=== PATIENT | male | born 1955 | race Caucasian/White ===

== ENCOUNTER → 2017-10-20 10:30 | Outpatient (CLI) | payer BC, SELFPAY ==
[2017-10-20 16:21] LABS: Absolute Lymphocyte Count 1.79 X10^3/ul (0.83-4.51); Absolute Neutrophil Count 2.9 X10^3/uL (2.0-7.7); Basophil# 0.02 X10^3/uL; Basophil% 0.4 % (0-1); Eosinophil# 0.11 X10^3/uL; Eosinophils% 2.1 % (0-5); Hematocrit 46.8 % (40-54); Hemoglobin 14.8 g/dl (13.0-16.5); Lymphocyte # 1.79 X10^3/ul (4.0); Lymphocyte % 33.9 % (19-41); Mean Corp Hgb Conc 31.6 g/gl (32-36); Mean Corpuscular Volume 98.1 fL (80-94); Mean Platelet Vol. 9.9 fl (6.2-12.0); Monocyte# 0.46 X10^3/uL; Monocyte% 8.7 % (0-10); Neutrophil % 54.9 % (47-70); Platelet Count 238 K/mm3 (150-450); RBC Distribution Width CV 12.6 % (11.6-14.6); RBC Distribution Width SD 45.1 fl (35.1-43.9); Red Blood Count 4.77 M/mm3 (4.6-6.2); White Blood Count 5.3 K/mm3 (4.4-11.0)
[2017-10-20 16:31] LABS: ALB/GLOB Ratio 0.9 RATIO (0.9-2.4); AST(SGOT) 19 U/L (15-37); Alanine Aminotransfer ALT/SGPT 35 U/L (16-61); Albumin, Serum 3.7 g/dL (3.2-5.0); Alkaline Phosphatase 74 U/L (45-117); Anion Gap 7 (5-15); BUN 16 mg/dL (7-18); BUN/Creat Ratio 20.2 RATIO (10-20); Calcium,Total 8.7 mg/dL (8.5-10.1); Chloride 105 mmol/L (98-107); Creatinine, Serum 0.79 mg/dL (0.70-1.30); EST Glomerular Filtration Rate 106 mL/min (>60); Est Glom Filt Rate - Afr Amer 128 mL/min (>60); Globulin 3.9 g/dL (2.2-4.2); Glucose 86 mg/dL (74-106); POSITIVE COUNT NO; POSITIVE DIFFERENTIAL NO; POSITIVE MORPHOLOGY NO; Potassium 4.2 mmol/L (3.5-5.1); Protein, Total 7.6 g/dL (6.4-8.2); Sodium Level 142 mmol/L (136-145); Thyroid Stim Hormone (TSH) 0.79 uIU/mL (0.358-3.74)
== END ==
PROVIDERS: Family Provider Family Medicine Geriatric Medicine; PCP Family Medicine Geriatric Medicine; Visit Provider Family Medicine Geriatric Medicine
DX: R53.83 Other fatigue (principal)
CPT/HCPCS: 36415; 80053; 84443; 85025

== ENCOUNTER → 2018-04-07 11:11 | Outpatient (CLI) | payer BC, SELFPAY ==
[2018-04-07 12:37] LABS: Absolute Lymphocyte Count 1.61 X10^3/ul (0.83-4.51); Absolute Neutrophil Count 2.9 X10^3/uL (2.0-7.7); Basophil# 0.02 X10^3/uL; Basophil% 0.4 % (0-1); Eosinophil# 0.19 X10^3/uL; Eosinophils% 3.6 % (0-5); Hematocrit 46.3 % (40-54); Hemoglobin 14.6 g/dl (13.0-16.5); Lymphocyte # 1.61 X10^3/ul (4.0); Lymphocyte % 30.4 % (19-41); Mean Corp Hgb Conc 31.5 g/gl (32-36); Mean Corpuscular Hgb 30.9 pg (27.0-32.0); Mean Corpuscular Volume 97.9 fL (80-94); Mean Platelet Vol. 9.7 fl (6.2-12.0); Monocyte# 0.58 X10^3/uL; Neutrophil # 2.89 X10^3/uL (2.7-7.7); Neutrophil % 54.6 % (47-70); POSITIVE COUNT NO; POSITIVE DIFFERENTIAL NO; POSITIVE MORPHOLOGY NO; Platelet Count 207 K/mm3 (150-450); RBC Distribution Width SD 46.6 fl (35.1-43.9); Red Blood Count 4.73 M/mm3 (4.6-6.2); White Blood Count 5.3 K/mm3 (4.4-11.0)
[2018-04-07 13:02] LABS: ALB/GLOB Ratio 0.9 RATIO (0.9-2.4); AST(SGOT) 17 U/L (15-37); Alanine Aminotransfer ALT/SGPT 32 U/L (16-61); Albumin, Serum 3.6 g/dL (3.2-5.0); Alkaline Phosphatase 70 U/L (45-117); Anion Gap 8 (5-15); BUN 14 mg/dL (7-18); BUN/Creat Ratio 14.5 RATIO (10-20); Calcium,Total 8.7 mg/dL (8.5-10.1); Chloride 105 mmol/L (98-107); Creatinine, Serum 0.96 mg/dL (0.70-1.30); EST Glomerular Filtration Rate 84 mL/min (>60); Est Glom Filt Rate - Afr Amer 102 mL/min (>60); Globulin 3.8 g/dL (2.2-4.2); Glucose 101 mg/dL (74-106); PSA,Total - Annual Screen 1.65 ng/mL (0.00-4.00); Potassium 4.2 mmol/L (3.5-5.1); Protein, Total 7.4 g/dL (6.4-8.2); Sodium Level 140 mmol/L (136-145); Thyroid Stim Hormone (TSH) 3.64 uIU/mL (0.358-3.74)
[2018-04-08 08:33] LABS: Hep C Antibodies 0.1 s/co ratio (0.0-0.9)
== END ==
PROVIDERS: Family Provider Family Medicine Geriatric Medicine; PCP Family Medicine Geriatric Medicine; Visit Provider Family Medicine Geriatric Medicine
DX: I10 Essential (primary) hypertension (principal); Z13.89 Encounter for screening for other disorder; Z12.5 Encounter for screening for malignant neoplasm of prostate
CPT/HCPCS: 36415; 80053; 84153; 84443; 85025; 86803; G0103

== ENCOUNTER → 2018-10-06 10:04 | Outpatient (CLI) | payer BC, SELFPAY ==
[2018-10-06 12:43] LABS: Absolute Lymphocyte Count 1.51 X10^3/ul (0.83-4.51); Basophil# 0.02 X10^3/uL; Basophil% 0.5 % (0-1); Eosinophil# 0.25 X10^3/uL; Eosinophils% 5.8 % (0-5); Hematocrit 44.5 % (40-54); Hemoglobin 14.1 g/dl (13.0-16.5); Lymphocyte # 1.51 X10^3/ul (4.0); Lymphocyte % 35.1 % (19-41); Mean Corp Hgb Conc 31.7 g/gl (32-36); Mean Corpuscular Volume 97.8 fL (80-94); Mean Platelet Vol. 9.9 fl (6.2-12.0); Monocyte# 0.48 X10^3/uL; Monocyte% 11.2 % (0-10); Neutrophil # 2.03 X10^3/uL (2.7-7.7); Neutrophil % 47.2 % (47-70); Platelet Count 205 K/mm3 (150-450); RBC Distribution Width CV 12.8 % (11.6-14.6); RBC Distribution Width SD 45.8 fl (35.1-43.9); Red Blood Count 4.55 M/mm3 (4.6-6.2); White Blood Count 4.3 K/mm3 (4.4-11.0)
[2018-10-06 12:46] LABS: POSITIVE COUNT NO; POSITIVE DIFFERENTIAL NO; POSITIVE MORPHOLOGY NO
[2018-10-06 13:13] LABS: ALB/GLOB Ratio 1.1 RATIO (0.9-2.4); AST(SGOT) 22 U/L (15-37); Alanine Aminotransfer ALT/SGPT 33 U/L (16-61); Albumin, Serum 3.8 g/dL (3.2-5.0); Alkaline Phosphatase 56 U/L (45-117); Anion Gap 7 (5-15); BUN 17 mg/dL (7-18); BUN/Creat Ratio 21.6 RATIO (10-20); Calcium,Total 8.5 mg/dL (8.5-10.1); Chloride 106 mmol/L (98-107); Creatinine, Serum 0.79 mg/dL (0.70-1.30); EST Glomerular Filtration Rate 106 mL/min (>60); Est Glom Filt Rate - Afr Amer 128 mL/min (>60); Globulin 3.4 g/dL (2.2-4.2); Glucose 106 mg/dL (74-106); Potassium 3.9 mmol/L (3.5-5.1); Protein, Total 7.2 g/dL (6.4-8.2); Sodium Level 141 mmol/L (136-145); Thyroid Stim Hormone (TSH) 4.33 uIU/mL (0.358-3.74)
== END ==
PROVIDERS: Family Provider Family Medicine Geriatric Medicine; PCP Family Medicine Geriatric Medicine; Visit Provider Family Medicine Geriatric Medicine
DX: I10 Essential (primary) hypertension (principal)
CPT/HCPCS: 36415; 80053; 84443; 85025

== ENCOUNTER → 2018-10-15 12:59 | Outpatient (CLI) | payer BC, SELFPAY ==
[2018-10-15 13:30] LABS: Absolute Lymphocyte Count 1.28 X10^3/ul (0.83-4.51); Absolute Neutrophil Count 2.7 X10^3/uL (2.0-7.7); Basophil# 0.03 X10^3/uL; Basophil% 0.6 % (0-1); Eosinophils% 2.2 % (0-5); Hematocrit 43.6 % (40-54); Hemoglobin 14.2 g/dl (13.0-16.5); Lymphocyte # 1.28 X10^3/ul (4.0); Lymphocyte % 27.7 % (19-41); Mean Corp Hgb Conc 32.6 g/gl (32-36); Mean Corpuscular Hgb 31.8 pg (27.0-32.0); Mean Corpuscular Volume 97.8 fL (80-94); Mean Platelet Vol. 9.3 fl (6.2-12.0); Monocyte# 0.51 X10^3/uL; Neutrophil # 2.69 X10^3/uL (2.7-7.7); Neutrophil % 58.3 % (47-70); Platelet Count 213 K/mm3 (150-450); RBC Distribution Width CV 12.6 % (11.6-14.6); RBC Distribution Width SD 44.1 fl (35.1-43.9); Red Blood Count 4.46 M/mm3 (4.6-6.2); White Blood Count 4.6 K/mm3 (4.4-11.0)
[2018-10-15 13:31] LABS: POSITIVE COUNT NO; POSITIVE DIFFERENTIAL NO; POSITIVE MORPHOLOGY NO
--- NOTE | 2018-10-15 13:36 | CT_ITS ---
STUDY: CT ABDOMEN AND PELVIS WITH CONTRAST REASON FOR EXAM: Male, 63 years old. Right lower quadrant pain RADIATION DOSAGE (If Supplied By Facility): CTDIvol = ( 15.84 ) mGy, DLP = ( 1149.33 ) mGycm TECHNIQUE: Transaxial images were obtained from the dome of the diaphragm to the symphysis pubis without oral contrast. Isovue 300 100 IV/Oral was administered. Sagittal and coronal images were reconstructed. Individualized dose optimization techniques were used for this CT. COMPARISON: None. FINDINGS: The visualized lung bases are unremarkable. The visualized portions of the heart are within normal limits. Normal liver. Normal gallbladder and extrahepatic biliary system. Normal spleen. Normal pancreas. Normal bilateral adrenal glands. Normal right kidney. Normal left kidney. Normal visualized stomach. Normal small intestine. Normal colon. The appendix is visualized and appears normal. Normal abdominal aorta. Normal inferior vena cava. Normal retroperitoneum. Normal urinary bladder. Normal abdominal wall. There are diffuse degenerative changes of the visualized lumbar spine. CT/Abdomen/Pelvis WITH Contrast IMPRESSION: Normal enhanced CT of the abdomen and pelvis. Electronically Signed: Julio Anderson, at 15:58 EDT Tel , Service support ,
[2018-10-15 13:44] LABS: ALB/GLOB Ratio 1.3 RATIO (0.9-2.4); AST(SGOT) 19 U/L (15-37); Alanine Aminotransfer ALT/SGPT 25 U/L (16-61); Albumin, Serum 3.8 g/dL (3.2-5.0); Alkaline Phosphatase 57 U/L (45-117); Anion Gap 3 (5-15); BUN 13 mg/dL (7-18); BUN/Creat Ratio 16.1 RATIO (10-20); Calcium,Total 8.5 mg/dL (8.5-10.1); Chloride 108 mmol/L (98-107); EST Glomerular Filtration Rate 103 mL/min (>60); Est Glom Filt Rate - Afr Amer 125 mL/min (>60); Glucose 98 mg/dL (74-106); Potassium 3.7 mmol/L (3.5-5.1); Protein, Total 6.8 g/dL (6.4-8.2); Sodium Level 140 mmol/L (136-145)
== END ==
LOC: POLAB3 13:33 → CT 13:34
PROVIDERS: Family Provider Family Medicine Geriatric Medicine; PCP Family Medicine Geriatric Medicine; Referring Provider Family Medicine Geriatric Medicine; Visit Provider Family Medicine Geriatric Medicine
DX: R10.9 Unspecified abdominal pain (principal); K40.90 Unilateral inguinal hernia, without obstruction or gangrene, not specified as recurrent
CPT/HCPCS: 36415; 74177; 80053; 85025; Q9967

== ENCOUNTER 2018-10-26 06:56 | Day surgery (SDC) | payer BC, SELFPAY ==
[2018-10-21 08:03] VITALS: BMI 24.4
--- NOTE | 2018-10-21 09:14 | HP_ITS ---
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 Is patient in pain?: No Allergies Penicillins Allergy (Mild, Verified 10/21/18 08:04) Unknown Medications aspirin 81 mg tablet,delayed release 81 mg PO QDAY 08/11/17 [History Confirmed 10/21/18] atorvastatin 40 mg tablet 40 mg PO QDAY 08/11/17 [History Confirmed 10/21/18] levothyroxine 125 mcg tablet 125 mcg PO QDAY tab 08/11/17 [History Confirmed 10/21/18] lisinopril 10 mg tablet 10 mg PO DAILY 10/21/18 [History Confirmed 10/21/18] ranitidine 150 mg capsule 150 mg PO DAILY 10/21/18 [History Confirmed 10/21/18] [facility] Medical History Acid reflux (Acute) High cholesterol (Acute) Hypothyroid (Acute) HTN (hypertension) (Chronic) Surgical History S/P nasal polypectomy (Acute) Family History Mother Colon cancer Hypertension Social History Smoking Status: Never smoker alcohol intake: never ROS General General: No weight change, appetite, fatigue, colon cancer, breast cancer or weakness HEENT HEENT: No difficulty swallowing, eye injury, eye surgery, swollen glands or hoarseness Endo Endocrine: No thyroid disease, diabetes mellitus, thyroid cancer, Hair loss, heat intolerance or cold intolerance Skin Skin: No rash or changing moles Breast Breast: No left breast lump, right breast lump, nipple discharge, breast pain, abnormal mammogram, abnormal US or breast enlargement Musc Musculoskeletal: No back problems, arthritis, rheumatoid arthritis, gout or joint pain Cardio Cardiovascular: No murmur, pacemaker, heart disease, atrial fibrillation, high blood pressure, heart attack, heart stent, palpitations, shortness of breat with exertion or chest pain Psych Psychiatric: No depression, anxiety or hearing voices Resp Respiratory: No shortness of breath, No sleep apnea, No cough, No COPD, No asthma, No emphysema, No wheezing Gastro Gastrointestinal: No abdominal pain, No nausea or vomiting, No diarrhea, No constipation, No blood in stool, No acid reflux, No hemorrhoids, No ulcers, No gallbladder problem, No black,tarry stools Mukesh Hematologic: No blood thinners, No blood disorders, No bleeding, No anemia, No blood clots Neuro Neurologic: No system reviewed and no additional complaints, except as docu, No as per HPI, No abnormal walking, No abnormal hearing, No abnormal movements, No abnormal speech, No behavioral changes, No burning sensations, No confusion, No seizure-like activity, No unsteadiness, No dizziness, No localized weakness, No frequent falls, No headache(s), No lack of coordination, No loss of vision, No memory loss, No numbness, No other visual disturbances, No radiating pain, No restless legs, No sensory deficit, No fainting, No tingling, No tremor(s), No weakness, No other Exam Const General: cooperative, healthy appearing, comfortable, no acute distress Nutritional Appearance: average body habitus Orientation: alert, awake, oriented x3 HENMT Head: normal to inspection Eyes General: appearance normal, both eyes and all related structures Chest Breast Palpation: No nipple discharge Resp Effort & Inspection: normal respiratory effort Auscultation: clear to auscultation bilaterally Cardio Rate: regular rate Rhythm: regular rhythm Heart Sounds: no murmurs GI Palpation: soft, no hepatosplenomegaly Auscultation: normal bowel sounds Other: Bilateral testicles are descended. Some slight fibrofatty fullness left groin but I cannot detect a distinct hernia Obvious indirect right inguinal hernia noted currently reducible Skin General: no rashes or lesions noted Neuro Cranial Nerves: CN's II-XI intact bilaterally Extrem General: no calf tenderness bilaterally Psych Affect: normal affect Assessment & Plan Problems 1. Family history of colon cancer in mother Z80.0 2. Inguinal hernia of right side without obstruction or gangrene K40.90 Plan 63-year-old gentleman who is 10 years from his previous colonoscopy and he has a family history of colon cancer in his mother. I propose for him a colonoscopy with possible biopsy or polypectomy is indicated. He is aware of the technique, benefit, risks and alternatives. I anticipate monitored anesthesia care. We will proceed as noted. Patient clinically has an obvious right inguinal hernia. There was some fibrofatty fullness of the left groin but I could not determine a distinct hernia. The patient does a significant amount of lifting and straining. I propose for him a laparoscopic right inguinal hernia repair with mesh. He is aware of the technique, benefit, risks and alternatives. He states that his brother had a bilateral hernia repair performed in a similar technique. We will very carefully inspect the left groin for signs of early herniation. The patient and I have agreed to pursue a laparoscopic left inguinal herniorrhaphy at the same setting if a hernia is detected. His clinical exam on the left was not completely normal. The patient has had an opportunity to ask and have questions answered. Very comfortable with our current plan of approach. I very much appreciate the kind opportunity of assisting with his surgical care. CC: Dr. Bernardino Diaz M.D., F.A.C.S. Coding Level of Care Code Off vis,new,level 4 Diagnoses Family history of colon cancer in mother Z80.0 Inguinal hernia of right side without obstruction or gangrene K40.90
[2018-10-26] VITALS (7 sets, daily range): BP systolic 109–135; BP diastolic 64–83; PULSE 69–72; RESP 16; TEMP 36.4–37.1; O2SAT 99–100; BMI 23.7
--- NOTE | 2018-10-26 07:14 | EKG12_ITS ---
Test Reason : PRE OP Blood Pressure : / mmHG Vent. Rate : 072 BPM Atrial Rate : 072 BPM P-R Int : 164 ms QRS Dur : 094 ms QT Int : 382 ms P-R-T Axes : 051 037 059 degrees QTc Int : 418 ms Normal sinus rhythm Normal ECG No previous ECGs available Confirmed by BENNIE DAMON, EDMUNDO ([id number]), photograph editor MARILY BAH ([id number]) on 11/01/2018 1:35:13 PM Referred By: Abhinav Lebron Confirmed By:EDMUNDO AVERY MD
[2018-10-26 07:54] LABS: Thyroid Stim Hormone (TSH) 3.18 uIU/mL (0.358-3.74)
--- NOTE | 2018-10-26 08:24 | OP.ENDO_ITS ---
10/26/2018 Abhinav Lebron MD [address] [place] [address] Re : Colonoscopy procedure for Franco Francis Dear Dr. Lebron This procedure was performed on Friday, October 26, 2018. My impressions and recommendations are as follows: Impressions : - Non-thrombosed internal hemorrhoids and internal hemorrhoids that prolapse with straining, but spontaneously regress to the resting position (Grade II) found on digital rectal exam. - The entire examined colon is normal. - No specimens collected. Recommendations : - Discharge patient to home. - Resume previous diet. - Continue present medications. - Repeat colonoscopy in 5 years for surveillance. My findings are described in the full procedure note, which is enclosed. If I can be of further assistance, please feel free to contact me at Doctor phone number(s): Work: . Sincerely, Leif Diaz MD 10/26/2018 8:23:57 AM This report has been signed electronically.
== END 2018-10-26 09:10 | disposition home or self-care (01) ==
LOC: EN 06:57 → AC 06:57
PROVIDERS: Family Provider Family Medicine Geriatric Medicine; PCP Family Medicine Geriatric Medicine; Referring Provider Family Medicine Geriatric Medicine; Visit Provider Surgery
PROC: 0DJD8ZZ Inspection of Lower Intestinal Tract, Via Natural or Artificial Opening Endoscopic (ICD-10-PCS; CPT 45378; principal; 2018-10-26 07:55)
DX: K64.1 Second degree hemorrhoids (principal); Z80.0 Family history of malignant neoplasm of digestive organs; K40.90 Unilateral inguinal hernia, without obstruction or gangrene, not specified as recurrent; Z79.82 Long term (current) use of aspirin; E78.00 Pure hypercholesterolemia, unspecified; E03.9 Hypothyroidism, unspecified; I10 Essential (primary) hypertension; K21.9 Gastro-esophageal reflux disease without esophagitis
CPT/HCPCS: 45378; 36415; 84443; 93005; J7120

== ENCOUNTER 2018-11-10 08:58 | Day surgery (SDC) | payer BC, SELFPAY ==
[2018-10-21 08:03] VITALS: BMI 24.4
--- NOTE | 2018-10-21 09:14 | HP_ITS ---
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 Is patient in pain?: No Allergies Penicillins Allergy (Mild, Verified 10/21/18 08:04) Unknown Medications aspirin 81 mg tablet,delayed release 81 mg PO QDAY 08/11/17 [History Confirmed 10/21/18] atorvastatin 40 mg tablet 40 mg PO QDAY 08/11/17 [History Confirmed 10/21/18] levothyroxine 125 mcg tablet 125 mcg PO QDAY tab 08/11/17 [History Confirmed 10/21/18] lisinopril 10 mg tablet 10 mg PO DAILY 10/21/18 [History Confirmed 10/21/18] ranitidine 150 mg capsule 150 mg PO DAILY 10/21/18 [History Confirmed 10/21/18] [facility] Medical History Acid reflux (Acute) High cholesterol (Acute) Hypothyroid (Acute) HTN (hypertension) (Chronic) Surgical History S/P nasal polypectomy (Acute) Family History Mother Colon cancer Hypertension Social History Smoking Status: Never smoker alcohol intake: never ROS General General: No weight change, appetite, fatigue, colon cancer, breast cancer or weakness HEENT HEENT: No difficulty swallowing, eye injury, eye surgery, swollen glands or hoarseness Endo Endocrine: No thyroid disease, diabetes mellitus, thyroid cancer, Hair loss, heat intolerance or cold intolerance Skin Skin: No rash or changing moles Breast Breast: No left breast lump, right breast lump, nipple discharge, breast pain, abnormal mammogram, abnormal US or breast enlargement Musc Musculoskeletal: No back problems, arthritis, rheumatoid arthritis, gout or joint pain Cardio Cardiovascular: No murmur, pacemaker, heart disease, atrial fibrillation, high blood pressure, heart attack, heart stent, palpitations, shortness of breat with exertion or chest pain Psych Psychiatric: No depression, anxiety or hearing voices Resp Respiratory: No shortness of breath, No sleep apnea, No cough, No COPD, No asthma, No emphysema, No wheezing Gastro Gastrointestinal: No abdominal pain, No nausea or vomiting, No diarrhea, No constipation, No blood in stool, No acid reflux, No hemorrhoids, No ulcers, No gallbladder problem, No black,tarry stools Mukesh Hematologic: No blood thinners, No blood disorders, No bleeding, No anemia, No blood clots Neuro Neurologic: No system reviewed and no additional complaints, except as docu, No as per HPI, No abnormal walking, No abnormal hearing, No abnormal movements, No abnormal speech, No behavioral changes, No burning sensations, No confusion, No seizure-like activity, No unsteadiness, No dizziness, No localized weakness, No frequent falls, No headache(s), No lack of coordination, No loss of vision, No memory loss, No numbness, No other visual disturbances, No radiating pain, No restless legs, No sensory deficit, No fainting, No tingling, No tremor(s), No weakness, No other Exam Const General: cooperative, healthy appearing, comfortable, no acute distress Nutritional Appearance: average body habitus Orientation: alert, awake, oriented x3 HENMT Head: normal to inspection Eyes General: appearance normal, both eyes and all related structures Chest Breast Palpation: No nipple discharge Resp Effort & Inspection: normal respiratory effort Auscultation: clear to auscultation bilaterally Cardio Rate: regular rate Rhythm: regular rhythm Heart Sounds: no murmurs GI Palpation: soft, no hepatosplenomegaly Auscultation: normal bowel sounds Other: Bilateral testicles are descended. Some slight fibrofatty fullness left groin but I cannot detect a distinct hernia Obvious indirect right inguinal hernia noted currently reducible Skin General: no rashes or lesions noted Neuro Cranial Nerves: CN's II-XI intact bilaterally Extrem General: no calf tenderness bilaterally Psych Affect: normal affect Assessment & Plan Problems 1. Family history of colon cancer in mother Z80.0 2. Inguinal hernia of right side without obstruction or gangrene K40.90 Plan 63-year-old gentleman who is 10 years from his previous colonoscopy and he has a family history of colon cancer in his mother. I propose for him a colonoscopy with possible biopsy or polypectomy is indicated. He is aware of the technique, benefit, risks and alternatives. I anticipate monitored anesthesia care. We will proceed as noted. Patient clinically has an obvious right inguinal hernia. There was some fibrofatty fullness of the left groin but I could not determine a distinct hernia. The patient does a significant amount of lifting and straining. I propose for him a laparoscopic right inguinal hernia repair with mesh. He is aware of the technique, benefit, risks and alternatives. He states that his brother had a bilateral hernia repair performed in a similar technique. We will very carefully inspect the left groin for signs of early herniation. The patient and I have agreed to pursue a laparoscopic left inguinal herniorrhaphy at the same setting if a hernia is detected. His clinical exam on the left was not completely normal. The patient has had an opportunity to ask and have questions answered. Very comfortable with our current plan of approach. I very much appreciate the kind opportunity of assisting with his surgical care. CC: Dr. Bernardino Diaz M.D., F.A.C.S. Coding Level of Care Code Off vis,new,level 4 Diagnoses Family history of colon cancer in mother Z80.0 Inguinal hernia of right side without obstruction or gangrene K40.90
[2018-10-26 07:22] VITALS: BMI 23.7
[2018-11-10 09:00] VITALS: BP 136/86; PULSE 78; RESP 16; TEMP 37.1; O2SAT 100; BMI 23.7
--- NOTE | 2018-11-10 12:54 | PCM.DC.GS ---
Discharge Diet: Light diet - advance as tolerated - if you have questions about your diet instructions, please talk to you doctor. Discharge Activity: May Not Drive - for 3-5 days or while taking narcotic pain medicine. May shower in (days): 1 Lifting Restrictions: 10 pounds Call your doctor if your incision/area has: Continuous Slow Oozing, Sudden Increased Bleeding, Increased Pain/ Swelling, Increased Redness, Foul Smelling Discharge Call your doctor if you observe: Fever of 101 or Higher Suture Line Care: Avoid Pulling/Pushing, Avoid Pinching/Bending Additional Dressing/Incision Instructions:: Change or remove dressing in 4 days. Leave steri-strips in place for 1 week. Allergies/Adverse Reactions: Allergies Penicillins Allergy (Mild, Verified 10/25/18 15:23) Unknown Medications to take at Discharge aspirin 81 mg tablet,delayed release 81 mg PO QDAY 08/11/17 atorvastatin 40 mg tablet 40 mg PO QDAY 08/11/17 levothyroxine 125 mcg tablet 125 mcg PO QDAY tab 08/11/17 lisinopril 10 mg tablet 5 mg PO DAILY 10/21/18 ranitidine 150 mg capsule 150 mg PO DAILY 10/21/18 Cholecalciferol (VIT D3) [Vitamin D3] 1,000 unit PO DAILY 10/25/18 Multivit-Min/FA/Lycopen/Lutein [Centrum Silver Men Tablet] 1 each PO DAILY 10/25/18 Hydrocodone Bitart/Apap 5-325 [Collbran 5MG-325MG] 1 tablet PO Q4H PRN PRN 3 Days #10 tablet 11/10/18 The following prescriptions were given: Hydrocodone Bitart/Apap 5-325 [Collbran 5MG-325MG] 1 tablet PO Q4H PRN PRN 3 Days #10 tablet PRN Reason: Pain Orders to be completed after discharge: Thyroid Stim Hormone (TSH) Time Frame: 10/25/18, Location: Laboratory Primary Care Physician: Abhinav Lebron Chi, MD [Primary Care Provider] - Test Results: Test results from this visit will be discussed in further detail at your follow-up appointment, if applicable. Please Follow Up With: Leif Diaz MD - [phone] When: Call to make an appointment to be seen in about 10 days.
[2018-11-10] MEDS: Bupivacaine Mpf 0.5% 30 ML VIAL (14:29)
--- NOTE | 2018-11-10 14:31 | PCM.OPRPT ---
Problem List (1) Inguinal hernia of right side without obstruction or gangrene Status: Acute Report of Operation Date of Procedure: 11/10/18 Pre-Operative Diagnosis: Indirect right inguinal hernia Post-Operative Diagnosis: Indirect bilateral inguinal hernias Surgery/Procedure Performed:: Laparoscopic bilateral inguinal herniorrhaphy Description of Surgical Findings:: Timeout and informed consent was obtained. 63-year-old gent was taken the operative placement table underwent general endotracheal intubation anesthesia. Clindamycin 900 mg were given intravenously preoperatively. The abdomen was sterilely prepped draped. 0.5% Marcaine was used as a local anesthetic. Throughout the procedure total 30 cc was used. Skin sites were pre-anesthetized. A vertical infraumbilical incision was created holding sutures of 0 Vicryl placed previously was inserted saline drop test performed the abdomen was insufflated with CO2 to a pressure of 10 mmHg pressure. To me trocar inserted. Similar scope inserted. Under direct position 5-minute ports were placed in the right and left lower quadrant. Ileal inguinal nerve blocks performed under laparoscopic visualization. Bilateral indirect inguinal hernias were identified. The right groin was addressed first. The peritoneum superior and lateral to the internal ring was incised carried medially the peritoneum was then completely dissected free. This was rather tedious as the peritoneum was quite adherent. Blunt dissection hemo-lock clips and sharp dissection were required to completely free the peritoneum from its adherence to the cord structures. The hernia was completely reduced. The direct and indirect and femoral areas completely dissected free. A Bard 3 DMax lightweight mesh lot number [id number] with a expiry date of 05/23/2023 was selected for the right side. He was placed in position and then secured laterally superiorly and medially with secure strap. Lot number [id number] with an expiry date of 06/15/2020. Then I address the left groin in a similar fashion incising the peritoneum dissecting free reducing the indirect hernia identifying the direct indirect and femoral areas. I selected a 3D max left light weight mesh lot number [id number]. That also was nicely placed into position. It just met the mesh from the right side. It was secured laterally superiorly medially with secure strap. Excellent coverage of both defect areas was achieved. The peritoneum was approximated to itself bilaterally with secure strap and additionally on the left with a hemo-lock clip. Complete obliteration of the mesh was achieved. Trochars were removed under visualization. The abdomen was allowed to deflate of the CO2. The fascia at the umbilicus approximated interrupted 0 Vicryl [id number] suture. Skin edges approximated interrupted 4 Monocryl subdermal stitches. Steri-Strips Telfa and OpSite dressings applied. Sponge and instrument and needle counts were reported the surgeon be correct. Blood loss was minimal. Patient tolerated procedure well was taken to the recovery area in satisfactory condition without apparent complication. Specimens none. Drains none. Blood loss minimal. Leif Diaz M.D., F.A.C.S. Type of Anesthesia:: General Anesthesiologist: Jhonny Quezada
--- NOTE | 2018-11-10 14:35 | OP.PCM_ITS ---
Problem List (1) Inguinal hernia of right side without obstruction or gangrene Status: Acute Report of Operation Date of Procedure: 11/10/18 Pre-Operative Diagnosis: Indirect right inguinal hernia Post-Operative Diagnosis: Indirect bilateral inguinal hernias Surgery/Procedure Performed:: Laparoscopic bilateral inguinal herniorrhaphy Description of Surgical Findings:: Timeout and informed consent was obtained. 63-year-old gent was taken the operative placement table underwent general endotracheal intubation anesthesia. Clindamycin 900 mg were given intravenously preoperatively. The abdomen was sterilely prepped draped. 0.5% Marcaine was used as a local anesthetic. Throughout the procedure total 30 cc was used. Skin sites were pre- anesthetized. A vertical infraumbilical incision was created holding sutures of 0 Vicryl placed previously was inserted saline drop test performed the abdomen was insufflated with CO2 to a pressure of 10 mmHg pressure. To me trocar inserted. Similar scope inserted. Under direct position 5-minute ports were placed in the right and left lower quadrant. Ileal inguinal nerve blocks performed under laparoscopic visualization. Bilateral indirect inguinal hernias were identified. The right groin was addressed first. The peritoneum superior and lateral to the internal ring was incised carried medially the peritoneum was then completely dissected free. This was rather tedious as the peritoneum was quite adherent. Blunt dissection hemo-lock clips and sharp dissection were required to completely free the peritoneum from its adherence to the cord structures. The hernia was completely reduced. The direct and indirect and femoral areas completely dissected free. A Bard 3 DMax lightweight mesh lot number [id number] with a expiry date of 05/23/2023 was selected for the right side. He was placed in position and then secured laterally superiorly and medially with secure strap. Lot number [id number] with an expiry date of 06/15/2020. Then I address the left groin in a similar fashion incising the peritoneum dissecting free reducing the indirect hernia identifying the direct indirect and femoral areas. I selected a 3D max left light weight mesh lot number [id number]. That also was nicely placed into position. It just met the mesh from the right side. It was secured laterally superiorly medially with secure strap. Excellent coverage of both defect areas was achieved. The peritoneum was approximated to itself bilaterally with secure strap and additionally on the left with a hemo-lock clip. Complete obliteration of the me sh was achieved. Trochars were removed under visualization. The abdomen was allowed to deflate of the CO2. The fascia at the umbilicus approximated interrupted 0 Vicryl [id number] suture. Skin edges approximated interrupted 4 Monocryl subdermal stitches. Steri-Strips Telfa and OpSite dressings applied. Sponge and instrument and needle counts were reported the surgeon be correct. Blood loss was minimal. Patient tolerated procedure well was taken to the recovery area in satisfactory condition without apparent complication. Specimens none. Drains none. Blood loss minimal. Leif Diaz M.D., F.A.C.S. Type of Anesthesia:: General Anesthesiologist: Jhonny Quezada
[2018-11-10 14:55] VITALS: BP 123/79; BP 136/86; PULSE 61; RESP 14; TEMP 37.1; O2SAT 97
[2018-11-10 15:00] VITALS: BP 118/77; BP 136/86; PULSE 63; RESP 14; O2SAT 96
[2018-11-10 15:15] VITALS: BP 107/72; BP 136/86; PULSE 64; RESP 16; O2SAT 98
[2018-11-10 15:31] VITALS: BP 112/70; BP 136/86; PULSE 72; RESP 16; TEMP 36.9; O2SAT 98
[2018-11-10 16:22] VITALS: BP 132/69; BP 136/86; PULSE 79; RESP 18; TEMP 37; O2SAT 99
== END 2018-11-10 16:47 | disposition home or self-care (01) ==
LOC: SDC 08:59 → AC 09:01
PROVIDERS: Family Provider Family Medicine Geriatric Medicine; PCP Family Medicine Geriatric Medicine; Referring Provider Surgery; Visit Provider Surgery
PROC: (CPT 49650; principal; 2018-11-10 10:40)
DX: K40.20 Bilateral inguinal hernia, without obstruction or gangrene, not specified as recurrent (principal); I10 Essential (primary) hypertension; E03.9 Hypothyroidism, unspecified; E78.00 Pure hypercholesterolemia, unspecified; Z79.82 Long term (current) use of aspirin; Z80.0 Family history of malignant neoplasm of digestive organs
CPT/HCPCS: 00840; 49650; J7120; J2405

== ENCOUNTER → 2018-11-26 10:18 | Outpatient (CLI) | payer BC, SELFPAY ==
[2018-10-26 07:22] VITALS: BMI 23.7
[2018-11-10 09:00] VITALS: BMI 23.7
== END ==
PROVIDERS: Family Provider Family Medicine Geriatric Medicine; PCP Family Medicine Geriatric Medicine; Visit Provider Family Medicine Geriatric Medicine
DX: E03.9 Hypothyroidism, unspecified (principal)
CPT/HCPCS: 36415; 84443

== ENCOUNTER → 2019-04-11 09:03 | Outpatient (CLI) | payer BC, SELFPAY ==
[2019-04-11 12:30] LABS: Absolute Neutrophil Count 2.5 X10^3/uL (2.0-7.7); Basophil# 0.02 X10^3/uL; Basophil% 0.4 % (0-1); Eosinophil# 0.15 X10^3/uL; Eosinophils% 3.3 % (0-5); Hematocrit 44.6 % (40-54); Hemoglobin 14.5 g/dL (13.0-16.5); Lymphocyte % 32.7 % (19-41); Mean Corp Hgb Conc 32.5 g/dL (32-36); Mean Corpuscular Hgb 31.6 pg (27.0-32.0); Mean Corpuscular Volume 97.2 fL (80-94); Mean Platelet Vol. 9.6 fl (6.2-12.0); Monocyte# 0.45 X10^3/uL; Monocyte% 9.8 % (0-10); NRBC Flagged by Analyzer 0 % (0-5); Neutrophil # 2.46 X10^3/uL (2.7-7.7); Neutrophil % 53.6 % (47-70); Platelet Count 213 K/mm3 (150-450); RBC Distribution Width CV 12.2 % (11.6-14.6); RBC Distribution Width SD 43.8 fl (35.1-43.9); Red Blood Count 4.59 M/mm3 (4.6-6.2); White Blood Count 4.6 K/mm3 (4.4-11.0)
[2019-04-11 12:48] LABS: Vitamin D,25 Hydroxy 58.2 ng/mL (29.95-100.01)
[2019-04-11 13:05] LABS: AST(SGOT) 17 U/L (15-37); Alanine Aminotransfer ALT/SGPT 28 U/L (16-61); Albumin, Serum 3.5 g/dL (3.2-5.0); Alkaline Phosphatase 75 U/L (45-117); Anion Gap 8 (5-15); BUN 14 mg/dL (7-18); BUN/Creat Ratio 17.3 RATIO (10-20); Calcium,Total 8.7 mg/dL (8.5-10.1); Chloride 107 mmol/L (98-107); Creatinine, Serum 0.81 mg/dL (0.70-1.30); EST Glomerular Filtration Rate 102 mL/min (>60); Est Glom Filt Rate - Afr Amer 124 mL/min (>60); Globulin 3.4 g/dL (2.2-4.2); Glucose 99 mg/dL (74-106); PSA,Total - Annual Screen 1.61 ng/mL (0.00-4.00); Potassium 4.5 mmol/L (3.5-5.1); Protein, Total 6.9 g/dL (6.4-8.2); Sodium Level 142 mmol/L (136-145)
== END ==
PROVIDERS: Family Provider Family Medicine Geriatric Medicine; PCP Family Medicine Geriatric Medicine; Visit Provider Family Medicine Geriatric Medicine
DX: E55.9 Vitamin D deficiency, unspecified (principal); I10 Essential (primary) hypertension; Z12.5 Encounter for screening for malignant neoplasm of prostate
CPT/HCPCS: 36415; 80053; 82306; 84153; 84443; 85025; G0103

== ENCOUNTER → 2019-10-12 09:41 | Outpatient (CLI) | payer BC, SELFPAY ==
[2019-10-12 12:15] LABS: Absolute Lymphocyte Count 1.47 X10^3/uL (0.83-4.51); Absolute Neutrophil Count 2.5 X10^3/uL (2.0-7.7); Basophil# 0.03 X10^3/uL; Basophil% 0.6 % (0-1); Eosinophil# 0.19 X10^3/uL; Eosinophils% 4.1 % (0-5); Hematocrit 46.8 % (40-54); Hemoglobin 15.2 g/dL (13.0-16.5); Lymphocyte # 1.47 X10^3/ul (4.0); Lymphocyte % 31.3 % (19-41); Mean Corp Hgb Conc 32.5 g/dL (32-36); Mean Corpuscular Hgb 31.7 pg (27.0-32.0); Mean Corpuscular Volume 97.7 fL (80-94); Mean Platelet Vol. 9.7 fl (6.2-12.0); Monocyte# 0.45 X10^3/uL; Monocyte% 9.6 % (0-10); NRBC Flagged by Analyzer 0 % (0-5); Neutrophil # 2.53 X10^3/uL (2.7-7.7); Platelet Count 221 K/mm3 (150-450); RBC Distribution Width CV 12.6 % (11.6-14.6); RBC Distribution Width SD 45.3 fl (35.1-43.9); Red Blood Count 4.79 M/mm3 (4.6-6.2); White Blood Count 4.7 K/mm3 (4.4-11.0)
[2019-10-12 12:41] LABS: Albumin, Serum 3.7 g/dL (3.2-5.0); BUN 12 mg/dL (7-18); BUN/Creat Ratio 15.2 RATIO (10-20); Creatinine, Serum 0.79 mg/dL (0.70-1.30); EST Glomerular Filtration Rate 106 mL/min (>60); Est Glom Filt Rate - Afr Amer 128 mL/min (>60); Globulin 3.6 g/dL (2.2-4.2); Glucose 105 mg/dL (74-106); Protein, Total 7.3 g/dL (6.4-8.2)
[2019-10-12 12:42] LABS: AST(SGOT) 18 U/L (15-37); Alanine Aminotransfer ALT/SGPT 38 U/L (16-61); Alkaline Phosphatase 66 U/L (45-117); Anion Gap 4 (5-15); Calcium,Total 8.6 mg/dL (8.5-10.1); Chloride 106 mmol/L (98-107); Potassium 4.4 mmol/L (3.5-5.1); Sodium Level 140 mmol/L (136-145); Thyroid Stim Hormone (TSH) 2.18 uIU/mL (0.358-3.74)
== END ==
PROVIDERS: PCP Family Medicine Geriatric Medicine; Visit Provider Family Medicine Geriatric Medicine
DX: I10 Essential (primary) hypertension (principal)
CPT/HCPCS: 36415; 80053; 84443; 85025

== ENCOUNTER → 2020-04-18 12:08 | Outpatient (CLI) | payer BC, SELFPAY ==
[2020-04-18 12:45] LABS: Absolute Lymphocyte Count 1.73 X10^3/uL (0.83-4.51); Absolute Neutrophil Count 2.2 X10^3/uL (2.0-7.7); Basophil# 0.04 X10^3/uL; Basophil% 0.8 % (0-1); Eosinophil# 0.21 X10^3/uL; Eosinophils% 4.4 % (0-5); Hematocrit 47.1 % (40-54); Hemoglobin 15.1 g/dL (13.0-16.5); Lymphocyte # 1.73 X10^3/ul (4.0); Lymphocyte % 36.6 % (19-41); Mean Corp Hgb Conc 32.1 g/dL (32-36); Mean Corpuscular Hgb 31.5 pg (27.0-32.0); Mean Corpuscular Volume 98.1 fL (80-94); Mean Platelet Vol. 9.7 fl (6.2-12.0); Monocyte# 0.53 X10^3/uL; Monocyte% 11.2 % (0-10); NRBC Flagged by Analyzer 0 % (0-5); Neutrophil # 2.22 X10^3/uL (2.7-7.7); Platelet Count 257 K/mm3 (150-450); RBC Distribution Width CV 12.9 % (11.6-14.6); RBC Distribution Width SD 46.4 fl (35.1-43.9); White Blood Count 4.7 K/mm3 (4.4-11.0)
[2020-04-18 13:18] LABS: ALB/GLOB Ratio 1.1 RATIO (0.9-2.4); AST(SGOT) 22 U/L (15-37); Alanine Aminotransfer ALT/SGPT 33 U/L (16-61); Albumin, Serum 3.7 g/dL (3.2-5.0); Alkaline Phosphatase 70 U/L (45-117); Anion Gap 3 (5-15); BUN 13 mg/dL (7-18); BUN/Creat Ratio 16.4 RATIO (10-20); Calcium,Total 8.9 mg/dL (8.5-10.1); Chloride 108 mmol/L (98-107); EST Glomerular Filtration Rate 104 mL/min (>60); Est Glom Filt Rate - Afr Amer 126 mL/min (>60); Globulin 3.5 g/dL (2.2-4.2); Glucose 102 mg/dL (74-106); PSA,Total - Annual Screen 2.01 ng/mL (0.00-4.00); Potassium 4.3 mmol/L (3.5-5.1); Protein, Total 7.2 g/dL (6.4-8.2); Sodium Level 140 mmol/L (136-145)
== END ==
PROVIDERS: PCP Family Medicine Geriatric Medicine; Visit Provider Family Medicine Geriatric Medicine
DX: I10 Essential (primary) hypertension (principal); Z12.5 Encounter for screening for malignant neoplasm of prostate
CPT/HCPCS: 36415; 80053; 84153; 84443; 85025; G0103

== ENCOUNTER → 2020-05-16 15:49 | Outpatient (CLI) | payer BC, SELFPAY ==
--- NOTE | 2020-05-16 14:40 | LES_PTH ---
PATIENT: RAMA HOLLIDAY LOC: [facility] U#:[id number] AGE/SX: 69/M ROOM: RE05/16/[address]: Dr. Leif Diaz MD : [id number] BED: DIS: SPEC #: [id number] RECD: 05/16/20 15:41 STATUS: OLIVIA REАлександр #: [id number] RANDY: 05/16/20 14:[address]: Leif Diaz DEPT: SURGICAL PATHOLOGY RECD BY: Ursula Adame ENTERED: 05/17/20 07:16 SP TYPE: Lesion OTHR DR: Dr. Abhinav Lebron MD Tissues: Skin of face, NOS Procedures: Surgery Specimen Level IV HEADER OPERATION: Excision right cheek lesion PRE-OP DIAGNOSIS: Right cheek lesion TISSUE SUBMITTED: Right cheek lesion MICROSCOPIC DIAGNOSIS Right cheek lesion, excision: Epidermal inclusion cyst. EDWIN:bruno 05/18/20 MICROSCOPIC DESCRIPTION Slides are reviewed. GROSS DESCRIPTION Received in fixative is one container labeled with the patient's name and designated right cheek. The specimen consists of a piece of soft tissue with a piece of skin at one edge. The soft tissue measures 1.7 x 1 x 0.3 cm. The piece of skin measures 1 x 0.2 cm. A portion of ruptured cyst is noted measuring 1.5 cm in greatest dimension. The entire specimen is submitted in one cassette. / SJ:bruno 05/17/20 TC:5 [facility]: [id number]
== END ==
PROVIDERS: PCP Family Medicine Geriatric Medicine; Referring Provider Surgery; Visit Provider Surgery
DX: L72.0 Epidermal cyst (principal)
CPT/HCPCS: 88305

== ENCOUNTER → 2020-07-30 11:18 | Outpatient (CLI) | payer BC, SELFPAY ==
--- NOTE | 2020-07-30 11:21 | RAD_ITS ---
STUDY: X-RAY - PELVIS REASON FOR EXAM: Male, 64 years old. LBP radiates into left leg x1 month s/p a and quot;stumble and quot; TECHNIQUE: One view of the pelvis was obtained. COMPARISON: None. FINDINGS: There is a non-specific bowel gas pattern. Normal visualized soft tissue structures. Normal bilateral iliac wings, sacroiliac joints and visualized sacrum. Normal visualized bilateral superior and inferior pubic rami. Normal pubic symphysis. Normal ischial tuberosities. Normal visualized right femoral head. Normal right acetabulum. Normal right hip joint. Normal visualized left femoral head. Normal left acetabulum. Normal left hip joint. RAD/Pelvis 1 or 2 Views IMPRESSION: Normal x-ray examination of the pelvis. Electronically Signed: Ruben Moreno MD at 8:15 EST Tel , Service support ,
--- NOTE | 2020-07-30 11:30 | RAD_ITS ---
STUDY: X-RAY - LUMBAR SPINE REASON FOR EXAM: Male, 64 years old. LBP radiates into left leg x1 month s/p a and quot;stumble and quot; TECHNIQUE: 3 view(s) of the lumbar spine were obtained. COMPARISON: 05/11/2017 FINDINGS: Normal lumbar lordosis. Mild dextroscoliosis. There is a normal alignment of the vertebrae. There is multilevel endplate spondylosis of the lumbar vertebrae. There is multi-level degenerative disc disease with multi-level disc space narrowing. Sacralization of the L5 vertebra. The soft tissue structures are unremarkable. RAD/Lumbar Spine 2 or 3 Views IMPRESSION: Mild dextroscoliosis with mild degenerative disc disease. Electronically Signed: Ruben Moreno MD at 8:14 EST Tel , Service support ,
== END ==
PROVIDERS: PCP Family Medicine Geriatric Medicine; Referring Provider Anesthesiology Pain Medicine; Visit Provider Anesthesiology Pain Medicine
DX: M54.9 Dorsalgia, unspecified (principal); Z91.81 History of falling
CPT/HCPCS: 72100; 72170

== ENCOUNTER → 2020-10-18 11:44 | Outpatient (CLI) | payer BC, SELFPAY ==
[2020-10-18 12:20] LABS: Absolute Lymphocyte Count 1.38 X10^3/uL (0.83-4.51); Absolute Neutrophil Count 3.2 X10^3/uL (2.0-7.7); Basophil# 0.03 X10^3/uL; Basophil% 0.6 % (0-1); Eosinophil# 0.18 X10^3/uL; Eosinophils% 3.3 % (0-5); Hematocrit 44.3 % (40-54); Lymphocyte # 1.38 X10^3/ul (4.0); Lymphocyte % 25.4 % (19-41); Mean Corp Hgb Conc 31.6 g/dL (32-36); Mean Corpuscular Hgb 31.3 pg (27.0-32.0); Mean Corpuscular Volume 99.1 fL (80-94); Mean Platelet Vol. 9.5 fl (6.2-12.0); Monocyte# 0.62 X10^3/uL; Monocyte% 11.4 % (0-10); NRBC Flagged by Analyzer 0 % (0-5); Neutrophil # 3.21 X10^3/uL (2.7-7.7); Neutrophil % 58.9 % (47-70); Platelet Count 245 K/mm3 (150-450); RBC Distribution Width CV 12.7 % (11.6-14.6); RBC Distribution Width SD 46.7 fl (35.1-43.9); Red Blood Count 4.47 M/mm3 (4.6-6.2); White Blood Count 5.4 K/mm3 (4.4-11.0)
[2020-10-18 12:46] LABS: ALB/GLOB Ratio 0.9 RATIO (0.9-2.4); AST(SGOT) 16 U/L (15-37); Alanine Aminotransfer ALT/SGPT 31 U/L (16-61); Albumin, Serum 3.4 g/dL (3.2-5.0); Alkaline Phosphatase 74 U/L (45-117); Anion Gap 4 (5-15); BUN 16 mg/dL (7-18); BUN/Creat Ratio 21.2 RATIO (10-20); Calcium,Total 8.6 mg/dL (8.5-10.1); Chloride 107 mmol/L (98-107); Creatinine, Serum 0.76 mg/dL (0.70-1.30); EST Glomerular Filtration Rate 111 mL/min (>60); Est Glom Filt Rate - Afr Amer 134 mL/min (>60); Globulin 3.6 g/dL (2.2-4.2); Glucose 95 mg/dL (74-106); Potassium 4.1 mmol/L (3.5-5.1); Sodium Level 139 mmol/L (136-145); Thyroid Stim Hormone (TSH) 0.72 uIU/mL (0.358-3.74)
== END ==
PROVIDERS: PCP Family Medicine Geriatric Medicine; Visit Provider Family Medicine Geriatric Medicine
DX: I10 Essential (primary) hypertension (principal)
CPT/HCPCS: 36415; 80053; 84443; 85025

== ENCOUNTER 2021-01-30 16:45 | Emergency (ER) | payer BC, SELFPAY ==
[2021-01-30 16:45] VITALS: BP 144/76; PULSE 62; RESP 17; TEMP 36.8; O2SAT 96; BMI 23.2
--- NOTE | 2021-01-30 17:28 | CT_ITS ---
EXAMINATION : Head CT w/out contrast HISTORY : vertigo COMPARISON : None. TECHNIQUE : Multiple contiguous axial images were obtained from the skull base to the vertex without intravenous contrast. A radiation dose optimization technique was used for this scan. FINDINGS : The ventricles and sulci are normal in size. There is no evidence for acute intracranial hemorrhage, mass effect, or midline shift. There is no extra-axial fluid collection. There is normal mayers-white differentiation, without CT evidence of acute ischemia or infarct. The skull base and calvarium are unremarkable. The orbits are unremarkable. Severe mucosal thickening of the ethmoid air cells, maxillary sinuses and sphenoid sinuses. The mastoid air cells are well-aerated. The soft tissues are unremarkable. CT/Brain/Head without Contrast IMPRESSION: No acute intracranial abnormality. Severe ethmoid, maxillary and sphenoid sinusitis. Electronically Signed: Tutu Lovelace MD at 18:13 EDT Tel , Service support ,
[2021-01-30] MEDS: Meclizine HCl 25 MG Tablet PO (17:49)
[2021-01-30] MEDS: Metoclopramide 10 MG Tablet PO (18:04)
--- NOTE | 2021-01-30 18:57 | EDS_ITS ---
HPI History of Present Illness Chief Complaint: Dizziness Informant: patient Onset/Context/Timing Onset: Today Context: - (upon getting out of bed this AM) Timing: Intermittent Quality: dysequilibrium and sensation of movement Current Severity: Mild Maximum Severity: Severe Worsened by: turning head/changing positions Relieved by: lying still and remaining still w/r/t head Associated Symptoms Associated Symptoms: nausea/couple dry heaves Narrative Narrative: Patient states he woke up to go to the bathroom several times overnight, he felt a little vertiginous each time, but more so when he woke up at his normal hour this morning to get up. Upon doing so he had significant disequilibrium. Whenever he would sit/lie down and rest he would feel better, then triggered his symptoms again when he would get up and move his head around. When asked if he has headache, he states not really, but he indicates occasionally has a little discomfort in his mid lower forehead, and he states he has had some allergy symptoms lately with some congestion and a little bit of runny nose but does not feel like he had a cold. No history of Covid. Denies any ear symptoms as far as pain, tinnitus, decreased hearing. He was at urgent care prior to coming here, they dug some wax out of his right ear they cause a little discomfort that he did not have before that. Then they sent him here. Patient takes baby aspirin no anticoagulants, no history of stroke. Denies any vision symptoms or diplopia. No other peripheral neurologic symptoms. [facility] Medical History (Updated 01/30/21 @ 19:[address] Alton Brown MD) Acid reflux Family history of colon cancer in mother High cholesterol HTN (hypertension) Hypothyroid Inguinal hernia of right side without obstruction or gangrene Sebaceous cyst Home Medications aspirin 81 mg tablet,delayed release 81 mg PO QDAY 08/11/17 [History Last Taken 11/10/18 0745] atorvastatin 40 mg tablet 40 mg PO QDAY 08/11/17 [History Last Taken Unknown] flycuimv-pmt-OP-lycopen-lutein 1 ea PO DAILY 10/25/18 [History Last Taken Unk nown] amlodipine 5 mg tablet 5 mg PO DAILY 05/03/20 [History Last Taken Unknown] famotidine 40 mg tablet 40 mg PO DAILY 05/03/20 [History Last Taken Unknown] azithromycin 250 mg PO DAILY #6 tablet 01/30/21 [Rx Last Taken Unknown] levothyroxine 137 mcg PO DAILY 01/30/21 [History Last Taken Unknown] meclizine 25 mg PO Q8H PRN PRN #20 tab 01/30/21 [Rx Last Taken Unknown] Allergy/AdvReac Type Severity Reaction Status Date / Time Penicillins Allergy Mild Unknown Verified 01/30/21 16:47 Family History (Updated 05/03/20 @ 08:35 by Holley Gaona) Mother Colon cancer Hypertension Father Cancer Prostate/bone cancer Surgical History Hx of bilateral inguinal hernia repair S/P nasal polypectomy Social History Smoking Status: Never smoker alcohol intake: never ROS ROS ED Constitutional Constitutional ED: Denies chills or fever(s) Eyes Eyes: Denies change in vision or diplopia ENT ENT ED: Reports as per HPI, nasal congestion and rhinorrhea; Denies sore throat Cardiovascular Cardiovascular: Denies chest pain or palpitations Respiratory/Chest Respiratory/Chest: Denies cough or dyspnea Gastrointestinal Gastrointestinal: Reports nausea and vomiting; Denies abdominal pain or diarrhea Genitourinary Genitourinary ED: Denies dysuria or hematuria Musculoskeletal Musculoskeletal: Denies back pain or neck pain Integumentary Denies abscess or rash Neurologic Neurologic: Reports as per HPI and vertigo; Denies headache(s), paresthesias or weakness Psychiatric Psychiatric: Denies anxiety or suicidal thoughts EXAM Physical Exam Const Vital Signs: 01/30/21 16:45 01/30/21 17:04 Temperature 98.3 F Temperature Source Temporal Pulse Rate 62 Respiratory Rate 17 Respiratory Effort Normal Respiratory Pattern Normal Blood Pressure 144/76 H Blood Pressure Mean 98 Pulse Ox 96 Oxygen Delivery Method Room Air Positive well nourished and well developed General Appearance ED: well developed and NAD HEENT Reports TM's clear and moist mucous membranes HEENT Narrative: No sinus tenderness. No nasal purulent discharge or edema. normocephalic and atraumatic Tympanic Membrane ED: Yes TM's clear right (Mild blood from irritation of EAC, TM intact and unremarkable.) Eyes PERRL and EOMs intact bilaterally Neck full ROM and supple Resp normal respiratory effort and clear to auscultation bilaterally Cardio regular rate, regular rhythm and no murmurs GI non-tender and non-distended Auscultation: normoactive bowel sounds Palpation: soft Back/Spine no CVA tenderness General Back: other FROM Extremity normal to inspection General Extremety ED: Negative for edema, pulses abnormal or tenderness General Extremity: Negative for edema or pulses abnormal Neuro oriented x3, CN's II-XII intact bilaterally and no sensory deficits noted Neuro Narrative: Normal idediw-tz-vxly and pwvf-ef-vhsz bilaterally. Normal Romberg. No horizontal, vertical, or rotatory nystagmus. Negative Sabina-Hallpike bilaterally, going to the left causes mild symptoms but no significant n ystagmus. Sensorium / Orientation: awake and alert Motor Exam: strength 5/5 throughout Psych mental status grossly normal Skin no rashes or lesions noted and no wounds MDM MDM MDM Narrative Medical decision making narrative: I did perform a CT, incidentally it shows the findings below including severe sinusitis of the sphenoid sinus. I do not think this patient is having a stroke. His blood pressure is 140/76, his symptoms are intermittent and triggered by head movements. This is all consistent with peripheral vertigo, and I do not think he needs to be admitted for stroke work- up, I discussed all this with him and his . Furthermore, with the sphenoid sinusitis that is significant on CT, I think that it is certainly possible that all of this could be related and treating this may help his symptoms resolved. We discussed reasons to return and follow-up as well, prescribed a azithromycin since he has a rash to amoxicillin. Radiography Diagnostic Testing: Radiology Impression Brain CT 01/30/21 17:28 IMPRESSION: No acute intracranial abnormality. Severe ethmoid, maxillary and sphenoid sinusitis. Electronically Signed: Tutu Lovelace MD at 18:13 EDT Tel , Service support , Discharge Plan Triage Chief Complaint: Dizziness ED Provider: Alton Brown Dx/Rx/DC Orders Clinical Impression: Peripheral vertigo, unspecified, Acute sphenoidal sinusitis Instructions: ED Sinusitis (Antibiotic Treatment), ED Vertigo, Unspecified Prescriptions: New azithromycin [azithromycin] 250 MG tablet 250 mg PO DAILY Qty: 6 RF: 0 meclizine [meclizine] 25 MG tablet 25 mg PO Q8H PRN PRN (Reason: Dizziness) Qty: 20 RF: 0 No Action aspirin 81 mg tablet,delayed release (DR/EC) 81 mg PO QDAY RF: 0 atorvastatin 40 mg tablet 40 mg PO QDAY RF: 0 amlodipine 5 mg tablet 5 mg PO DAILY RF: 0 famotidine 40 mg tablet 40 mg PO DAILY RF: 0 yahnrcns-mdb-NZ-lycopen-lutein 1 EACH tablet 1 ea PO DAILY RF: 0 levothyroxine 137 mcg Tablet 137 mcg PO DAILY RF: 0 Primary Care Provider: Abhinav Lebron Chi Referrals: Abhinav Lebron Chi, MD [Primary Care Provider] - 3-5 Days if not improving Disposition Disposition: Home, Self Care
[2021-01-30 19:08] VITALS: BP 146/93; PULSE 73; RESP 16; O2SAT 100
== END 2021-01-30 19:14 | disposition home or self-care (01) ==
PROVIDERS: Emergency Provider Emergency Medicine; PCP Family Medicine Geriatric Medicine
DX: H81.399 Other peripheral vertigo, unspecified ear (principal); J01.30 Acute sphenoidal sinusitis, unspecified; E03.9 Hypothyroidism, unspecified; E78.00 Pure hypercholesterolemia, unspecified; I10 Essential (primary) hypertension; Z79.82 Long term (current) use of aspirin; Z79.899 Other long term (current) drug therapy
CPT/HCPCS: 70450; 99283

== ENCOUNTER → 2021-04-22 09:48 | Outpatient (CLI) | payer BC, SELFPAY ==
[2021-04-22 11:45] LABS: Absolute Lymphocyte Count 1.66 X10^3/uL (0.83-4.51); Basophil# 0.03 X10^3/uL; Basophil% 0.7 % (0-1); Eosinophil# 0.24 X10^3/uL; Eosinophils% 5.3 % (0-5); Hemoglobin 14.2 g/dL (13.0-16.5); Lymphocyte # 1.66 X10^3/ul (0.83-4.51); Lymphocyte % 36.7 % (19-41); Mean Corpuscular Hgb 32.3 pg (27.0-32.0); Mean Corpuscular Volume 97.9 fL (80-94); Mean Platelet Vol. 9.5 fl (6.2-12.0); Monocyte# 0.55 X10^3/uL; Monocyte% 12.2 % (0-10); NRBC Flagged by Analyzer 0 % (0-5); Neutrophil # 2.03 X10^3/uL (2.7-7.7); Neutrophil % 44.9 % (47-70); Platelet Count 231 K/mm3 (150-450); RBC Distribution Width CV 12.9 % (11.6-14.6); RBC Distribution Width SD 46.1 fl (35.1-43.9); Red Blood Count 4.39 M/mm3 (4.6-6.2); White Blood Count 4.5 K/mm3 (4.4-11.0)
[2021-04-22 12:27] LABS: ALB/GLOB Ratio 0.8 RATIO (0.9-2.4); AST(SGOT) 16 U/L (15-37); Alanine Aminotransfer ALT/SGPT 26 U/L (16-61); Albumin, Serum 3.2 g/dL (3.2-5.0); Alkaline Phosphatase 76 U/L (45-117); Anion Gap 7 (5-15); BUN 15 mg/dL (7-18); Calcium,Total 8.5 mg/dL (8.5-10.1); Chloride 105 mmol/L (98-107); Creatinine, Serum 0.75 mg/dL (0.70-1.30); EST Glomerular Filtration Rate 111 mL/min (>60); Est Glom Filt Rate - Afr Amer 135 mL/min (>60); Globulin 3.9 g/dL (2.2-4.2); Glucose 110 mg/dL (74-106); PSA,Total - Annual Screen 2.29 ng/mL (0.00-4.00); Potassium 4.2 mmol/L (3.5-5.1); Protein, Total 7.1 g/dL (6.4-8.2); Sodium Level 140 mmol/L (136-145); Thyroid Stim Hormone (TSH) 0.73 uIU/mL (0.358-3.74)
== END ==
PROVIDERS: PCP Family Medicine Geriatric Medicine; Visit Provider Family Medicine Geriatric Medicine
DX: I10 Essential (primary) hypertension (principal); Z12.5 Encounter for screening for malignant neoplasm of prostate
CPT/HCPCS: 36415; 80053; 84153; 84443; 85025; G0103

== ENCOUNTER 2021-10-14 10:11 | Outpatient (CLI) | payer MEDICARE, BC, SELFPAY ==
[2021-10-14 11:38] LABS: Absolute Lymphocyte Count 1.06 X10^3/uL (0.83-4.51); Absolute Neutrophil Count 2.3 X10^3/uL (2.0-7.7); Basophil# 0.03 X10^3/uL; Basophil% 0.7 % (0-1); Eosinophil# 0.17 X10^3/uL; Hematocrit 43.9 % (40-54); Hemoglobin 14.4 g/dL (13.0-16.5); Lymphocyte # 1.06 X10^3/ul (0.83-4.51); Lymphocyte % 25.2 % (19-41); Mean Corp Hgb Conc 32.8 g/dL (32-36); Mean Corpuscular Hgb 31.5 pg (27.0-32.0); Mean Corpuscular Volume 96.1 fL (80-94); Mean Platelet Vol. 9.4 fl (6.2-12.0); Monocyte# 0.66 X10^3/uL; Monocyte% 15.7 % (0-10); NRBC Flagged by Analyzer 0 % (0-5); Neutrophil # 2.28 X10^3/uL (2.7-7.7); Neutrophil % 54.4 % (47-70); Platelet Count 198 K/mm3 (150-450); RBC Distribution Width CV 12.9 % (11.6-14.6); RBC Distribution Width SD 45.8 fl (35.1-43.9); Red Blood Count 4.57 M/mm3 (4.6-6.2); White Blood Count 4.2 K/mm3 (4.4-11.0)
[2021-10-14 11:57] LABS: Vitamin D,25 Hydroxy 37.9 ng/mL
[2021-10-14 12:06] LABS: AST(SGOT) 19 U/L (15-37); Alanine Aminotransfer ALT/SGPT 33 U/L (16-61); Albumin, Serum 3.6 g/dL (3.2-5.0); Alkaline Phosphatase 69 U/L (45-117); Anion Gap 1 (5-15); BUN 12 mg/dL (7-18); BUN/Creat Ratio 14.8 RATIO (10-20); Calcium,Total 8.7 mg/dL (8.5-10.1); Chloride 107 mmol/L (98-107); Creatinine, Serum 0.81 mg/dL (0.70-1.30); EST Glomerular Filtration Rate 102 mL/min (>60); Est Glom Filt Rate - Afr Amer 123 mL/min (>60); Globulin 3.6 g/dL (2.2-4.2); Glucose 104 mg/dL (74-106); Potassium 4.5 mmol/L (3.5-5.1); Protein, Total 7.2 g/dL (6.4-8.2); Sodium Level 138 mmol/L (136-145); Thyroid Stim Hormone (TSH) 0.36 uIU/mL (0.358-3.74)
== END 2021-10-14 23:59 | disposition home or self-care (01) ==
LOC: POLAB3 10:13
PROVIDERS: PCP Family Medicine Geriatric Medicine; Visit Provider Family Medicine Geriatric Medicine
DX: E55.9 Vitamin D deficiency, unspecified (principal); I10 Essential (primary) hypertension
CPT/HCPCS: 36415; 80053; 82306; 84443; 85025

== ENCOUNTER → 2022-01-15 | Outpatient (CLI) | payer MEDICARE, SELFPAY ==
[2022-01-15 13:05] LABS: AST(SGOT) 12 U/L (15-37); Alanine Aminotransfer ALT/SGPT 24 U/L (16-61); Albumin, Serum 3.6 g/dL (3.2-5.0); Alkaline Phosphatase 68 U/L (45-117); Anion Gap 4 (5-15); BUN 15 mg/dL (7-18); Calcium,Total 8.9 mg/dL (8.5-10.1); Chloride 111 mmol/L (98-107); Creatinine, Serum 0.88 mg/dL (0.70-1.30); EST Glomerular Filtration Rate 92 mL/min (>60); Est Glom Filt Rate - Afr Amer 111 mL/min (>60); Globulin 3.5 g/dL (2.2-4.2); Glucose 106 mg/dL (74-106); Potassium 4.2 mmol/L (3.5-5.1); Protein, Total 7.1 g/dL (6.4-8.2); Sodium Level 142 mmol/L (136-145)
== END | disposition home or self-care (01) ==
LOC: POLAB3 12:15
PROVIDERS: PCP Family Medicine Geriatric Medicine; Visit Provider Family Medicine Geriatric Medicine
DX: B35.1 Tinea unguium (principal)
CPT/HCPCS: 36415; 80053

== ENCOUNTER → 2022-04-22 | Outpatient (CLI) | payer MEDICARE, BC, SELFPAY ==
--- NOTE | 2022-04-22 16:31 | RAD_ITS ---
STUDY: X-RAY - LUMBAR SPINE REASON FOR EXAM: Male, 66 years old. Back pain. TECHNIQUE: 3 view(s) of the lumbar spine were obtained. COMPARISON: 07/30/2020. FINDINGS: Osteopenia. Normal lumbar lordosis. There is no substantial scoliosis. There is a normal alignment of the vertebrae. Diffuse facet sclerosis. Bilateral partial sacralization of the transverse processes of L5, unchanged. Anteverted disc space narrowing diffusely, most marked at L3-4, L4-5 and to a lesser degree L5-S1. The soft tissue structures are unremarkable. RAD/Lumbar Spine 2 or 3 Views IMPRESSION: Stable osteopenia with diffuse moderate lumbosacral spondylosis most marked at L3-4 to L5-S1. No acute abnormality, evidence of erosive changes or fusion. Electronically Signed: Hal Levi, at 10:11 EDT ,
--- NOTE | 2022-04-22 16:50 | RAD_ITS ---
STUDY: X-RAY - CERVICAL SPINE REASON FOR EXAM: Male, 66 years old. Neck pain. TECHNIQUE: 3 view(s) of the cervical spine were obtained. COMPARISON: None FINDINGS: Osteopenia. Normal anterior atlantoaxial articulation. Normal odontoid process. Diffuse uncovertebral and facet sclerosis. Diffuse mild intervertebral disc space narrowing most marked at C5-6 and C6-7.. Vascular calcification. RAD/Cerv Spine 2 or 3 Views IMPRESSION: Osteopenia with diffuse moderate cervical spondylosis. No acute abnormality, evidence of erosive changes or fusion. Electronically Signed: Hal Levi, at 10:10 EDT ,
== END | disposition home or self-care (01) ==
PROVIDERS: PCP Family Medicine Geriatric Medicine; Referring Provider Anesthesiology Pain Medicine; Visit Provider Anesthesiology Pain Medicine
DX: M50.21 Other cervical disc displacement, high cervical region (principal); M51.25 Other intervertebral disc displacement, thoracolumbar region
CPT/HCPCS: 72040; 72100

== ENCOUNTER → 2022-04-23 | Outpatient (CLI) | payer MEDICARE, BC, SELFPAY ==
[2022-04-23 12:21] LABS: Absolute Lymphocyte Count 1.74 X10^3/uL (0.83-4.51); Absolute Neutrophil Count 4.5 X10^3/uL (2.0-7.7); Basophil# 0.05 X10^3/uL; Basophil% 0.7 % (0-1); Eosinophil# 0.28 X10^3/uL; Eosinophils% 3.8 % (0-5); Hematocrit 43.6 % (40-54); Hemoglobin 13.9 g/dL (13.0-16.5); Lymphocyte # 1.74 X10^3/ul (0.83-4.51); Lymphocyte % 23.7 % (19-41); Mean Corp Hgb Conc 31.9 g/dL (32-36); Mean Corpuscular Hgb 31.1 pg (27.0-32.0); Mean Corpuscular Volume 97.5 fL (80-94); Mean Platelet Vol. 8.7 fl (6.2-12.0); Monocyte% 9.5 % (0-10); NRBC Flagged by Analyzer 0 % (0-5); Neutrophil # 4.53 X10^3/uL (2.7-7.7); Neutrophil % 61.9 % (47-70); Platelet Count 336 K/mm3 (150-450); RBC Distribution Width CV 12.3 % (11.6-14.6); RBC Distribution Width SD 44.1 fl (35.1-43.9); Red Blood Count 4.47 M/mm3 (4.6-6.2); White Blood Count 7.3 K/mm3 (4.4-11.0)
[2022-04-23 12:39] LABS: Vitamin D,25 Hydroxy 41.8 ng/mL
[2022-04-23 12:43] LABS: ALB/GLOB Ratio 0.6 RATIO (0.9-2.4); AST(SGOT) 13 U/L (15-37); Alanine Aminotransfer ALT/SGPT 29 U/L (16-61); Alkaline Phosphatase 135 U/L (45-117); Anion Gap 7 (5-15); BUN 13 mg/dL (7-18); Calcium,Total 8.9 mg/dL (8.5-10.1); Chloride 102 mmol/L (98-107); Creatinine, Serum 0.76 mg/dL (0.70-1.30); EST Glomerular Filtration Rate 108 mL/min (>60); Est Glom Filt Rate - Afr Amer 131 mL/min (>60); Globulin 4.7 g/dL (2.2-4.2); Glucose 106 mg/dL (74-106); PSA,Total - Annual Screen 3.35 ng/mL (0.00-4.00); Potassium 4.1 mmol/L (3.5-5.1); Protein, Total 7.7 g/dL (6.4-8.2); Sodium Level 139 mmol/L (136-145); Thyroid Stim Hormone (TSH) 7.72 uIU/mL (0.358-3.74)
== END | disposition home or self-care (01) ==
LOC: POLAB3 08:50
PROVIDERS: PCP Family Medicine Geriatric Medicine; Visit Provider Family Medicine Geriatric Medicine
DX: I10 Essential (primary) hypertension (principal); E55.9 Vitamin D deficiency, unspecified; Z12.5 Encounter for screening for malignant neoplasm of prostate
CPT/HCPCS: 36415; 80053; 82306; 84153; 84443; 85025; G0103

== ENCOUNTER 2022-05-19 09:00 | Outpatient (RCR) | payer MEDICARE, BC, SELFPAY ==
--- NOTE | 2022-04-29 10:52 | HP.PTEVAL_ITS ---
Patient's Visit Information RAMA HOLLIDAY is a 66 year old M referred to Physical Therapy by Dr. Maru Cooley MD with a diagnosis of CERVICAL DISC DIPLACEMENT. Date of Evaluation: 04/29/22 Physical Therapist: Kaylyn Gannon PT, Cert MDT - Visit Plan Frequency: 2-3x /Week Duration: 4-6 Weeks Plan: CERVICAL US X 6-8 VISITS, STM TO TIGHT CERVICAL MUSCULATURE X 6-8 VISITS. POSTURE CORRECTION/STRENGTHENING, INSTRUCTION IN APPROPRIATE BODY MECHANICS AND ACTIVITY MODIFICATIONS. COSMO UE ROM, STRETCHING AND STRENGTHENING. HEP INSTRUCTION. 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 FAIR AMT OF PHYSICAL WORK. Present symptoms: NECK PAIN AND STIFFNESS. ALSO PAIN AND STIFFNESS IN SHOULDERS. INTERMITTENT MILD/SLIGHT HEADACHES. DENIES COSMO UE NUMBNESS AND TINGLING. Present since: ABOUT 3 WKS AGO. Pain Scale: Worst - 7/10 Least - 1/10. Currently: 09/05. Commenced as a result of: LIFTING A LOT OF STONE. BENDING/KNEELING. CARRYING A LOT. Symptoms at onset: PAIN IN NECK WHEN MAKING HEAD MVMTS. Worse: WORK, DRIVING, MVMT IN GENERAL, LIFTING, OUTSIDE WORK ON LAND. Better: SITTING STILL, MALOXACAM - MAY BE HELPING A LITTLE BIT. SOMETIMES PUSHING DOWN ON HEAD HELPS NECK AND HEAD PAIN. Disturbed sleep: YES. Previous history/Previous treatment: HISOTRY OF SOME CHRONIC NECK PAIN JUST SELF TREATED IN THE PAST. NO CHIRO, SX OR INJECTIONS IN NECK. DID GET A MASSAGE ABOUT A WK AGO AND THAT SEEMED TO HELP SOME. MALOXICAM PRESCRIBED FOR NECK AND STARTED IT THURSDAY BUT NOT QUITE DAILY. Dizziness: NO. Tinnitis: NO. Nausea: NO. Shortness of Breath: NO. Difficulty Swollowing: NO. Gait: ALMOST NORMAL BUT BACK AND LEGS ARE STILL A LITTLE TIGHT. Accidents: NO. Unexplained weight loss: NO. Imaging: RECENT NECK X-RAY: Diffuse uncovertebral and facet sclerosis. Diffuse mild intervertebral. disc space narrowing most marked at C5-6 and C6- 7.. PMH/Recent major surgery: LOW BACK FLARED UP WITH PAIN DOWN LEG AT SAME TIME NECK FLARED UP. LAST THURSDAY GOT INJECITON IN LOWER LEFT BACK AND IT HELPED A BIT BUT DIDN'T RESOLVE THE PAIN. HISTORY OF LBP. HISTORY OF COSMO SHLD ARTHRITIS. NO SHLD SURGERIES. HIGH CHOLESTEROL. HTN. ACID REFULX. HYPOTHYROIDISM. - Objective Sitting Posture/Standing Posture: POOR. MAJOR FH. RS'S. VERY SLOUCHED. Active Correction of posture: NE. UNABLE TO FULLY CORRECT. Other Observations: INDEP GAIT AND TRANSFERS. Sensory deficit: COSMO UE LIGHT TOUCH SENSATION IS GROSSLY INTACT AND SYMMETRICAL. ROM deficit: COSMO UE'S WFL BUT AROM TESTING INCREASES COSMO SHLD PAIN. Motor deficit: COSMO UE'S GROSSLY 5/5 WITH MMT'ING. 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 PATIENT C/O INCREASED COSMO SHLD PAIN WITH FLEX AND ABD MMT'ING. NO INCREASED PAIN ONCE TESTING STOPPED. Dural Signs: NEGATIVE COSMO UE'S. Cervical Mvmt Loss: Flex: NIL. Pro: NIL - INCREASES NECK PAIN. Ext: LUIS. Ret: LUIS. RSB: LUIS - INCREASES NECK PAIN. LSB: LUIS - INCREASES NECK PAIN. R Rot: LUIS - INCREASES NECK PAIN. L Rot: LUIS - INCREASES NECK PAIN. Postural strength: FAIR. Palpation: NO ACUTE TENDERNESS WITH PALPATION OF CERVICAL AND COSMO SHLD REGIONS. INCREASED MUSCLE TONE IN UT'S AND POSTERIOR CERVICAL MUSCULATURE. TREATMENT: NEUROMUSCULAR REEDUCATION - RETRAINING OF MVMT AND POSTURE FOR SITTING, LYING AND STANDING ACTIVITIES. - Balance/Special Test Scores Oswestry Neck Score: 6 - Goals Goal 1:: DECREASE C/O NECK AND SHLD PAIN Goal Time Frame: 4-6 Weeks Goal 2:: IMPROVE SLEEP, WORK, DRIVING AND RECREATIONAL FUNCTION Goal Time Frame: 4-6 Weeks Goal 3:: INSTRUCT IN PROPHYLAXIS Goal Time Frame: 4-6 Weeks - Anticipated Interventions Patient/Client Instruction: Educate patient on: Condition, Plan of Care, Risk Factors For the Purpose of:: To improve self management Therapeutic Exercise to Include: Strength training, Body mechanics, Postural training, Flexibilty training, Neuromotor development, Scapular Strength/Stabilization For the Purpose of:: To decrease pain, To increase ROM, To improve muscle performance and motor function, To improve ability of physical actions for home/community/work/leisure Manual Therapy Techniques to Include: Soft tissue mobilization Comment: NECK MUSCULATURE For the Purpose of:: To increase ROM, To improve nutrient delivery to tissue Cryotherapy (ice pack, ice massage): Yes Thermo therapy (hot pack): Yes Ultrasound (thermal/non thermal): Yes For the Purpose of:: To decrease pain, To improve nutrient delivery to tissue Thank you for the opportunity to evaluate your patient. For Medicare and Medicare HMO plans, please review the plan of care and approve it. It will need to be FAXED BACK to us at [phone] for Medicare purposes. For Medicare only, by signing this I certify the plan of care. Please let me know if there are questions or concerns regarding this plan of care. Physician Signature: Date:
--- NOTE | 2022-05-19 09:37 | HP.PTDCSUM ---
It has been my pleasure to treat RAMA HOLLIDAY referred by Dr. Maru Linn MD, with the diagnosis of CERVICAL DISC DIPLACEMENT for a total of 10 visit(s). Discharge Date: 05/19/22 Please see the following information for a summary of their discharge status. Subjective: I HAVE DEFINATELY HAD IMPROVEMENT. PATIENT REPORTS THE EX'S ARE REALLY HELPING. HE STATES HE FEELS LIKE IT JUST NEEDS TIME AND EX TO KEEP GETTING BETTER. PATIENT REPORTS HIS COSMO SHLD/UPPER ARM PAIN IS GETTING BETTER TOO. I AM SLEEPING A LOT BETTER THAN I WAS INITIALLY. MY NECK IS WAY BETTER AND MY ARMS ARE QUITE A BIT BETTER BUT I STILL HAVE SOME STIFFNESS THERE. PATIENT REPORTS HIS LAST PT EX SESSION WENT WELL. MASSAGE HAS BEEN HELPING WELL. PATIENT REPORTS HE REALLY FEELS LIKE HE CAN GET BACK TO HIS BASELINE WITH A LITTLE BIT MORE TIME. neck Pain Intensity (Out of 10): 0 % Improvement: 80 Objective/Function: PATIENT WAS SEEN TODAY FOR RE-ASSESSMENT OF PROGRESS TOWARD THE SET PT GOALS AND THE NEED FOR FURTHER PHYSICAL THERAPY VS READINESS FOR DISCHARGE. PATIENT HAS MADE GREAT PROGRESS TOWARD ALL PT GOALS. HE IS INDEP WITH HOME EX'S AND APPROPRIATE FOR DISCHARGE. INSTRUCTED PATIENT TO FOLLOW UP WITH DR. LINN IF COSMO UE PAIN DOES NOT COMPLETELY RESOLVE BACK TO PRIOR LEVEL OF FUNCTION. UPON EXAM TODAY: Cervical Mvmt Loss: Flex: NIL. Pro: NIL. Ext: MOD. Ret: MOD TO LUIS. RSB: MOD. LSB: MOD. R Rot: MOD. L Rot: MOD. PATIENT C/O STIFFNESS WITH CERVICAL ROM TESTING ALL PLANES EXCEPT FLEX AND PROTRACTION WITH TESTING TODAY. PATIENT DENIES INCREASED PAIN WITH CERVICAL ROM TESTING ALL PLANES. COSMO UE STRENGTH IS GROSSLY 5/5 WITH MMT'ING WITH C/O MILD PAIN WITH COSMO SHLD FLEXION TESTING BUT NO PAIN OTHERWISE WITH UE MMT'ING. Goal 1:: DECREASE C/O NECK AND SHLD PAIN Goal Progress: Goal Met Goal 2:: IMPROVE SLEEP, WORK, DRIVING AND RECREATIONAL FUNCTION Goal Progress: Goal Met Goal 3:: INSTRUCT IN PROPHYLAXIS Goal Progress: Goal Met Plan: D/C TO INDEP HEP AND PHYSICIAN FOLLOW UP PENDING WITH DR. LINN TOMORROW. PATIENT AGREEABLE. If there are questions or concerns regarding this patient's physical therapy, please feel free to call me at [phone]. Thank you for the referral of this patient. Sincerely, Kaylyn Gannon, PT, Cert MDT Balance/Gait/Functional tests - Balance/Special Test Scores Oswestry Neck Score: 3
== END 2022-05-19 10:09 | disposition home or self-care (01) ==
LOC: PT 09:00
PROVIDERS: PCP Family Medicine Geriatric Medicine; Referring Provider Anesthesiology Pain Medicine; Visit Provider Anesthesiology Pain Medicine
DX: M50.21 Other cervical disc displacement, high cervical region (principal); M51.26 Other intervertebral disc displacement, lumbar region
CPT/HCPCS: 97035; 97110; 97112; 97140; 97162; 97164

== ENCOUNTER → 2022-06-24 | Outpatient (CLI) | payer MEDICARE, BC, SELFPAY ==
[2022-06-24 13:19] LABS: Erythrocyte Sedimentation Rate 58 mm/hr (0-20)
[2022-06-24 13:21] LABS: Absolute Lymphocyte Count 1.68 X10^3/uL (0.83-4.51); Absolute Neutrophil Count 5.8 X10^3/uL (2.0-7.7); Basophil# 0.05 X10^3/uL; Basophil% 0.6 % (0-1); Eosinophil# 0.21 X10^3/uL; Eosinophils% 2.4 % (0-5); Hematocrit 39.1 % (40-54); Hemoglobin 12.1 g/dL (13.0-16.5); Lymphocyte # 1.68 X10^3/ul (0.83-4.51); Lymphocyte % 19.5 % (19-41); Mean Corp Hgb Conc 30.9 g/dL (32-36); Mean Corpuscular Hgb 29.8 pg (27.0-32.0); Mean Corpuscular Volume 96.3 fL (80-94); Mean Platelet Vol. 8.8 fl (6.2-12.0); Monocyte# 0.79 X10^3/uL; Monocyte% 9.2 % (0-10); NRBC Flagged by Analyzer 0 % (0-5); Neutrophil # 5.83 X10^3/uL (2.7-7.7); Neutrophil % 67.8 % (47-70); Platelet Count 355 K/mm3 (150-450); RBC Distribution Width CV 12.9 % (11.6-14.6); RBC Distribution Width SD 45.5 fl (35.1-43.9); Red Blood Count 4.06 M/mm3 (4.6-6.2); White Blood Count 8.6 K/mm3 (4.4-11.0)
[2022-06-24 13:50] LABS: Anion Gap 3 (5-15); BUN 11 mg/dL (7-18); BUN/Creat Ratio 18.9 RATIO (10-20); Calcium,Total 9.2 mg/dL (8.5-10.1); Chloride 104 mmol/L (98-107); Creatinine, Serum 0.58 mg/dL (0.70-1.30); EST Glomerular Filtration Rate 149 mL/min (>60); Est Glom Filt Rate - Afr Amer 180 mL/min (>60); Glucose 100 mg/dL (74-106); Potassium 4.4 mmol/L (3.5-5.1); Sodium Level 138 mmol/L (136-145)
== END | disposition home or self-care (01) ==
LOC: POLAB3 12:05
PROVIDERS: PCP Family Medicine Geriatric Medicine; Visit Provider Family Medicine Geriatric Medicine
DX: M35.3 Polymyalgia rheumatica (principal)
CPT/HCPCS: 36415; 80048; 85025; 85652; 86140

== ENCOUNTER → 2022-07-30 | Outpatient (CLI) | payer MEDICARE, BC, SELFPAY ==
--- NOTE | 2022-07-30 10:01 | RAD_ITS ---
STUDY: X-RAY - PELVIS REASON FOR EXAM: Male, 66 years old. Hip pain. TECHNIQUE: One view of the pelvis was obtained. COMPARISON: July 30, 2020 FINDINGS: There is a non-specific bowel gas pattern. Normal soft tissues. Osteopenia. Stable arthrosis of the sacroiliac joints. Mild arthrosis at the symphysis pubis unchanged. Mild arthrosis of both hips unchanged. RAD/Pelvis 1 or 2 Views IMPRESSION: Osteopenia with mild arthrosis of the sacroiliac joints, symphysis pubis and both hips. No acute abnormality, evidence of erosive changes or fusion. Electronically Signed: Hal Levi, at 10:27 EST ,
[2022-07-30 12:56] LABS: Erythrocyte Sedimentation Rate 37 mm/hr (0-20)
[2022-07-30 12:59] LABS: Absolute Lymphocyte Count 1.43 X10^3/uL (0.83-4.51); Absolute Neutrophil Count 5.7 X10^3/uL (2.0-7.7); Basophil# 0.03 X10^3/uL; Basophil% 0.4 % (0-1); Eosinophil# 0.12 X10^3/uL; Eosinophils% 1.5 % (0-5); Hematocrit 45.4 % (40-54); Hemoglobin 13.9 g/dL (13.0-16.5); Lymphocyte # 1.43 X10^3/ul (0.83-4.51); Lymphocyte % 17.3 % (19-41); Mean Corp Hgb Conc 30.6 g/dL (32-36); Mean Corpuscular Hgb 30.4 pg (27.0-32.0); Mean Corpuscular Volume 99.3 fL (80-94); Monocyte# 0.96 X10^3/uL; Monocyte% 11.6 % (0-10); NRBC Flagged by Analyzer 0 % (0-5); Neutrophil # 5.67 X10^3/uL (2.7-7.7); Neutrophil % 68.7 % (47-70); Platelet Count 344 K/mm3 (150-450); RBC Distribution Width CV 14.7 % (11.6-14.6); RBC Distribution Width SD 54.2 fl (35.1-43.9); Red Blood Count 4.57 M/mm3 (4.6-6.2); White Blood Count 8.3 K/mm3 (4.4-11.0)
[2022-07-30 13:33] LABS: AST(SGOT) 9 U/L (15-37); Alanine Aminotransfer ALT/SGPT 27 U/L (16-61); Albumin, Serum 3.3 g/dL (3.2-5.0); Alkaline Phosphatase 88 U/L (45-117); Anion Gap 8 (5-15); BUN 13 mg/dL (7-18); BUN/Creat Ratio 16.6 RATIO (10-20); Calcium,Total 9.1 mg/dL (8.5-10.1); Chloride 105 mmol/L (98-107); Creatinine, Serum 0.78 mg/dL (0.70-1.30); EST Glomerular Filtration Rate 106 mL/min (>60); Est Glom Filt Rate - Afr Amer 128 mL/min (>60); Globulin 3.4 g/dL (2.2-4.2); Glucose 103 mg/dL (74-106); Potassium 4.4 mmol/L (3.5-5.1); Protein, Total 6.7 g/dL (6.4-8.2); Rheumatoid Factor < 10.0 IU/mL (<15); Sodium Level 140 mmol/L (136-145)
[2022-07-30 13:43] LABS: Hepatitis B Surface Antibody Non-Reactive; Hepatitis B Surface Antigen Non-Reactive (Nonreactive); Hepatitis C Antibody Non-Reactive (Nonreactive)
[2022-08-01 19:30] LABS: ANTINUCLEAR ANTIBODIES DIRECT Negative (Negative)
[2022-08-01 19:31] LABS: CCP IgG Antibodies 24 units (0-19)
== END | disposition home or self-care (01) ==
LOC: MTLAB 09:59
PROVIDERS: PCP Family Medicine Geriatric Medicine; Referring Provider Internal Medicine Rheumatology; Visit Provider Internal Medicine Rheumatology
DX: M25.50 Pain in unspecified joint (principal); M47.892 Other spondylosis, cervical region; M47.897 Other spondylosis, lumbosacral region; I10 Essential (primary) hypertension; E78.5 Hyperlipidemia, unspecified; E03.9 Hypothyroidism, unspecified; N40.0 Benign prostatic hyperplasia without lower urinary tract symptoms
CPT/HCPCS: 36415; 72170; 80053; 85025; 85652; 86038; 86140; 86200; 86431; 86706; 86803; 87340

== ENCOUNTER → 2022-09-24 | Outpatient (CLI) | payer MEDICARE, BC, SELFPAY ==
[2022-09-24 12:31] LABS: Absolute Lymphocyte Count 1.84 X10^3/uL (0.83-4.51); Absolute Neutrophil Count 4.7 X10^3/uL (2.0-7.7); Basophil# 0.02 X10^3/uL; Basophil% 0.3 % (0-1); Eosinophils% 1.4 % (0-5); Hematocrit 42.5 % (40-54); Hemoglobin 13.1 g/dL (13.0-16.5); Lymphocyte # 1.84 X10^3/ul (0.83-4.51); Lymphocyte % 25.3 % (19-41); Mean Corp Hgb Conc 30.8 g/dL (32-36); Mean Corpuscular Hgb 30.7 pg (27.0-32.0); Mean Corpuscular Volume 99.5 fL (80-94); Mean Platelet Vol. 9.2 fl (6.2-12.0); Monocyte# 0.64 X10^3/uL; Monocyte% 8.8 % (0-10); NRBC Flagged by Analyzer 0 % (0-5); Neutrophil # 4.65 X10^3/uL (2.7-7.7); Neutrophil % 63.8 % (47-70); Platelet Count 284 K/mm3 (150-450); RBC Distribution Width CV 14.3 % (11.6-14.6); Red Blood Count 4.27 M/mm3 (4.6-6.2); White Blood Count 7.3 K/mm3 (4.4-11.0)
[2022-09-24 13:07] LABS: ALB/GLOB Ratio 0.9 RATIO (0.9-2.4); AST(SGOT) 13 U/L (15-37); Alanine Aminotransfer ALT/SGPT 24 U/L (16-61); Albumin, Serum 3.4 g/dL (3.2-5.0); Alkaline Phosphatase 70 U/L (45-117); Anion Gap 6 (5-15); BUN 15 mg/dL (7-18); BUN/Creat Ratio 24.2 RATIO (10-20); Calcium,Total 9.2 mg/dL (8.5-10.1); Chloride 107 mmol/L (98-107); Creatinine, Serum 0.62 mg/dL (0.70-1.30); EST Glomerular Filtration Rate 138 mL/min (>60); Est Glom Filt Rate - Afr Amer 167 mL/min (>60); Globulin 3.7 g/dL (2.2-4.2); Glucose 97 mg/dL (74-106); Potassium 3.8 mmol/L (3.5-5.1); Protein, Total 7.1 g/dL (6.4-8.2); Sodium Level 142 mmol/L (136-145)
== END | disposition home or self-care (01) ==
LOC: MTLAB 10:06
PROVIDERS: PCP Family Medicine Geriatric Medicine; Visit Provider Internal Medicine Rheumatology
DX: M06.4 Inflammatory polyarthropathy (principal); Z79.899 Other long term (current) drug therapy
CPT/HCPCS: 36415; 80053; 85025

== ENCOUNTER → 2022-10-22 | Outpatient (CLI) | payer MEDICARE, BC, SELFPAY ==
[2022-10-22 13:04] LABS: Absolute Lymphocyte Count 1.42 X10^3/uL (0.83-4.51); Absolute Neutrophil Count 2.9 X10^3/uL (2.0-7.7); Basophil# 0.03 X10^3/uL; Basophil% 0.6 % (0-1); Eosinophil# 0.07 X10^3/uL; Eosinophils% 1.4 % (0-5); Hematocrit 43.7 % (40-54); Hemoglobin 13.8 g/dL (13.0-16.5); Lymphocyte # 1.42 X10^3/ul (0.83-4.51); Lymphocyte % 28.9 % (19-41); Mean Corp Hgb Conc 31.6 g/dL (32-36); Mean Corpuscular Hgb 31.1 pg (27.0-32.0); Mean Corpuscular Volume 98.4 fL (80-94); Mean Platelet Vol. 9.5 fl (6.2-12.0); Monocyte# 0.52 X10^3/uL; Monocyte% 10.6 % (0-10); NRBC Flagged by Analyzer 0 % (0-5); Neutrophil # 2.87 X10^3/uL (2.7-7.7); Neutrophil % 58.3 % (47-70); Platelet Count 257 K/mm3 (150-450); RBC Distribution Width CV 13.8 % (11.6-14.6); RBC Distribution Width SD 49.6 fl (35.1-43.9); Red Blood Count 4.44 M/mm3 (4.6-6.2); White Blood Count 4.9 K/mm3 (4.4-11.0)
[2022-10-22 13:14] LABS: Vitamin D,25 Hydroxy 45.2 ng/mL
[2022-10-22 13:25] LABS: ALB/GLOB Ratio 0.9 RATIO (0.9-2.4); AST(SGOT) 11 U/L (15-37); Alanine Aminotransfer ALT/SGPT 27 U/L (16-61); Albumin, Serum 3.3 g/dL (3.2-5.0); Alkaline Phosphatase 68 U/L (45-117); Anion Gap 4 (5-15); BUN 15 mg/dL (7-18); BUN/Creat Ratio 23.1 RATIO (10-20); Calcium,Total 8.7 mg/dL (8.5-10.1); Chloride 109 mmol/L (98-107); Creatinine, Serum 0.65 mg/dL (0.70-1.30); EST Glomerular Filtration Rate 131 mL/min (>60); Est Glom Filt Rate - Afr Amer 158 mL/min (>60); Globulin 3.5 g/dL (2.2-4.2); Glucose 92 mg/dL (74-106); Potassium 4.3 mmol/L (3.5-5.1); Protein, Total 6.8 g/dL (6.4-8.2); Sodium Level 140 mmol/L (136-145); Thyroid Stim Hormone (TSH) 0.38 uIU/mL (0.358-3.74)
== END | disposition home or self-care (01) ==
LOC: POLAB3 09:21
PROVIDERS: PCP Family Medicine Geriatric Medicine; Visit Provider Family Medicine Geriatric Medicine
DX: E55.9 Vitamin D deficiency, unspecified (principal); I10 Essential (primary) hypertension
CPT/HCPCS: 36415; 80053; 82306; 84443; 85025

== ENCOUNTER → 2022-11-21 | Outpatient (CLI) | payer MEDICARE, BC, SELFPAY ==
[2022-11-21 15:35] LABS: Absolute Lymphocyte Count 1.17 X10^3/uL (0.83-4.51); Absolute Neutrophil Count 3.8 X10^3/uL (2.0-7.7); Basophil# 0.03 X10^3/uL; Basophil% 0.5 % (0-1); Eosinophil# 0.09 X10^3/uL; Eosinophils% 1.5 % (0-5); Hematocrit 42.2 % (40-54); Lymphocyte # 1.17 X10^3/ul (0.83-4.51); Lymphocyte % 20.1 % (19-41); Mean Corp Hgb Conc 30.8 g/dL (32-36); Mean Corpuscular Hgb 31.2 pg (27.0-32.0); Mean Corpuscular Volume 101.2 fL (80-94); Mean Platelet Vol. 9.6 fl (6.2-12.0); NRBC Flagged by Analyzer 0 % (0-5); Neutrophil # 3.82 X10^3/uL (2.7-7.7); Neutrophil % 65.6 % (47-70); Platelet Count 264 K/mm3 (150-450); RBC Distribution Width CV 13.9 % (11.6-14.6); RBC Distribution Width SD 51.8 fl (35.1-43.9); Red Blood Count 4.17 M/mm3 (4.6-6.2); White Blood Count 5.8 K/mm3 (4.4-11.0)
[2022-11-21 16:01] LABS: ALB/GLOB Ratio 0.9 RATIO (0.9-2.4); AST(SGOT) 14 U/L (15-37); Alanine Aminotransfer ALT/SGPT 23 U/L (16-61); Albumin, Serum 3.3 g/dL (3.2-5.0); Alkaline Phosphatase 75 U/L (45-117); Anion Gap 2 (5-15); BUN 15 mg/dL (7-18); BUN/Creat Ratio 20.9 RATIO (10-20); Chloride 108 mmol/L (98-107); Creatinine, Serum 0.72 mg/dL (0.70-1.30); EST Glomerular Filtration Rate 116 mL/min (>60); Est Glom Filt Rate - Afr Amer 141 mL/min (>60); Globulin 3.5 g/dL (2.2-4.2); Glucose 114 mg/dL (74-106); Protein, Total 6.8 g/dL (6.4-8.2); Sodium Level 139 mmol/L (136-145)
== END | disposition home or self-care (01) ==
LOC: MTLAB 11:51
PROVIDERS: PCP Family Medicine Geriatric Medicine; Referring Provider Internal Medicine Rheumatology; Visit Provider Internal Medicine Rheumatology
DX: M06.4 Inflammatory polyarthropathy (principal); Z79.899 Other long term (current) drug therapy
CPT/HCPCS: 36415; 80053; 85025

== ENCOUNTER → 2023-01-21 | Outpatient (CLI) | payer MEDICARE, BC, SELFPAY ==
[2023-01-21 15:40] LABS: Absolute Lymphocyte Count 1.64 X10^3/uL (0.83-4.51); Absolute Neutrophil Count 4.2 X10^3/uL (2.0-7.7); Basophil# 0.04 X10^3/uL; Basophil% 0.6 % (0-1); Eosinophil# 0.12 X10^3/uL; Eosinophils% 1.8 % (0-5); Hemoglobin 13.5 g/dL (13.0-16.5); Lymphocyte # 1.64 X10^3/ul (0.83-4.51); Lymphocyte % 24.7 % (19-41); Mean Corp Hgb Conc 31.4 g/dL (32-36); Mean Corpuscular Hgb 31.2 pg (27.0-32.0); Mean Corpuscular Volume 99.3 fL (80-94); Mean Platelet Vol. 9.4 fl (6.2-12.0); Monocyte# 0.68 X10^3/uL; Monocyte% 10.2 % (0-10); NRBC Flagged by Analyzer 0 % (0-5); Neutrophil # 4.16 X10^3/uL (2.7-7.7); Neutrophil % 62.5 % (47-70); Platelet Count 244 K/mm3 (150-450); RBC Distribution Width CV 13.2 % (11.6-14.6); RBC Distribution Width SD 48.2 fl (35.1-43.9); Red Blood Count 4.33 M/mm3 (4.6-6.2); White Blood Count 6.7 K/mm3 (4.4-11.0)
[2023-01-21 16:34] LABS: ALB/GLOB Ratio 0.9 RATIO (0.9-2.4); AST(SGOT) 10 U/L (15-37); Alanine Aminotransfer ALT/SGPT 18 U/L (16-61); Albumin, Serum 3.2 g/dL (3.2-5.0); Alkaline Phosphatase 75 U/L (45-117); Anion Gap 3 (5-15); BUN 12 mg/dL (7-18); BUN/Creat Ratio 19.2 RATIO (10-20); Calcium,Total 8.7 mg/dL (8.5-10.1); Chloride 110 mmol/L (98-107); Creatinine, Serum 0.63 mg/dL (0.70-1.30); EST Glomerular Filtration Rate 136 mL/min (>60); Est Glom Filt Rate - Afr Amer 165 mL/min (>60); Globulin 3.5 g/dL (2.2-4.2); Glucose 87 mg/dL (74-106); Potassium 4.2 mmol/L (3.5-5.1); Protein, Total 6.7 g/dL (6.4-8.2); Sodium Level 141 mmol/L (136-145)
== END | disposition home or self-care (01) ==
LOC: MTLAB 12:50
PROVIDERS: PCP Family Medicine Geriatric Medicine; Referring Provider Internal Medicine Rheumatology; Visit Provider Internal Medicine Rheumatology
DX: M06.4 Inflammatory polyarthropathy (principal); Z79.899 Other long term (current) drug therapy
CPT/HCPCS: 36415; 80053; 85025

== ENCOUNTER → 2023-03-31 | Outpatient (CLI) | payer MEDICARE, BC, SELFPAY ==
[2023-03-31 12:26] LABS: Absolute Lymphocyte Count 1.55 X10^3/uL (0.83-4.51); Basophil# 0.04 X10^3/uL; Basophil% 0.8 % (0-1); Eosinophil# 0.14 X10^3/uL; Eosinophils% 2.6 % (0-5); Hematocrit 42.2 % (40-54); Hemoglobin 13.4 g/dL (13.0-16.5); Lymphocyte # 1.55 X10^3/ul (0.83-4.51); Lymphocyte % 29.1 % (19-41); Mean Corp Hgb Conc 31.8 g/dL (32-36); Mean Corpuscular Hgb 31.3 pg (27.0-32.0); Mean Corpuscular Volume 98.6 fL (80-94); Mean Platelet Vol. 9.1 fl (6.2-12.0); Monocyte# 0.57 X10^3/uL; Monocyte% 10.7 % (0-10); NRBC Flagged by Analyzer 0 % (0-5); Neutrophil # 3.01 X10^3/uL (2.7-7.7); Neutrophil % 56.4 % (47-70); Platelet Count 232 K/mm3 (150-450); RBC Distribution Width CV 13.6 % (11.6-14.6); RBC Distribution Width SD 49.4 fl (35.1-43.9); Red Blood Count 4.28 M/mm3 (4.6-6.2); White Blood Count 5.3 K/mm3 (4.4-11.0)
[2023-03-31 13:08] LABS: ALB/GLOB Ratio 0.9 RATIO (0.9-2.4); AST(SGOT) 12 U/L (15-37); Alanine Aminotransfer ALT/SGPT 20 U/L (16-61); Albumin, Serum 3.2 g/dL (3.2-5.0); Alkaline Phosphatase 76 U/L (45-117); Anion Gap 6 (5-15); BUN 13 mg/dL (7-18); BUN/Creat Ratio 19.9 RATIO (10-20); Calcium,Total 8.7 mg/dL (8.5-10.1); Chloride 106 mmol/L (98-107); Creatinine, Serum 0.65 mg/dL (0.70-1.30); EST Glomerular Filtration Rate 130 mL/min (>60); Est Glom Filt Rate - Afr Amer 157 mL/min (>60); Globulin 3.5 g/dL (2.2-4.2); Glucose 89 mg/dL (74-106); Protein, Total 6.7 g/dL (6.4-8.2); Sodium Level 139 mmol/L (136-145)
[2023-04-01 08:11] LABS: Lyme Scn Total Ab w/Rflx Negative (Negative)
== END | disposition home or self-care (01) ==
LOC: MTLAB 11:15
PROVIDERS: PCP Family Medicine Geriatric Medicine; Referring Provider Internal Medicine Rheumatology; Visit Provider Internal Medicine Rheumatology
DX: M06.4 Inflammatory polyarthropathy (principal); Z79.899 Other long term (current) drug therapy
CPT/HCPCS: 36415; 80053; 85025; 86618

== ENCOUNTER → 2023-04-29 | Outpatient (CLI) | payer MEDICARE, BC, SELFPAY ==
[2023-04-29 09:33] LABS: Basophil# 0.03 X10^3/uL; Basophil% 0.6 % (0-1); Eosinophil# 0.13 X10^3/uL; Eosinophils% 2.5 % (0-5); Hematocrit 43.1 % (40-54); Hemoglobin 13.5 g/dL (13.0-16.5); Lymphocyte % 28.5 % (19-41); Mean Corp Hgb Conc 31.3 g/dL (32-36); Mean Corpuscular Hgb 31.3 pg (27.0-32.0); Mean Platelet Vol. 8.8 fl (6.2-12.0); Monocyte# 0.64 X10^3/uL; Monocyte% 12.1 % (0-10); NRBC Flagged by Analyzer 0 % (0-5); Neutrophil # 2.96 X10^3/uL (2.7-7.7); Neutrophil % 56.1 % (47-70); Platelet Count 247 K/mm3 (150-450); RBC Distribution Width CV 13.3 % (11.6-14.6); RBC Distribution Width SD 48.8 fl (35.1-43.9); Red Blood Count 4.31 M/mm3 (4.6-6.2); White Blood Count 5.3 K/mm3 (4.4-11.0)
[2023-04-29 09:55] LABS: Vitamin D,25 Hydroxy 43.9 ng/mL
[2023-04-29 10:02] LABS: AST(SGOT) 12 U/L (15-37); Alanine Aminotransfer ALT/SGPT 22 U/L (16-61); Albumin, Serum 3.6 g/dL (3.2-5.0); Alkaline Phosphatase 77 U/L (45-117); Anion Gap 3 (5-15); BUN 13 mg/dL (7-18); BUN/Creat Ratio 18.4 RATIO (10-20); Calcium,Total 8.9 mg/dL (8.5-10.1); Chloride 110 mmol/L (98-107); Creatinine, Serum 0.71 mg/dL (0.70-1.30); EST Glomerular Filtration Rate 118 mL/min (>60); Est Glom Filt Rate - Afr Amer 143 mL/min (>60); Globulin 3.6 g/dL (2.2-4.2); Glucose 108 mg/dL (74-106); PSA,Total - Annual Screen 3.69 ng/mL (0.00-4.00); Potassium 4.2 mmol/L (3.5-5.1); Protein, Total 7.2 g/dL (6.4-8.2); Sodium Level 141 mmol/L (136-145); Thyroid Stim Hormone (TSH) 0.76 uIU/mL (0.358-3.74)
== END | disposition home or self-care (01) ==
LOC: POLAB3 09:09
PROVIDERS: PCP Family Medicine Geriatric Medicine; Visit Provider Family Medicine Geriatric Medicine
DX: I10 Essential (primary) hypertension (principal); E55.9 Vitamin D deficiency, unspecified; Z12.5 Encounter for screening for malignant neoplasm of prostate
CPT/HCPCS: 36415; 80053; 82306; 84153; 84443; 85025; G0103

== ENCOUNTER → 2023-06-17 | Outpatient (CLI) | payer MEDICARE, BC, SELFPAY ==
[2023-06-17 12:51] LABS: Absolute Lymphocyte Count 1.37 X10^3/uL (0.83-4.51); Absolute Neutrophil Count 1.3 X10^3/uL (2.0-7.7); Basophil# 0.03 X10^3/uL; Basophil% 0.8 % (0-1); Eosinophil# 0.09 X10^3/uL; Eosinophils% 2.5 % (0-5); Hematocrit 43.9 % (40-54); Hemoglobin 13.5 g/dL (13.0-16.5); Lymphocyte # 1.37 X10^3/ul (0.83-4.51); Mean Corp Hgb Conc 30.8 g/dL (32-36); Mean Corpuscular Hgb 31.2 pg (27.0-32.0); Mean Corpuscular Volume 101.4 fL (80-94); Mean Platelet Vol. 9.1 fl (6.2-12.0); Monocyte# 0.81 X10^3/uL; Monocyte% 22.4 % (0-10); NRBC Flagged by Analyzer 0 % (0-5); Platelet Count 193 K/mm3 (150-450); RBC Distribution Width CV 13.4 % (11.6-14.6); RBC Distribution Width SD 50.4 fl (35.1-43.9); Red Blood Count 4.33 M/mm3 (4.6-6.2); White Blood Count 3.6 K/mm3 (4.4-11.0)
[2023-06-17 13:12] LABS: ALB/GLOB Ratio 0.9 RATIO (0.9-2.4); AST(SGOT) 15 U/L (15-37); Alanine Aminotransfer ALT/SGPT 21 U/L (16-61); Albumin, Serum 3.3 g/dL (3.2-5.0); Alkaline Phosphatase 81 U/L (45-117); Anion Gap 5 (5-15); BUN 13 mg/dL (7-18); BUN/Creat Ratio 16.2 RATIO (10-20); Calcium,Total 8.4 mg/dL (8.5-10.1); Chloride 107 mmol/L (98-107); EST Glomerular Filtration Rate 102 mL/min (>60); Est Glom Filt Rate - Afr Amer 124 mL/min (>60); Globulin 3.6 g/dL (2.2-4.2); Glucose 95 mg/dL (74-106); Protein, Total 6.9 g/dL (6.4-8.2); Sodium Level 141 mmol/L (136-145)
== END | disposition home or self-care (01) ==
PROVIDERS: PCP Family Medicine Geriatric Medicine; Referring Provider Internal Medicine Rheumatology; Visit Provider Internal Medicine Rheumatology
DX: M06.4 Inflammatory polyarthropathy (principal); Z79.899 Other long term (current) drug therapy
CPT/HCPCS: 36415; 80053; 85025

== ENCOUNTER → 2023-07-10 | Outpatient (CLI) | payer MEDICARE, BC, SELFPAY ==
--- NOTE | 2023-07-09 16:30 | LES_PTH ---
PATIENT: RAMA HOLLIDAY LOC: [facility] U#:[id number] AGE/SX: 67/M ROOM: RE07/10/[address]: Dr. Angel Manuel MD : [id number] BED: DIS: 07/10/2023 SPEC #: [id number] RECD: 07/10/23 11:48 STATUS: OLIVIA REАлександр #: [id number] RANDY: 07/09/23 16:[address]: Angel Manuel DEPT: SURGICAL PATHOLOGY RECD BY: Ursula Adame ENTERED: 07/10/23 11:48 SP TYPE: Lesion OTHR DR: Dr. Abhinav Lebron MD Tissues: Skin of eyelid, NOS Procedures: Surgery Specimen Level IV HEADER OPERATION: Right lower eyelid lesion removal PRE-OP DIAGNOSIS: Nevus vs papilloma TISSUE SUBMITTED: Right lower eyelid lesion MICROSCOPIC DIAGNOSIS Right lower lid lesion, biopsy: Polypoid seborrheic keratosis, mildly inflamed. AM:bruno 07/14/2023 MICROSCOPIC DESCRIPTION Slides are reviewed. GROSS DESCRIPTION Received in fixative is one container labeled with the patient's name and designated right lower lid lesion. The specimen consists of a single irregular fragment of hannah tissue measuring 0.3 x 0.3 x 0.1 cm. The specimen is totally submitted in one cassette. / AM:bruno 07/10/2023 TC:5 CPT: 82968
== END | disposition home or self-care (01) ==
LOC: LABSPEC 10:14
PROVIDERS: PCP Family Medicine Geriatric Medicine; Referring Provider Ophthalmology; Visit Provider Ophthalmology
DX: H02.9 Unspecified disorder of eyelid (principal)
CPT/HCPCS: 88305

== ENCOUNTER → 2023-07-28 | Outpatient (CLI) | payer MEDICARE, BC, SELFPAY ==
[2023-07-28 15:17] LABS: Absolute Lymphocyte Count 1.68 X10^3/uL (0.83-4.51); Absolute Neutrophil Count 2.6 X10^3/uL (2.0-7.7); Basophil# 0.03 X10^3/uL; Basophil% 0.6 % (0-1); Eosinophil# 0.17 X10^3/uL; Eosinophils% 3.3 % (0-5); Hematocrit 45.5 % (40-54); Hemoglobin 14.2 g/dL (13.0-16.5); Lymphocyte # 1.68 X10^3/ul (0.83-4.51); Mean Corp Hgb Conc 31.2 g/dL (32-36); Mean Corpuscular Hgb 31.1 pg (27.0-32.0); Mean Corpuscular Volume 99.8 fL (80-94); Mean Platelet Vol. 9.2 fl (6.2-12.0); Monocyte# 0.57 X10^3/uL; Monocyte% 11.2 % (0-10); NRBC Flagged by Analyzer 0 % (0-5); Neutrophil # 2.63 X10^3/uL (2.7-7.7); Neutrophil % 51.7 % (47-70); Platelet Count 233 K/mm3 (150-450); RBC Distribution Width CV 12.8 % (11.6-14.6); RBC Distribution Width SD 47.1 fl (35.1-43.9); Red Blood Count 4.56 M/mm3 (4.6-6.2); White Blood Count 5.1 K/mm3 (4.4-11.0)
== END | disposition home or self-care (01) ==
LOC: MTLAB 13:16
PROVIDERS: PCP Family Medicine Geriatric Medicine; Referring Provider Internal Medicine Rheumatology; Visit Provider Internal Medicine Rheumatology
DX: M06.4 Inflammatory polyarthropathy (principal); Z79.899 Other long term (current) drug therapy
CPT/HCPCS: 36415; 85025

== ENCOUNTER → 2023-09-22 | Outpatient (CLI) | payer MEDICARE, BC, SELFPAY ==
[2023-09-22 12:14] LABS: Absolute Lymphocyte Count 1.37 X10^3/uL (0.83-4.51); Absolute Neutrophil Count 2.4 X10^3/uL (2.0-7.7); Basophil# 0.02 X10^3/uL; Basophil% 0.5 % (0-1); Eosinophil# 0.17 X10^3/uL; Eosinophils% 3.9 % (0-5); Hemoglobin 13.4 g/dL (13.0-16.5); Lymphocyte # 1.37 X10^3/ul (0.83-4.51); Lymphocyte % 31.3 % (19-41); Mean Corp Hgb Conc 31.9 g/dL (32-36); Mean Corpuscular Hgb 30.8 pg (27.0-32.0); Mean Corpuscular Volume 96.6 fL (80-94); Mean Platelet Vol. 9.1 fl (6.2-12.0); Monocyte# 0.39 X10^3/uL; Monocyte% 8.9 % (0-10); NRBC Flagged by Analyzer 0 % (0-5); Neutrophil # 2.42 X10^3/uL (2.7-7.7); Neutrophil % 55.2 % (47-70); Platelet Count 217 K/mm3 (150-450); RBC Distribution Width CV 13.2 % (11.6-14.6); RBC Distribution Width SD 46.8 fl (35.1-43.9); Red Blood Count 4.35 M/mm3 (4.6-6.2); White Blood Count 4.4 K/mm3 (4.4-11.0)
[2023-09-22 12:58] LABS: ALB/GLOB Ratio 1.1 RATIO (0.9-2.4); AST(SGOT) 16 U/L (15-37); Alanine Aminotransfer ALT/SGPT 26 U/L (16-61); Albumin, Serum 3.5 g/dL (3.2-5.0); Alkaline Phosphatase 62 U/L (45-117); Anion Gap 3 (5-15); BUN 12 mg/dL (7-18); BUN/Creat Ratio 16.6 RATIO (10-20); Calcium,Total 8.9 mg/dL (8.5-10.1); Chloride 110 mmol/L (98-107); Creatinine, Serum 0.72 mg/dL (0.70-1.30); EST Glomerular Filtration Rate 115 mL/min (>60); Est Glom Filt Rate - Afr Amer 139 mL/min (>60); Globulin 3.3 g/dL (2.2-4.2); Glucose 102 mg/dL (74-106); Potassium 4.5 mmol/L (3.5-5.1); Protein, Total 6.8 g/dL (6.4-8.2); Sodium Level 141 mmol/L (136-145)
--- OUTSIDE RECORDS SUMMARY | 2023-09-22 20:08 | XMS RPT_ITS | CCD ---
Author Name Unknown Address [address] [place] [address] Organization [facility] Care Team Providers Care Theater Manager Name Role Phone Jesusita Muir Unavailable Sherry SCHUMACHER, Cynthia Daniels Unavailable Unavailable Jesusita Muir Unavailable Cynthia Powell RN Unavailable Unavailable Abhinav Lebron Chi Primary Care Provider None, No PCP Unavailable Unavailable Self, Referral Referring Unavailable Chandu Mitchell Attending Unavailable Chandu Mitchell Attending Unavailable Allergies Allergy Classification Reported Allergen(s) Allergy Type Date of Onset Reaction(s) Facility (6 sources) penicillin drug allergy 7 Rash, unknown [facility] Work Phone: (1 source) Penicillins Propensity to adverse reactions 7 Rash [facility] Work Phone: (1 source) Pravastatin Drug Allergy 2 Other: See Comments [facility] Medications Current Medications Medication Drug Class(es) Dates Sig (Normalized) Sig (Original) doxycycline monohydrate 100 mg oral tablet (1 source) Tetracycline-clas s Drug Start: 12-02-2021 End: 12-07-2021 take 1 tablet by mouth twice daily doxycycline monohydrate 100 mg tablet Take 1 tablet by mouth twice daily for 5 days. 10 tablet 0 12/02/2021 12/07/2021 Active Completed/Discontinued Medications Medication Drug Class(es) Dates Sig (Normalized) Sig (Original) amLODIPine 5 mg oral tablet (2 sources) Dihydropyridine Calcium Channel Jean-Pierre Start: 06-10-2022 amLODIPine Besylate 5 MG Oral Tablet Quantity: 0 Refills: 0 Ordered: 10-Jun-2022 DO Start : 15-Nov-2022 Active Problems Active Problems Problem Classification Problem Date Documented Date Episodic/Chronic Cardiac dysrhythmias (4 sources) Ventricular premature beats; Translations: [Ventricular premature depolarization] Onset: 04-14-2017 04-14-2017 Chronic Disorders of lipid metabolism (5 sources) Hyperlipidemia; Translations: [Mixed hyperlipidemia] Onset: 07-02-2007 04-14-2017 Chronic Essential hypertension (2 sources) Hypertensive disorder; Translations: [Essential (primary) hypertension] 04-14-2017 Chronic Osteoarthritis (2 sources) Osteoarthritis; Translations: [Unspecified osteoarthritis, unspecified site] Onset: 10-27-2013 10-27-2013 Chronic Other circulatory disease (1 source) H/O: hypertension; Translations: [Personal history of other diseases of circulatory system] Episodic Other connective tissue disease (1 source) Unspecified rotator cuff tear or rupture of right shoulder, not specified as traumatic; Translations: [Right rotator cuff tear] Episodic Other connective tissue disease (1 source) History of clinical finding in subject; Translations: [Personal history of other musculoskeletal disorders] Episodic Other ear and sense organ disorders (1 source) Impacted cerumen in right ear; Translations: [Impacted cerumen, right ear] Episodic Other injuries and conditions due to external causes (1 source) Injury of left hand; Translations: [Unspecified injury of left wrist, hand and finger(s), initial encounter] Episodic Other non-traumatic joint disorders (1 source) Shoulder pain; Translations: [Pain in joint, shoulder region] Episodic Thyroid disorders (3 sources) Hypothyroidism; Translations: [Hypothyroidism, unspecified] Onset: 04-25-2009 04-15-2017 Chronic Past or Other Problems Problem Classification Problem Date Documented Da te Episodic/Chronic Allergic reactions (1 source) Contact dermatitis; Translations: [Unspecified contact dermatitis, unspecified cause] Onset: 07-02-2007 01-23-2010 Episodic Blindness and vision defects (1 source) Myopia; Translations: [Myopia, unspecified eye] Onset: 07-02-2007 01-23-2010 Episodic Cardiac dysrhythmias (4 sources) Palpitations; Translations: [Palpitations] Onset: 04-14-2017 04-14-2017 Episodic Other non-traumatic joint disorders (2 sources) Pain in right hip; Translations: [Pain in right hip] Onset: 06-10-2022 Episodic Other non-traumatic joint disorders (1 source) Pain in right shoulder; Translations: [Pain in right shoulder] Onset: 06-10-2022 Episodic Residual codes; unclassified (1 source) Family history of prostate cancer; Translations: [Family history of malignant neoplasm of prostate] Onset: 04-23-2010 04-23-2010 Episodic Varicose veins of lower extremity (2 sources) Venous varices; Translations: [Asymptomatic varicose veins of unspecified lower extremity] Onset: 07-02-2007 01-23-2010 Episodic Results Test Name Value Interpretation Reference Range Facil ity Vital Signs Date Time Vital Sign Value Performing Clinician Sue harman 12-02-2021 10:24-0400 Body temperature 96.8 [degF] Milagros Darby APRN.UTILITY FORESTER Work Phone: [facility] 12-02-2021 10:24-0400 Body weight 89.63 kg Milagros Darby APRN.UTILITY FORESTER Work Phone: [facility] 12-02-2021 10:24-0400 Diastolic blood pressure 80 mm[Hg] Milagros Darby APRN.UTILITY FORESTER Work Phone: [facility] 12-02-2021 10:24-0400 Heart rate 65 /min Milagros Darby APRN.UTILITY FORESTER Work Phone: [facility] 12-02-2021 10:24-0400 Respiratory rate 21 /min Milagros Darby APRN.UTILITY FORESTER Work Phone: [facility] 12-02-2021 10:24-0400 SaO2% (BldA) [Mass fraction] 100 % Milagros Darby APRN.UTILITY FORESTER Work Phone: [facility] 12-02-2021 10:24-0400 Systolic blood pressure 152 mm[Hg] Milagros Darby APRN.UTILITY FORESTER Work Phone: [facility] 04-15-2017 13:44-0400 BMI (Body Mass Index) 25.43 kg/m2 [facility] Work Phone: 04-15-2017 13:44-0400 BP Diastolic 70 mm[Hg] [facility] Work Phone: 04-15-2017 13:44-0400 BP Systolic 120 mm[Hg] [facility] Work Phone: 04-15-2017 13:44-0400 Height 195.58 cm [facility] Work Phone: 04-15-2017 13:44-0400 Pulse (Heart Rate) 84 /min [facility] Work Phone: 04-15-2017 13:44-0400 Respiratory Rate 20 /min [facility] Work Phone: 04-15-2017 13:44-0400 Weight 97.3 kg [facility] Work Phone: Encounters Encounter Date Encounter Type Care Provider Facility Start: 06-10-2022 Office outpatient ne w 45 minutes No PCP None [facility]Tfmxvgfluay[facility] Work Phone: Start: 06-10-2022 ambulatory Referral Self Facility: [id number] Start: 12-02-2021 End: 12-02-2021 Patient encounter procedure Milagros Darby APRN.CNP Work Phone: [facility] Procedures Date Procedure Procedure Detail Performing Clinician Start: 10-26-2018 Colonoscopy Milagros Darby APRN.CNP Work Phone: Start: 02-22-2016 Adult depression scr eening assessment Milagros Darby APRN.CNP Work Phone: Plan of Treatment Date Care Activity Detail Author Start: 10-26-2028 Colonoscopy COLONOSCOPY [facility] Start: 10-26-2028 COLORECTAL CANCER SCREENING COLORECTAL CANCER SCREENING [facility] Start: 04-28-2023 Urine microalbumin profile DTAP,TDAP,TD (3 - Td or Tdap) [facility] Start: 10-05-2021 COVID-19 VACCINE (4 - Booster for Moderna series) COVID-19 VACCINE (4 - Booster for Moderna series) [facility] Start: 2021 ADVANCE DIRECTIVE DISCUSSION ADVANCE DIRECTIVE DISCUSSION [facility] Start: 2021 PNEUMOVAX AGE 65 AND OVER WITH 5YR LOOKBACK (#1) PNEUMOVAX AGE 65 AND OVER WITH 5YR LOOKBACK (#1) [facility] Start: 02-10-2021 LIPID SCREEN LIPID SCREEN [facility] Start: 10-20-2019 PROSTATE CANCER SCREENING DISCUSSION PROSTATE CANCER SCREENING DISCUSSION [facility] Start: 02-10-2019 DIABETES SCREEN DIABETES SCREEN [facility] Start: 08-13-2017 End: 08-13-2017 Appointment Appointment [employer] Work Phone: Start: 04-15-2017 End: 04-15-2017 24 hour holter monitor 24 hour holter monitor [employer] Work Phone: Start: 04-15-2017 End: 04-15-2017 [employer] Work Phone: Start: 04-15-2017 End: 04-15-2017 Echocardiography Echocardiogram (complete) [employer] Work Phone: Start: 04-15-2017 End: 04-15-2017 Follow Up Appt 4 months Follow Up Appt 4 months [employer] Work Phone: Start: 04-15-2017 End: 04-15-2017 Appointment Appointment [employer] Work Phone: Start: 04-15-2017 End: 04-15-2017 24 hour holter monitor 24 hour holter monitor [employer] Work Phone: Start: 04-15-2017 End: 04-15-2017 [employer] Work Phone: Start: 04-15-2017 End: 04-15-2017 Echocardiography Echocardiogram (complete) [employer] Work Phone: Start: 04-15-2017 End: 04-15-2017 Follow Up Appt 4 months Follow Up Appt 4 months [employer] Work Phone: Start: 02-21-2017 Adult depression screening assessment DEPRESSION SCREENING [facility] Start: 2006 SHINGRIX VACCINE (1 of 2) SHINGRIX VACCINE (1 of 2) [facility] Start: 2001 COLOGUARD (FIT-DNA) COLOGUARD (FIT-DNA) [facility] Start: [address] COLONOGRAPHY [facility] Start: 2001 FECAL OCCULT BLOOD FECAL OCCULT BLOOD [facility] Start: 2001 SIGMOIDOSCOPY SIGMOIDOSCOPY [facility] Start: 1974 ANNUAL PCP TEAM CHRONIC DISEASE VISIT ANNUAL PCP TEAM CHRONIC DISEASE VISIT [facility] Start: 1974 HEPATITIS C SCREENING HEPATITIS C SCREENING [facility] Start: 1974 HIV SCREENING HIV SCREENING [facility] Immunizations Immunization Date Immunization Notes Care Provider Aditya frederick 06-07-2022 Prevnar 20 0.5 ML Intramuscular Suspension Prefilled Syringe No PCP None LC-Rnfewpbjaxno-Da [facility] Work Phone: 12-31-2021 Comirnaty 30 MCG/0.3 ML Intramuscular Suspension No PCP None [facility] Work Phone: 10-14-2021 pneumococcal polysaccharide vaccine, 23 valent No PCP None NL-Zyafwuruewjt-Ai [facility] Work Phone: 06-07-2021 Pfizer-[employer] COVI D-19 Vacc 30 MCG/0.3ML Intramuscular Suspension No PCP None [facility] Work Phone: 04-22-2021 influenza, injectabl e, quadrivalent, contains preservative No PCP None HE-Kbxqxwntegkp-Vz [facility] Work Phone: 11-01-2020 Moderna COVID-19 Vac cine 100 MCG/0.5ML Intramuscular Suspension No PCP None [facility] Work Phone: 10-04-2020 Moderna COVID-19 Vac cine 100 MCG/0.5ML Intramuscular Suspension No PCP None [facility] Work Phone: 08-17-2020 zoster vaccine recombinant No PCP None IK-Oztmjbsfqick-Vt [facility] Work Phone: 05-03-2020 zoster vaccine recombinant No PCP None XI-Tfqbidbnrusb-Hz [facility] Work Phone: 04-18-2020 influenza, injectabl e, quadrivalent, contains preservative No PCP None IO-Izbsgnjujlnh-Wl [facility] Work Phone: 04-11-2019 influenza, injectabl e, quadrivalent, contains preservative No PCP None CS-Slzjxqjcdqdd-Pi [facility]chell Work Phone: 04-06-2017 influenza, injectabl e, quadrivalent, contains preservative No PCP None ZC-Uubwigpkhshl-Jh [facility] Work Phone: 04-30-2015 influenza, injectabl e, quadrivalent, contains preservative Milagros Wilner LEAN CONSULTANT.UTILITY FORESTER Work Phone: [facility] 04-28-2014 influenza, seasonal, injectable Milagros Wilner LEAN CONSULTANT.[employer]ILITY FORESTER Work Phone: [facility] 04-28-2013 influenza virus vacc ine, unspecified formulation Milagros Wilner LEAN CONSULTANT.UTILITY FORESTER Work Phone: [facility] 04-28-2013 tetanus toxoid, redu amy diphtheria toxoid, and acellular pertussis vaccine, adsorbed Milagros Wilner LEAN CONSULTANT.UTILITY FORESTER Work Phone: [facility] 04-27-2012 influenza virus vacc ine, unspecified formulation Milagros Wilner LEAN CONSULTANT.UTILITY FORESTER Work Phone: [facility] 04-23-2011 influenza virus vacc ine, unspecified formulation Milagros Wilner LEAN CONSULTANT.UTILITY FORESTER Work Phone: [facility] 04-23-2010 influenza virus vacc ine, unspecified formulation Milagros Wilner LEAN CONSULTANT.UTILITY FORESTER Work Phone: [facility] 04-25-2009 influenza virus vacc ine, unspecified formulation Milagros Wilner LEAN CONSULTANT.UTILITY FORESTER Work Phone: [facility] Work Phone: 07-02-2007 influenza virus vacc ine, unspecified formulation Milagros Wilner LEAN CONSULTANT.UTILITY FORESTER Work Phone: [facility] Work Phone: 07-02-2007 tetanus toxoid, redu amy diphtheria toxoid, and acellular pertussis vaccine, adsorbed Milagros Wilner LEAN CONSULTANT.UTILITY FORESTER Work Phone: [facility] Payers Date Payer Category Payer Medicare MEDICARE MEDICAR E A AND B [id number] 2021-Present [phone] [place] [address] Medicare [id number] 2021 Medicare [id number] 2021 Unknown VENITA NATHAN ME DICARE SUPPLEMENT [id number] 2021-Present [phone] [address] [place] [address] Indemnity [id number] 1955 Unknown [id number] 1955 Unknown [id number] Unknown ANTHMAINOR Unknown [id number] Social History Date Type Detail Facility Tobacco smoking stat [facility] Never smoked tobacco [facility] Start: 12-02-2021 Alcohol intake Current drinke r of alcohol (finding) [facility] Start: 12-28-2007 History SDOH Alcohol Comment beer on weekends [facility] Start: 1955 Sex Assigned At Not on file [facility] Start: 11-22-2021 End: 12-02-2021 Exposure to SARS-CoV-2 (event) Not sure [facility] Work Phone: Non-smoker Non-smoker [facility] Work Phone: Progress note 12-12-2021 Note Date & Type Note Facility 12-12-2021 Note HNO ID: [id number] Author: Tania Renee PA-C Service: ? Author Type: Physician Hospice Case Manager Type: Progress Notes Filed: 12/12/2021 11:32 AM Note Text: This note was created using NoteWriter. Subjective Rama Francis is a 66 year old male. HPI Patient presents with needing sutures removed. On December 02 he had 3 sutures placed after a chainsaw accident. The sutures appear to have popped through on a couple spots. He has been using the hand, states may be more than he should have been. He denies any weakness or numbness. No drainage out of the wound or sign of infection. Review of Systems Skin: Left hand laceration All other systems reviewed and are negative. PAST MEDICAL HISTORY Diagnosis Date - Essential hypertension - Hyperlipidemia - Hypothyroid Current Outpatient Medications Medication Sig Dispense Refill - terbinafine HCl (LAMISIL) 250 mg tablet TAKE 1 TABLET ORALLY ONCE PER DAY FOR 90 DAYS - amLODIPine (NORVASC) 5 mg tablet - famotidine (PEPCID) 40 mg tablet - atorvastatin (LIPITOR) 40 mg tablet Take 1 tablet by mouth once daily. 30 tablet 1 - levothyroxine (SYNTHROID) 125 mcg tablet Take 1 tablet by mouth once daily. Take on empty stomach. For Thyroid 90 tablet 3 - Umjktbftjeylz-Pstobihl-Cakjrj (CENTRUM SILVER) tab Take 1 tablet by mouth once daily. 0 - Aspirin 81 mg tab Take 1 tablet by mouth once daily. Take with food. 30 tablet 11 No current facility-administered medications for this visit. PAST SURGICAL HISTORY Procedure Laterality Date - EXCISION NOSE POLYP(S),SIMPLE Nasal polypectomy - PAST SURGICAL HISTORY OF benign lump removal x2 - vein stripping 06/2009 LLE FAMILY HISTORY Problem Relation Age of Onset - Cancer Father prostate - Heart Maternal Grandfather cancer of colon - Cancer Paternal Grandmother stomach - other (diverticulitis [Other]) Mother Social History Tobacco Use - Smoking status: Never Smoker - Smokeless tobacco: Never Used Substance Use Topics - Alcohol use: Yes Comment: beer on weekends - Drug use: No Objective BP 140/76 Pulse 79 Temp 36.2 ?C (97.2 ?F) Resp 21 Wt 89.4 kg (197 lb 3.2 oz) SpO2 99% BMI 24.00 kg/m? Physical Exam Vitals reviewed. Constitutional: Appearance: Normal appearance. HENT: Head: Normocephalic and atraumatic. Musculoskeletal: Hands: Comments: Patient has a 2 and half centimeter subacute laceration with 3 simple interrupted sutures. They appear to have popped through the wound edges and the wound has dehisced about 75% of the wound edge. No signs of infection. Normal range of motion of the MCP. Skin: General: Skin is warm. Neurological: Mental Status: He is alert. Assessment and Plan ASSESSMENT/PLAN: 1. Visit for suture removal - ICD9: V58.32, ICD10: Z48.02 (primary diagnosis) Sutures were removed here. I did place Steri-Strips and place him in a finger splint. Discussed that this may take a few more weeks to heal as it has dehisced. Discussed wound care. Patient and agreeable with plan. 2. Wound dehiscence - ICD9: 998.30, ICD10: T81.30XA Tania Renee PA-C [facility] Progress note 12-02-2021 Note Date & Type Note Facility 12-02-2021 Note HNO ID: [id number] Author: RT James(R) Service: Nuclear Medicine Author Type: Technologist Type: Progress Notes Filed: 12/02/2021 11:25 AM Note Text: Radiology Service Progress Note PATIENT NAME: Rama Francis DATE OF SERVICE: December 02, 2021 TIME: 11:17 AM PATIENT IDENTITY VERIFICATION COMPLETED USING TWO (2) IDENTIFIERS: Name and Date of confirmed by patient verbally. FALL SCREENING: Has the patient had 2 falls in the last year or 1 fall with injury or currently using an Ambulatory Assistive Device (Walker, Cane, Wheelchair, Crutches, etc.)? No PATIENT GENDER DATA: Male PATIENT RELEVANT IMPLANT DATA REVIEWED: Not Applicable RADIOLOGY DEPARTMENT: General X-ray: Exam(s) Completed: Upper Extremity X-Ray(s): Hand, left PERIPHERAL IV DATA: Not applicable SIGNED BY: RT James(R) December 02, 2021 11:17 AM [facility] Progress note 12-02-2021 Note Date & Type Note Facility 12-02-2021 Note HNO ID: [id number] Author: Milagros Darby APRN.UTILITY FORESTER Service: ? Author Type: Nurse Practitioner Type: Progress Notes Filed: 12/02/2021 12:00 PM Note Text: Subjective Patient came in with complaints of laceration on left index knuckle from a chain saw blade. The blade was almost at a complete stop. Denies any pain numbness or tingling in the area. denies any weakness. Just wants it checked. patint also wants ears checked for cerumen impaction. Said he has a significant history of it. Denies any hearing changes. The history is provided by the patient. No medical language specialist was used. Review of Systems Constitutional: Negative. Skin: Negative. Objective Physical Exam Constitutional: Appearance: Normal appearance. HENT: Right Ear: Tympanic membrane, ear canal and external ear normal. There is impacted cerumen. Left Ear: Tympanic membrane, ear canal and external ear normal. There is no impacted cerumen. Pulmonary: Effort: Pulmonary effort is normal. Musculoskeletal: Hands: Comments: Laceration about 2 cm in depth. strength and flexation are within normal limits. No foreign bodies noted. Neurological: Mental Status: He is alert. PAST MEDICAL HISTORY Diagnosis Date - Essential hypertension - Hyperlipidemia - Hypothyroid PAST SURGICAL HISTORY Procedure Laterality Date - EXCISION NOSE POLYP(S),SIMPLE Nasal polypectomy - PAST SURGICAL HISTORY OF benign lump removal x2 - vein stripping 06/2009 LLE ALLERGIES Penicillins and Pravastatin MEDICATIONS terbinafine HCl (LAMISIL) 250 mg tablet TAKE 1 TABLET ORALLY ONCE PER DAY FOR 90 DAYS amLODIPine (NORVASC) 5 mg tablet famotidine (PEPCID) 40 mg tablet atorvastatin (LIPITOR) 40 mg tablet Take 1 tablet by mouth once daily. levothyroxine (SYNTHROID) 125 mcg tablet Take 1 tablet by mouth once daily. Take on empty stomach. For Thyroid Enpholuifwewg-Fpqvcyrm-Veesrt (CENTRUM SILVER) tab Take 1 tablet by mouth once daily. Aspirin 81 mg tab Take 1 tablet by mouth once daily. Take with food. FAMILY HISTORY Problem Relation Age of Onset - Cancer Father prostate - Heart Maternal Grandfather cancer of colon - Cancer Paternal Grandmother stomach - other (diverticulitis [Other]) Mother Social History Tobacco Use - Smoking status: Never Smoker - Smokeless tobacco: Never Used Substance Use Topics - Alcohol use: Yes Comment: beer on weekends - Drug use: No ASSESSMENT/PLAN: 1. Injury of left hand, initial encounter - ICD9: 959.4, ICD10: S69.92XA (primary diagnosis) - XR HAND GENERAL 3V PA/LAT/OBL LEFT Comparison: None ? 3 views of the left hand are obtained. There is normal architecture and mineralization of the bones. There is no acute fracture or dislocation. Mild degenerative disease of the interphalangeal joints of the left fifth digit. No radiodense foreign body is visualized. ? Impression: 1. No acute fracture or dislocation. ? Director Of Estate: AMY Transcribe Date/Time: Dec 02 2021 11:33A ? Dictated by : ROBERT JEFFERSON MD 2. Impacted cerumen of right ear - ICD9: 380.4, ICD10: H61.21 cerumen impaction as flushed successfully. Patient verbalized consent for sutures. Patient was placed on antibiotic due to chainsaw being dirty at time of wound. Patient was numbed successfully with 3 cc of 2% lidocaine. Patient was sewed with 3 sutures 5.0. instructed to monitor for infection and have sutures out in 7-10 days. Keep clean and dry. Patient is okay with this care plan. Milagros Darby APRN.ELVIA [facility] History of Present illness Narrative 12-02-2021 Milagros Darby APRN.ELVIA - 12/02/2021 10:52 AM EDT Note Date & Type Note Facility 12-02-2021 History of Presen t illness Narrative Images from the original note were not included. Subjective Patient came in with complaints of laceration on left index knuckle from a chain saw blade. The blade was almost at a complete stop. Denies any pain numbness or tingling in the area. denies any weakness. Just wants it checked. patint also wants ears checked for cerumen impaction. Said he has a significant history of it. Denies any hearing changes. The history is provided by the patient. No medical language specialist was used. Review of Systems Constitutional: Negative. Skin: Negative. Objective Physical Exam Constitutional: Appearance: Normal appearance. HENT: Right Ear: Tympanic membrane, ear canal and external ear normal. There is impacted cerumen. Left Ear: Tympanic membrane, ear canal and external ear normal. There is no impacted cerumen. Pulmonary: Effort: Pulmonary effort is normal. Musculoskeletal: Hands: Comments: Laceration about 2 cm in depth. strength and flexation are within normal limits. No foreign bodies noted. Neurological: Mental Status: He is alert. PAST MEDICAL HISTORY Diagnosis Date Essential hypertension Hyperlipidemia Hypothyroid PAST SURGICAL HISTORY Procedure Laterality Date EXCISION NOSE POLYP(S),SIMPLE Nasal polypectomy PAST SURGICAL HISTORY OF benign lump removal x2 vein stripping 06/2009 LLE ALLERGIES Penicillins and Pravastatin MEDICATIONS terbinafine HCl (LAMISIL) 250 mg tablet TAKE 1 TABLET ORALLY ONCE PER DAY FOR 90 DAYS amLODIPine (NORVASC) 5 mg tablet famotidine (PEPCID) 40 mg tablet atorvastatin (LIPITOR) 40 mg tablet Take 1 tablet by mouth once daily. levothyroxine (SYNTHROID) 125 mcg tablet Take 1 tablet by mouth once daily. Take on empty stomach. For Thyroid Rqygcablxiwlg-Bwiahncl-Sjfsnp (CENTRUM SILVER) tab Take 1 tablet by mouth once daily. Aspirin 81 mg tab Take 1 tablet by mouth once daily. Take with food. FAMILY HISTORY Problem Relation Age of Onset Cancer Father prostate Heart Maternal Grandfather cancer of colon Cancer Paternal Grandmother stomach other (diverticulitis [Other]) Mother Social History Tobacco Use Smoking status: Never Smoker Smokeless tobacco: Never Used Substance Use Topics Alcohol use: Yes Comment: beer on weekends Drug use: No ASSESSMENT/PLAN: 1. Injury of left hand, initial encounter - ICD9: 959.4, ICD10: S69.92XA (primary diagnosis) - XR HAND GENERAL 3V PA/LAT/OBL LEFT Comparison: None 3 views of the left hand are obtained. There is normal architecture and mineralization of the bones. There is no acute fracture or dislocation. Mild degenerative disease of the interphalangeal joints of the left fifth digit. No radiodense foreign body is visualized. Impression: 1. No acute fracture or dislocation. Director Of Estate: AMY Transcribe Date/Time: Dec 02 2021 11:33A Dictated by : ROBERT JEFFERSON MD 2. Impacted cerumen of right ear - ICD9: 380.4, ICD10: H61.21 cerumen impaction as flushed successfully. Patient verbalized consent for sutures. Patient was placed on antibiotic due to chainsaw being dirty at time of wound. Patient was numbed successfully with 3 cc of 2% lidocaine. Patient was sewed with 3 sutures 5.0. instructed to monitor for infection and have sutures out in 7-10 days. Keep clean and dry. Patient is okay with this care plan. Milagros Darby APRN.ELVIA documented in this encounter [facility] Progress note 01-30-2021 Note Date & Type Note Facility 01-30-2021 Note HNO ID: [id number] Author: Kael Pride MD Service: ? Author Type: Physician Type: Progress Notes Filed: 01/30/2021 4:52 PM Note Text: Patient presents with: Nausea AND Vomiting: nausea, vomiting and some dizziness-symptoms started this am HPI: Feeling dizzy since this morning. Positive symptoms: Nausea and vomiting in association with dizzy spells, headache (mild frontal), trouble walking, Negative symptoms: Shortness of breath, Chest pain, Fever, Diarrhea, vision change, palpitations, numbness, weakness, hematemesis, melena, hematochezia, tinnitus, hearing loss, otorrhea OTC: Hx of vertigo 2015 associated with otitis media. MEDICATIONS: Current Outpatient Medications Medication Sig - amLODIPine (NORVASC) 5 mg tablet - famotidine (PEPCID) 40 mg tablet - atorvastatin (LIPITOR) 40 mg tablet Take 1 tablet by mouth once daily. - levothyroxine (SYNTHROID) 125 mcg tablet Take 1 tablet by mouth once daily. Take on empty stomach. For Thyroid - Uxogfytewasqn-Uuyenuaf-Gepnww (CENTRUM SILVER) tab Take 1 tablet by mouth once daily. - Aspirin 81 mg tab Take 1 tablet by mouth once daily. Take with food. No current facility-administered medications for this visit. ALLERGIES: ALLERGIES Allergen Reactions - Penicillins Rash - Pravastatin Other: See Comments arthralgia VITALS: BP 152/86 Pulse 61 Temp 36.2 ?C (97.2 ?F) (Tympanic) Resp 16 Wt 88.6 kg (195 lb 6.4 oz) SpO2 99% BMI 23.78 kg/m? PHYSICAL EXAM: GEN: pleasant, alert, sitting still, Accompanied by his who assists with his ambulation and hold emesis bag HEENT: PERRL, EOMI, conjunctiva clear Ears: left canal with mild distal cerumen. Cerumen removed from the right canal with plastic cerumen hook. TMs without erythema, bulge, or effusion Sinuses: non-tender frontal sinus, non-tender maxillary sinuses Throat: moist mucous membranes, no erythema, no exudate Neck: supple, no thyromegaly, no lymphadenopathy HEART: regular rate and rhythm, no murmurs LUNGS: clear to auscultation, no wheezes or crackles, no increased WOB ABD: Soft, non-distended, non-tender, no masses NEURO: Alert and oriented to person, place, and time. CN II-XII intact. DTR 1+/4 in upper and lower extremities. Normal strength. Cautious and somewhat unstable gait-coasts and holds arm. No tremor. Head impulse test is negative. Sitting up from supine induces dizziness without nystagmus. ASSESSMENT/PLAN: 1. Vertigo - ICD9: 780.4, ICD10: R42 (primary diagnosis) 2. Non-intractable vomiting with nausea, unspecified vomiting type - ICD9: 787.01, ICD10: R11.2 Unable to reassuringly diagnose benign vs serious underlying cause of vertigo. He has multiple risk factors for stroke. ER evaluation recommended. His will take him to [place] [facility]. Report sent by ER passport. Kael Pride MD [facility] History of Past illness Narrative 04-24-2011 Note Date & Type Note Facility documented as of this encounter (statuses as of 12/02/2021) [facility] Evaluation note Note Date & Type Note Facility documented in this encounter [facility] History of Present illness Narrative Note Date & Type Note Facility History of Present illness Narrative House.This is a 66-year-old male that comes to see me today for chief complaint of right shoulder pain this been ongoing for couple of months as he began making a stone patio on the back of his he had increasing right shoulder pain though he has had some pain in the shoulder for years and both shoulders. Comes to see me today for further evaluation has been using some anti-inflammatories and therapeutic exercises for hisContinues to have discomfort pain is mostly anterior and lateral. [id number] Work Phone: Reason for referral (narrative) Diagnostic Procedure Only (Urgent) - Closed Note Date & Type Note Facility Referral ID Status Reason Start Date Expiration Date V isits Requested Visits Authorized [id number] Closed Auto-Generate d Referral 12/02/2021 01/01/2023 1 1 [facility] Summary Purpose Family History No Family History Records FoundUnknown Family Member Name Dates Details No pertinent family history: Other(V49.89, Z78.9) Status:Active Advance Directives No Advanced Directives Records FoundNo Advanced Directives Records FoundNo Advanced Directives Records Found Chief Complaint NPV bilateral shoulder Additional Source Comments Source Comments (unrecognize d section and content) In the event this informatio n is protected by the Federal Confidentiality of Alcohol and Drug Abuse Patient Records regulations: The Federal rules restrict any use of the information to criminally investigate or prosecute any alcohol or drug abuse patient.[facility] Reason for Visit (unrecogniz ed section and content) Care Teams (unrecognized sec tion and content) (unrecognized sect ion and content) No Status Records FoundNo Status Records FoundNo Status Records Found INFORMATION SOURCE (unrecogn ized section and content) DATE CREATED AUTHOR AUTHOR'S ORGANIZ ATION 06/11/2022 Mila DATE CREATED AUTHOR AUTHOR'S ORGANIZ ATION 11/07/2022 [facility] FOR RECORDS PERTAINING TO PATIENTS WHO ARE OR HAVE BEEN ENROLLED IN A CHEMICAL DEPENDENCY/SUBSTANCEABUSE PROGRAM, SOME INFORMATION MAY BE OMITTED. This clinical summary was aggregated from multiple sources. Caution should be exercised in using it in the provision of clinical care. This summary normalizes information from multiple sources, and as a consequence, information in this document may materially change the coding, format and clinical context of patient data. In addition, data may be omitted in some cases. CLINICAL DECISIONS SHOULD BE BASED ON THE PRIMARY CLINICAL RECORDS. [facility] [employer] provides no warranty or guarantee of the accuracy or completeness of information in this document.
== END | disposition home or self-care (01) ==
LOC: MTLAB 10:59
PROVIDERS: PCP Family Medicine Geriatric Medicine; Referring Provider Internal Medicine Rheumatology; Visit Provider Internal Medicine Rheumatology
DX: M06.4 Inflammatory polyarthropathy (principal); Z79.899 Other long term (current) drug therapy; M47.892 Other spondylosis, cervical region; M47.897 Other spondylosis, lumbosacral region; I10 Essential (primary) hypertension; E78.5 Hyperlipidemia, unspecified; E03.9 Hypothyroidism, unspecified; N40.0 Benign prostatic hyperplasia without lower urinary tract symptoms; G25.0 Essential tremor
CPT/HCPCS: 36415; 80053; 85025

== ENCOUNTER → 2023-09-29 | Outpatient (CLI) | payer MEDICARE, BC, SELFPAY ==
[2023-09-29 16:14] LABS: Bacteria 0 SEEN /hpf (None Seen); Mucous, Urine 0 SEEN /hpf (<or=2+); Red Blood Cells-Urine 0 SEEN /hpf (0-5); Squamous Epithelial Cells - UA 0 SEEN /hpf (0-5); White Blood Cells 0 SEEN /hpf (0-5)
[2023-09-29 16:23] LABS: Color, Urine Yellow (Yellow); Glucose, Dipstick Normal (Normal); Ketone-Dipstick Negative (Negative); Leukocyte Esterase-Dipstick Negative /ul (Negative); Nitrite-Dipstick Negative (Negative); Occult Blood-Urine 25 /ul (Negative); Protein-Dipstick Negative (Negative); Specific Gravity, Urine 1.015 (1.002-1.030); Urine Bilirubin Dipstick Negative (Negative); Urine Clarity Clear (Clear); Urine Urobilinogen Normal (Normal)
== END | disposition home or self-care (01) ==
LOC: LABSPEC 15:55
PROVIDERS: PCP Family Medicine Geriatric Medicine; Referring Provider Urology; Visit Provider Urology
DX: R31.21 Asymptomatic microscopic hematuria (principal)
CPT/HCPCS: 81001

== ENCOUNTER → 2023-10-29 | Outpatient (CLI) | payer MEDICARE, BC, SELFPAY ==
[2023-10-29 11:13] LABS: Absolute Lymphocyte Count 1.18 X10^3/uL (0.83-4.51); Absolute Neutrophil Count 2.9 X10^3/uL (2.0-7.7); Basophil# 0.03 X10^3/uL; Basophil% 0.6 % (0-1); Eosinophil# 0.14 X10^3/uL; Eosinophils% 2.9 % (0-5); Hematocrit 41.8 % (40-54); Hemoglobin 13.1 g/dL (13.0-16.5); Lymphocyte # 1.18 X10^3/ul (0.83-4.51); Lymphocyte % 24.2 % (19-41); Mean Corp Hgb Conc 31.3 g/dL (32-36); Mean Corpuscular Hgb 30.7 pg (27.0-32.0); Mean Corpuscular Volume 97.9 fL (80-94); Mean Platelet Vol. 9.1 fl (6.2-12.0); Monocyte# 0.59 X10^3/uL; Monocyte% 12.1 % (0-10); NRBC Flagged by Analyzer 0 % (0-5); Neutrophil # 2.92 X10^3/uL (2.7-7.7); Neutrophil % 59.8 % (47-70); Platelet Count 238 K/mm3 (150-450); RBC Distribution Width CV 13.1 % (11.6-14.6); RBC Distribution Width SD 46.4 fl (35.1-43.9); Red Blood Count 4.27 M/mm3 (4.6-6.2); White Blood Count 4.9 K/mm3 (4.4-11.0)
[2023-10-29 11:27] LABS: Vitamin D,25 Hydroxy 38.3 ng/mL
[2023-10-29 11:38] LABS: AST(SGOT) 15 U/L (15-37); Alanine Aminotransfer ALT/SGPT 20 U/L (16-61); Albumin, Serum 3.5 g/dL (3.2-5.0); Alkaline Phosphatase 78 U/L (45-117); Anion Gap 5 (5-15); BUN 14 mg/dL (7-18); Calcium,Total 8.8 mg/dL (8.5-10.1); Chloride 110 mmol/L (98-107); Creatinine, Serum 0.67 mg/dL (0.70-1.30); EST Glomerular Filtration Rate 127 mL/min (>60); Est Glom Filt Rate - Afr Amer 153 mL/min (>60); Globulin 3.6 g/dL (2.2-4.2); Glucose 98 mg/dL (74-106); Protein, Total 7.1 g/dL (6.4-8.2); Sodium Level 141 mmol/L (136-145); Thyroid Stim Hormone (TSH) 0.12 uIU/mL (0.358-3.74)
== END | disposition home or self-care (01) ==
LOC: POLAB3 09:36
PROVIDERS: PCP Family Medicine Geriatric Medicine; Visit Provider Family Medicine Geriatric Medicine
DX: I10 Essential (primary) hypertension (principal); E55.9 Vitamin D deficiency, unspecified
CPT/HCPCS: 36415; 80053; 82306; 84443; 85025

== ENCOUNTER → 2023-12-23 | Outpatient (CLI) | payer MEDICARE, BC, SELFPAY ==
[2023-12-23 15:38] LABS: Absolute Lymphocyte Count 1.08 X10^3/uL (0.83-4.51); Absolute Neutrophil Count 2.9 X10^3/uL (2.0-7.7); Basophil# 0.03 X10^3/uL; Basophil% 0.6 % (0-1); Eosinophil# 0.07 X10^3/uL; Eosinophils% 1.5 % (0-5); Hemoglobin 13.9 g/dL (13.0-16.5); Lymphocyte # 1.08 X10^3/ul (0.83-4.51); Lymphocyte % 22.8 % (19-41); Mean Corp Hgb Conc 31.6 g/dL (32-36); Mean Corpuscular Hgb 31.2 pg (27.0-32.0); Mean Corpuscular Volume 98.7 fL (80-94); Mean Platelet Vol. 9.7 fl (6.2-12.0); Monocyte# 0.65 X10^3/uL; Monocyte% 13.7 % (0-10); NRBC Flagged by Analyzer 0 % (0-5); Neutrophil % 61.2 % (47-70); Platelet Count 198 K/mm3 (150-450); RBC Distribution Width CV 13.1 % (11.6-14.6); RBC Distribution Width SD 47.1 fl (35.1-43.9); Red Blood Count 4.46 M/mm3 (4.6-6.2); White Blood Count 4.7 K/mm3 (4.4-11.0)
[2023-12-23 16:10] LABS: AST(SGOT) 18 U/L (15-37); Alanine Aminotransfer ALT/SGPT 21 U/L (16-61); Albumin, Serum 3.5 g/dL (3.2-5.0); Alkaline Phosphatase 75 U/L (45-117); Anion Gap 5 (5-15); BUN 10 mg/dL (7-18); BUN/Creat Ratio 12.8 RATIO (10-20); Calcium,Total 8.8 mg/dL (8.5-10.1); Chloride 107 mmol/L (98-107); Creatinine, Serum 0.78 mg/dL (0.70-1.30); EST Glomerular Filtration Rate 106 mL/min (>60); Est Glom Filt Rate - Afr Amer 128 mL/min (>60); Globulin 3.6 g/dL (2.2-4.2); Glucose 95 mg/dL (74-106); Potassium 4.2 mmol/L (3.5-5.1); Protein, Total 7.1 g/dL (6.4-8.2); Sodium Level 139 mmol/L (136-145); Thyroid Stim Hormone (TSH) 0.18 uIU/mL (0.358-3.74)
== END | disposition home or self-care (01) ==
LOC: LAB 13:20
PROVIDERS: PCP Family Medicine Geriatric Medicine; Referring Provider Internal Medicine Rheumatology; Visit Provider Internal Medicine Rheumatology
DX: E03.9 Hypothyroidism, unspecified (principal); M06.4 Inflammatory polyarthropathy; Z79.899 Other long term (current) drug therapy
CPT/HCPCS: 36415; 80053; 84443; 85025

== ENCOUNTER 2024-02-10 13:05 | Day surgery (SDC) | payer MEDICARE, BC, SELFPAY ==
[2024-02-10] VITALS (7 sets, daily range): BP systolic 110–120; BP diastolic 77–98; PULSE 85–105; RESP 16–18; TEMP 36.6–36.8; O2SAT 99–100; BMI 23.2
--- NOTE | 2024-02-10 13:08 | PCM.HP.STD ---
[facility] - General General Date of Service: 02/10/24 Chief Complaint: Screening for intestinal cancer [facility] Narrative RAMA HOLLIDAY, is a 68 M who presents for colonoscopy today. Previous one was 5 years ago. He has a family history of a mother who had colon cancer. He presents via open access today. He is asymptomatic. He does suffer from rheumatoid arthritis. He is on Plaquenil and methotrexate. This tends to fatigue him to slow him down. He has not had any bright red blood per rectum or melena. [facility] Medical History (Updated 02/02/24 @ 14:38 by Mary Jo Gallardo) Wears contact lenses History of steroid therapy Thyroid disease Prostate disease History of edema Rheumatoid arthritis Sebaceous cyst Inguinal hernia of right side without obstruction or gangrene Family history of colon cancer in mother High cholesterol Acid reflux Hypothyroid HTN (hypertension) Home Medications ?Medication ?Instructions ?Recorded ?Last Taken ?Type famotidine 40 mg tablet 40 mg PO DAILY 05/03/20 Unknown History levothyroxine 137 mcg tablet 137 mcg PO DAILY 01/30/21 Unknown History folic acid 1 mg tablet 1 mg PO DAILY 09/01/22 Unknown History methotrexate sodium 2.5 mg tablet 2.5 mg PO SA 09/01/22 Unknown History rosuvastatin 40 mg tablet 40 mg PO DAILY 09/01/22 Unknown History tamsulosin 0.4 mg capsule 0.4 mg PO DAILY 09/01/22 Unknown History hydroxychloroquine 200 mg tablet 300 mg PO DAILY 01/19/24 Unknown History (Plaquenil) losartan 50 mg tablet 50 mg PO DAILY 01/19/24 Unknown History Allergy/AdvReac Type Severity Reaction Status Date / Time Penicillins Allergy Mild Rash Verified 02/02/24 14:28 Family History Mother Colon cancer Hypertension Father Cancer Prostate/bone cancer Surgical History Hx of colonoscopy Hx of bilateral inguinal hernia repair S/P nasal polypectomy Social History (Updated 01/19/24 @ 16:25 by Ondina Malik) household members: spouse current occupational status: retired Smoking Status: Never smoker alcohol intake: never substance use type: does not use ROS Constitutional Constitutional: Reports systems reviewed and no addt'l complaints, except as documented Cardiovascular Cardiovascular: Denies chest pain Respiratory/Chest Respiratory/Chest: Denies shortness of breath at rest Gastrointestinal Gastrointestinal: Denies abdominal pain, change in bowel habits, hematochezia or melena Physical Exam Const alert, oriented x3 and no apparent distress General Appearance: cooperative and comfortable Eyes General Eye: normal appearance of both eyes Neck General: normal visual inspection Chest inspection of chest normal Resp Effort and Inspection: able to speak in complete sentences and symmetric chest movement Auscultation: clear to auscultation bilaterally Cardio regular rate and regular rhythm GI soft to palpation, non-tender and non-distended Extremity no calf tenderness Neuro oriented x3 Psych thought process normal Assessment & Plan Assessment/Plan (1) Encounter for screening for malignant neoplasm of colon: PLAN: Patient with a direct family member's mother who had colon cancer. Previous colonoscopy 5 years ago. He presents via open access today. Plan to proceed with a colonoscopy with possible biopsy or polypectomy as indicated. He is aware of the technique, benefit, risk, alternatives. He is had an opportunity to ask and have questions answered. We will proceed as noted. Leif Diaz M.D., F.A.C.S.
--- NOTE | 2024-02-10 13:58 | PCM.PRE.AN2 ---
ASA Classification* ASA Classification ASA Classification: 2 Assessment & Plan Anesthesia* Anesthesia Assessment Anesthesia Assessment: Discussed sedation and/or anesthesia options, risks, benefits, and alternatives with patient/parents/legal guardian/POA. Questions invited. The patient/parents/legal guardian/POA seems to understand and agrees to proceed with anesthesia plan. Reviewed the physical assessment, medical history, allergy history and patient home medications list prior to surgery/procedure/anesthetic and documented any changes. Performed airway and anesthesia risk assessments. Anesthesia Type Anesthesia Type: MAC History Source History Obtained from:: Patient and Chart Anesthesia Focused Assessment* Temperature: 98.2 F Pulse Rate: 105 Blood Pressure: 120/84 Respiratory Rate: 16 Pulse Ox: 100 Oxygen Delivery Method: Room Air Airway Assessment Mouth opens: >3 cm Mallampati Score: III Teeth Condition: Intact Neck Range of motion (ROM): Limited ROM (Slight decreasein extension) Pertinent Findings EKG Pertinent Findings:: October 26, 2018. Normal sinus rhythm. Focused Labs Anesthesia Preop lab: CBC WBC 4.7 K/mm3 (4.4-11.0) 12/23/23 13:23 RBC 4.46 M/mm3 (4.6-6.2) L 12/23/23 13:23 Hgb 13.9 g/dL (13.0-16.5) 12/23/23 13:23 Hct 44.0 % (40-54) 12/23/23 13:23 Plt Count 198 K/mm3 (150-450) 12/23/23 13:23 CHEMISTRY Potassium 4.2 mmol/L (3.5-5.1) 12/23/23 13:23 Sodium 139 mmol/L (136-145) 12/23/23 13:23 BUN 10 mg/dL (7-18) 12/23/23 13:23 Creatinine 0.78 mg/dL (0.70-1.30) 12/23/23 13:23 Glucose 95 mg/dL (74-106) 12/23/23 13:23 TSH 0.18 uIU/mL (0.358-3.74) L 12/23/23 13:23 COAG Pre-Assessment Diagnosis/Proposed Procedure Planned Operative Procedure(s): cscope Anesthesia History 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 When Was Last Pacemaker Check QUESTION #4 FULL TEXT: You/Your Family Experience fever (hyperthermia) with Anesthesia Last Oral Intake Last Oral intake: Last Oral Intake NPO since 10:00 02/10/24 13:27 Meds taken in AM with sips of No 02/10/24 13:27 water? Meds patient instructed to take am of surgery PONV PONV - commercial loan administrator: PONV - commercial loan administrator Female No 02/02/24 14:31 HX of Motion Sickness No 02/02/24 14:31 HX of N/V After Surgery No 02/02/24 14:31 Non-Smoker Yes 02/02/24 14:31 Duration of Surgery greater No 02/02/24 14:31 than 60 minutes Number of Risk Factors 1 02/02/24 14:31 PONV Score Low Risk 02/02/24 14:31 Height & Weight Height & Weight: Anesthesia: Height & Weight Height 6 ft 5 in 02/10/24 13:27 Weight: 89 kg 02/10/24 13:27 Body Mass Index (BMI) 23.2 02/10/24 13:27 Respiratory Assessment Respiratory Assessment - commercial loan administrator: Respiratory Tract Infection Hx - commercial loan administrator Hx Respiratory Tract Infection No 02/02/24 14:31 STOP Sleep Apnea STOP Sleep Apnea - commercial loan administrator: STOP Sleep Apnea - commercial loan administrator Hx Hypertension Yes: CONTROLLED WITH MED 02/02/24 14:31 Hx Sleep Apnea No 02/02/24 14:31 CPAP BIPAP Do you snore loudly (louder No 02/02/24 14:31 than talking or can be heard Do you often feel tired/ No 02/02/24 14:31 fatigued/ sleepy during daytime? Has anyone observed you stop No 02/02/24 14:31 breathing during sleep? STOP Results Negative 02/02/24 14:31 QUESTION #5 FULL TEXT : Do you snore loudly (louder than talking or can be heard through closed doors)? 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 Specify any problems Hx of Preganancy in last 3 N/A 02/02/24 14:31 Months Nurse Filling Out Transfusion NBUCHER 02/02/24 14:31 & Questions: Date: 02/02/24 02/02/24 14:31 Time: 14:33 02/02/24 14:31 Patient unable to answer at this time (ie. confused, unrespo /Reproduction History /Reproductive History - commercial loan administrator: /Reproductive Hx- commercial loan administrator Hx Now No 02/02/24 14:31 Gestational Age (in weeks): EDC: Hx Hx Para Hx Section SAB No 02/02/24 14:31 Active Medications Active Medications: Current Medications Generic Name Dose Route Start Last Admin Trade Name Freq PRN Reason Stop Dose Admin Lactated Ringer's 1,000 mls @ 15 mls/hr 02/10/24 13:45 IV .Q48H JERRY PFSH Medical History Wears contact lenses History of steroid therapy Thyroid disease Prostate disease History of edema Rheumatoid arthritis Sebaceous cyst Inguinal hernia of right side without obstruction or gangrene Family history of colon cancer in mother High cholesterol Acid reflux Hypothyroid HTN (hypertension) Home Medications ?Medication ?Instructions ?Recorded ?Last Taken ?Type famotidine 40 mg tablet 40 mg PO DAILY 05/03/20 02/09/24 History levothyroxine 137 mcg tablet 137 mcg PO DAILY 01/30/21 02/09/24 History folic acid 1 mg tablet 1 mg PO DAILY 09/01/22 02/09/24 History methotrexate sodium 2.5 mg tablet 2.5 mg PO SA 09/01/22 02/06/24 History rosuvastatin 40 mg tablet 40 mg PO DAILY 09/01/22 02/09/24 History tamsulosin 0.4 mg capsule 0.4 mg PO DAILY 09/01/22 02/09/24 History hydroxychloroquine 200 mg tablet 300 mg PO DAILY 01/19/24 02/09/24 History (Plaquenil) losartan 50 mg tablet 50 mg PO DAILY 01/19/24 02/09/24 History Allergy/AdvReac Type Severity Reaction Status Date / Time Penicillins Allergy Mild Rash Verified 02/10/24 13:20 Family History Mother Colon cancer Hypertension Father Cancer Prostate/bone cancer Surgical History Hx of colonoscopy Hx of bilateral inguinal hernia repair S/P nasal polypectomy Social History household members: spouse current occupational status: retired Smoking Status: Never smoker alcohol intake: never substance use type: does not use Review of Systems (Anesthesia) ROS Narrative System reviewed and no additional complaints, except as documented.
--- NOTE | 2024-02-10 14:34 | OP.CCLET_ITS ---
02/10/2024 Abhinav Lebron MD [address] [place] [address] Re : Colonoscopy procedure for Franco Francis Dear Dr. Lebron This procedure was performed on Saturday, February 10, 2024. My impressions and recommendations are as follows: Impressions : - Non-thrombosed external hemorrhoids, non-thrombosed internal hemorrhoids and internal hemorrhoids (Grade I) found on digital rectal exam. - The entire examined colon is normal. - No specimens collected. Recommendations : - Discharge patient to home. - Resume previous diet. - Continue present medications. - Repeat colonoscopy in 5 years for surveillance. My findings are described in the full procedure note, which is enclosed. If I can be of further assistance, please feel free to contact me at Doctor phone number(s): Work: . Sincerely, Leif Diaz MD 02/10/2024 2:34:19 PM This report has been signed electronically.
--- NOTE | 2024-02-10 14:34 | OP.COLON_ITS ---
Patient Name: Franco Francis Procedure Date: 02/10/2024 1:54 PM Date of : 1955 Age: 68 Procedure: Colonoscopy Indications: Family history of colon cancer in a first-degree relative before age 60 years Providers: Lefi Diaz MD Referring MD: Abhinav Lebron MD Medicines: See the Anesthesia note for documentation of the administered medications Patient Profile: Last Colonoscopy: 5 years ago. Complications: No immediate complications. Procedure: Pre-Anesthesia Assessment: - Prior to the procedure, a History and Physical was performed, and patient medications and allergies were reviewed. The patient's tolerance of previous anesthesia was also reviewed. The risks and benefits of the procedure and the sedation options and risks were discussed with the patient. All questions were answered, and informed consent was obtained. Prior Anticoagulants: The patient has taken no anticoagulant or antiplatelet agents. ASA Grade Assessment: II - A patient with mild systemic disease. After reviewing the risks and benefits, the patient was deemed in satisfactory condition to undergo the procedure. After I obtained informed consent, the scope was passed under direct vision. Throughout the procedure, the patient's blood pressure, pulse, and oxygen saturations were monitored continuously. The colonoscope was introduced through the anus and advanced to the cecum, identified by appendiceal orifice and ileocecal valve. The colonoscopy was performed without difficulty. The patient tolerated the procedure well. The quality of the bowel preparation was good. The ileocecal valve and the appendiceal orifice were photographed. Scope In: 2:16:28 PM Scope Withdrawal Time 0 hours 10 minutes 15 seconds Scope Out: 2:30:11 PM Total Procedure Duration Time 0 hours 13 minutes 43 seconds Findings: The digital rectal exam findings include non-thrombosed external hemorrhoids, non-thrombosed internal hemorrhoids and internal hemorrhoids (Grade I). Pertinent negatives include normal prostate (size, shape, and consistency). The colon (entire examined portion) appeared normal. Impression: - Non-thrombosed external hemorrhoids, non-thrombosed internal hemorrhoids and internal hemorrhoids (Grade I) found on digital rectal exam. - The entire examined colon is normal. - No specimens collected. Recommendation: - Discharge patient to home. - Resume previous diet. - Continue present medications. - Repeat colonoscopy in 5 years for surveillance. Procedure Code(s): --- Professional --- 23520, Colonoscopy, flexible; diagnostic, including collection of specimen(s) by brushing or washing, when performed (separate procedure) Diagnosis Code(s): --- Professional --- K64.0, First degree hemorrhoids K64.4, Residual hemorrhoidal skin tags Z80.0, Family history of malignant neoplasm of digestive organs CPT copyright 2021 [employer]. All rights reserved. The codes documented in this report are preliminary and upon director of video analytics review may be revised to meet current compliance requirements. Leif Diaz MD 02/10/2024 2:34:19 PM This report has been signed electronically. Number of Addenda: 0 Note Initiated On: 02/10/2024 1:54 PM
--- NOTE | 2024-02-10 14:37 | PCM.POST.ANE ---
Anesthesia: Postop Eval I Current Vital Signs Temperature: 98 F Pulse Rate: 89 Blood Pressure: 119/98 Respiratory Rate: 18 Pulse Ox: 100 Assessment Airway patent: Yes Spontaneous unlabored respirations: Yes nausea: No Vomiting: No Anesthesia Complication: No Fluid Hydration Crystalloid volume administer (ml): 300 Total IV fluid infused: 300 Progress Note Anesthesia document: Postop Eval 1 completed: Yes
--- NOTE | 2024-02-10 17:55 | POSTOPAN2_ITS ---
Anesthesia Postop Eval I Sum Postop Eval Completion status Anesthesia document: Postop Eval 1 completed: Yes Anesthesia Postop Eval I Summary Anesthesia Postop Eval I Summary: Anesthesia Postop Eval I: Assessment Summary Airway patent Yes 02/10/24 14:37 VENEER SHEET REPAIRER.[email or web address] Spontaneous unlabored Yes 02/10/24 14:37 VENEER SHEET REPAIRER.CSIR respirations Mental status nausea No 02/10/24 14:37 VENEER SHEET REPAIRER.CSIR Vomiting No 02/10/24 14:37 VENEER SHEET REPAIRER.CSIR Anesthesia Postop Eval I: Fluid Summary Crystalloid volume administer 300 02/10/24 14:37 VENEER SHEET REPAIRER.CSIR (ml) Colloids volume administered ( ml) Blood Product volume administered (ml) Total IV fluid infused 300 02/10/24 14:37 VENEER SHEET REPAIRER.CSIR Anesthesia Postop Eval I: Summary Notes Anesthesia Complication No 02/10/24 14:37 VENEER SHEET REPAIRER.CSIR Anesthesia Complication Comment: Post-operative progress note Anesthesia: Postop Eval II Evaluation Mental status: Awake and Calm Pain Level: 0 nausea: No Vomiting: No Complications Anesthesia Complication: No
--- NOTE | 2024-02-10 17:55 | PCM.POSTANE2 ---
Anesthesia Postop Eval I Sum Postop Eval Completion status Anesthesia document: Postop Eval 1 completed: Yes Anesthesia Postop Eval I Summary Anesthesia Postop Eval I Summary: Anesthesia Postop Eval I: Assessment Summary Airway patent Yes 02/10/24 14:37 MACHINE MOLDER.CSIR Spontaneous unlabored Yes 02/10/24 14:37 MACHINE MOLDER.CSIR respirations Mental status nausea No 02/10/24 14:37 MACHINE MOLDER.CSIR Vomiting No 02/10/24 14:37 MACHINE MOLDER.CSIR Anesthesia Postop Eval I: Fluid Summary Crystalloid volume administer 300 02/10/24 14:37 MACHINE MOLDER.CSIR (ml) Colloids volume administered ( ml) Blood Product volume administered (ml) Total IV fluid infused 300 02/10/24 14:37 MACHINE MOLDER.CSIR Anesthesia Postop Eval I: Summary Notes Anesthesia Complication No 02/10/24 14:37 MACHINE MOLDER.CSIR Anesthesia Complication Comment: Post-operative progress note Anesthesia: Postop Eval II Evaluation Mental status: Awake and Calm Pain Level: 0 nausea: No Vomiting: No Complications Anesthesia Complication: No
== END 2024-02-10 15:07 | disposition home or self-care (01) ==
LOC: EN 13:05 → AC 13:06
PROVIDERS: PCP Family Medicine Geriatric Medicine; Referring Provider Family Medicine Geriatric Medicine; Visit Provider Surgery
PROC: 0DJD8ZZ Inspection of Lower Intestinal Tract, Via Natural or Artificial Opening Endoscopic (ICD-10-PCS; CPT 45378; principal; 2024-02-10 13:55)
DX: Z12.11 Encounter for screening for malignant neoplasm of colon (principal); M06.9 Rheumatoid arthritis, unspecified; K64.4 Residual hemorrhoidal skin tags; E03.9 Hypothyroidism, unspecified; Z80.0 Family history of malignant neoplasm of digestive organs; I10 Essential (primary) hypertension; E78.00 Pure hypercholesterolemia, unspecified; K64.0 First degree hemorrhoids; Z79.899 Other long term (current) drug therapy; K21.9 Gastro-esophageal reflux disease without esophagitis; Z79.890 Hormone replacement therapy
CPT/HCPCS: G0121; J7120

== ENCOUNTER → 2024-03-01 | Outpatient (CLI) | payer MEDICARE, BC, SELFPAY ==
[2024-03-01 10:37] LABS: Absolute Neutrophil Count 2.4 X10^3/uL (2.0-7.7); Basophil# 0.03 X10^3/uL; Basophil% 0.7 % (0-1); Eosinophil# 0.14 X10^3/uL; Eosinophils% 3.3 % (0-5); Hemoglobin 13.1 g/dL (13.0-16.5); Lymphocyte % 30.6 % (19-41); Mean Corpuscular Hgb 31.1 pg (27.0-32.0); Mean Corpuscular Volume 97.4 fL (80-94); Mean Platelet Vol. 9.8 fl (6.2-12.0); Monocyte# 0.38 X10^3/uL; Monocyte% 8.9 % (0-10); NRBC Flagged by Analyzer 0 % (0-5); Neutrophil # 2.39 X10^3/uL (2.7-7.7); Neutrophil % 56.3 % (47-70); Platelet Count 202 K/mm3 (150-450); RBC Distribution Width CV 13.3 % (11.6-14.6); RBC Distribution Width SD 47.2 fl (35.1-43.9); Red Blood Count 4.21 M/mm3 (4.6-6.2); White Blood Count 4.3 K/mm3 (4.4-11.0)
[2024-03-01 10:52] LABS: AST(SGOT) 20 U/L (15-37); Alanine Aminotransfer ALT/SGPT 27 U/L (16-61); Albumin, Serum 3.2 g/dL (3.2-5.0); Alkaline Phosphatase 63 U/L (45-117); Anion Gap 4 (5-15); BUN 14 mg/dL (7-18); BUN/Creat Ratio 17.7 RATIO (10-20); Calcium,Total 8.6 mg/dL (8.5-10.1); Chloride 111 mmol/L (98-107); Creatinine, Serum 0.79 mg/dL (0.70-1.30); EST Glomerular Filtration Rate 104 mL/min (>60); Est Glom Filt Rate - Afr Amer 126 mL/min (>60); Globulin 3.3 g/dL (2.2-4.2); Glucose 102 mg/dL (74-106); Potassium 4.5 mmol/L (3.5-5.1); Protein, Total 6.5 g/dL (6.4-8.2); Sodium Level 142 mmol/L (136-145)
== END | disposition home or self-care (01) ==
LOC: MTLAB 09:06
PROVIDERS: PCP Family Medicine Geriatric Medicine; Referring Provider Internal Medicine Rheumatology; Visit Provider Internal Medicine Rheumatology
DX: M06.4 Inflammatory polyarthropathy (principal); Z79.899 Other long term (current) drug therapy
CPT/HCPCS: 36415; 80053; 85025

== ENCOUNTER → 2024-05-04 | Outpatient (CLI) | payer MEDICARE, BC, SELFPAY ==
[2024-05-08 13:06] LABS: Alternaria alternata <0.10 kU/L (Class 0); Aspergillus fumigatus <0.10 kU/L (Class 0); Bahia Grass <0.10 kU/L (Class 0); Beef <0.10 kU/L (Class 0); Bermuda Grass <0.10 kU/L (Class 0); Bluegrass, Kentucky <0.10 kU/L (Class 0); Cat Hair/Dander, Standard <0.10 kU/L (Class 0); Cedar, Mountain <0.10 kU/L (Class 0); Chocolate <0.10 kU/L (Class 0); Cladosporium herbarum <0.10 kU/L (Class 0); Cockroach, American <0.10 kU/L (Class 0); Codfish <0.10 kU/L (Class 0); Corn <0.10 kU/L (Class 0); D farinae Mite <0.10 kU/L (Class 0); D pteronyssinus <0.10 kU/L (Class 0); Dog Epithelia <0.10 kU/L (Class 0); Egg, Whole <0.10 kU/L (Class 0); Elm, American White <0.10 kU/L (Class 0); Hazelnut Tree <0.10 kU/L (Class 0); Hickory, White <0.10 kU/L (Class 0); Johnson Grass <0.10 kU/L (Class 0); Maple/Box Elder <0.10 kU/L (Class 0); Milk (Cow) <0.10 kU/L (Class 0); Mucor racemosus <0.10 kU/L (Class 0); Mugwort <0.10 kU/L (Class 0); Mulberry, White <0.10 kU/L (Class 0); Mussels <0.10 kU/L (Class 0); Nettle <0.10 kU/L (Class 0); Oak, White <0.10 kU/L (Class 0); Peanut <0.10 kU/L (Class 0); Penicillium chrysogen <0.10 kU/L (Class 0); Pigweed, Rough <0.10 kU/L (Class 0); Plantain, English <0.10 kU/L (Class 0); Pork <0.10 kU/L (Class 0); Ragweed, Short/Common <0.10 kU/L (Class 0); Salmon <0.10 kU/L (Class 0); Sheep Sorrel(Dock) <0.10 kU/L (Class 0); Shrimp <0.10 kU/L (Class 0); Soybean <0.10 kU/L (Class 0); Stemphylium herbarum <0.10 kU/L (Class 0); Sweet Gum <0.10 kU/L (Class 0); Sycamore, American <0.10 kU/L (Class 0); Tuna <0.10 kU/L (Class 0); Wheat <0.10 kU/L (Class 0)
== END | disposition home or self-care (01) ==
LOC: POLAB3 10:08
PROVIDERS: PCP Family Medicine Geriatric Medicine; Visit Provider Family Medicine Geriatric Medicine
DX: J30.9 Allergic rhinitis, unspecified (principal)
CPT/HCPCS: 36415; 86003; 86005

== ENCOUNTER → 2024-05-05 | Outpatient (CLI) | payer MEDICARE, BC, SELFPAY ==
[2024-05-05 11:06] LABS: Absolute Lymphocyte Count 1.07 X10^3/uL (0.83-4.51); Absolute Neutrophil Count 2.3 X10^3/uL (2.0-7.7); Basophil# 0.02 X10^3/uL; Basophil% 0.5 % (0-1); Eosinophil# 0.11 X10^3/uL; Eosinophils% 2.8 % (0-5); Hematocrit 43.4 % (40-54); Hemoglobin 13.6 g/dL (13.0-16.5); Lymphocyte # 1.07 X10^3/ul (0.83-4.51); Lymphocyte % 27.3 % (19-41); Mean Corp Hgb Conc 31.3 g/dL (32-36); Mean Corpuscular Hgb 31.9 pg (27.0-32.0); Mean Corpuscular Volume 101.6 fL (80-94); Mean Platelet Vol. 9.3 fl (6.2-12.0); Monocyte# 0.44 X10^3/uL; Monocyte% 11.2 % (0-10); NRBC Flagged by Analyzer 0 % (0-5); Neutrophil # 2.27 X10^3/uL (2.7-7.7); Neutrophil % 57.9 % (47-70); Platelet Count 223 K/mm3 (150-450); RBC Distribution Width CV 13.5 % (11.6-14.6); RBC Distribution Width SD 50.3 fl (35.1-43.9); Red Blood Count 4.27 M/mm3 (4.6-6.2); White Blood Count 3.9 K/mm3 (4.4-11.0)
[2024-05-05 11:30] LABS: Vitamin D,25 Hydroxy 44.7 ng/mL
[2024-05-05 11:37] LABS: ALB/GLOB Ratio 1.2 RATIO (0.9-2.4); AST(SGOT) 16 U/L (15-37); Alanine Aminotransfer ALT/SGPT 26 U/L (16-61); Albumin, Serum 3.7 g/dL (3.2-5.0); Alkaline Phosphatase 68 U/L (45-117); Anion Gap 3 (5-15); BUN 14 mg/dL (7-18); BUN/Creat Ratio 17.5 RATIO (10-20); Calcium,Total 8.9 mg/dL (8.5-10.1); Chloride 110 mmol/L (98-107); EST Glomerular Filtration Rate 103 mL/min (>60); Est Glom Filt Rate - Afr Amer 124 mL/min (>60); Globulin 3.2 g/dL (2.2-4.2); Glucose 101 mg/dL (74-106); PSA,Total - Annual Screen 2.55 ng/mL (0.00-4.00); Potassium 4.6 mmol/L (3.5-5.1); Protein, Total 6.9 g/dL (6.4-8.2); Sodium Level 142 mmol/L (136-145)
== END | disposition home or self-care (01) ==
LOC: POLAB3 10:42
PROVIDERS: PCP Family Medicine Geriatric Medicine; Visit Provider Family Medicine Geriatric Medicine
DX: I10 Essential (primary) hypertension (principal); E55.9 Vitamin D deficiency, unspecified; Z12.5 Encounter for screening for malignant neoplasm of prostate
CPT/HCPCS: 36415; 80053; 82306; 84153; 84443; 85025; G0103

== ENCOUNTER → 2024-05-20 | Outpatient (CLI) | payer MEDICARE, BC, SELFPAY ==
--- OUTSIDE RECORDS SUMMARY | 2024-05-20 10:37 | XMS RPT_ITS | CCD ---
Author Organization [facility] Care Team Providers Care Lumber Sales Supervisor Name Role Phone Jesusita Muir Unavailable Sherry SCHUMACHER, Cynthia Daniels Unavailable Unavailable Jesusita Muir Unavailable Cynthia Powell RN Unavailable Unavailable Abhinav Lebron Chi Primary Care Provider None, No PCP Unavailable Unavailable Self, Referral Referring Unavailable Pablo Mitchell Attending Unavailable Pablo Mitchell Attending Unavailable Abhinav Lebron Chi Primary Care Provider Allergies Allergy Classification Reported Allergen(s) Allergy Type Date of Onset Reaction(s) Facility (6 sources) penicillin drug allergy 7 Rash, unknown [facility] Work Phone: (1 source) Penicillins Propensity to adverse reactions 7 Rash [facility] Work Phone: (2 sources) Pravastatin Drug Allergy 2 Other: See Comments [facility] (1 source) Penicillins Propensity to adverse reactions 7 Rash [facility] Work Phone: Medications Current Medications Medication Drug Class(es) Dates Sig (Normalized) Sig (Original) doxycycline monohydrate 100 mg oral tablet (1 source) Tetracycline-clas s Drug Start: 12-02-2021 End: 12-07-2021 take 1 tablet by mouth twice daily doxycycline monohydrate 100 mg tablet Take 1 tablet by mouth twice daily for 5 days. 10 tablet 0 12/02/2021 12/07/2021 Active Comment on above: Take 1 tablet by vandana twice daily for 5 days. Multivitamins-Perkins als-Lutein (CENTRUM SILVER) tab (2 sources) Start: 10-27-2013 take 1 tablet by mouth once daily Multivitamins-Mine rals-Lutein (CENTRUM SILVER) tab Take 1 tablet by mouth once daily. 0 10/27/2013 Active Comment on above: Take 1 tablet by vandana th once daily. terbinafine 250 mg oral tablet (2 sources) Allylamine Antifungal Start: 10-14-2021 take 1 tablet by mouth once daily terbinafine HCl (LAMISIL) 250 mg tablet TAKE 1 TABLET ORALLY ONCE PER DAY FOR 90 DAYS 10/14/2021 Active Comment on above: TAKE 1 TABLET ORALLY ONCE PER DAY FOR 90 DAYS Completed/Discontinued Medications Medication Drug Class(es) Dates Sig (Normalized) Sig (Original) amLODIPine 5 mg oral tablet (3 sources) Dihydropyridine Calcium Channel Jean-Pierre Start: 06-10-2022 amLODIPine Besylate 5 MG Oral Tablet Quantity: 0 Refills: 0 Ordered: 10-Jun-2022 DO Start : 10-Jun-2022 Active Start: 01-25-2021 amLODIPine (NO RVASC) 5 mg tablet 01/25/2021 Active aspirin 81 mg delayed release oral tablet (4 sources) Nonsteroidal Anti-inflammatory Drug Start: 04-15-2017 take 1 tablet by mouth once daily ASPIRIN EC 81 MG TBEC One tablet by mouth daily ASPIRIN [id number] Jaxson Murguia MD Start: 10-27-2013 take 1 tablet by vandana th once daily at mealtime Aspirin 81 mg tab Take 1 tablet by mouth once daily. Take with food. 30 tablet 11 10/27/2013 Active Comment on above: Take 1 tablet by vandana th once daily. Take with food. atorvastatin 40 mg oral tablet (7 sources) HMG-CoA Reductase Inhibitor Start: 06-10-2022 Atorvastatin Calcium 40 MG Oral Tablet Quantity: 0 Refills: 0 Ordered: 10-Jun-2022 DO Start : 10-Jun-2022 Active Start: 11-21-2016 take 1 tablet by vandana th once daily atorvastatin (LIPITOR) 40 mg tablet Take 1 tablet by mouth once daily. 30 tablet 1 11/21/2016 Active Comment on above: Take 1 tablet by vandana th once daily. cholecalciferol 2000 unt oral tablet (2 sources) Vitamin D Start: 04-15-2017 VITAMIN D 2000 UNIT TABS 5000 IU once a day CHOLECALCIFEROL [id number] Jaxson Murguia MD famotidine 40 mg oral tablet (3 sources) Histamine-2 Receptor Antagonist Start: 06-10-2022 Famotidine 40 MG Oral Tablet Quantity: 0 Refills: 0 Ordered: 10-Jun-2022 DO Start : 10-Jun-2022 Active Start: 01-25-2021 famotidine (PE PCID) 40 mg tablet 01/25/2021 Active meloxicam 7.5 mg oral tablet (1 source) Nonsteroidal Anti-inflammatory Drug Start: 06-10-2022 Meloxicam 7.5 MG Oral Tablet Quantity: 0 Refills: 0 Ordered: 10-Jun-2022 DO Start : 10-Jun-2022 Active MULTIPLE VITAMINS-MINERALS (1 source) Start: 04-15-2017 take 1 tablet by mouth once daily CENTRUM SILVER TABS One tablet by mouth daily MULTIPLE VITAMINS-MINERALS [id number] Jaxson Murguia MD MULTIPLE VITAMINS-MINERALS (1 source) Start: 04-15-2017 take 1 tablet by mouth once daily CENTRUM SILVER TABS One tablet by mouth daily MULTIPLE VITAMINS-MINERALS [id number] Jaxson Murguia MD levothyroxine sodium 0.137 mg oral capsule (7 sources) l-Thyroxine Start: 06-10-2022 Levothyroxine Sodium 137 MCG Oral Capsule Quantity: 0 Refills: 0 Ordered: 10-Jun-2022 DO Start : 10-Jun-2022 Active Start: 04-14-2017 take 1 tablet by vandana th once daily SYNTHROID 125 MCG TABS One tablet by mouth daily LEVOTHYROXINE SODIUM [id number] Cynthia Powell RN Start: 02-22-2016 take 1 tablet by vandana th once daily for thyroid dysfunction levothyroxine (SYNTHROID) 125 mcg tablet Indications: Acquired hypothyroidism Take 1 tablet by mouth once daily. Take on empty stomach. For Thyroid 90 tablet 3 02/22/2016 Active Comment on above: Take 1 tablet by vandana th once daily. Take on empty stomach. For Thyroid Problems Active Problems Problem Classification Problem Date Documented Date Episodic/Chronic Cardiac dysrhythmias (4 sources) Ventricular premature beats; Translations: [Ventricular premature depolarization] Onset: 04-14-2017 04-14-2017 Chronic Disorders of lipid metabolism (6 sources) Hyperlipidemia; Translations: [Mixed hyperlipidemia] Onset: 07-02-2007 04-14-2017 Chronic Essential hypertension (2 sources) Hypertensive disorder; Translations: [Essential (primary) hypertension] 04-14-2017 Chronic Osteoarthritis (3 sources) Osteoarthritis; Translations: [Unspecified osteoarthritis, unspecified site] [...] injuries and conditions due to external causes (2 sources) Injury of left hand; Translations: [Unspecified injury of left wrist, hand and finger(s), initial encounter] Episodic Other non-traumatic joint disorders (1 source) Shoulder pain; Translations: [Pain in joint, shoulder region] Episodic Thyroid disorders (4 sources) Hypothyroidism; Translations: [Hypothyroidism, unspecified] Onset: 04-25-2009 04-15-2017 Chronic Past or Other Problems Problem Classification Problem Date Documented Da te Episodic/Chronic Allergic reactions (2 sources) Contact dermatitis; Translations: [Unspecified contact dermatitis, unspecified cause] Onset: 07-02-2007 01-23-2010 Episodic Blindness and vision defects (2 sources) Myopia; Translations: [Myopia, unspecified eye] Onset: 07-02-2007 01-23-2010 Episodic Cardiac dysrhythmias (4 sources) Palpitations; Translations: [Palpitations] Onset: 04-14-2017 04-14-2017 Episodic Other hereditary and degenerative nervous system conditions (1 source) Tremor; Translations: [Essential tremor] Onset: 07-02-2007 Resolved: 02-22-2016 02-22-2016 Chronic Other non-traumatic joint disorders (2 sources) Pain in right hip; Translations: [Pain in right hip] Onset: 06-10-2022 Episodic Other non-traumatic joint disorders (1 source) Pain in right shoulder; Translations: [Pain in right shoulder] Onset: 06-10-2022 Episodic Other skin disorders (1 source) Sebaceous cyst of skin; Translations: [Sebaceous cyst] Onset: 04-24-2011 Resolved: 02-22-2016 02-22-2016 Episodic Other upper respiratory disease (1 source) Allergic rhinitis; Translations: [Allergic rhinitis, unspecified] Onset: 07-02-2007 Resolved: 02-22-2016 02-22-2016 Chronic Residual codes; unclassified (2 sources) Family history of prostate cancer; Translations: [Family history of malignant neoplasm of prostate] Onset: 04-23-2010 04-23-2010 Episodic Varicose veins of lower extremity (4 sources) Venous varices; Translations: [Asymptomatic varicose veins of unspecified lower extremity] Onset: 07-02-2007 01-23-2010 Episodic Results Test Name Value Interpretation Reference Range Facility Initial Visit (Orthopaedic [facility])on 06-10-2022 Initial Visit (Orthopaedic Surgery) Diagnoses/Problems Assessed Right rotator cuff tear (840.4) (M75.101) Patient Discussion/Summary 66-year-old male with likely chronic rotator cuff tearing that he aggravated with his increased activities. We recommended a corticosteroid injection and physical therapy focused on the shoulder. We will plan to see him back on an as-needed basis if he continues to have pain recur consider an MRI Chief Complaint NPV bilateral shoulder History of Present Illness House.This is a 66-year-old male that comes [...] using some anti-inflammatories and therapeutic exercises for his Continues to have discomfort pain is mostly anterior and lateral. Active Problems Problems Shoulder pain, right (719.41) (M25.511) Physical Exam Pleasant patient in no acute distress, alert and oriented x3, of normal mood and affect they have no cervical or axillary lymphadenopathy. they are breathing without any evidence of accessory musculature. Their pupils are equal and reactive to light Their neck is supple, nontender They have intact sensation to light touch in all upper extremity dermatomes. Their skin is intact They have forward elevation of the shoulder 180, internal rotation of 90, external rotation of 90 They Have 4 out of 5 Rotator cuff strength testing with resisted supraspinatus testing and infraspinatus testing They have a normal belly press and lift off They have mild tenderness to palpation over the long head of the biceps in the groove They have a negative speed's test They have an equivocal Yergason's test They have s a positive Neer test, positive Rehman test No a.c. joint tenderness. Negative cross body They have a negative O'Briens Results/Data X-rays show some early osteoarthritic change of the glenohumeral joint Procedure Under sterile conditions the shoulder was injected with 10 cc of lidocaine 1 cc of Depo-Medrol. The patient tolerated the procedure well. There were no apparent complications. Sterile bandage was applied Signatures Electronically signed by : Pablo Mitchell MD; Jun 10 2022 10:31AM EST (Author) [facility] 06-10-2022 XR Shoulder 2 Views Please click on the link to view the study images [facility] Work Phone: SHOULDER, CMPLT MIN 2 VIEWSo 06-10-2022 SHOULDER, CMPLT MIN 2 VIEWS Patient Name: RAMA FRANCIS STUDY: SHOULDER, CMPLT, MIN 2 VIEWS; 06/10/2022 9:36 am INDICATION: pain M25.511: Shoulder pain, right. COMPARISON: None. ACCESSION NUMBER(S): [id number] ORDERING CLINICIAN: PABLO MITCHELL TECHNIQUE: 3 views of the right shoulder including AP , axillary and scapular Y-views were obtained. FINDINGS: There is no radiographic evidence of acute fracture or dislocation identified. Mild hypertrophic degenerative changes are seen throughout the right shoulder. IMPRESSION: 1. No evidence of acute fracture or dislocation. 2. Degenerative changes, as described above. Electronically signed by: ASHVIN SOOD MD Normal [facility] CNOVon 12-12-2021 CNOV Office Visit (UCWSTR) RAMA FRANCIS ([id number]) 1955 M Date Time Provider Department 12/12/21 11:15 AM TRINI BRADLEYWSTR During your visit today, we recorded the following information about you: Temperature Pulse Respiration Blood pressure 97.2 degrees 79/minute 21/minute 140/76 Weight 89.4 kg Trini Bradley PA-C 12/12/2021 11:32 AM Signed This note was created using InstaGISriter. Subjective Rama Francis is a 66 year [...] stomach. For Thyroid 90 tablet 3 - Multivitamins-Minera ls-Lutein (CENTRUM SILVER) tab Take 1 tablet by mouth once daily. 0 - Aspirin 81 mg tab Take 1 tablet by mouth once daily. Take with food. 30 tablet 11 No current facility-administere d medications for this visit. PAST SURGICAL HISTORY [...] Wound dehiscence - ICD9: 998.30, ICD10: T81.30XA Trini Bradley PA-C Referring Provider: SELF [200] Allergies As of Date: 12/12/2021 Noted Allergy Reaction PENICILLINS 07/02/2007 2 - Rash PRAVASTATIN 10/22/2011 14 - Other: See Comments Comments: arthralgia Date Reviewed: 12/12/2021 Reviewed by: Brinda Ding MA - Fully Assessed Reason for Visit: Recheck [92] Cmt: suture removal Primary Visit Diagnosis:Visit for suture removal [Z48.02] Other Visit Diagnosis:Wound dehiscence [T81.30XA] Prescriptions as of 12/12/2021 - terbinafine HCl (LAMISIL) 250 mg tablet TAKE 1 TABLET ORALLY ONCE PER DAY FOR 90 DAYS - amLODIPine (NORVASC) 5 mg tablet - famotidine (PEPCID) 40 mg tablet - atorvastatin (LIPITOR) 40 mg tablet Take 1 tablet by mouth once daily. - levothyroxine (SYNTHROID) 125 mcg tablet Take 1 tablet by mouth once daily. Take on empty stomach. For Thyroid - Multivitamins-Minera ls-Lutein (CENTRUM SILVER) tab Take 1 tablet by mouth once daily. - Aspirin 81 mg tab Take 1 tablet by mouth once daily. Take with food. Problem List As Of Date 12/12/2021 Noted Resolved Essential and other specified forms of tremor [*07/02/2007 02/22/2016 Mixed hyperlipidemia [E78.2] 07/02/2007 Uncomplicated Varicose Veins [I83.90] 07/02/2007 Myopia [H52.10] 07/02/2007 Allergic rhinitis, cause unspecified [J30.9] 07/02/2007 02/22/2016 Contact Dermatitis and Other Eczema, due to Uns*07/02/2007 LEG VARICOSITY W INFLAM [I83.10] 08/22/2008 Hypothyroid [E03.9] 04/25/2009 Family History of Prostate Cancer [Z80.42] 04/23/2010 Sebaceous cyst [L72.3] 04/24/201101/25 (more content not included)... [facility] CNOVon 12-02-2021 CNOV Office Visit (UCWSTR) RAMA FRANCIS ([id number]) 1955 M Date Time Provider Department 12/02/21 10:30 AM MILAGROS FRANKLIN [facility] During your visit today, we recorded the following information about you: Temperature Pulse Respiration Blood pressure 96.8 degrees 65/minute 21/minute 152/80 Weight 89.6 kg Milagros Franklin APRN.MANAGER CATH LAB 12/02/2021 12:00 PM Signed Subjective Patient came in with complaints of [...] history is provided by the patient. No specialized language instructor was used. Review of Systems Constitutional: Negative. [...] daily. Take on empty stomach. For Thyroid Multivitamins-Minera ls-Lutein (CENTRUM SILVER) tab Take 1 tablet by [...] 1. No acute fracture or dislocation. ? Academic Director: AMY Transcribe Date/Time: Dec 02 2021 11:33A [...] is okay with this care plan. Milagros Franklin APRN.MANAGER CATH LAB Referring Provider: SELF [200] Allergies As of Date: 12/02/2021 Noted Allergy Reaction PENICILLINS 07/02/2007 2 - Rash PRAVASTATIN 10/22/2011 14 - Other: See Comments Comments: arthralgia Date Reviewed: 12/02/2021 Reviewed by: Brinda Ding MA - Fully Assessed Reason for Visit: Trauma [112] Cmt: left hand laceration Primary Visit Diagnosis:Injury of left hand, initial encounter [S69.92XA] Other Visit Diagnosis:Impacted cerumen of right ear [H61.21] Order(s):XR HAND GENERAL 3V PA/LAT/OBL LEFT [[id number]] Order #: [id number] FUTURE doxycycline monohydrate 100 mg tabletTake 1 tablet by mouth twice daily for 5 days.Disp: 10 tabletRfl: 0 Prescriptions as of 12/02/2021 - terbinafine HCl (LAMISIL) 250 mg tablet TAKE 1 TABLET ORALLY ONCE PER DAY FOR 90 DAYS - doxycycline monohydrate 100 mg tablet Take 1 tablet by mouth twice daily for 5 days. - amLODIPine (NORVASC) 5 mg tablet - famotidine (PEPCID) 40 mg tablet - atorvastatin (LIPITOR) 40 mg tablet Take 1 tablet by mouth once daily. - levothyroxine (SYNTHROID) 125 mcg tablet Take 1 tablet by mouth once nash (more content not included)... [facility] XR HAND 3V PA/LAT/OBL LTon 0 12-02-2021 XR HAND 3V PA/LAT/OBL LT * * *Final Report* * * DATE OF EXAM: Dec 02 2021 11:24AM WOX [id number] - XR HAND 3V PA/LAT/OBL LT / PROCEDURE REASON: Injury of left hand, initial encounter * * * * Physician Interpretation * * * * Indication: Left hand pain after injury Comparison: None 3 views of the left hand are obtained. There is normal architecture and mineralization of the bones. There is no acute fracture or dislocation. Mild degenerative disease of the interphalangeal joints of the left fifth digit. No radiodense foreign body is visualized. Impression: 1. No acute fracture or dislocation. Academic Director: [employer] Transcribe Date/Time: Dec 02 2021 11:33A Dictated by : ROBERT JEFFERSON MD This examination was interpreted and the report reviewed and electronically signed by: ROBERT JEFFERSON MD on Dec 02 2021 11:35AM EST [id number] [facility] XR HAND GENERAL 3V PA/LAT/OB L LEFTon 12-02-2021 [facility] XR Hand - left PA and Latera l and Obliqueon 12-02-2021 * * *Final Report* * * DATE OF EXAM: Dec 02 2021 11:24AM WOX 5345 - XR HAND 3V PA/LAT/OBL LT / PROCEDURE REASON: Injury of left hand, initial encounter * * * * Physician Interpretation * * * * Indication: Left hand pain after injury Comparison: None 3 views of the left hand are obtained. There is normal architecture and mineralization of the bones. There is no acute fracture or dislocation. Mild degenerative disease of the interphalangeal joints of the left fifth digit. No radiodense foreign body is visualized. Impression: 1. No acute fracture or dislocation. Academic Director: [employer] Transcribe Date/Time: Dec 02 2021 11:33A Dictated by : ROBERT JEFFERSON MD This examination was interpreted and the report reviewed and electronically signed by: ROBERT JEFFERSON MD on Dec 02 2021 11:35AM EST [email or web address] _DIVISION OF RADIOLOGY Provider, [facility] [place] - 12/02/2021 * * *Final Report* * * DATE OF EXAM: Dec 02 2021 11:24AM WOX 5345 - XR HAND 3V PA/LAT/OBL LT / PROCEDURE REASON: Injury of left hand, initial encounter * * * * Physician Interpretation * * * * Indication: Left hand pain after injury Comparison: None 3 views of the left hand are obtained. There is normal architecture and mineralization of the bones. There is no acute fracture or dislocation. Mild degenerative disease of the interphalangeal joints of the left fifth digit. No radiodense foreign body is visualized. Impression: 1. No acute fracture or dislocation. Academic Director: PSC[employer] Transcribe Date/Time: Dec 02 2021 11:33A Dictated by : ROBERT JEFFERSON MD This examination was interpreted and the report reviewed and electronically signed by: ROBERT JEFFERSON MD on Dec 02 2021 11:35AM EST [facility] Radiology Study observation (narrative) [facility] XR Hand - left PA and Latera l and ObliqueOrdered By: [facility]cf Provider on 12-02-2021 [facility] CNOVon 01-30-2021 CNOV Office Visit ([facility]WSTR) RAMA FRANCIS ([id number]) 1955 M Date Time Provider Department 01/30/21 4:15 PM KAEL PRIDE [facility] During your visit today, we recorded the following information about you: Temperature Pulse Respiration Blood pressure 97.2 degrees 61/minute 16/minute 152/86 Weight 88.6 kg Kael Pride MD 01/30/2021 4:52 PM Signed Patient presents with: Nausea AND Vomiting: nausea, [...] Take on empty stomach. For Thyroid - Multivitamins-Minera ls-Lutein (CENTRUM SILVER) tab Take 1 tablet by mouth once daily. - Aspirin 81 mg tab Take 1 tablet by mouth once daily. Take with food. No current facility-administere d medications for this visit. ALLERGIES: ALLERGIES Allergen [...] evaluation recommended. His will take him to [facility]. Report sent by ER passport. Kael Pride MD Referring Provider: SELF [200] Allergies As of Date: 01/30/2021 Noted Allergy Reaction PENICILLINS 07/02/2007 2 - Rash PRAVASTATIN 10/22/2011 14 - Other: See Comments Comments: arthralgia Date Reviewed: 01/30/2021 Reviewed by: Mora Soria LPN - Fully Assessed Reason for Visit: Nausea AND Vomiting [237] Cmt: nausea, vomiting and some dizziness-symptoms started this am Primary Visit Diagnosis:Vertigo [R42] Other Visit Diagnosis:Non-intrac table vomiting with nausea, unspecified vomiting type [R11.2] Prescriptions as of 01/30/2021 - amLODIPine (NORVASC) 5 mg tablet - famotidine (PEPCID) 40 mg tablet - atorvastatin (LIPITOR) 40 mg tablet Take 1 tablet by mouth once daily. - levothyroxine (SYNTHROID) 125 mcg tablet Take 1 tablet by mouth once daily. Take on empty stomach. For Thyroid - Multivitamins-Minera ls-Lutein (CENTRUM SILVER) tab Take 1 tablet by mouth once daily. - Aspirin 81 mg tab Take 1 tablet by mouth once daily. Take with food. Problem List As Of Date 01/30/2021 Noted Resolved Essential and other specified forms of tremor [*07/02/2007 02/22/2016 Mixed hyperlipidemia [E78.2] 07/02/2007 Uncomplicated Varicose Veins [I83.90] 07/02/2007 Myopia [H52.10] 07/02/2007 Allergic rhinitis, cause unspecified [J30.9] 07/02/2007 02/22/2016 Contact Dermatitis and Other Eczema, due to Uns*07/02/2007 LEG VARICOSITY W INFLAM [I83.10] 08/22/2008 Hypothyroid [E03.9] 04/25/2009 Family History of Prostate Cancer [Z80.42] 04/23/2010 Sebaceous cyst [L72.3] 04/24/2011 02/22/2016 OA (osteoarthritis) [M19.90] 10/27/2013 Medications Discontinued During This Encounter Prescriptions - LISINOPRIL ORAL (Discontinued) Reported on 01/30/2021 - Ranitidine HCl 150 mg capsule (Discontinued) Reported on 01/30/2021 - Cholecalciferol, Vitamin D3 (more content not included)... [facility] Office Visiton 04-15-2017 Documentation of current medications (procedure) Done Invalid Interpretation Code [facility] Work Phone: Fall risk assessment Fall risk assessment Invalid Interpretation Code [facility] Work Phone: Clinical Lists Update: Prelo child welfare worker 04-14-2017 Tobacco smoking status NHIS Never smoker [facility] Work Phone: Tobacco use HS Never smoker Invalid Interpretation Code [facility] Work Phone: Vital Signs Date Time Vital Sign Value Performing Clinician Sue harman 12-02-2021 10:24-0400 Body temperature 96.8 [degF] Milagros Franklin APRN.MANAGER CATH LAB Work Phone: [facility] 12-02-2021 10:24-0400 Body weight 89.63 kg Milagros Franklin APRN.MANAGER CATH LAB Work Phone: [facility] 12-02-2021 10:24-0400 Diastolic blood pressure 80 mm[Hg] Milagros Franklin APRN.MANAGER CATH LAB Work Phone: [facility] 12-02-2021 10:24-0400 Heart rate 65 /min Milagros Franklin APRN.MANAGER CATH LAB Work Phone: [facility] 12-02-2021 10:24-0400 Respiratory rate 21 /min Milagros Franklin APRN.MANAGER CATH LAB Work Phone: [facility] 12-02-2021 10:24-0400 SaO2% (BldA) [Mass fraction] 100 % Milagros Franklin APRN.MANAGER CATH LAB Work Phone: [facility] 12-02-2021 10:24-0400 Systolic blood pressure 152 mm[Hg] Milagros Franklin APRN.MANAGER CATH LAB Work Phone: [facility] 04-15-2017 13:44-0400 BMI (Body Mass Index) 25.43 kg/m2 Jesusita Muir [facility] Work Phone: 04-15-2017 13:44-0400 BP [...] 13:44-0400 Weight 97.3 kg Jesusita Jacobs [facility] Work Phone: Encounters Encounter Date Encounter Type Care Provider Facility Start: 06-10-2022 Office outpatient ne w 45 minutes No PCP None [id number] Work Phone: Start: 06-10-2022 ambulatory Referral Self Facility: [id number] Start: 12-02-2021 End: 12-02-2021 Subsequent hospital visit by physician Xr [facility] Work Phone: Radiology Comment on above: Injury of left hand, initial encounter [S69.92XA] Start: 12-02-2021 End: 12-02-2021 Patient encounter procedure Milagros Franklin APRN.MANAGER CATH LAB Work Phone: [facility] Comment on above: Injury of left hand, initial encounter (Primary Dx); Impacted cerumen of right ear Procedures Date Procedure Procedure Detail Performing Clinician Start: 12-02-2021 Radex hand minimum 3 views Milagros Franklin APRN.MANAGER CATH LAB Work Phone: Start: 10-26-2018 Colonoscopy Milagros Franklin APRN.MANAGER CATH LAB Work Phone: Start: 02-22-2016 Adult depression scr eening assessment Milagros Franklin APRN.MANAGER CATH LAB Work Phone: Start: 02-11-2016 Lipid 1996 panel - S maryanne or Plasma Xr [facility] Work Phone: Plan of Treatment Date Care Activity Detail Author Start: 2031 RSV Vaccine (1 - 1-dose 75+ series) RSV Vaccine (1 - 1-dose 75+ series) [facility] Start: 10-26-2028 Colonoscopy COLONOSCOPY [facility] Start: 10-26-2028 COLORECTAL CANCER SCREENING COLORECTAL CANCER SCREENING [facility] Start: 10-26-2028 Screening for malignant neoplasm of colon [facility] Start: 03-27-2024 Covid-19 Vaccine () Covid-19 Vaccine () [facility] Start: 03-27-2024 Influenza vaccination Influenza Vaccine (#1) [facility] Start: 07-27-2023 Advance Directive Discussion Advance Directive Discussion [facility] Start: 04-28-2023 Urine microalbumin profile [facility] Start: 10-14-2022 Pneumococcal Vaccine: 65+ (2 of 2 - PCV) Pneumococcal Vaccine: 65+ (2 of 2 - PCV) [facility] Start: 10-05-2021 COVID-19 VACCINE (4 - Booster for Moderna series) COVID-19 VACCINE (4 - Booster for Moderna series) [facility] Start: 2021 ADVANCE DIRECTIVE DISCUSSION ADVANCE DIRECTIVE DISCUSSION [facility] Start: 2021 PNEUMOVAX AGE 65 AND OVER WITH 5YR LOOKBACK (#1) PNEUMOVAX AGE 65 AND OVER WITH 5YR LOOKBACK (#1) [facility] Start: 02-10-2021 Lipid panel Lipid Screening [facility] Start: 02-10-2021 LIPID SCREEN LIPID SCREEN [facility] Start: 10-20-2019 PROSTATE CANCER SCREENING DISCUSSION PROSTATE CANCER SCREENING DISCUSSION [facility] Start: 10-20-2019 Prostate specific antigen measurement Prostate Cancer Screening Discussion [facility] Start: 02-10-2019 DIABETES SCREEN DIABETES SCREEN [facility] Start: 02-10-2019 Diabetes Screening Diabetes Screening [facility] Start: 08-13-2017 End: 08-13-2017 Appointment Appointment [facility] [employer] Work Phone: Start: 04-15-2017 End: 04-15-2017 24 hour holter monitor 24 hour holter monitor [facility] [employer] Work Phone: Start: 04-15-2017 End: 04-15-2017 QUILLER TENDER QUILLER TENDER [facility] Work Phone: Start: 04-15-2017 End: 04-15-2017 Echocardiography Echocardiogram (complete) [facility] Work Phone: Start: 04-15-2017 End: 04-15-2017 Follow Up Appt 4 months Follow Up Appt 4 months [facility] Work Phone: Start: 04-15-2017 End: 04-15-2017 Appointment Appointment [facility] Work Phone: Start: 04-15-2017 End: 04-15-2017 24 hour holter monitor 24 hour holter monitor [facility] Work Phone: Start: 04-15-2017 End: 04-15-2017 QUILLER TENDER QUILLER TENDER [facility] Work Phone: Start: 04-15-2017 End: 04-15-2017 Echocardiography Echocardiogram (complete) [facility] Work Phone: Start: 04-15-2017 End: 04-15-2017 Follow Up Appt 4 months Follow Up Appt 4 months [employer] Work Phone: Start: 02-21-2017 Adult depression screening assessment DEPRESSION SCREENING [facility] Start: 2006 SHINGRIX VACCINE (1 of 2) SHINGRIX VACCINE (1 of 2) [facility] Start: 2001 COLOGUARD (FIT-DNA) COLOGUARD (FIT-DNA) [facility] Start: [address] COLONOGRAPHY [facility] Start: 2001 FECAL OCCULT BLOOD FECAL OCCULT BLOOD [facility] Start: 2001 Screening for malignant neoplasm of colon [facility] Start: 2001 SIGMOIDOSCOPY SIGMOIDOSCOPY [facility] Start: 1974 ANNUAL PCP TEAM CHRONIC DISEASE VISIT ANNUAL PCP TEAM CHRONIC DISEASE VISIT [facility] Start: 1974 Anxiety Screening Anxiety Screening [facility] Start: 1974 Depression Screening Depression Screening [facility] Start: 1974 HEPATITIS C SCREENING HEPATITIS C SCREENING [facility] Start: 1974 Hepatitis C screening Hepatitis C Screening [facility] Start: 1974 HIV SCREENING HIV SCREENING [facility] Immunizations Immunization Date Immunization Notes Care Provider Aditya frederick 06-07-2022 Prevnar 20 0.5 ML Intramuscular Suspension Prefilled Syringe No PCP None [facility] Work Phone: 12-31-2021 Comirnaty 30 MCG/0.3 ML Intramuscular Suspension No PCP None [facility] Work Phone: 10-14-2021 pneumococcal polysaccharide vaccine, 23 valent No PCP None ZB-Ixqahmxdpfia-Vp [facility] Work Phone: 06-07-2021 Pfizer-BioNTech COVI D-19 Vacc 30 MCG/0.3ML Intramuscular Suspension No PCP None [facility] Work Phone: 04-22-2021 influenza, injectabl e, quadrivalent, contains preservative No PCP None QO-Lhfrsrmfozcd-Qp [facility] Work Phone: 04-22-2021 influenza virus vacc ine, unspecified formulation Xr [facility] Work Phone: [facility] 11-01-2020 Moderna COVID-19 Vac cine 100 MCG/0.5ML Intramuscular Suspension No PCP None [facility] Work Phone: 10-04-2020 Moderna COVID-19 Vac cine 100 MCG/0.5ML Intramuscular Suspension No PCP None [facility] Work Phone: 08-17-2020 zoster vaccine recombinant No PCP None AZ-Acdsdvfewbnc-Ys [facility] Work Phone: 05-03-2020 zoster vaccine recombinant No PCP None GL-Qrmedaqutdsd-Gk [facility] Work Phone: 04-18-2020 influenza, injectabl e, quadrivalent, contains preservative No PCP None CQ-Rxumojwqqnha-Xb [facility] Work Phone: 04-11-2019 influenza, injectabl e, quadrivalent, contains preservative No PCP None QI-Wrxkmxohzzjf-Ti [facility] Work Phone: 04-06-2017 influenza, injectabl e, quadrivalent, contains preservative No PCP None YW-Lavmtmmhpmcr-Vz [facility] Work Phone: 04-30-2015 influenza, injectabl e, quadrivalent, contains preservative Milagros Wilner DIRECTOR PUBLIC POLICY.MANAGER CATH LAB Work Phone: [facility] 04-28-2014 influenza, seasonal, injectable Milagros Wilner DIRECTOR PUBLIC POLICY.MANAGER CATH LAB Work Phone: [facility] 04-28-2013 influenza virus vacc ine, unspecified formulation Milagros Wilner DIRECTOR PUBLIC POLICY.MANAGER CATH LAB Work Phone: [facility] 04-28-2013 tetanus toxoid, redu amy diphtheria toxoid, and acellular pertussis vaccine, adsorbed Milagros Wilner DIRECTOR PUBLIC POLICY.MANAGER CATH LAB Work Phone: [facility] 04-27-2012 influenza virus vacc ine, unspecified formulation Milagros Wilner DIRECTOR PUBLIC POLICY.MANAGER CATH LAB Work Phone: [facility] 04-23-2011 influenza virus vacc ine, unspecified formulation Milagros Wilner DIRECTOR PUBLIC POLICY.MANAGER CATH LAB Work Phone: [facility] 04-23-2010 influenza virus vacc ine, unspecified formulation Milagros Wilner DIRECTOR PUBLIC POLICY.MANAGER CATH LAB Work Phone: [facility] 04-25-2009 influenza virus vacc ine, unspecified formulation Milagros Wilner DIRECTOR PUBLIC POLICY.MANAGER CATH LAB Work Phone: [facility] Work Phone: 07-02-2007 influenza virus vacc ine, unspecified formulation Milagros Wilner DIRECTOR PUBLIC POLICY.MANAGER CATH LAB Work Phone: [facility] Work Phone: 07-02-2007 tetanus toxoid, redu aym diphtheria toxoid, and acellular pertussis vaccine, adsorbed Milagros Wilner DIRECTOR PUBLIC POLICY.MANAGER CATH LAB Work Phone: [facility] Payers Date Payer Category Payer Medicare MEDICARE MEDICAR E A AND B [id number] 2021-[facility] [phone] [place] [address] Medicare [id number] 2021 Medicare [id number] 2021 Medicare MEDICARE MEDICAR E A AND B [id number] 2021-Present [phone] [place] [address] Medicare [id number] 2021 Unknown ANTHEM ANTHEM ME DICARE SUPPLEMENT [id number] 2021-Present [phone] [address] [place] [address] Indemnity [id number] 2021 Unknown 1955 Unknown [id number] 1955 Unknown [id number] Unknown [id number] Social History Date Type Detail Facility Tobacco smoking stat [facility] Never smoked tobacco [facility] Start: 12-02-2021 Alcohol intake Current drinke r of alcohol (finding) [facility] Start: 12-28-2007 History SDOH Alcohol Comment beer on weekends [facility] Start: 1955 Sex Assigned At Not on file [facility] Start: 11-22-2021 End: 12-02-2021 Exposure to SARS-CoV-2 (event) Not sure [facility] Work Phone: Start: 01-30-2021 End: 12-02-2021 Non-smoker Non-smoker [facility]Afcsaklvhfxt[facility] na Work Phone: Start: 01-30-2021 End: 12-02-2021 Tobacco use panel [facility] National Score (1-100), lower number is lower risk Not on file [facility] Clinical Notes 04-24-2011 to 12-12-2021 Nereida Diaz, RT(R) - 12/02/2021 11:20 AM BERNIETMilagros Franklin APRN.CNP - 12/02/2021 10:52 AM EDT Note Date & Type Note Facility 12-12-2021 Note HNO ID: [id number] Author: Trini Bradley PA-C Service: ? Author Type: Physician Corporate Ethics Officer Type: Progress Notes Filed: 12/12/2021 11:32 AM Note Text: This note was created using InstaGISriter. Subjective Rama Francis is a 66 year [...] stomach. For Thyroid 90 tablet 3 - Qphhwjupnrivk-Befoidqh-Owbbrd (CENTRUM SILVER) tab Take 1 tablet by [...] Wound dehiscence - ICD9: 998.30, ICD10: T81.30XA Trini Bradley PA-C [facility] 12-02-2021 Note HNO ID: [id number] Author: RT James(Rosalind) Service: Nuclear Medicine Author Type: Technologist Type: [...] IV DATA: Not applicable SIGNED BY: RT Jamse(R) December 02, 2021 11:17 AM [facility] 12-02-2021 Note HNO ID: [id number] Author: Milagros Franklin APRN.[facility] Service: ? Author Type: Nurse Practitioner Type: [...] history is provided by the patient. No specialized language instructor was used. Review of Systems Constitutional: Negative. [...] daily. Take on empty stomach. For Thyroid Dklttshekkyag-Mxfigxvq-Axesuc (CENTRUM SILVER) tab Take 1 tablet by [...] 1. No acute fracture or dislocation. ? Academic Director: AMY Transcribe Date/Time: Dec 02 2021 11:33A [...] is okay with this care plan. Milagros Franklin APRN.[facility] 12-02-2021 History of Present illness Narrative Radiology Service Progress Note PATIENT NAME: Rama [...] RT James(R) December 02, 2021 11:17 AM documented in this encounter [facility] 12-02-2021 History of Present illness Narrative Images from the original note [...] history is provided by the patient. No specialized language instructor was used. Review of Systems Constitutional: Negative. [...] daily. Take on empty stomach. For Thyroid Dbzucbykiryib-Dkkxvlfb-Srrgkg (CENTRUM SILVER) tab Take 1 tablet by [...] Impression: 1. No acute fracture or dislocation. Academic Director: AMY Transcribe Date/Time: Dec 02 2021 11:33A [...] is okay with this care plan. Milagros Franklin APRN.[facility] documented in this encounter [facility] 01-30-2021 Note HNO ID: [id number] Author: Kael Pride MD Service: ? Author [...] Take on empty stomach. For Thyroid - Clsxnbnticaif-Qzrhseju-Wrkxfk (CENTRUM SILVER) tab Take 1 tablet by [...] evaluation recommended. His will take him to [facility]. Report sent by ER passport. Kael Pride MD [facility] 04-24-2011 History of Past i llness Narrative Problem Noted Date Resolved Date Sebaceous cyst 04/24/2011 02/22/2016 Essential and other specified forms of tremor 02/22/2016 Overview: Issue since about age 31: bilateral hands (R > L)-did not involve the head or voice Allergic rhinitis, cause unspecified 07/02/2007 02/22/2016 Overview: Nasal polyp removed from the right side about age 31: symptoms improved Feels that spring and fall are the worst symptoms (has used Claritin and Flonase) Restarted prn Claritin in 07-02 documented as of this encounter (statuses as of 12/02/2021) [facility] Injury of left hand, initial encounter- Primary Impacted cerumen of right ear Impacted cerumen [facility] encounter [facility] Diagnosis Injury of left hand, initial encounter documented [facility] this encounter [facility]* House.This is a 66-year-old male that comes [...] using some anti-inflammatories and therapeutic exercises for his * Continues to have discomfort pain is mostly anterior and lateral. [facility] Work Phone: Reason for referral (narrative)* Diagnostic Procedure Only (Urgent) - Closed Specialty Diagnoses / Procedures Referred By Contac t Referred To Contact XR IMAGING Diagnoses Injury of left hand, initial encounter Procedures XR HAND GENERAL 3V PA/LAT/OBL LEFT RADEX HAND MINIMUM 3 VIEWS Milagros Franklin APRN.MANAGER CATH LAB [address] [place] [address] Xr Imaging Referral ID Status Reason Start Date Expiration Date V isits Requested Visits Authorized [id number] Closed Auto-Generate d Referral 12/02/2021 01/01/2023 1 1 [facility] for referral (narrative)* Diagnostic Procedure Only (Urgent) - Closed Specialty Diagnoses / Procedures Referred By Contac t Referred To Contact XR IMAGING Diagnoses Injury of left hand, initial encounter Procedures XR HAND GENERAL 3V PA/LAT/OBL LEFT RADEX HAND MINIMUM 3 VIEWS Milagros Franklin APRN.MANAGER CATH LAB [address] [place] [address] [place] [address] Referral ID Status Reason Start Date Expiration Date V isits Requested Visits Authorized [id number] Closed Auto-Generate d Referral 12/02/2021 01/01/2023 1 1 [facility] for visit Narrative* Diagnostic Procedure Only (Urgent) - Closed Specialty Diagnoses / Procedures Referred By Riddhi t Referred To Contact XR IMAGING Diagnoses Injury of left hand, initial encounter Procedures XR HAND GENERAL 3V PA/LAT/OBL LEFT RADEX HAND MINIMUM 3 VIEWS Milagros Franklin APRN.MANAGER CATH LAB [address] [place] [address] [place] [address] Referral ID Status Reason Start Date Expiration Date V isits Requested Visits Authorized [id number] Closed Auto-Generate d Referral 12/02/2021 01/01/2023 1 1 [facility] Summary Purpose Family History Unknown Family Member Name Dates Details No pertinent [...] or prosecute any alcohol or drug abuse patient.[facility] the event this information is protected by the Federal Confidentiality of Alcohol and Drug Abuse Patient Records regulations: The Federal rules restrict any use of the information to criminally investigate or prosecute any alcohol or drug abuse patient.[facility] Reason for Visit (unrecogniz ed section and content) Reason Comments Trauma left hand laceration Care Teams (unrecognized sec tion and content) 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 Sales Supervisor Relationship Specialty Start Date End Date Abhinav Lebron Chi [address] [facility] [address] [place] [address] PCP - General Gerontology 12/02/21 Lumber Sales Supervisor Relationship Specialty Start Date End Date Abhinav Lebron Chi [address] [facility] [address] [place], [place] [id number] PCP - General Gerontology 12/02/21 (unrecognized sect ion and content) No Status Records FoundNo Status Records FoundNo Status Records Found INFORMATION SOURCE (unrecogn ized section and content) DATE CREATED AUTHOR 12/14/2021 [facility] DATE CREATED AUTHOR AUTHOR'S ORGANIZ ATION 06/11/2022 [facility] DATE CREATED AUTHOR AUTHOR'S ORGANIZ ATION 11/07/2022 [facility] FOR RECORDS PERTAINING TO PATIENTS WHO ARE [...] BE BASED ON THE PRIMARY CLINICAL RECORDS. [facility] [employer] [facility]. provides no warranty or guarantee of the accuracy or completeness of information in this document.
[2024-05-20 12:34] LABS: Absolute Lymphocyte Count 1.23 X10^3/uL (0.83-4.51); Absolute Neutrophil Count 2.3 X10^3/uL (2.0-7.7); Basophil# 0.04 X10^3/uL; Eosinophil# 0.13 X10^3/uL; Eosinophils% 3.2 % (0-5); Hematocrit 43.9 % (40-54); Lymphocyte # 1.23 X10^3/ul (0.83-4.51); Lymphocyte % 29.9 % (19-41); Mean Corp Hgb Conc 31.9 g/dL (32-36); Mean Corpuscular Hgb 32.3 pg (27.0-32.0); Mean Corpuscular Volume 101.2 fL (80-94); Mean Platelet Vol. 9.7 fl (6.2-12.0); Monocyte# 0.46 X10^3/uL; Monocyte% 11.2 % (0-10); NRBC Flagged by Analyzer 0 % (0-5); Neutrophil # 2.25 X10^3/uL (2.7-7.7); Neutrophil % 54.5 % (47-70); Platelet Count 205 K/mm3 (150-450); RBC Distribution Width SD 48.1 fl (35.1-43.9); Red Blood Count 4.34 M/mm3 (4.6-6.2); White Blood Count 4.1 K/mm3 (4.4-11.0)
[2024-05-20 13:52] LABS: ALB/GLOB Ratio 1.1 RATIO (0.9-2.4); AST(SGOT) 25 U/L (15-37); Alanine Aminotransfer ALT/SGPT 38 U/L (16-61); Albumin, Serum 3.6 g/dL (3.2-5.0); Alkaline Phosphatase 66 U/L (45-117); Anion Gap 4 (5-15); BUN 13 mg/dL (7-18); BUN/Creat Ratio 15.9 RATIO (10-20); Calcium,Total 8.9 mg/dL (8.5-10.1); Chloride 110 mmol/L (98-107); Creatinine, Serum 0.82 mg/dL (0.70-1.30); EST Glomerular Filtration Rate 100 mL/min (>60); Est Glom Filt Rate - Afr Amer 121 mL/min (>60); Globulin 3.4 g/dL (2.2-4.2); Glucose 101 mg/dL (74-106); Potassium 4.4 mmol/L (3.5-5.1); Sodium Level 140 mmol/L (136-145)
== END | disposition home or self-care (01) ==
LOC: MTLAB 10:16
PROVIDERS: PCP Family Medicine Geriatric Medicine; Referring Provider Internal Medicine Rheumatology; Visit Provider Internal Medicine Rheumatology
DX: M06.4 Inflammatory polyarthropathy (principal); Z79.899 Other long term (current) drug therapy
CPT/HCPCS: 36415; 80053; 85025

== ENCOUNTER → 2024-08-09 | Outpatient (CLI) | payer MEDICARE, BC, SELFPAY ==
[2024-08-09 09:59] LABS: Absolute Lymphocyte Count 1.25 X10^3/uL (0.83-4.51); Absolute Neutrophil Count 2.2 X10^3/uL (2.0-7.7); Basophil# 0.04 X10^3/uL; Eosinophil# 0.15 X10^3/uL; Eosinophils% 3.6 % (0-5); Hematocrit 45.7 % (40-54); Hemoglobin 14.6 g/dL (13.0-16.5); Lymphocyte # 1.25 X10^3/ul (0.83-4.51); Lymphocyte % 29.9 % (19-41); Mean Corp Hgb Conc 31.9 g/dL (32-36); Mean Corpuscular Hgb 31.9 pg (27.0-32.0); Mean Platelet Vol. 9.1 fl (6.2-12.0); Monocyte# 0.49 X10^3/uL; Monocyte% 11.7 % (0-10); NRBC Flagged by Analyzer 0 % (0-5); Neutrophil # 2.23 X10^3/uL (2.7-7.7); Neutrophil % 53.3 % (47-70); Platelet Count 219 K/mm3 (150-450); RBC Distribution Width SD 47.5 fl (35.1-43.9); Red Blood Count 4.57 M/mm3 (4.6-6.2); White Blood Count 4.2 K/mm3 (4.4-11.0)
[2024-08-09 10:35] LABS: AST(SGOT) 22 U/L (15-37); Alanine Aminotransfer ALT/SGPT 25 U/L (16-61); Albumin, Serum 3.6 g/dL (3.2-5.0); Alkaline Phosphatase 74 U/L (45-117); Anion Gap 3 (5-15); BUN 14 mg/dL (7-18); BUN/Creat Ratio 18.2 RATIO (10-20); Chloride 108 mmol/L (98-107); Creatinine, Serum 0.77 mg/dL (0.70-1.30); EST Glomerular Filtration Rate 107 mL/min (>60); Est Glom Filt Rate - Afr Amer 129 mL/min (>60); Globulin 3.7 g/dL (2.2-4.2); Glucose 100 mg/dL (74-106); Potassium 4.2 mmol/L (3.5-5.1); Protein, Total 7.3 g/dL (6.4-8.2); Sodium Level 138 mmol/L (136-145)
== END | disposition home or self-care (01) ==
LOC: MTLAB 08:42
PROVIDERS: PCP Family Medicine Geriatric Medicine; Referring Provider Internal Medicine Rheumatology; Visit Provider Internal Medicine Rheumatology
DX: M06.4 Inflammatory polyarthropathy (principal); Z79.899 Other long term (current) drug therapy
CPT/HCPCS: 36415; 80053; 85025

== ENCOUNTER → 2024-10-15 | Outpatient (CLI) | payer MEDICARE, BC, SELFPAY ==
--- NOTE | 2024-10-15 07:59 | CT_ITS ---
PROCEDURE: SINUS/FACIAL BONE REASON FOR EXAM: CHRONIC SINUSITIS TECHNIQUE: CT of the paranasal sinuses without contrast. Coronal and Sagittal reconstruction series were provided. One or more dose reduction techniques were used (e.g., Automated exposure control, adjustment of the mA and/or kV according to patient size, use of iterative reconstruction technique). RADIATION DOSE SUMMARY: CTDlvol: 33.06 mGy DLP: 697.49 mGycm COMPARISON: None provided. FINDINGS: Complete and near-complete opacification of the bilateral ethmoid air cells is seen. Marked mucosal thickening is seen at bilateral sphenoid and maxillary sinuses. Mild mucosal thickening is seen of the left frontal sinus, with minimal similar changes in the right frontal sinus. No air-fluid level is clearly appreciated. No osseous destructive change is seen. The right ostium is occluded, in the left ostium appears patent. No orbital pathology is seen. CT/Sinus/Facial Bone IMPRESSION: Extensive pansinusitis, at least chronic, although cannot exclude superimposed acute component. Reading Location: [id number]
== END | disposition home or self-care (01) ==
LOC: CT 07:55
PROVIDERS: PCP Family Medicine Geriatric Medicine; Referring Provider Otolaryngology; Visit Provider Otolaryngology
DX: J32.8 Other chronic sinusitis (principal); J33.0 Polyp of nasal cavity
CPT/HCPCS: 70486

== ENCOUNTER → 2024-10-28 | Outpatient (CLI) | payer MEDICARE, BC, SELFPAY ==
[2024-10-28 12:20] LABS: Absolute Lymphocyte Count 1.35 X10^3/uL (0.83-4.51); Absolute Neutrophil Count 2.2 X10^3/uL (2.0-7.7); Basophil# 0.02 X10^3/uL; Basophil% 0.5 % (0-1); Eosinophil# 0.14 X10^3/uL; Eosinophils% 3.3 % (0-5); Hematocrit 41.6 % (40-54); Hemoglobin 13.8 g/dL (13.0-16.5); Lymphocyte # 1.35 X10^3/ul (0.83-4.51); Lymphocyte % 32.1 % (19-41); Mean Corp Hgb Conc 33.2 g/dL (32-36); Mean Corpuscular Hgb 32.4 pg (27.0-32.0); Mean Corpuscular Volume 97.7 fL (80-94); Mean Platelet Vol. 9.6 fl (6.2-12.0); Monocyte# 0.45 X10^3/uL; Monocyte% 10.7 % (0-10); NRBC Flagged by Analyzer 0 % (0-5); Neutrophil # 2.22 X10^3/uL (2.7-7.7); Neutrophil % 52.9 % (47-70); Platelet Count 198 K/mm3 (150-450); Red Blood Count 4.26 M/mm3 (4.6-6.2); White Blood Count 4.2 K/mm3 (4.4-11.0)
[2024-10-28 12:42] LABS: ALB/GLOB Ratio 1.5 RATIO (0.9-2.4); AST(SGOT) 20 U/L (<=37); Alanine Aminotransfer ALT/SGPT 22 U/L (<=46); Albumin, Serum 4.1 g/dL (3.4-4.8); Alkaline Phosphatase 66 U/L (40-129); Anion Gap 10 (5-15); BUN 11 mg/dL (4-19); BUN/Creat Ratio 15.3 RATIO (10-20); Calcium,Total 9.2 mg/dL (7.6-11.0); Carbon Dioxide 24.3 mmol/L (21.0-32.0); Chloride 107 mmol/L (98-108); Creatinine, Serum 0.74 mg/dL (0.70-1.20); EST Glomerular Filtration Rate 99 (>60); Globulin 2.7 g/dL (2.2-4.2); Glucose 102 mg/dL (70-99); Potassium 4.3 mmol/L (3.3-5.1); Protein, Total 6.7 g/dL (5.9-8.4); Sodium Level 141 mmol/L (133-145); Total Bilirubin 0.42 mg/dL (0.00-1.30)
== END | disposition home or self-care (01) ==
LOC: MTLAB 10:11
PROVIDERS: PCP Family Medicine Geriatric Medicine; Referring Provider Internal Medicine Rheumatology; Visit Provider Internal Medicine Rheumatology
DX: M06.4 Inflammatory polyarthropathy (principal); Z79.899 Other long term (current) drug therapy
CPT/HCPCS: 36415; 80053; 85025

== ENCOUNTER → 2024-11-03 | Outpatient (CLI) | payer MEDICARE, BC, SELFPAY ==
[2024-11-03 10:52] LABS: Absolute Lymphocyte Count 1.34 X10^3/uL (0.83-4.51); Absolute Neutrophil Count 2.3 X10^3/uL (2.0-7.7); Basophil# 0.03 X10^3/uL; Basophil% 0.7 % (0-1); Eosinophil# 0.13 X10^3/uL; Hematocrit 42.8 % (40-54); Hemoglobin 13.7 g/dL (13.0-16.5); Lymphocyte # 1.34 X10^3/ul (0.83-4.51); Lymphocyte % 30.9 % (19-41); Mean Corpuscular Hgb 31.2 pg (27.0-32.0); Mean Corpuscular Volume 97.5 fL (80-94); Mean Platelet Vol. 9.2 fl (6.2-12.0); Monocyte# 0.53 X10^3/uL; Monocyte% 12.2 % (0-10); NRBC Flagged by Analyzer 0 % (0-5); Neutrophil # 2.29 X10^3/uL (2.7-7.7); Platelet Count 224 K/mm3 (150-450); RBC Distribution Width CV 12.8 % (11.6-14.6); RBC Distribution Width SD 45.9 fl (35.1-43.9); Red Blood Count 4.39 M/mm3 (4.6-6.2); White Blood Count 4.3 K/mm3 (4.4-11.0)
[2024-11-03 11:29] LABS: ALB/GLOB Ratio 1.6 RATIO (0.9-2.4); AST(SGOT) 19 U/L (<=37); Alanine Aminotransfer ALT/SGPT 19 U/L (<=46); Alkaline Phosphatase 68 U/L (40-129); Anion Gap 9 (5-15); BUN 10 mg/dL (4-19); BUN/Creat Ratio 12.6 RATIO (10-20); Calcium,Total 9.1 mg/dL (7.6-11.0); Carbon Dioxide 25.6 mmol/L (21.0-32.0); Chloride 106 mmol/L (98-108); Creatinine, Serum 0.79 mg/dL (0.70-1.20); EST Glomerular Filtration Rate 97 (>60); Globulin 2.6 g/dL (2.2-4.2); Glucose 100 mg/dL (70-99); Potassium 4.4 mmol/L (3.3-5.1); Protein, Total 6.6 g/dL (5.9-8.4); Sodium Level 140 mmol/L (133-145); Thyroid Stim Hormone (TSH) 0.186 uIU/mL (0.300-4.200); Total Bilirubin 0.51 mg/dL (0.00-1.30); Vitamin D,25 Hydroxy 23.4 ng/mL (30-100)
== END | disposition home or self-care (01) ==
LOC: LAB 09:36
PROVIDERS: PCP Family Medicine Geriatric Medicine; Referring Provider Family Medicine Geriatric Medicine; Visit Provider Family Medicine Geriatric Medicine
DX: I10 Essential (primary) hypertension (principal); E55.9 Vitamin D deficiency, unspecified
CPT/HCPCS: 36415; 80053; 82306; 84443; 85025

== ENCOUNTER → 2024-12-27 | Outpatient (CLI) | payer MEDICARE, BC, SELFPAY ==
[2024-12-27 13:47] LABS: Thyroid Stim Hormone (TSH) 0.638 uIU/mL (0.300-4.200)
== END | disposition home or self-care (01) ==
LOC: LAB 11:44
PROVIDERS: PCP Family Medicine Geriatric Medicine; Referring Provider Family Medicine Geriatric Medicine; Visit Provider Family Medicine Geriatric Medicine
DX: E03.9 Hypothyroidism, unspecified (principal)
CPT/HCPCS: 36415; 84443

== ENCOUNTER → 2025-01-30 | Outpatient (CLI) | payer MEDICARE, BC, SELFPAY ==
[2025-01-30 12:22] LABS: Hematocrit 40.6 % (40-54); Hemoglobin 13.2 g/dL (13.0-16.5); Immature Granulocytes Count 0.020 X10^3/uL (0.0-0.0); Mean Corp Hgb Conc 32.5 g/dL (32-36); Mean Corpuscular Volume 99.0 fL (80-94); Mean Platelet Vol. 9.4 fl (6.2-12.0); NRBC Flagged by Analyzer 0 % (0-5); POSITIVE MORPHOLOGY YES; Platelet Count 171 K/mm3 (150-450); RBC Distribution Width CV 13.2 % (11.6-14.6); RBC Distribution Width SD 47.4 fl (35.1-43.9); Red Blood Count 4.10 M/mm3 (4.6-6.2); White Blood Count 8.0 K/mm3 (4.4-11.0)
[2025-01-30 12:28] LABS: Differential Indicated SCAN CRITERIA MET
[2025-01-30 13:07] LABS: AST(SGOT) 22 U/L (<=37); Alanine Aminotransfer ALT/SGPT 19 U/L (<=46); Albumin, Serum 3.9 g/dL (3.4-4.8); Alkaline Phosphatase 69 U/L (40-129); Anion Gap 9 (5-15); BUN 17 mg/dL (4-19); BUN/Creat Ratio 19.3 RATIO (10-20); Calcium,Total 8.5 mg/dL (7.6-11.0); Carbon Dioxide 24.8 mmol/L (21.0-32.0); Chloride 106 mmol/L (98-108); Globulin 2.5 g/dL (2.2-4.2); Glucose 101 mg/dL (70-99); Potassium 4.6 mmol/L (3.3-5.1)
[2025-01-30 13:44] LABS: Differential Comment SCANNED
== END | disposition home or self-care (01) ==
LOC: MTLAB 09:44
PROVIDERS: PCP Family Medicine Geriatric Medicine; Referring Provider Internal Medicine Rheumatology; Visit Provider Internal Medicine Rheumatology
DX: M06.4 Inflammatory polyarthropathy (principal); Z79.899 Other long term (current) drug therapy
CPT/HCPCS: 36415; 80053; 85025

== ENCOUNTER 2025-02-13 09:48 | Day surgery (SDC) | payer MEDICARE, BC, SELFPAY ==
--- NOTE | 2025-02-07 09:44 | EKG12_ITS ---
Test Reason : PRE OP Blood Pressure : */* mmHG Vent. Rate : 80 BPM Atrial Rate : 80 BPM P-R Int : 144 ms QRS Dur : 96 ms QT Int : 370 ms P-R-T Axes : 50 61 25 degrees QTcB Int : 426 ms Normal sinus rhythm Minimal voltage criteria for LVH, may be normal variant Borderline ECG Confirmed by Chandu Yancey ([id number]), copy editor TONIA RODRIGEZ ([id number]) on 02/08/2025 11:22:32 AM Referred By: Kael Martinez Confirmed By: Chandu Yancey
--- NOTE | 2025-02-07 18:31 | PAT.ANE_ITS ---
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 When Was Last Pacemaker Check QUESTION #4 FULL TEXT: You/Your Family Experience fever (hyperthermia) with Anesthesia Last Oral Intake Last Oral intake: Last Oral Intake NPO since Meds taken in AM with sips of water? Meds patient instructed to take am of surgery PONV PONV - small brake form operator: PONV - small brake form operator Female No 02/06/25 13:47 HX of Motion Sickness No 02/06/25 13:47 HX of N/V After Surgery No 02/06/25 13:47 Non-Smoker Yes 02/06/25 13:47 Duration of Surgery greater No 02/06/25 13:47 than 60 minutes Number of Risk Factors 1 02/06/25 13:47 PONV Score Low Risk 02/06/25 13:47 Height & Weight Height & Weight: Anesthesia: Height & Weight Height 6 ft 5 in 02/10/24 13:27 Respiratory Assessment Respiratory Assessment - small brake form operator: Respiratory Tract Infection Hx - small brake form operator Hx Respiratory Tract Infection No 02/06/25 13:47 STOP Sleep Apnea STOP Sleep Apnea - small brake form operator: STOP Sleep Apnea - small brake form operator Hx Hypertension Yes 02/06/25 13:47 Hx Sleep Apnea No 02/06/25 13:47 CPAP BIPAP Do you snore loudly (louder No 02/06/25 13:47 than talking or can be heard Do you often feel tired/ No 02/06/25 13:47 fatigued/ sleepy during daytime? Has anyone observed you stop No 02/06/25 13:47 breathing during sleep? STOP Results Negative 02/06/25 13:47 QUESTION #5 FULL TEXT : Do you snore loudly (louder than talking or can be heard through closed doors)? 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 Specify any problems Hx of Preganancy in last 3 N/A 02/06/25 13:47 Months Nurse Filling Out Transfusion [id number] 02/06/25 13:47 & Questions: Date: 02/06/25 02/06/25 13:47 Time: 13:49 02/06/25 13:47 Patient unable to answer at this time (ie. confused, unrespo /Reproduction History /Reproductive History - small brake form operator: /Reproductive Hx- small brake form operator Hx Now No 02/06/25 13:47 Gestational Age (in weeks): EDC: Hx Hx Para Hx Section SAB No 02/06/25 13:47 [facility] Medical History (Updated 02/06/25 @ 13:47 by An Gay) Gastric reflux Non-smoker Wears contact lenses History of steroid therapy Thyroid disease Prostate disease History of edema Rheumatoid arthritis Sebaceous cyst Inguinal hernia of right side without obstruction or gangrene Family history of colon cancer in mother High cholesterol Acid reflux Hypothyroid HTN (hypertension) Home Medications ?Medication ?Instructions ?Recorded ?Last Taken ?Type famotidine 40 mg tablet 40 mg PO DAILY 05/03/2001/24 History levothyroxine 137 mcg tablet 137 mcg PO DAILY 01/30/21 02/09/24 History folic acid 1 mg tablet 1 mg PO DAILY 09/01/2202/08 History methotrexate sodium 2.5 mg tablet 2.5 mg PO SA 3 02/06/24 History rosuvastatin 40 mg tablet 40 mg PO DAILY 09/01/2201/24 History tamsulosin 0.4 mg capsule 0.4 mg PO DAILY 09/01/22 History hydroxychloroquine 200 mg tablet 300 mg PO DAILY 01/1802/09/24 History (Plaquenil) losartan 50 mg tablet 50 mg PO DAILY 01/19/2401/24 History Allergy/AdvReac Type Severity Reaction Status Date / Time Penicillins Allergy Mild Rash Verified 02/06/25 13:38 Family History Mother Colon cancer Hypertension Father Cancer Prostate/bone cancer Surgical History Hx of colonoscopy Hx of bilateral inguinal hernia repair S/P nasal polypectomy Social History household members: spouse current occupational status: retired Smoking Status: Never smoker alcohol intake: never substance use type: does not use Audit: Pertinent Findings Pertinent Findings EKG Perinent findings: February 07, 2025. Normal sinus rhythm. Minimal voltage criteria for LVH. No significant change from EKG of 2019. Recommendation Anesthesia Recommendation Anesthesia recommendation: OPTIMIZED for anesthesia
[2025-02-13] VITALS (10 sets, daily range): BP systolic 154–176; BP diastolic 88–102; PULSE 60–72; RESP 12–16; TEMP 36.6–37.1; O2SAT 98–100; BMI 22.6
[2025-02-13] MEDS: Lactated Ringers 1,000 ML 15 ML IV (10:15)
[2025-02-13] MEDS: Oxymetazoline 0.05% 1 SPRAY SPRAY.BTL 3 SPRAY NASAL (10:16)
--- NOTE | 2025-02-13 10:40 | PRE.ANES_ITS ---
ASA Classification* ASA Classification ASA Classification: 2 Assessment & Plan Anesthesia* Anesthesia Assessment Anesthesia Assessment: Discussed sedation and/or anesthesia options, risks, benefits, and alternatives with patient/parents/legal guardian/POA. Questions invited. The patient/parents/legal guardian/POA seems to understand and agrees to proceed with anesthesia plan. Reviewed the physical assessment, medical history, allergy history and patient home medications list prior to surgery/procedure/anesthetic and documented any changes. Performed airway and anesthesia risk assessments. Anesthesia Type Anesthesia Type: General History Source History Obtained from:: Patient and Chart Anesthesia Focused Assessment* Temperature: 98 F Pulse Rate: 72 Blood Pressure: 160/91 Respiratory Rate: 16 Pulse Ox: 100 Oxygen Delivery Method: Room Air Airway Assessment Mouth opens: >3 cm Mallampati Score: IV Teeth Condition: Caps/Crowns (Patient has a crown on the left upper molar. It is tight.) Neck Range of motion (ROM): Full ROM Labs Anesthesia Preop lab: CBC WBC 8.0 K/mm3 (4.4-11.0) 01/30/25 09:46 01/30/25 RBC 4.10 M/mm3 (4.6-6.2) L 01/30/25 09:46 01/30/25 Hgb 13.2 g/dL (13.0-16.5) 01/30/25 09:46 01/30/25 Hct 40.6 % (40-54) 01/30/25 09:46 01/30/25 Plt Count 171 K/mm3 (150-450) 01/30/25 09:46 01/30/25 CHEMISTRY Potassium 4.6 mmol/L (3.3-5.1) 01/30/25 09:46 01/30/25 Sodium 140 mmol/L (133-145) 01/30/25 09:46 01/30/25 BUN 17 mg/dL (4-19) 01/30/25 09:46 01/30/25 Creatinine 0.86 mg/dL (0.70-1.20) 01/30/25 09:46 01/30/25 Glucose 101 mg/dL (70-99) H 01/30/25 09:46 01/30/25 TSH 1.460 uIU/mL (0.300-4.200) 02/07/25 09:58 01/24 12/18 COAG Pre-Assessment Diagnosis/Proposed Procedure Planned Operative Procedure(s): Functional Endoscopic Sinus Surgery, Navigation Anesthesia History Anesthesia History - licensed and certified midwife: Anesthesia History - licensed and certified midwife Hx Hospitalization No 02/06/25 13:47 Any Problems With Anesthesia No 02/06/25 13:47 Cholinesterase deficiency No 02/06/25 13:47 You/Your Family Experience No 02/06/25 13:47 fever (hyperthermia) with Relationship Recent Exposure to Contagious No 02/13/25 10:18 Disease Does patient have nerve No 02/06/25 13:47 stimulator Patient instructed to have device shut off --Does patient have Pacemaker No 02/13/25 10:18 or ICD? When Was Last Pacemaker Check QUESTION #4 FULL TEXT: You/Your Family Experience fever (hyperthermia) with Anesthesia Last Oral Intake Last Oral intake: Last Oral Intake NPO since Meds taken in AM with sips of Yes 02/13/25 10:18 water? Meds patient instructed to rosuvastatin, folic acid, 02/13/25 10:18 take am of surgery levothyroxine Any additional information?: Yes NPO since: 00:00 Meds taken in AM with sips of water?: Yes PONV PONV - licensed and certified midwife: PONV - licensed and certified midwife Female No 02/06/25 13:47 HX of Motion Sickness No 02/06/25 13:47 HX of N/V After Surgery No 02/06/25 13:47 Non-Smoker Yes 02/06/25 13:47 Duration of Surgery greater No 02/06/25 13:47 than 60 minutes Number of Risk Factors 1 02/06/25 13:47 PONV Score Low Risk 02/06/25 13:47 Height & Weight Height & Weight: Anesthesia: Height & Weight Height 6 ft 5 in 02/13/25 10:18 Weight: 86.4 kg 02/13/25 10:18 Body Mass Index (BMI) 22.6 02/13/25 10:18 Respiratory Assessment Respiratory Assessment - licensed and certified midwife: Respiratory Tract Infection Hx - licensed and certified midwife Hx Respiratory Tract Infection No 02/06/25 13:47 STOP Sleep Apnea STOP Sleep Apnea - licensed and certified midwife: STOP Sleep Apnea - licensed and certified midwife Hx Hypertension Yes 02/06/25 13:47 Hx Sleep Apnea No 02/06/25 13:47 CPAP BIPAP Do you snore loudly (louder No 02/06/25 13:47 than talking or can be heard Do you often feel tired/ No 02/06/25 13:47 fatigued/ sleepy during daytime? Has anyone observed you stop No 02/06/25 13:47 breathing during sleep? STOP Results Negative 02/06/25 13:47 QUESTION #5 FULL TEXT : Do you snore loudly (louder than talking or can be heard through closed doors)? 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 Specify any problems Hx of Preganancy in last 3 N/A 02/06/25 13:47 Months Nurse Filling Out Transfusion MINI 02/06/25 13:47 & Questions: Date: 02/06/25 02/06/25 13:47 Time: 13:49 02/06/25 13:47 Patient unable to answer at this time (ie. confused, unrespo /Reproduction History /Reproductive History - licensed and certified midwife: /Reproductive Hx- licensed and certified midwife Hx Now No 02/06/25 13:47 Gestational Age (in weeks): EDC: Hx Hx Para Hx Section SAB No 02/06/25 13:47 Active Medications Active Medications: Current Medications Generic Name Dose Route Start Last Admin Trade Name Freq PRN Reason Stop Dose Admin Lactated Ringer's 1,000 mls @ 15 mls/hr 02/13/25 10:00 02/13/25 10:15 IV 15 mls/hr .Q48H JERRY Administration Oxymetazoline HCl 3 spray 02/13/25 12:05 02/13/25 10:16 Oxymetazoline 0.05% 1 [place].Btl NASAL 02/13/25 12:06 3 spray PREOP ONE Administration PFS Medical History Gastric reflux Non-smoker Wears contact lenses History of steroid therapy Thyroid disease Prostate disease History of edema Rheumatoid arthritis Sebaceous cyst Inguinal hernia of right side without obstruction or gangrene Family history of colon cancer in mother High cholesterol Acid reflux Hypothyroid HTN (hypertension) Home Medications ?Medication ?Instructions ?Recorded ?Last Taken ?Type famotidine 40 mg tablet 40 mg PO DAILY 05/03/2001/24 History levothyroxine 137 mcg tablet 137 mcg PO DAILY 01/30/21 02/13/25 History folic acid 1 mg tablet 1 mg PO DAILY 09/01/2202/13 History methotrexate sodium 2.5 mg tablet 2.5 mg PO SA 3 02/06/24 History rosuvastatin 40 mg tablet 40 mg PO DAILY 09/01/2201/25 History tamsulosin 0.4 mg capsule 0.4 mg PO DAILY 09/01/22 History hydroxychloroquine 200 mg tablet 300 mg PO DAILY 01/1802/09/24 History (Plaquenil) losartan 50 mg tablet 50 mg PO DAILY 01/19/2401/25 History Allergy/AdvReac Type Severity Reaction Status Date / Time Penicillins Allergy Mild Rash Verified 02/13/25 10:10 Family History Mother Colon cancer Hypertension Father Cancer Prostate/bone cancer Surgical History Hx of colonoscopy Hx of bilateral inguinal hernia repair S/P nasal polypectomy Social History household members: spouse current occupational status: retired Smoking Status: Never smoker alcohol intake: never substance use type: does not use Review of Systems (Anesthesia) ROS Narrative System reviewed and no additional complaints, except as documented.
[2025-02-13] MEDS: Oxymetazoline 0.05% 1 SPRAY SPRAY.BTL 15 SPRAY ×2 (11:32)
[2025-02-13] MEDS: Lidocaine 1%/Epi 1:200 (30ml) 30 ML AMPUL (11:32)
--- NOTE | 2025-02-13 12:05 | ETH_PTH ---
PATIENT: RAMA HOLLIDAY [place] [facility] [id number] AGE/SX: 69/M ROOM: RE02/13/[address]: Dr. Kael Martinez MD : 1955 BED: DIS: 02/13/2025 SPEC #: [id number] RECD: 02/13/25 13:23 STATUS: OLIVIA REАлександр #: [id number] RANDY: 02/13/25 12:[address]: Kael Martinez DEPT: SURGICAL PATHOLOGY RECD BY: Curtis Montoya ENTERED: 02/13/25 15:34 SP TYPE: ETH TISS OTHR DR: Dr. Abhinav eLbron MD Tissues: A - Ethmoid sinus, NOS B - Ethmoid sinus, NOS Procedures: Decalcification bone/plaque Surgery Specimen Level IV HEADER OPERATION: Functional endoscopic sinus surgery, Navigation PRE-OP DIAGNOSIS: Chronic sinusitis, polyps of nasal cavity TISSUE SUBMITTED: A- Right sinus contents, B- Left sinus contents MICROSCOPIC DIAGNOSIS A. Sinus, right, chronic sinusitis, polyps of nasal cavity, endoscopic sinus surgery: - Polypoid fragments of sinonasal mucosa with chronic inflammation. - Few fragments of bone. B. Sinus, left, chronic sinusitis, polyps of nasal cavity, endoscopic sinus surgery: - Polypoid fragments of sinonasal mucosa with chronic inflammation. - Few fragments of bone. MICROSCOPIC DESCRIPTION Slides are reviewed. GROSS DESCRIPTION Received in 2 formalin containers labeled with the patient's name and date of . Designated as: A. Right sinus contents is a 3.5 x 2.5 x 0.4 cm aggregate of pink-red tissue fragments. Entirely submitted in 2 cassettes. B. Left sinus contents is a 1.5 x 0.5 x 0.2 cm aggregate of hannah-pink tissue fragments and flecks of bone. Entirely submitted in 1 cassette, following decalcification. [place] 02/13/2025 CPT:23905f3,53628
--- NOTE | 2025-02-13 12:17 | DS.PCM_ITS ---
Providers Primary Care Physician: Dr. Abhinav Lebron MD Reason For Visit: Functional Endoscopoic Sinus Surgery, Navigation Medications at Discharge Home Medications famotidine 40 mg tablet 40 mg PO DAILY 05/03/20 levothyroxine 137 mcg tablet 137 mcg PO DAILY 01/30/21 folic acid 1 mg tablet 1 mg PO DAILY 09/01/22 methotrexate sodium 2.5 mg tablet 2.5 mg PO SA 09/01/22 rosuvastatin 40 mg tablet 40 mg PO DAILY 09/01/22 tamsulosin 0.4 mg capsule 0.4 mg PO DAILY 09/01/22 hydroxychloroquine 200 mg tablet (Plaquenil) 300 mg PO DAILY 01/19/24 losartan 50 mg tablet 50 mg PO DAILY 01/19/24 Weight / BMI Weight Weight: 86.4 kg Body Mass Index (BMI) 22.6 D/C Instructions Discharge Activity: Return to Normal Activity Additional Activity Instructions: No nose blowing Start irrigation 4x/day on 02/14/25 Start antibiotic tonight DC O2, CPAP, BIPAP Needs Home O2 Discharge instructions: No Please Follow Up With: Kael Martinez MD When: next week Meaningful Use Info Meaningful Use Meaningful Use Diagnoses (Choose all that apply): None applicable Discharge Plan Admission Attending Provider: Kael Martinez Primary Care Provider: Abhinav Lebron Chi Instructions Print Language: [place]al[place] Discharge Orders/Prescriptions Prescriptions: No Action famotidine 40 mg tablet 40 mg PO DAILY methotrexate sodium 2.5 mg tablet 2.5 mg PO SA tamsulosin 0.4 mg capsule 0.4 mg PO DAILY folic acid 1 mg tablet 1 mg PO DAILY rosuvastatin 40 mg tablet 40 mg PO DAILY losartan 50 mg tablet 50 mg PO DAILY hydroxychloroquine [Plaquenil] 200 mg tablet 300 mg PO DAILY levothyroxine 137 mcg Tablet 137 mcg PO DAILY Referrals / Follow Up: Abhinav Lebron Chi, MD [Primary Care Provider] - Disposition Disposition (needs filled in before D/C Order can be placed): Home, Self Care
--- NOTE | 2025-02-13 12:19 | PCM.OPRPT ---
Operative Report (Standard) Operative Information Date of Procedure: 02/13/25 Pre-Operative Diagnosis: chronic sinusitis with polyposis Post-Operative Diagnosis: same Surgery/Procedure Performed: Bilateral total ethmoidectomy Bilateral maxillary antrostomy Use of navigation educational resource center teacher: No Type of Anesthesia: General RN Documented Start/Stop Times: Operation Date: 02/13/25 12:05 Case Time Into Pre-Op 02/13/25 09:52 Anesthesia Start 02/13/25 11:13 Into Room 02/13/25 11:13 Procedure Start 02/13/25 11:32 Procedure End 02/13/25 12:16 Procedure Start Time: 11:32 Procedure Stop Time: 12:16 Select all DRAINS/GRAFTS/IMPLANTS that apply: None Estimated Blood Loss: minimal Specimen collected: Yes Description of specimen(s) removed: bilateral polyps Description of surgery: The patient was taken to the operating room on 02/13/2025. The patient was placed in the supine position on the operating table. The patient was given sufficient general endotracheal anesthesia. The head of bed was elevated 30 degrees. The navigation system was placed and verified per protocol and found to be accurate. 0 and 30 degrees rigid nasal endoscopes were used throughout the entire case. The middle turbinate uncinate process and polyps were injected with 1% lidocaine with epinephrine bilaterally. The right middle turbinate was medialized with a Wendell elevator. Polyp was removed from the middle meatus using a sinus shaver. A ball-tipped sinus seeker was placed into the patient's maxillary sinus. The antrostomy was created with a backbiter and Herb-Cut forceps. The Wendell was used to lyse adhesions between the middle turbinate and ethmoid. Anterior and posterior ethmoidectomy were then carried out using curette, sinus shaver and 45 degree Blakesley Trent forceps. Ethmoid cells were verified for relation to the skull base and orbit prior to being entered with the navigation system. I then placed Afrin pledgets into the sinonasal cavity. Next attention was turned to the left side. The middle turbinate was medialized with a Wendell elevator. A large polyp was removed from the middle meatus using a sinus shaver. The maxillary antrum was opened with a straight Herb-Cut forceps and a backbiter. Anterior posterior ethmoidectomy were then carried out using a sinus shaver curette and Blakesley Trent forceps. Ethmoid cells were verified for relation to the skull base and orbit prior to being entered with the navigation system. Polyp was found medial to the middle turbinate. This was removed with a sinus shaver. Hemostasis was then achieved using Afrin pledgets. The pledgets were then removed bilaterally and Yuriy powder was applied bilaterally for absolute hemostasis. The procedure was then terminated. The patient was then awoken and brought to the recovery room in stable condition blood loss less than 10 cc, replacement none. Sponge, needle, instrument count were correct at the end of the procedure. Surgical Findings: bilateral polyps Complications Complications: No
--- NOTE | 2025-02-13 12:55 | PCM.POST.ANE ---
Anesthesia: Postop Eval I Current Vital Signs Temperature: 98.8 F Pulse Rate: 66 Blood Pressure: 176/97 Respiratory Rate: 12 Pulse Ox: 98 Oxygen Delivery Method: Room Air Assessment Airway patent: Yes Spontaneous unlabored respirations: Yes Mental status: Awake and Calm nausea: No Vomiting: No Anesthesia Complication: No Fluid Hydration Crystalloid volume administer (ml): 400 Total IV fluid infused: 400 Progress Note Post-operative progress note: late entry 1230 Anesthesia document: Postop Eval 1 completed: Yes
--- NOTE | 2025-02-13 13:00 | SUR.PHASEI ---
patient coughed in pacu and produced some bloody drainage, regained hemostasis.
--- NOTE | 2025-02-13 13:38 | POSTOPAN2_ITS ---
Anesthesia Postop Eval I Sum Postop Eval Completion status Anesthesia document: Postop Eval 1 completed: Yes Anesthesia Postop Eval I Summary Anesthesia Postop Eval I Summary: Anesthesia Postop Eval I: Assessment Summary Airway patent Yes 02/13/25 13:23 SPECIAL CERTIFICATE DICTATOR.SHOF Spontaneous unlabored Yes 02/13/25 13:23 SPECIAL CERTIFICATE DICTATOR.SHOF respirations Mental status Awake,Calm 02/13/25 13:23 SPECIAL CERTIFICATE DICTATOR.SHOF nausea No 02/13/25 13:23 SPECIAL CERTIFICATE DICTATOR.SHOF Vomiting No 02/13/25 13:23 SPECIAL CERTIFICATE DICTATOR.SHOF Anesthesia Postop Eval I: Fluid Summary Crystalloid volume administer 400 02/13/25 13:23 SPECIAL CERTIFICATE DICTATOR.SHOF (ml) Colloids volume administered ( ml) Blood Product volume administered (ml) Total IV fluid infused 400 02/13/25 13:23 SPECIAL CERTIFICATE DICTATOR.SHOF Anesthesia Postop Eval I: Summary Notes Anesthesia Complication No 02/13/25 13:23 SPECIAL CERTIFICATE DICTATOR.SHOF Anesthesia Complication Comment: Post-operative progress note late entry 1230 02/13/25 13:23 SPECIAL CERTIFICATE DICTATOR.SHOF Anesthesia: Postop Eval II Evaluation Mental status: Awake and Calm Pain Level: 0 nausea: No Vomiting: No Complications Anesthesia Complication: No
--- NOTE | 2025-02-13 13:38 | PCM.POSTANE2 ---
Anesthesia Postop Eval I Sum Postop Eval Completion status Anesthesia document: Postop Eval 1 completed: Yes Anesthesia Postop Eval I Summary Anesthesia Postop Eval I Summary: Anesthesia Postop Eval I: Assessment Summary Airway patent Yes 02/13/25 13:23 MEDICAL ASSISTANT INSTRUCTOR.SHOF Spontaneous unlabored Yes 02/13/25 13:23 MEDICAL ASSISTANT INSTRUCTOR.SHOF respirations Mental status Awake,Calm 02/13/25 13:23 MEDICAL ASSISTANT INSTRUCTOR.SHOF nausea No 02/13/25 13:23 MEDICAL ASSISTANT INSTRUCTOR.SHOF Vomiting No 02/13/25 13:23 MEDICAL ASSISTANT INSTRUCTOR.SHOF Anesthesia Postop Eval I: Fluid Summary Crystalloid volume administer 400 02/13/25 13:23 MEDICAL ASSISTANT INSTRUCTOR.SHOF (ml) Colloids volume administered ( ml) Blood Product volume administered (ml) Total IV fluid infused 400 02/13/25 13:23 MEDICAL ASSISTANT INSTRUCTOR.SHOF Anesthesia Postop Eval I: Summary Notes Anesthesia Complication No 02/13/25 13:23 MEDICAL ASSISTANT INSTRUCTOR.SHOF Anesthesia Complication Comment: Post-operative progress note late entry 1230 02/13/25 13:23 MEDICAL ASSISTANT INSTRUCTOR.SHOF Anesthesia: Postop Eval II Evaluation Mental status: Awake and Calm Pain Level: 0 nausea: No Vomiting: No Complications Anesthesia Complication: No
--- OUTSIDE RECORDS SUMMARY | 2025-02-13 19:39 | XMS RPT_ITS | CCD ---
Author Organization [facility] Care Team Providers Care Auxiliary Equipment Tender Name Role Phone WoodJesusita Unavailable Sherry SCHUMACHER, Cynthia A Unavailable Unavailable Jesusita Muir Unavailable Sherry SCHUMACHER, Cynthia A Unavailable Unavailable Abhinav Lance Chi Primary Care Provider None, No PCP Unavailable Unavailable Dr. Abhinav Lance Chi Primary Care Provider Dr. Abhinav Lance Chi Referring Provider [phone] Dr. Leif Diaz Attending Provider Dr. Abhinav Lance Chi Primary Care Provider Dr. Abhinav Lance Chi Referring Provider Dr. Leif Diaz Attending Provider [phone] Self, Referral Referring Unavailable Pablo Mitchell Attending Unavailable Paula, Pablo Attending Unavailable Abhinav Lance Chi Primary Care Provider Dr. Abhinav Lance MD, Chi Primary Care Provider [phone] Dr. Malka Cristina MD Attending Provider Jonnie DAMON, Dr. Ace Referring Provider Michelle DAMON, Dr. Scruggs Attending Provider Dr. Kael Martinez MD Referring Provider Alexsandra DAMON, Dr. Austin Best Other Provider Bernardino DAMON, Dr. Abhinav Szymanski Attending Provider Dr. bAhinav Lance MD, Chi Referring Provider Bernardino DAMON, Dr. Abhinav Szymanski Primary Care Provider Jonnie DAMON, Dr. Ace Attending Provider Dr. Malka Cristina MD Referring Provider BERNARDINO, ABHINAV CHI Primary Care Unavailable TAN FRANKLIN Attending Unavailable Bernardino, Abhinav Chi Attending Unavailable Bernardino, Abhinav Chi Primary Care Unavailable Bernardino, Abhinav Chi Primary Care Unavailable Vellanki, Malka Attending Unavailable Vellanki, Malka Referring Unavailable Vellanki, Malka Attending Unavailable Bernardino, Abhinav Chi Primary Care Unavailable Vellanki, Malka Referring Unavailable Michelle, Kael Attending Unavailable Michelle, Kael Referring Unavailable Bernardino, Abhinav Chi Primary Care Unavailable Michelle, Kael Attending Unavailable Michelle, Kael Referring Unavailable Bernardino, Abhinav Chi Primary Care Unavailable Vellanki, Malka Attending Unavailable Bernardino, Abhinav Chi Primary Care Unavailable Austin Upton Unavailable Vellanki, Malka Referring Unavailable Bernardino, Abhinav Chi Attending Unavailable Bernardino, Abhinav Chi Referring Unavailable Bernardino, Abhinav Chi Primary Care Unavailable Bernardino, Abhinav Chi Attending Unavailable Bernardino, Abhinav Chi Referring Unavailable Bernardino, Abhinav Chi Primary Care Unavailable Vellanki, Malka Attending Unavailable Bernardino, Abhinav Chi Primary Care Unavailable Vellanki, Malka Referring Unavailable Bernardino, Abhinav Chi Primary Care Unavailable Vellanki, Malka Attending Unavailable Vellanki, Malka Referring Unavailable Bernardino, Abhinav Chi Primary Care Unavailable Bernardino, Abhinav Chi Attending Unavailable Bernardino , Dr. Abhinav Szymanski Primary Care Provider Dr. Kael Martinez MD Attending Provider Dr. Kael Martinez MD Referring Provider Allergies Allergy Classification Reported Allergen(s) Allergy Type Date of Onset Reaction(s) Facility (6 sources) penicillin drug allergy 7 Rash, unknown [facility] Work Phone: (2 sources) Penicillins; Translations: [PENICILLINS] Propensity to adverse reactions 7 Rash [facility] Work Phone: (5 sources) Pravastatin; Translations: [PRAVASTATIN] Drug Allergy 2 Other: See Comments, Myalgia [facility] (20 sources) Penicillins Allergy to substance 1 Unknown, Rash [facility] (1 source) Penicillins Propensity to adverse reactions 7 Rash [facility] Work Phone: (2 sources) Penicillins Propensity to adverse reactions 7 Rash [facility] Work Phone: (1 source) Penicillins Drug allergy (disorder) [facility] Repository Medications Current Medications Medication Drug Class(es) Dates Sig (Normalized) Sig (Original) cefdinir 300 mg oral capsule (2 sources) Cephalosporin Antibacterial Start: 01-26-2025 End: 01-31-2025 take 1 capsule by mouth twice daily cefdinir (OMNICEF) 300 mg capsule Indications: Rhinosinusitis Take 1 capsule by mouth two times a day for 5 days. 10 capsule 01/26/2025 01/31/2025 Active doxycycline monohydrate 100 mg oral tablet (1 source) Tetracycline-class Drug Start: 12-02-2021 End: 12-07-2021 take 1 tablet by mouth twice daily doxycycline monohydrate 100 mg tablet Take 1 tablet by mouth twice daily for 5 days. 10 tablet 0 12/02/2021 12/07/2021 Active Comment on above: Take 1 tablet by vandana twice daily for 5 days. folic acid 1 mg oral tablet (19 sources) Start: 11-12-2024 take 2 tablets by mouth once daily folic acid 1 mg tablet Take 2 tablets by mouth once daily. 11/12/2024 Active Start: 09-01-2022 take 1 tablet by mouth once [place] Folic Acid 1 mg tablet Active 1 mg PO DAILY September 01, 2022 1:00am hydroxychloroquine sulfate 200 mg oral tablet (8 sources) Antimalarial, Antirheumatic Agent Start: 10-23-2024 take 1.5 tablets by mouth once daily hydrOXYchloroQUINE (PLAQUENIL) 200 mg tablet Take 1.5 tablets by mouth once daily. 10/23/2024 Active Start: 01-19-2024 Hydroxychloroq uine (Plaquenil) 200 mg tablet Active 300 mg PO DAILY January 19, 2024 12:00am losartan potassium 100 mg oral tablet (8 sources) Angiotensin 2 Receptor Jean-Pierre Start: 01-23-2025 losartan (COZAAR) 10 0 mg tablet 01/23/2025 Active Start: 01-19-2024 take 1 tablet by mouth once [place] Losartan 50 mg tablet Active 50 mg PO DAILY January 19, 2024 12:00am methotrexate 2.5 mg oral tablet (19 sources) Folate Analog Metabolic Inhibitor Start: 12-14-2024 take 8 tablets by mouth every week methotrexate 2.5 mg tablet Take 8 tablets by mouth one time a week. 12/14/2024 Active Start: 09-01-2022 Methotrexate S odium 2.5 mg tablet Active 2.5 mg PO SA September 01, 2022 1:00am Odqiaypb-Gww-Qn-Lycopen-Lute in (10 sources) Start: 10-25-2018 Zmceydkn-Ssf-Oh-Lycopen-Lute in Active 1 EACH PO DAILY October 25, 2018 3:11pm Start: 10-25-2018 Ssqsrfew-Ioq-X s-Vwlzfar-Oicwoj Active 1 EACH PO DAILY October 24, 2018 11:00pm Start: 10-25-2018 Tfzjutlf-Jgc-Q e-Azjqrjo-Nrrkql Active 1 EACH PO DAILY October 25, 2018 12:00am Qgujxsszlibsa-Dohontgr-Dmhdj n (CENTRUM SILVER) tab (4 sources) Start: 10-27-2013 take 1 tablet by mouth once daily Dovukxywqygwk-Yqgkhdoj-Euqaze (CENTRUM SILVER) tab Take 1 tablet by mouth once daily. 0 10/27/2013 Active Comment on above: Take 1 tablet by vandana once daily. Tz-Fhx-Dgtyc-T9-Tldnohl-Cpaf in (8 sources) Start: 10-25-2018 Fo-Hvk-Bvfoa-O5-Etjfevb-Oeum in Active 1 EACH PO DAILY October 24, 2018 11:00pm Start: 10-25-2018 Xi-Ois-Qibhh-K 3-Ypynqbl-Rxjskn Active 1 EACH PO DAILY October 25, 2018 12:00am rosuvastatin calcium 40 mg oral tablet (19 sources) HMG-CoA Reductase Inhibitor Start: 09-01-2022 take 1 tablet by mouth once daily Rosuvastatin 40 mg tablet Active 40 mg PO DAILY September 01, 2022 1:00am tamsulosin hydrochloride 0.4 mg oral capsule (19 sources) alpha-Adrenergic Jean-Pierre Start: 09-01-2022 take 1 capsule by mouth once daily Tamsulosin 0.4 mg capsule Active 0.4 mg PO DAILY September 01, 2022 1:00am terbinafine 250 mg oral tablet (4 sources) Allylamine Antifungal Start: 10-14-2021 take 1 tablet by mouth once daily terbinafine HCl (LAMISIL) 250 mg tablet TAKE 1 TABLET ORALLY ONCE PER DAY FOR 90 DAYS 10/14/2021 Active Comment on above: TAKE 1 TABLET ORALLY ONCE PER DAY FOR 90 DAYS levothyroxine sodium 0.112 mg oral tablet (20 sources) l-Thyroxine Start: 01-23-2025 take 1 tablet by mouth once daily levothyroxine (SYNTHROID) 112 mcg tablet Take 1 tablet by mouth once daily. 01/23/2025 Active Start: 06-10-2022 Levothyroxine Sodium 137 MCG Oral Capsule Quantity: 0 Refills: 0 Ordered: 10-Jun-2022 DO Start : 10-Jun-2022 Active Start: 01-30-2021 take 1 tablet by vandana th once daily Levothyroxine 137 mcg Tablet Active 137 ug PO DAILY January 30, 2021 12:00am Start: 04-14-2017 take 1 tablet by vandana th once daily SYNTHROID 125 MCG TABS One tablet by mouth daily LEVOTHYROXINE SODIUM [id number] Cynthia Powell RN Start: 02-22-2016 End: 05-03-2020 take 1 tablet by mouth once daily Levothyroxine (Synthroid) 125 mcg tablet Discontinued 125 ug PO daily 0 August 11, 2017 1:00am May 03, 2020 8:39am Comment on above: Take 1 tablet by vandana th once daily. Take on empty stomach. For Thyroid Completed/Discontinued Medications Medication Drug Class(es) Dates Sig (Normalized) Sig (Original) acetaminophen 325 mg / HYDROcodone bitartrate 5 mg oral tablet (20 sources) Opioid Agonist Start: 11-10-2018 End: 11-13-2018 Hydrocodone-Acetamino phen 1 TABLET tablet Discontinued 1 {tbl} PO EVERY 4 HOURS NEEDED as needed for Pain 10 3 0 November 10, 2018 12:00am November 12, 2018 12:00am November 13, 2018 12:09am Postoperative pain Other acute postprocedural pain Start: 11-10-2018 End: 11-13-2018 take 1 tablet by mouth every four hours as needed Hydrocodone-Acetaminophen Discontinued 1 TABLET PO EVERY 4 HOURS NEEDED 10 3 November 10, 2018 12:00am November 13, 2018 12:09am amLODIPine 5 mg oral tablet (20 sources) Dihydropyridine Calcium Channel Jean-Pierre Start: 06-10-2022 amLODIPine Besylate 5 MG Oral Tablet Quantity: 0 Refills: 0 Ordered: 10-Jun-2022 DO Start : 10-Jun-2022 Active Start: 05-03-2020 End: 01-19-2024 take 1 tablet by mouth once daily Amlodipine 5 mg tablet Discontinued 5 mg PO DAILY May 03, 2020 12:00am January 19, 2024 4:26pm aspirin 81 mg delayed release oral tablet (20 sources) Nonsteroidal Anti-inflammatory Drug Start: 08-11-2017 End: 01-19-2024 take 1 tablet by mouth once daily Aspirin 81 mg tablet,delayed release (DR/EC) Discontinued 81 mg PO daily August 11, 2017 1:00am January 19, 2024 4:26pm Start: 04-15-2017 take 1 tablet by vandana th once daily ASPIRIN EC 81 MG TBEC One tablet by mouth daily ASPIRIN [id number] Jaxson Murguia MD Start: 10-27-2013 take 1 tablet by vandana th once daily at mealtime Aspirin 81 mg tab Take 1 tablet by mouth once daily. Take with food. 30 tablet 10/27/2013 Active Comment on above: Take 1 tablet by vandana th once daily. Take with food. atorvastatin 40 mg oral tablet (20 sources) HMG-CoA Reductase Inhibitor Start: 06-10-2022 Atorvastatin Calcium 40 MG Oral Tablet Quantity: 0 Refills: 0 Ordered: 10-Jun-2022 DO Start : 10-Jun-2022 Active Start: 11-21-2016 End: 09-01-2022 take 1 tablet by mouth once daily Atorvastatin 40 mg tablet Discontinued 40 mg PO daily August 11, 2017 1:00am September 01, 2022 3:24pm Comment on above: Take 1 tablet by vandana th once daily. azithromycin 250 mg oral tablet (20 sources) Macrolide Antimicrobial Start: 021 End: 023 take 1 tablet by mouth once daily Azithromycin 250 MG tablet Discontinued 250 mg PO DAILY 6 January 30, 2021 12:00am September 01, 2022 3:25pm take double dose on day #1 cholecalciferol 2000 unt oral tablet (2 sources) Vitamin D Start: 017 VITAMIN D 2000 UNIT TABS 5000 IU once a day CHOLECALCIFEROL [id number] Jaxson Murguia MD famotidine 40 mg oral tablet (20 sources) Histamine-2 Receptor Antagonist Start: Famotidine 40 MG Oral Tablet Quantity: 0 Refills: 0 Ordered: 10-Jun-2022 DO Start : 10-Jun-2022 Active Start: 05-03-2020 take 1 tablet by vandana once daily Famotidine 40 mg tablet Active 40 mg PO DAILY May 03, 2020 12:00am lisinopril 10 mg oral tablet (20 sources) Angiotensin Converting Enzyme Inhibitor Start: 10-21-2018 End: 05-03-2020 take 5 mg by mouth once daily Lisinopril 10 mg tablet Discontinued 5 mg PO DAILY October 21, 2018 12:00am May 03, 2020 8:39am Start: 10-21-2018 End: 05-03-2020 take 5 mg by mouth once daily Lisinopril Discontinued 5 MG PO DAILY October 21, 2018 12:00am May 03, 2020 8:39am meclizine hydrochloride 25 mg oral tablet (20 sources) Antiemetic Start: 01-30-2021 End: 02-02-2024 take 1 tablet by mouth every eight hours as needed for dizziness Meclizine 25 MG tablet Discontinued 25 mg PO EVERY 8 HOURS NEEDED as needed for Dizziness 20 0 January 30, 2021 7:08pm February 02, 2024 2:29pm meloxicam 7.5 mg oral tablet (1 source) Nonsteroidal Anti-inflammatory Drug Start: 06-10-2022 Meloxicam 7.5 MG Oral Tablet Quantity: 0 Refills: 0 Ordered: 10-Jun-2022 DO Start : 10-Jun-2022 Active MULTIPLE VITAMINS-MINERALS (1 source) Start: 04-15-2017 take 1 tablet by mouth once daily CENTRUM SILVER TABS One tablet by mouth daily MULTIPLE VITAMINS-MINERALS [id number] Jaxson Murguia MD MULTIPLE VITAMINS-MINERALS (1 source) Start: 04-15-2017 take 1 tablet by mouth once daily CENTRUM SILVER TABS One tablet by mouth daily MULTIPLE VITAMINS-MINERALS [id number] Jaxson Murguia MD Ok-Zve-Zybxh-K1-Lyc open-Lutein 1 EACH tablet (6 sources) Start: 10-25-2018 End: 01-19-2024 take 1 tablet by mouth once daily Bs-Axx-Nlspz-K1-L ycopen-Lutein 1 EACH tablet Discontinued 1 NMA PO DAILY October 25, 2018 12:00am January 19, 2024 4:26pm raNITIdine 150 mg oral tablet (20 sources) Histamine-2 Receptor Antagonist Start: 10-21-2018 End: 05-03-2020 take 1 capsule by mouth once daily Ranitidine Hcl 150 mg capsule Discontinued 150 mg PO DAILY October 21, 2018 12:00am May 03, 2020 8:39am Start: 10-21-2018 End: 05-03-2020 take 150 mg by mouth once daily Ranitidine Hcl Discontinued 150 MG PO DAILY October 21, 2018 12:00am May 03, 2020 8:39am ubidecarenone 75 mg oral cap ti (17 sources) Start: 09-01-2022 End: 01-19-2024 Coenzyme Q10 (Ultra Coq10) 7 5 mg capsule Discontinued 75 mg PO DAILY September 01, 2022 1:00am January 19, 2024 4:26pm Problems Active Problems Problem Classification Problem Date Documented Date Episodic/Chronic Abdominal hernia (20 sources) Right inguinal hernia ; Translations: [Unilateral inguinal hernia, without obstruction or gangrene, not specified as recurrent] 11-10-2018 Episodic Cardiac dysrhythmias (4 sources) Ventricular premature beats; Translations: [Ventricular premature depolarization] Onset: 04-14-2017 04-14-2017 Chronic Conditions associated with dizziness or vertigo (20 sources) Peripheral vertigo; Translations: [Other peripheral vertigo, unspecified ear] 01-30-2021 Episodic Disorders of lipid metabolism (20 sources) Hyperlipidemia; Translations: [Hypercholesterolemia] Onset: 07-02-2007 04-14-2017 Chronic Esophageal disorders (20 sources) Gastroesophageal reflux disease; Translations: [Gastro-esophageal reflux disease without esophagitis] 11-18-2018 Chronic Essential hypertension (20 sources) Hypertensive disorder; Translations: [Essential (primary) hypertension] Onset: 11-09-2024 04-14-2017 Chronic Osteoarthritis (5 sources) Osteoarthritis; Translations: [Unspecified osteoarthritis, unspecified site] [...] Translations: [Pain in joint, shoulder region] Episodic Other screening for suspected conditions (not mental disorders or infectious disease) (6 sources) Patient encounter status; Translations: [Encounter for screening for malignant neoplasm of colon] 01-19-2024 Episodic Other skin disorders (20 sources) Sebaceous cyst of skin; Translations: [Sebaceous cyst] Onset: 04-24-2011 Resolved: 02-22-2016 05-03-2020 Episodic Other upper respiratory disease (1 source) Allergic rhinitis, unspecified; Translations: [Allergic rhinitis, unspecified] Onset: 05-25-2024 Chronic Other upper respiratory infections (3 sources) Chronic sinusitis, unspecified; Translations: [Unspecified sinusitis (chronic)] Onset: 10-21-2024 01-26-2025 Chronic Other upper respiratory infections (20 sources) Acute sphenoidal sinusitis; Translations: [Acute sphenoidal sinusitis, unspecified] 01-30-2021 Episodic Residual codes; unclassified (20 sources) Family history of cancer of colon; Translations: [Family history of malignant neoplasm of digestive organs] 11-10-2018 Episodic Residual codes; unclassified (3 sources) Other specified postprocedural states; Translations: [Other postprocedural status] 09-01-2022 Episodic Rheumatoid arthritis and related disease (1 source) Inflammatory polyarthropathy; Translations: [Inflammatory polyarthropathy] Onset: 02-03-2025 Chronic Thyroid disorders (7 sources) Hypothyroidism; Translations: [Hypothyroidism, unspecified] Onset: 04-25-2009 04-15-2017 Chronic Past or Other Problems Problem Classification Problem Date Documented Da te Episodic/Chronic Allergic reactions (4 sources) Contact dermatitis; Translations: [Unspecified contact dermatitis, unspecified cause] Onset: 07-02-2007 01-23-2010 Episodic Blindness and vision defects (4 sources) Myopia; Translations: [Myopia, unspecified eye] Onset: 07-02-2007 01-23-2010 Episodic Cardiac dysrhythmias (4 sources) Palpitations; Translations: [Palpitations] Onset: 04-14-2017 04-14-2017 Episodic Other hereditary and degenerative nervous system conditions (3 sources) Tremor; Translations: [Essential tremor] Onset: 07-02-2007 Resolved: 02-22-2016 02-22-2016 Chronic Other non-traumatic joint disorders (2 sources) Pain in right hip; Translations: [Pain in right hip] Onset: 06-10-2022 Episodic Other non-traumatic joint disorders (1 source) Pain in right shoulder; Translations: [Pain in right shoulder] Onset: 06-10-2022 Episodic Other upper respiratory disease (3 sources) Allergic rhinitis; Translations: [Allergic rhinitis, unspecified] Onset: 07-02-2007 Resolved: 02-22-2016 02-22-2016 Chronic Residual codes; unclassified (4 sources) Family history of prostate cancer; Translations: [Family history of malignant neoplasm of prostate] Onset: 04-23-2010 04-23-2010 Episodic Varicose veins of lower extremity (8 sources) Venous varices; Translations: [Asymptomatic varicose veins of unspecified lower extremity] Onset: 07-02-2007 01-23-2010 Episodic Results Test Name Value Interpretation Reference Range Facility Electrocardiogram reportOrde red By: Pablo Yancey on 02-08-2025 EKG study [facility] Cardiovascular Services [address] [place] [address] 12 Lead EKG 02/07/25 0948 MR#: [id number] Acct: [id number] Name: RAMA FRANCIS Rep #:[id number] : 1955 69 From: Pablo finn MD Attending Dr: Dr. Kael Martinez MD Status: PRE SDC Ordering Dr: Raul Ware MD Date: Location: [facility] [place] Sex: M C Admitted: Test Reason : PRE OP Blood Pressure : */* mmHG Vent. Rate : 80 BPM Atrial Rate : 80 BPM P-R Int : 144 ms QRS Dur : 96 ms QT Int : 370 ms P-R-T Axes : 50 61 25 degrees QTcB Int : 426 ms Normal sinus rhythm Minimal voltage criteria for LVH, may be normal variant Borderline ECG Confirmed by Pablo Yancey ([id number]), script editor TONIA RODRIGEZ ([id number]) on 02/08/2025 11:22:32 AM Referred By: Kael Martinez Confirmed By: Pablo Yancey 02/08/251121 Date _ Pablo Yancey MD CC: Dr. Kael Martinez MD; Dr. Raul Ware MD; Dr. Abhinav Lance MD ~ Signed [facility] Other Phone: 12 Lead EKGon 02-07-2025 12 Lead EKG [facility] Cardiovascular Services [address] [place] [id number] 12 Lead EKG 02/07/25 0948 MR#: [id number] Acct: [id number] Name: RAMA FRANCIS Rep #: [id number] : 1955 69 From: Pablo Yancey MD Attending Dr: Dr. Kael Martinez MD Status: PRE SDC Ordering Dr: Raul Ware MD Date: 02/07/25 Location: [facility] [place] Sex: M C Admitted: Test Reason : PRE OP Blood Pressure : */* mmHG Vent. Rate : 80 BPM Atrial Rate : 80 BPM P-R Int : 144 ms QRS Dur : 96 ms QT Int : 370 ms P-R-T Axes : 50 61 25 degrees QTcB Int : 426 ms Normal sinus rhythm Minimal voltage criteria for LVH, may be normal variant Borderline ECG Confirmed by Pablo Yancey ([id number]), script editor TONIA RODRIGEZ ([id number]) on 02/08/2025 11:22:32 AM Referred By: Kael Martinez Confirmed By: Pablo Yancey 02/08/251121 Date Pablo Yancey MD CC: Dr. Kael Martinez MD; Dr. Raul Ware MD; Dr. Abhinav Lance MD Signed [facility] MR/PATMora 02-07-2025 MR/PAT.JOSEPH [facility] Medical Records Department [address] [place] [address] PAT - Anesthesia 02/07/25 1831 MR#: [id number] Acct: [id number] Name: RAMA FRANCIS Rep #: [id number] : 1955 69 From: Romero Floyd MD PCP: Dr. 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 When Was Last Pacemaker Check QUESTION #4 FULL TEXT: You/Your Family Experience fever (hyperthermia) with Anesthesia Last Oral Intake Last Oral intake: Last Oral Intake NPO since Meds taken in AM with sips of water? 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 Has anyone observed you stop No 02/06/25 13:47 breathing during sleep? STOP Results Negative 02/06/25 13:47 QUESTION #5 FULL TEXT : Do you snore loudly (louder than talking or can be heard through closed doors)? 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 Specify any problems Hx of Preganancy in last 3 N/A 02/06/25 13:47 Months Nurse Filling Out Transfusion JuanZOEDDIE 02/06/25 13:47 Questions: Date: 02/06/25 02/06/25 13:47 Time: 13:49 02/06/25 13:47 Patient unable to answer at this time (ie. 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: /Reproductiv e Hx- montessori toddler teacher Hx Now No 02/06/25 13:47 Gestational Age (in weeks): EDC: Hx Hx Para Hx Section SAB No 02/06/25 13:47 PFSH Medical History (Updated 02/06/25 @ 13:47 by An Gay) Gastric reflux Non-smoker Wears contact lenses History of steroid therapy Thyroid disease Prostate disease History of edema Rheumatoid arthritis Sebaceous cyst Inguinal hernia of right side without obstruction or gangrene Family history of colon cancer in mother High cholesterol Acid reflux Hypothyroid HTN (hypertension) Home Medications ???Medication ???Instructions ???Recorded ???Last Taken ???Type famotidine 40 mg tablet 40 mg PO DAILY 05/03/20 02/09/24 H istory levothyroxine 137 mcg tablet 137 mcg PO DAILY 01/30/21 02/09/24 History folic acid 1 mg tablet 1 mg PO DAILY 09/01/22 02/09/24 Hi story methotrexate sodium 2.5 mg tablet 2.5 mg PO SA 09/01/22 02/06/24 Hi story rosuvastatin 40 mg tablet 40 mg PO DAILY 09/01/22 02/09/24 H istory tamsulosin 0.4 mg capsule 0.4 mg PO DAILY 09/01/22 02/09/24 History hydroxychloroquine (more content not included)... Normal [facility] TSH DL <= 0.005 mIU/L QnOrde red By: Raul Ware on 02-07-2025 TSH Qn 1.460 uIU/mL 0.300-4.200 [facility] Thyroid Stim Hormone (TSH)on 02-07-2025 TSH 1.460 uIU/mL Normal 0.300-4.200 [facility] Comment on above: Performed By: #### L 5500.0550, L5500.0600 #### [facility] [address] [place] [address]. [place], [place], [id number] Absolute lymphocyte countOrd ered By: Malka Cristina on 01-30-2025 Lymphocytes Auto (Unsp spec) [#/Vol] 1.53 10*3/uL 0.83-4.51 [facility] Absolute neutrophil countOrd ered By: Malka Cristina on 01-30-2025 Neutrophils (Bld) [#/Vol] 5.5 10*3/uL 2.0-7.7 [facility] Anion gap in Serum or Plasma Ordered By: Makla Cristina on 01-30-2025 Anion gap [Moles/Vol] 9 mmol/L 12-08 [facility] Automated lymphocyte count a s percentage of total leukocytesOrdered By: Malka Cristina on 01-30-2025 Lymphocytes/100 WBC Auto (Unsp spec) 19.2 % 19- [facility] BUN/creatinine ratioOrdered By: Malka Cristina on 01-30-2025 Urea nitrogen/Creatinine [Mass ratio] 19.3 mg/mg 10-20 [facility] Basophil percentageOrdered B y: Malka Cristina on 01-30-2025 Basophils/100 WBC (Bld) 0.3 % 0-1 [facility] Bilirubin, totalOrdered By: Malka Cristina on 01-30-2025 Bilirubin [Mass/Vol] 0.55 mg/dL 0.00-1.30 [facility] Blood manual differential co mment interpretation (narrative result)Ordered By: Malka Cristina on 01-30-2025 Manual differential comment Eulalio (Bld) [Interp] SCANNED [facility] Comment on above: AUTO DIFF OK CBC W/Diff, Automatedon SMEAR COMMENT SCANNED Normal [facility] Comment on above: Result Comment: AUTO DIFF OK Performed By: #### L 5500.0550, L5500.0600 #### [facility] [address] [place], [address] Carbon dioxide, total [Moles /volume] in Central venous bloodOrdered By: Malka Cristina on 01-30-2025 CO2 [Moles/Vol] 24.8 mmol/L 21.0-32.0 [facility] Chloride assayOrdered By: Kashif Cristina on 01-30-2025 Chloride [Moles/Vol] 106 mmol/L 98-108 [facility] Comprehensive Metabolic Prof ilon 01-30-2025 Albumin [Mass/Vol] 3.9 g/dL Normal 3.4-4.8 [facility] Comment on above: Performed By: #### L 5500.0550, L5500.0600 #### [facility] [address] [place], [place], [id number] Albumin/Globulin [Mass ratio] 1.6 {ratio} Normal 0.9-2.4 [facility] Comment on above: Performed By: #### L 5500.0550, L5500.0600 #### [facility] [address] [place], [address] ALK PHOS 69 U/L Normal 40-129 [facility] Comment on above: Performed By: #### L 5500.0550, L5500.0600 #### [facility] [address] [place], [address] ALT [Catalytic activity/Vol] 19 U/L Normal <=46 [facility] Comment on above: Performed By: #### L 5500.0550, L5500.0600 #### [facility] [address] [place], [address] AST [Catalytic activity/Vol] 22 U/L Normal <=37 [facility] Comment on above: Performed By: #### L 5500.0550, L5500.0600 #### [facility] [address] [place], [address] Bilirubin [Mass/Vol] 0.55 mg/dL Normal 0.00-1.30 [facility] Comment on above: Performed By: #### L 5500.0550, L5500.0600 #### [facility] [address] [place], [address] BUN/CRE 19.3 RATIO Normal 10-20 [facility] Comment on above: Performed By: #### L 5500.0550, L5500.0600 #### [facility] [address] [place], [address] Calcium [Mass/Vol] 8.5 mg/dL Normal 7.6-11.0 [facility] Comment on above: Performed By: #### L 5500.0550, L5500.0600 #### [facility] [address] [place], [address] Chloride [Moles/Vol] 106 mmol/L Normal 98-108 [facility] Comment on above: Performed By: #### L 5500.0550, L5500.0600 #### [facility] [address] [place], [address] CO2 [Moles/Vol] 24.8 mmol/L Normal 21.0-32.0 [facility] Comment on above: Performed By: #### L 5500.0550, L5500.0600 #### [facility] [address] [place], [address] Creatinine [Mass/Vol] 0.86 mg/dL Normal 0.70-1.20 [facility] Comment on above: Performed By: #### L 5500.0550, L5500.0600 #### [facility] [address] [place], [address] GAP 9 Normal 5-15 [facility] Comment on above: Performed By: #### L 5500.0550, [id number] #### [facility] [address] [place], [address] GFR/1.73 sq M.predicted among non-blacks MDRD (S/P/Bld) [Vol rate/Area] 94 mL/min/{1.73_m2} Normal >60 [facility] Comment on above: Result Comment: mL/m in/1.73m2 CKD-EPI Creatinine Equation (2020) Performed By: #### L 5500.0550, L5500.0600 #### [facility] [address] [place], [address] Globulin (S) [Mass/Vol] 2.5 g/dL Normal 2.2-4.2 [facility] Comment on above: Performed By: #### L 5500.0550, L5500.0600 #### [facility] [address] [place], [address] Glucose [Mass/Vol] 101 mg/dL High 70-99 [facility] Comment on above: Performed By: #### L 5500.0550, [id number] #### [facility] [address] [place], [address] Potassium [Moles/Vol] 4.6 mmol/L Normal 3.3-5.1 [facility] Comment on above: Performed By: #### L 5500.0550, L5500.0600 #### [facility] [address] [place], [address] Sodium [Moles/Vol] 140 mmol/L Normal 133-145 [facility] Comment on above: Performed By: #### L 5500.0550, [id number] #### [facility] [address] [place], [address] T PROT 6.5 g/dL Normal 5.9-8.4 [facility] Comment on above: Performed By: #### L 5500.0550, [id number] #### [facility] [address] [place], [address] Urea nitrogen [Mass/Vol] 17 mg/dL Normal 4-19 [facility] Comment on above: Performed By: #### L 5500.0550, L5500.0600 #### [facility] [address] [place], [address] Eosinophil percentageOrdered By: Malka Cristina on 01-30-2025 Eosinophils/100 WBC (Bld) 1.1 % 0-5 [facility] Erythrocyte distribution wid th ratioOrdered By: Malka Cristina on 01-30-2025 Erythrocyte distribution width (RBC) [Ratio] 13.2 % 11.6-14.6 [facility] Erythrocyte distribution wid th standard deviationOrdered By: Malka Cristina on 01-30-2025 Erythrocyte distribution width (RBC) [Ratio] 47.4 fl High 35.1-43.9 [facility] Glomerular filtration rate ( GFR) estimation/1.73 sq m using serum, plasma, or whole bOrdered By: Malka Cristina on 01-30-2025 GFR/1.73 sq M.predicted among non-blacks MDRD (S/P/Bld) [Vol rate/Area] 94 mL/min/{1.73_m2} >60 [facility] Comment on above: mL/min/1.73m2 CKD-EP I Creatinine Equation (2020) Hematocrit Auto (Bld) [Volum e fraction]Ordered By: Malka Cristina on 01-30-2025 Hematocrit (Bld) [Volume fraction] 40.6 % 40-54 [facility] Hemoglobin measurementOrdere d By: Malka Cristina on 01-30-2025 Hemoglobin (Bld) [Mass/Vol] 13.2 g/dL 13.0-16.5 [facility] Immature granulocytes/100 WB C Auto (Bld)Ordered By: Malka Cristina on 01-30-2025 Immature granulocytes/100 WBC (Bld) 0.300 % 0.0-0.9 [facility] Comment on above: IG% - Immature Granu locytes (promyelocytes, myelocytes and metamyelocytes) > 1% indicates that a LEFT SHIFT is Present. Laboratory - Chemistry and C hemistry - challengeOrdered By: Malka Cristina on 01-30-2025 AST [Catalytic activity/Vol] 22 U/L <38 [facility] MCV (mean corpuscular volume ) determinationOrdered By: Malka Cristina 01-30-2025 MCV (RBC) [Entitic vol] 99.0 fL High 80-94 [facility] Mean corpuscular hemoglobin (MCH) determinationOrdered By: Malka Cristina 01-30-2025 MCH (RBC) [Entitic mass] 32.2 pg High 27.0-32.0 [facility] Mean corpuscular hemoglobin concentration (MCHC) determinationOrdered By: Malka Cristina on 01-30-2025 MCHC (RBC) [Mass/Vol] 32.5 g/dL 32-36 [facility] Mean platelet volume determi nationOrdered By: Malka Cristina on 01-30-2025 Platelet mean volume (Bld) [Entitic vol] 9.4 fL 6.2-12.0 [facility] Monocyte percentageOrdered B y: Malka Cristina on 01-30-2025 Monocytes/100 WBC (Bld) 9.6 % 0-10 [facility] Neutrophil percentageOrdered By: Malka Cristina on 01-30-2025 Neutrophils/100 WBC (Bld) 69.5 % 47-70 [facility] Nucleated red blood cell per centageOrdered By: Malka Cristina on 01-30-2025 Nucleated RBC/100 WBC (Bld) [Ratio] 0 % 0-5 [facility] Platelet countOrdered By: Kashif Cristina on 01-30-2025 Platelets (Bld) [#/Vol] 171 10*3/uL 150-450 [facility] Potassium measurement (mass/ volume)Ordered By: Malka Cristina on 01-30-2025 Potassium (Unsp spec) [Mass/Vol] 4.6 mmol/L 3.3-5.1 [facility] RBC Auto (Bld) [#/Vol]Ordere d By: Malka Cristina on 01-30-2025 RBC (Bld) [#/Vol] 4.10 10*6/uL Low 4.6-6.2 [facility] Serum creatinine measurement (mass/volume)Ordered By: Malka Cristina on 01-30-2025 Creatinine [Mass/Vol] 0.86 mg/dL 0.70-1.20 [facility] Serum globulin measurementOr dered By: Malka Cristina on 01-30-2025 Globulin (S) [Mass/Vol] 2.5 g/dL 2.2-4.2 [facility] Serum glucose measurement (m ass/volume)Ordered By: Malka Cristina on 01-30-2025 Glucose [Mass/Vol] 101 mg/dL High 70-99 [facility] Serum or plasma alanine ernst otransferase (ALT) measurementOrdered By: Malka Cristina on 01-30-2025 ALT [Catalytic activity/Vol] 19 U/L <47 [facility] Serum or plasma albumin osvaldo urement (mass/volume)Ordered By: Malka Cristina on 01-30-2025 Albumin [Mass/Vol] 3.9 g/dL 3.4-4.8 [facility] Serum or plasma albumin/glob ulin mass ratioOrdered By: Malka Cristina on 01-30-2025 Albumin/Globulin [Mass ratio] 1.6 {ratio} 0.9-2.4 [facility] Serum or plasma alkaline christina sphatase measurementOrdered By: Malka Cristina on 01-30-2025 ALP [Catalytic activity/Vol] 69 U/L 40-129 [facility] Serum or plasma calcium osvaldo urement (mass/volume)Ordered By: Malka Cristina on 01-30-2025 Calcium [Mass/Vol] 8.5 mg/dL 7.6-11.0 [facility] Serum or plasma urea nitroge n measurement (mass/volume)Ordered By: Malka Cristina on 01-30-2025 Urea nitrogen [Mass/Vol] 17 mg/dL 4-19 [facility] Sodium levelOrdered By: Samy Cristina on 01-30-2025 Sodium [Moles/Vol] 140 mmol/L 133-145 [facility] Total proteinOrdered By: Marya Cristina on 01-30-2025 Protein [Mass/Vol] 6.5 g/dL 5.9-8.4 [facility] White blood cell (WBC) count Ordered By: Malka Cristina on 01-30-2025 WBC (Bld) [#/Vol] 8.0 10*3/uL 4.4-11.0 [facility] CNOVon 01-26-2025 CNOV Office Visit (UCWSTR ) RAMA FRANCIS ([id number]) 1955 M Date Time Provider Department 01/26/25 5:30 PM TAN FRANKLIN [facility] During your visit today, we recorded the following information about you: Temperature Pulse Respiration Blood pressure 102.9 degrees 99/minute 18/minute 152/82 Weight 86.5 kg Tan Franklin APRN.FACULTY DEAN 01/26/2025 5:53 PM Signed [facility] Subjective Rama Francis is a 69 year old male. Patient presents with: Fever: Cough, chest congestion, ST x2 days HPI Upper Respiratory Symptoms: - Acute onset of fever, cough, rhinorrhea, and odynophagia. - Rhinorrhea described as like a faucet turned on. - Odynophagia worse with swallowing; denies sharp or stabbing pain. - Denies dyspnea, fatigue, or productive cough. - No significant ear pain or facial pressure. - No recent exacerbation of seasonal allergies prior to symptom onset. Rheumatoid Arthritis: - Managed with Plaquenil and methotrexate. - Takes methotrexate 8 pills weekly, 4 in the morning and 4 at night, usually on Saturdays. - Advised by mechanic driver to avoid taking methotrexate and antibiotics simultaneously. - Sun sensitivity noted, exacerbated by medication. - Previous adverse reaction to doxycycline, causing skin burning sensation after 7 days of use. Review of Systems Constitutional: (+) fever, (-) fatigue Ears/Nose/Mouth/Throa t: (+) sore throat with swallowing, (+) sinus congestion, (+) rhinorrhea, (-) ear pain Respiratory: (+) cough, (-) shortness of breath Objective BP 152/82 Pulse 99 Temp (!) 39.4 ?C (102.9 ?F) Resp 18 Wt 86.5 kg (190 lb 11.2 oz) SpO2 98% BMI 23.21 kg/m? Physical Exam General: No acute distress. HEENT: Ears without abnormalities; oropharynx without abnormalities. CV: Heart sounds normal. Resp: Breath sounds clear. {1. Rhinosinusitis (J32.9) - Symptoms include cough, nasal congestion, and odynophagia; no dyspnea or fatigue. Afebrile until last night. - Auscultation reveals clear lung sounds; no evidence of pneumonia. - Prescribed cefdinir 300 mg PO BID for 5 days; no known drug interactions with current medications. - Advised to maintain adequate hydration. - Discussed potential need to hold methotrexate during antibiotic course; patient to confirm with mechanic driver on Thursday. - Educated on sun protection measures due to increased photosensitivity from current medications; recommended use of sunscreen, long-sleeve clothing, and installation of a sunshade on the tractor. and Recording using [employer] software for draft documentation of the visit was discussed with the patient/authorized area representative; all questions welcomed and answered. Patient/authorized area representative agreed to proceed MDM Procedures Allergies As of Date: 01/26/2025 Noted Allergy Reaction PENICILLINS 07/02/2007 2 - Rash PRAVASTATIN 10/22/2011 17 - Myalgia Date Reviewed: 01/26/2025 Reviewed by: Helena Morgan MA - Fully Assessed Reason for Visit: Fever [47] Cmt: Cough, chest congestion, ST x2 days Primary Visit Diagnosis:Rhinosinusi tis [J32.9] Order(s):cefdinir (OMNICEF) 300 mg capsuleTake 1 capsule by mouth two times a day for 5 days.Disp: 10 capsuleRfl: 0 Prescriptions as of 01/26/2025 - folic acid 1 mg tablet Take 2 tablets by mouth once daily. - hydrOXYchloroQUINE (PLAQUENIL) 200 mg tablet Take 1.5 tablets by mouth once daily. - losartan (COZAAR) 100 mg tablet - methotrexate 2.5 mg tablet Take 8 tablets by mouth one time a week. - rosuvastatin (CRESTOR) 40 mg tablet Take 1 tablet by mouth once daily. - tamsulosin (FLOMAX) 0.4 mg - levothyroxine (SYNTHROID) 112 mcg tablet Take 1 tablet by mouth once daily. - cefdinir (OMNICEF) 300 mg capsule Take 1 capsule by mouth two times a day for 5 days. - terbinafine HCl (LAMISIL) 250 mg tablet TAKE 1 TABLET ORALLY ONCE PER DAY FOR 90 DAYS - amLODIPine (NORVASC) 5 mg tablet - famotidine (PEPCID) 40 mg tablet - atorvastatin (LIPITOR) 40 mg tablet Take 1 tablet by mouth once daily. - levothyroxine (SYNTHROID) 125 mcg tablet Take 1 tablet by mouth once daily. Take on empty stomach. For Thyroid - Multivitamins-Mineral s-Lutein (CENTRUM SILVER) tab Take 1 tablet by mouth once daily. - Aspirin 81 mg tab Take 1 tablet by mouth once daily. Take with food. Problem List As Of Date 01/26/2025 Noted Resolved Essential and other specified forms of tremor [*07/02/2007 02/22/2016 Mixed hyperlipidemia [E78.2] 07/02/2007 Uncomplicated Varicose Veins [I83.90] 07/02/2007 Myopia [H52.10] 07/02/2007 Allergic rhinitis, cause unspecified [J30.9] 07/02/2007 02/22/2016 Contact Dermatitis and Other Eczema, due to Uns*07/02/2007 LEG VARICOSITY W INFLAM [I83.10] 08/22/2008 Hypothyroid [E03.9] 04/25/2009 Family History of Prostate Cancer [Z80.42] 04/23/2010 Sebaceous cyst [L72.3] 04/24/2011more content not included)... Normal [facility] TSH DL <= 0.005 mIU/L QnOrde red By: Abhinav Lance on 12-27-2024 TSH Qn 0.638 uIU/mL 0.300-4.200 [facility] Thyroid Stim Hormone (TSH)on 12-27-2024 TSH 0.638 uIU/mL Normal 0.300-4.200 [facility] Comment on above: Performed By: #### L 501.9520 ####[facility] [id number] [place], [address] Absolute lymphocyte countOrd ered By: Abhinav Lance on 11-03-2024 Lymphocytes Auto (Unsp spec) [#/Vol] 1.34 10*3/uL 0.83-4.51 [facility] Absolute neutrophil countOrd ered By: Abhinav Lance on 11-03-2024 Neutrophils (Bld) [#/Vol] 2.3 10*3/uL 2.0-7.7 [facility] Anion gap in Serum or Plasma Ordered By: Abhinav Lance on 11-03-2024 Anion gap [Moles/Vol] 9 mmol/L 5-15 [facility] Automated lymphocyte count a s percentage of total leukocytesOrdered By: Abhinav Lance on 11-03-2024 Lymphocytes/100 WBC Auto (Unsp spec) 30.9 % 19-41 [facility] BUN/creatinine ratioOrdered By: Abhinav Lance on 11-03-2024 Urea nitrogen/Creatinine [Mass ratio] 12.6 mg/mg 10-20 [facility] Basophil percentageOrdered B y: Abhinav Lance on 11-03-2024 Basophils/100 WBC (Bld) 0.7 % 0-1 [facility] Bilirubin, totalOrdered By: Abhinav Lance on 11-03-2024 Bilirubin [Mass/Vol] 0.51 mg/dL 0.00-1.30 [facility] CBC W/Diff, Automatedon 10-25 Absolute Lymph 1.34 X10 3/uL Normal 0.83-4.51 [facility] Comment on above: Performed By: #### L 500.4050, L501.9520, L100.0100, L506.1001 #### [facility] [address] [place], [address] Absolute Neut 2.3 X10 3/uL Normal 2.0-7.7 [facility] Comment on above: Performed By: #### L 500.4050, L501.9520, L100.0100, L506.1001 #### [facility] [address] [place], [address] Basophils/100 WBC (Bld) 0.7 % Normal 0-1 [facility] Comment on above: Performed By: #### L 500.4050, L501.9520, L100.0100, L506.1001 #### [facility] [address] [place], [address] Eosinophils/100 WBC (Bld) 3.0 % Normal 0-5 [facility] Comment on above: Performed By: #### L 500.4050, L501.9520, L100.0100, L506.1001 #### [facility] [address] [place], [address] Erythrocyte distribution width (RBC) [Ratio] 12.8 % Normal 11.6-14.6 [facility] Comment on above: Performed By: #### L 500.4050, L501.9520, L100.0100, L506.1001 #### [facility] [address] [place], [address] Hematocrit (Bld) [Volume fraction] 42.8 % Normal 40-54 [facility] Comment on above: Performed By: #### L 500.4050, L501.9520, L100.0100, L506.1001 #### [facility] [address] [place], [address] Hemoglobin (Bld) [Mass/Vol] 13.7 g/dL Normal 13.0-16.5 [facility] Comment on above: Performed By: #### L 500.4050, [id number], L100.0100, L506.1001 #### [facility] [address] [place], [address] IG% 0.200 Normal 0.0-0.9 [facility] Comment on above: Result Comment: IG% - Immature Granulocytes (promyelocytes, myelocytes and metamyelocytes) > 1% indicates that a LEFT SHIFT is Present. Performed By: #### L 500.4050, L501.9520, L100.0100, L506.1001 #### [facility] [address] [place], [address] Lymphocytes/100 WBC (Bld) 30.9 % Normal 19-41 [facility] Comment on above: Performed By: #### L 500.4050, L501.9520, L100.0100, L506.1001 #### [facility] [address] [place], [address] MCH (RBC) [Entitic mass] 31.2 pg Normal 27.0-32.0 [facility] Comment on above: Performed By: #### L 500.4050, L501.9520, L100.0100, L506.1001 #### [facility] [address] [place], [address] MCHC (RBC) [Mass/Vol] 32.0 g/dL Normal 32-36 [facility] Comment on above: Performed By: #### L 500.4050, L501.9520, L100.0100, L506.1001 #### [facility] [address] [place], [address] MCV (RBC) [Entitic vol] 97.5 fL High 80-94 [facility] Comment on above: Performed By: #### L 500.4050, L501.9520, L100.0100, L506.1001 #### [facility] [address] [place], [address] Monocytes/100 WBC (Bld) 12.2 % High 0-10 [facility] Comment on above: Performed By: #### L 500.4050, [id number], L100.0100, L506.1001 #### [facility] [address] [place], [address] Neutrophils/100 WBC (Bld) 53.0 % Normal 47-70 [facility] Comment on above: Performed By: #### L 500.4050, [id number], L100.0100, L506.1001 #### [facility] [address] [place], [address] Nucleated RBC (Bld) [#/Vol] 0 10*3/uL Normal 0-5 [facility] Comment on above: Performed By: #### L 500.4050, [id number], L100.0100, L506.1001 #### [facility] [address] [place], [address] Platelet mean volume (Bld) [Entitic vol] 9.2 fL Normal 6.2-12.0 [facility] Comment on above: Performed By: #### L 500.4050, L501.9520, L100.0100, L506.1001 #### [facility] [address] [place], [address] Platelets (Bld) [#/Vol] 224 10*3/uL Normal 150-450 [facility] Comment on above: Performed By: #### L 500.4050, [id number], L100.0100, L506.1001 #### [facility] [address] [place], [address] RBC (Bld) [#/Vol] 4.39 10*6/uL Low 4.6-6.2 [facility] Comment on above: Performed By: #### L 500.4050, [id number], L100.0100, L506.1001 #### [facility] [address] [place], [address] RDW SD 45.9 fl High 35.1-43.9 [facility] Comment on above: Performed By: #### L 500.4050, L501.9520, L100.0100, L506.1001 #### [facility] [address] [place], [address] WBC (Bld) [#/Vol] 4.3 10*3/uL Low 4.4-11.0 [facility] Comment on above: Performed By: #### L 500.4050, L501.9520, L100.0100, L506.1001 #### [facility] [address] [place], [address] Carbon dioxide, total [Moles /volume] in Central venous bloodOrdered By: Abhinav Lance on 11-03-2024 CO2 [Moles/Vol] 25.6 mmol/L 21.0-32.0 [facility] Chloride assayOrdered By: Pepe Lance on 11-03-2024 Chloride [Moles/Vol] 106 mmol/L 98-108 [facility] Metabolic Prof ilon 11-03-2024 Albumin [Mass/Vol] 4.0 g/dL Normal 3.4-4.8 [facility] Comment on above: Performed By: #### L 500.4050, L501.9520, L100.0100, L506.1001 #### [facility] [address] [place], [address] Albumin/Globulin [Mass ratio] 1.6 {ratio} Normal 0.9-2.4 [facility] Comment on above: Performed By: #### L 500.4050, L501.9520, L100.0100, L506.1001 #### [facility] [address] [place], [address] ALK PHOS 68 U/L Normal 40-129 [facility] Comment on above: Performed By: #### L 500.4050, L501.9520, L100.0100, L506.1001 #### [facility] [address] [place], [address] ALT [Catalytic activity/Vol] 19 U/L Normal <=46 [facility] Comment on above: Performed By: #### L 500.4050, L501.9520, L100.0100, L506.1001 #### [facility] [address] [place], [address] AST [Catalytic activity/Vol] 19 U/L Normal <=37 [facility] Comment on above: Performed By: #### L 500.4050, L501.9520, L100.0100, L506.1001 #### [facility] [address] [place], [address] Bilirubin [Mass/Vol] 0.51 mg/dL Normal 0.00-1.30 [facility] Comment on above: Performed By: #### L 500.4050, L501.9520, L100.0100, L506.1001 #### [facility] [address] [place], [address] BUN/CRE 12.6 RATIO Normal 10-20 [facility] Comment on above: Performed By: #### L 500.4050, L501.9520, L100.0100, L506.1001 #### [facility] [address] [place], [address] Calcium [Mass/Vol] 9.1 mg/dL Normal 7.6-11.0 [facility] Comment on above: Performed By: #### L 500.4050, L501.9520, L100.0100, L506.1001 #### [facility] [address] [place], [address] Chloride [Moles/Vol] 106 mmol/L Normal 98-108 [facility] Comment on above: Performed By: #### L 500.4050, L501.9520, L100.0100, L506.1001 #### [facility] [address] [place], [address] CO2 [Moles/Vol] 25.6 mmol/L Normal 21.0-32.0 [facility] Comment on above: Performed By: #### L 500.4050, L501.9520, L100.0100, L506.1001 #### [facility] [address] [place], [address] Creatinine [Mass/Vol] 0.79 mg/dL Normal 0.70-1.20 [facility] Comment on above: Performed By: #### L 500.4050, L501.9520, L100.0100, L506.1001 #### [facility] [address] [place], [address] GAP 9 Normal 5-15 [facility] Comment on above: Performed By: #### L 500.4050, L501.9520, L100.0100, L506.1001 #### [facility] [address] [place], [address] GFR/1.73 sq M.predicted among non-blacks MDRD (S/P/Bld) [Vol rate/Area] 97 mL/min/{1.73_m2} Normal >60 [facility] Comment on above: Result Comment: mL/m in/1.73m2 CKD-EPI Creatinine Equation (2020) Performed By: #### L 500.4050, L501.9520, L100.0100, L506.1001 #### [facility] [address] [place], [address] Globulin (S) [Mass/Vol] 2.6 g/dL Normal 2.2-4.2 [facility] Comment on above: Performed By: #### L 500.4050, L501.9520, L100.0100, L506.1001 #### [facility] [address] [place], [address] Glucose [Mass/Vol] 100 mg/dL High 70-99 [facility] Comment on above: Performed By: #### L 500.4050, L501.9520, L100.0100, L506.1001 #### [facility] [address] [place], [address] Potassium [Moles/Vol] 4.4 mmol/L Normal 3.3-5.1 [facility] Comment on above: Performed By: #### L 500.4050, L501.9520, L100.0100, L506.1001 #### [facility] [address] [place], [address] Sodium [Moles/Vol] 140 mmol/L Normal 133-145 [facility] Comment on above: Performed By: #### L 500.4050, L501.9520, L100.0100, L506.1001 #### [facility] [address] [place], [address] T PROT 6.6 g/dL Normal 5.9-8.4 [facility] Comment on above: Performed By: #### L 500.4050, L501.9520, L100.0100, L506.1001 #### [facility] [address] [place], [address] Urea nitrogen [Mass/Vol] 10 mg/dL Normal 4-19 [facility] Comment on above: Performed By: #### L 500.4050, L501.9520, L100.0100, L506.1001 #### [facility] [address] [place], [address] Eosinophil percentageOrdered By: Abhinav Lance on 11-03-2024 Eosinophils/100 WBC (Bld) 3.0 % 0-5 [facility] Erythrocyte distribution wid th (RBC) [Ratio]Ordered By: Abhinav Lance on 11-03-2024 Erythrocyte distribution width (RBC) [Entitic vol] 45.9 fL High 35.1-43.9 [facility] Erythrocyte distribution wid th ratioOrdered By: Abhinav Lance on 11-03-2024 Erythrocyte distribution width (RBC) [Ratio] 12.8 % 11.6-14.6 [facility] Erythrocyte distribution wid th standard deviationOrdered By: Abhinav Lance on 11-03-2024 Erythrocyte distribution width (RBC) [Ratio] 45.9 fl High 35.1-43.9 [facility] GFR/1.73 sq M.predicted ruben g non-blacks MDRD (S/P/Bld) [Vol rate/Area]Ordered By: Abhinav Lance on 11-03-2024 Estimated GFR (MDRD) Non-Af Amer 97 >60 [facility] Comment on above: mL/min/1.73m2 CKD-EP I Creatinine Equation (2020) Glomerular filtration rate ( GFR) estimation/1.73 sq m using serum, plasma, or whole bOrdered By: Abhinav Lance on 11-03-2024 GFR/1.73 sq M.predicted among non-blacks MDRD (S/P/Bld) [Vol rate/Area] 97 mL/min/{1.73_m2} >60 [facility] Comment on above: mL/min/1.73m2 CKD-EP I Creatinine Equation (2020) Hematocrit Auto (Bld) [Volum e fraction]Ordered By: Abhinav Lance on 11-03-2024 Hematocrit (Bld) [Volume fraction] 42.8 % 40-54 [facility] Hemoglobin measurementOrdere d By: Abhinav Lance 11-03-2024 Hemoglobin (Bld) [Mass/Vol] 13.7 g/dL 13.0-16.5 [facility] Immature granulocytes/100 WB C Auto (Bld)Ordered By: Abhinav Lance on 11-03-2024 Immature granulocytes/100 WBC (Bld) 0.200 % 0.0-0.9 [facility] Comment on above: IG% - Immature Granu locytes (promyelocytes, myelocytes and metamyelocytes) > 1% indicates that a LEFT SHIFT is Present. Laboratory - Chemistry and C hemistry - challengeOrdered By: Abhinav Lance 11-03-2024 AST [Catalytic activity/Vol] 19 U/L <38 [facility] Lymphocytes Auto (Unsp spec) [#/Vol]Ordered By: Abhinav Lance 11-03-2024 Lymphocytes (Bld) [#/Vol] 1.34 10*3/uL 0.83-4.51 [facility] Lymphocytes/100 WBC Auto (Un sp spec)Ordered By: Abhinav Lance 11-03-2024 Lymphocytes/100 WBC (Bld) 30.9 % 19-41 [facility] MCV (mean corpuscular volume ) determinationOrdered By: Abhinav Lance 11-03-2024 MCV (RBC) [Entitic vol] 97.5 fL High 80-94 [facility] Mean corpuscular hemoglobin (MCH) determinationOrdered By: Abhinav Lance 11-03-2024 MCH (RBC) [Entitic mass] 31.2 pg 27.0-32.0 [facility] Mean corpuscular hemoglobin concentration (MCHC) determinationOrdered By: Abhinav Lance 11-03-2024 MCHC (RBC) [Mass/Vol] 32.0 g/dL 32-36 [facility] Mean platelet volume determi nationOrdered By: Abhinav Lance on 11-03-2024 Platelet mean volume (Bld) [Entitic vol] 9.2 fL 6.2-12.0 [facility] Monocyte percentageOrdered B y: Abhinav Lance on 11-03-2024 Monocytes/100 WBC (Bld) 12.2 % High 0-10 [facility] Neutrophil percentageOrdered By: Abhinav Lance on 11-03-2024 Neutrophils/100 WBC (Bld) 53.0 % 47-70 [facility] Nucleated red blood cell per centageOrdered By: Abhinav Lance on 11-03-2024 Nucleated RBC/100 WBC (Bld) [Ratio] 0 % 0-5 [facility] Platelet countOrdered By: Pepe Lance on 11-03-2024 Platelets (Bld) [#/Vol] 224 10*3/uL 150-450 [facility] Potassium (Unsp spec) [Mass/ Vol]Ordered By: Abhinav Lance on 11-03-2024 Potassium [Moles/Vol] 4.4 mmol/L 3.3-5.1 [facility] Potassium measurement (mass/ volume)Ordered By: Abhinav Lance on 11-03-2024 Potassium (Unsp spec) [Mass/Vol] 4.4 mmol/L 3.3-5.1 [facility] RBC Auto (Bld) [#/Vol]Ordere d By: Abhinav Lance on 11-03-2024 RBC (Bld) [#/Vol] 4.39 10*6/uL Low 4.6-6.2 [facility] Serum creatinine measurement (mass/volume)Ordered By: Abhinav Lance on 11-03-2024 Creatinine [Mass/Vol] 0.79 mg/dL 0.70-1.20 [facility] Serum globulin measurementOr dered By: Abhinav Lance 11-03-2024 Globulin (S) [Mass/Vol] 2.6 g/dL 2.2-4.2 [facility] Serum glucose measurement (m ass/volume)Ordered By: Abhinav Lance on 11-03-2024 Glucose [Mass/Vol] 100 mg/dL High 70-99 [facility] Serum or plasma alanine ernst otransferase (ALT) measurementOrdered By: Abhinav Lance 11-03-2024 ALT [Catalytic activity/Vol] 19 U/L <47 [facility] Serum or plasma albumin osvaldo urement (mass/volume)Ordered By: Abhinav Lance on 11-03-2024 Albumin [Mass/Vol] 4.0 g/dL 3.4-4.8 [facility] Serum or plasma albumin/glob ulin mass ratioOrdered By: Abhinav Lance 11-03-2024 Albumin/Globulin [Mass ratio] 1.6 {ratio} 0.9-2.4 [facility] Serum or plasma alkaline christina sphatase measurementOrdered By: Abhinav Lance 11-03-2024 ALP [Catalytic activity/Vol] 68 U/L 40-129 [facility] Serum or plasma calcium osvaldo urement (mass/volume)Ordered By: Abhinav Lance 11-03-2024 Calcium [Mass/Vol] 9.1 mg/dL 7.6-11.0 [facility] Serum or plasma urea nitroge n measurement (mass/volume)Ordered By: Abhinav Lance 11-03-2024 Urea nitrogen [Mass/Vol] 10 mg/dL 4-19 [facility] Sodium levelOrdered By: Abhinav Lance 11-03-2024 Sodium [Moles/Vol] 140 mmol/L 133-145 [facility] TSH DL <= 0.005 mIU/L QnOrde red By: Abhinav Lance on 11-03-2024 Thyroid Stimulating Hormone (TSH) 0.186 uIU/mL Low 0.300-4.200 [facility] TSH Qn 0.186 uIU/mL Low 0.300-4.200 [facility] Thyroid Stim Hormone (TSH)on 11-03-2024 TSH 0.186 uIU/mL Low 0.300-4.200 [facility] Comment on above: Performed By: #### L 500.4050, L501.9508, L100.0100, L506.1001 #### [facility] [address] [place], [address] Total proteinOrdered By: Abhinav Lance 11-03-2024 Protein [Mass/Vol] 6.6 g/dL 5.9-8.4 [facility] Vitamin D, 25-hydroxyOrdered By: Abhinav Lance on 11-03-2024 Vitamin D 25-Hydroxy 23.4 ng/mL Low 30-100 [facility] Comment on above: Vitamin D StatusDefi ciency: <20 ng/mL (50nmol/L)Insufficiency: 20-30 ng/mL (50-75 nmol/L)Sufficiency: 30-100 ng/mL (75-250 nmol/L)Toxicity: >100 ng/mL (>250 nmol/L) Vitamin D,25 Hydroxyon 11-03 Vitamin D 25-OH 23.4 ng/mL Low 30-100 [facility] Comment on above: Result Comment: Geena min D Status Deficiency: <20 ng/mL (50nmol/L) Insufficiency: 20-30 ng/mL (50-75 nmol/L) Sufficiency: 30-100 ng/mL (75-250 nmol/L) Toxicity: >100 ng/mL (>250 nmol/L) Performed By: #### L 500.4050, L501.9520, L100.0100, L506.1001 #### [facility] [place], [address] White blood cell (WBC) count Ordered By: Abhinav Lance on 11-03-2024 WBC (Bld) [#/Vol] 4.3 10*3/uL Low 4.4-11.0 [facility] Absolute lymphocyte countOrd ered By: Malka Cristina on 10-28-2024 Lymphocytes Auto (Unsp spec) [#/Vol] 1.35 10*3/uL 0.83-4.51 [facility] Absolute neutrophil countOrd ered By: Malka Cristina on 10-28-2024 Neutrophils (Bld) [#/Vol] 2.2 10*3/uL 2.0-7.7 [facility] Anion gap in Serum or Plasma Ordered By: Malka Cristina on 10-28-2024 Anion gap [Moles/Vol] 10 mmol/L 5-15 [facility] Automated lymphocyte count a s percentage of total leukocytesOrdered By: Malka Cristina on 10-28-2024 Lymphocytes/100 WBC Auto (Unsp spec) 32.1 % 19-41 [facility] BUN/creatinine ratioOrdered By: Malka Jonnie on 10-28-2024 Urea nitrogen/Creatinine [Mass ratio] 15.3 mg/mg 10-20 [facility] Basophil percentageOrdered B y: Malka Cristina on 10-28-2024 Basophils/100 WBC (Bld) 0.5 % 0-1 [facility] Bilirubin, totalOrdered By: Malka Cristina on 10-28-2024 Bilirubin [Mass/Vol] 0.42 mg/dL 0.00-1.30 [facility] CBC W/Diff, Automatedon Absolute Lymph 1.35 X10 3/uL Normal 0.83-4.51 [facility] Comment on above: Performed By: #### L 500.4050, L100.0100 #### [facility] [address] [place], [address] Absolute Neut 2.2 X10 3/uL Normal 2.0-7.7 [facility] Comment on above: Performed By: #### L 500.4050, L100.0100 #### [facility] [address] [place], [address] Basophils/100 WBC (Bld) 0.5 % Normal 0-1 [facility] Comment on above: Performed By: #### L 500.4050, L100.0100 #### [facility] [address] [place], [address] Eosinophils/100 WBC (Bld) 3.3 % Normal 0-5 [facility] Comment on above: Performed By: #### L 500.4050, L100.0100 #### [facility] [address] [place], [address] Erythrocyte distribution width (RBC) [Ratio] 13.0 % Normal 11.6-14.6 [facility] Comment on above: Performed By: #### L 500.4050, L100.0100 #### [facility] [address] [place], [address] Hematocrit (Bld) [Volume fraction] 41.6 % Normal 40-54 [facility] Comment on above: Performed By: #### L 500.4050, L100.0100 #### [facility] [address] [place], [address] Hemoglobin (Bld) [Mass/Vol] 13.8 g/dL Normal 13.0-16.5 [facility] Comment on above: Performed By: #### L 500.4050, L100.0100 #### [facility] [address] [place], [address] IG% 0.500 Normal 0.0-0.9 [facility] Comment on above: Result Comment: IG% - Immature Granulocytes (promyelocytes, myelocytes and metamyelocytes) > 1% indicates that a LEFT SHIFT is Present. Performed By: #### L 500.4050, L100.0100 #### [facility] [address] [place], [address] Lymphocytes/100 WBC (Bld) 32.1 % Normal 19-41 [facility] Comment on above: Performed By: #### L 500.4050, L100.0100 #### [facility] [address] [place], [address] MCH (RBC) [Entitic mass] 32.4 pg High 27.0-32.0 [facility] Comment on above: Performed By: #### L 500.4050, L100.0100 #### [facility] [address] [place], [address] MCHC (RBC) [Mass/Vol] 33.2 g/dL Normal 32-36 [facility] Comment on above: Performed By: #### L 500.4050, L100.0100 #### [facility] [address] [place], [address] MCV (RBC) [Entitic vol] 97.7 fL High 80-94 [facility] Comment on above: Performed By: #### L 500.4050, L100.0100 #### [facility] [address] [place], [address] Monocytes/100 WBC (Bld) 10.7 % High 0-10 [facility] Comment on above: Performed By: #### L 500.4050, L100.0100 #### [facility] [address] [place], [address] Neutrophils/100 WBC (Bld) 52.9 % Normal 47-70 [facility] Comment on above: Performed By: #### L 500.4050, L100.0100 #### [facility] [address] [place], [address] Nucleated RBC (Bld) [#/Vol] 0 10*3/uL Normal 0-5 [facility] Comment on above: Performed By: #### L 500.4050, L100.0100 #### [facility] [address] [place], [address] Platelet mean volume (Bld) [Entitic vol] 9.6 fL Normal 6.2-12.0 [facility] Comment on above: Performed By: #### L 500.4050, L100.0100 #### [facility] [address] [place], [address] Platelets (Bld) [#/Vol] 198 10*3/uL Normal 150-450 [facility] Comment on above: Performed By: #### L 500.4050, L100.0100 #### [facility] [address] [place], [address] RBC (Bld) [#/Vol] 4.26 10*6/uL Low 4.6-6.2 [facility] Comment on above: Performed By: #### L 500.4050, L100.0100 #### [facility] [address] [place], [address] RDW SD 46.0 fl High 35.1-43.9 [facility] Comment on above: Performed By: #### L 500.4050, L100.0100 #### [facility] [address] [place], [address] WBC (Bld) [#/Vol] 4.2 10*3/uL Low 4.4-11.0 [facility] Comment on above: Performed By: #### L 500.4050, L100.0100 #### [facility] [address] [place], [address] Carbon dioxide, total [Moles /volume] in Central venous bloodOrdered By: Malka Cristina on 10-28-2024 CO2 [Moles/Vol] 24.3 mmol/L 21.0-32.0 [facility] Chloride assayOrdered By: Kashif Cristina on 10-28-2024 Chloride [Moles/Vol] 107 mmol/L 98-108 [facility] Comprehensive Metabolic Prof ilon 10-28-2024 Albumin [Mass/Vol] 4.1 g/dL Normal 3.4-4.8 [facility] Comment on above: Performed By: #### L 500.4050, L100.0100 #### [facility] [address] [place], [address] Albumin/Globulin [Mass ratio] 1.5 {ratio} Normal 0.9-2.4 [facility] Comment on above: Performed By: #### L 500.4050, L100.0100 #### [facility] [address] [place], [address] ALK PHOS 66 U/L Normal 40-129 [facility] Comment on above: Performed By: #### L 500.4050, L100.0100 #### [facility] [address] [place], [address] ALT [Catalytic activity/Vol] 22 U/L Normal <=46 [facility] Comment on above: Performed By: #### L 500.4050, L100.0100 #### [facility] [address] [place], [address] AST [Catalytic activity/Vol] 20 U/L Normal <=37 [facility] Comment on above: Performed By: #### L 500.4050, L100.0100 #### [facility] [address] [place], [address] Bilirubin [Mass/Vol] 0.42 mg/dL Normal 0.00-1.30 [facility] Comment on above: Performed By: #### L 500.4050, L100.0100 #### [facility] [address] [place], [address] BUN/CRE 15.3 RATIO Normal 10-20 [facility] Comment on above: Performed By: #### L 500.4050, L100.0100 #### [facility] [address] [place], [address] Calcium [Mass/Vol] 9.2 mg/dL Normal 7.6-11.0 [facility] Comment on above: Performed By: #### L 500.4050, L100.0100 #### [facility] [address] [place], [address] Chloride [Moles/Vol] 107 mmol/L Normal 98-108 [facility] Comment on above: Performed By: #### L 500.4050, L100.0100 #### [facility] [address] [place], [address] CO2 [Moles/Vol] 24.3 mmol/L Normal 21.0-32.0 [facility] Comment on above: Performed By: #### L 500.4050, L100.0100 #### [facility] [address] [place], [address] Creatinine [Mass/Vol] 0.74 mg/dL Normal 0.70-1.20 [facility] Comment on above: Performed By: #### L 500.4050, L100.0100 #### [facility] [address] [place], [address] GAP 10 Normal 5-15 [facility] Comment on above: Performed By: #### L 500.4050, L100.0100 #### [facility] [address] [place], [address] GFR/1.73 sq M.predicted among non-blacks MDRD (S/P/Bld) [Vol rate/Area] 99 mL/min/{1.73_m2} Normal >60 [facility] Comment on above: Result Comment: mL/m in/1.73m2 CKD-EPI Creatinine Equation (2020) Performed By: #### L 500.4050, L100.0100 #### [facility] [address] [place], [address] Globulin (S) [Mass/Vol] 2.7 g/dL Normal 2.2-4.2 [facility] Comment on above: Performed By: #### L 500.4050, L100.0100 #### [facility] [address] [place], [address] Glucose [Mass/Vol] 102 mg/dL High 70-99 [facility] Comment on above: Performed By: #### L 500.4050, L100.0100 #### [facility] [address] [place], [address] Potassium [Moles/Vol] 4.3 mmol/L Normal 3.3-5.1 [facility] Comment on above: Performed By: #### L 500.4050, L100.0100 #### [facility] [address] [place], [address] Sodium [Moles/Vol] 141 mmol/L Normal 133-145 [facility] Comment on above: Performed By: #### L 500.4050, L100.0100 #### [facility] [address] [place], [address] T PROT 6.7 g/dL Normal 5.9-8.4 [facility] Comment on above: Performed By: #### L 500.4050, L100.0100 #### [facility] [address] [place], [address] Urea nitrogen [Mass/Vol] 11 mg/dL Normal 4-19 [facility] Comment on above: Performed By: #### L 500.4050, L100.0100 #### [facility] [address] [place], [address] Eosinophil percentageOrdered By: Malka Cristina on 10-28-2024 Eosinophils/100 WBC (Bld) 3.3 % 0-5 [facility] Erythrocyte distribution wid th (RBC) [Ratio]Ordered By: Malka Cristina on 10-28-2024 Erythrocyte distribution width (RBC) [Entitic vol] 46.0 fL High 35.1-43.9 [facility] Erythrocyte distribution wid th ratioOrdered By: Malka Cristina on 10-28-2024 Erythrocyte distribution width (RBC) [Ratio] 13.0 % 11.6-14.6 [facility] Erythrocyte distribution wid th standard deviationOrdered By: Malka Cristina on 10-28-2024 Erythrocyte distribution width (RBC) [Ratio] 46.0 fl High 35.1-43.9 [facility] GFR/1.73 sq M.predicted ruben g non-blacks MDRD (S/P/Bld) [Vol rate/Area]Ordered By: Malka Cristina on 10-28-2024 Estimated GFR (MDRD) Non-Af Amer 99 >60 [facility] Comment on above: mL/min/1.73m2 CKD-EP I Creatinine Equation (2020) Glomerular filtration rate ( GFR) estimation/1.73 sq m using serum, plasma, or whole bOrdered By: Malka Cristina on 10-28-2024 GFR/1.73 sq M.predicted among non-blacks MDRD (S/P/Bld) [Vol rate/Area] 99 mL/min/{1.73_m2} >60 [facility] Comment on above: mL/min/1.73m2 CKD-EP I Creatinine Equation (2020) Hematocrit Auto (Bld) [Volum e fraction]Ordered By: Malka Cristina on 10-28-2024 Hematocrit (Bld) [Volume fraction] 41.6 % 40-54 [facility] Hemoglobin measurementOrdere d By: Malka Cristina on 10-28-2024 Hemoglobin (Bld) [Mass/Vol] 13.8 g/dL 13.0-16.5 [facility] Immature granulocytes/100 WB C Auto (Bld)Ordered By: Malka Cristina on 10-28-2024 Immature granulocytes/100 WBC (Bld) 0.500 % 0.0-0.9 [facility] [facility] Comment on above: IG% - Immature Granu locytes (promyelocytes, myelocytes and metamyelocytes) > 1% indicates that a LEFT SHIFT is Present. Laboratory - Chemistry and C hemistry - challengeOrdered By: Malka Cristina on 10-28-2024 AST [Catalytic activity/Vol] 20 U/L <38 [facility] Lymphocytes Auto (Unsp spec) [#/Vol]Ordered By: Malka Cristina on 10-28-2024 Lymphocytes (Bld) [#/Vol] 1.35 10*3/uL 0.83-4.51 [facility] Lymphocytes/100 WBC Auto (Un sp spec)Ordered By: Malka Cristina on 10-28-2024 Lymphocytes/100 WBC (Bld) 32.1 % 19-41 [facility] MCV (mean corpuscular volume ) determinationOrdered By: Malka Cristina on 10-28-2024 MCV (RBC) [Entitic vol] 97.7 fL High 80-94 [facility] Mean corpuscular hemoglobin (MCH) determinationOrdered By: Malka Cristina on 10-28-2024 MCH (RBC) [Entitic mass] 32.4 pg High 27.0-32.0 [facility] Mean corpuscular hemoglobin concentration (MCHC) determinationOrdered By: Malka Cristina on 10-28-2024 MCHC (RBC) [Mass/Vol] 33.2 g/dL 32-36 [facility] Mean platelet volume determi nationOrdered By: Malka Cristina on 10-28-2024 Platelet mean volume (Bld) [Entitic vol] 9.6 fL 6.2-12.0 [facility] Monocyte percentageOrdered B y: Malka Cristina on 10-28-2024 Monocytes/100 WBC (Bld) 10.7 % High 0-10 [facility] Neutrophil percentageOrdered By: Malka Cristina on 10-28-2024 Neutrophils/100 WBC (Bld) 52.9 % 47-70 [facility] Nucleated red blood cell per centageOrdered By: Malka Cristina on 10-28-2024 Nucleated RBC/100 WBC (Bld) [Ratio] 0 % 0-5 [facility] Platelet countOrdered By: Kashif Cristina on 10-28-2024 Platelets (Bld) [#/Vol] 198 10*3/uL 150-450 [facility] Potassium (Unsp spec) [Mass/ Vol]Ordered By: Malka Cristina on 10-28-2024 Potassium [Moles/Vol] 4.3 mmol/L 3.3-5.1 [facility] Potassium measurement (mass/ volume)Ordered By: Malka Cristina on 10-28-2024 Potassium (Unsp spec) [Mass/Vol] 4.3 mmol/L 3.3-5.1 [facility] RBC Auto (Bld) [#/Vol]Ordere d By: Malka Cristina on 10-28-2024 RBC (Bld) [#/Vol] 4.26 10*6/uL Low 4.6-6.2 [facility] Serum creatinine measurement (mass/volume)Ordered By: Malka Cristina on 10-28-2024 Creatinine [Mass/Vol] 0.74 mg/dL 0.70-1.20 [facility] Serum globulin measurementOr dered By: Malka Cristina on 10-28-2024 Globulin (S) [Mass/Vol] 2.7 g/dL 2.2-4.2 [facility] Serum glucose measurement (m ass/volume)Ordered By: Malka Cristina on 10-28-2024 Glucose [Mass/Vol] 102 mg/dL High 70-99 [facility] Serum or plasma alanine ernst otransferase (ALT) measurementOrdered By: Malka Cristina on 10-28-2024 ALT [Catalytic activity/Vol] 22 U/L <47 [facility] Serum or plasma albumin osvaldo urement (mass/volume)Ordered By: Malka Cristina on 10-28-2024 Albumin [Mass/Vol] 4.1 g/dL 3.4-4.8 [facility] Serum or plasma albumin/glob ulin mass ratioOrdered By: Malka Cristina on 10-28-2024 Albumin/Globulin [Mass ratio] 1.5 {ratio} 0.9-2.4 [facility] Serum or plasma alkaline christina sphatase measurementOrdered By: Malka Cristina on 10-28-2024 ALP [Catalytic activity/Vol] 66 U/L 40-129 [facility] Serum or plasma calcium osvaldo urement (mass/volume)Ordered By: Malka Cristina on 10-28-2024 Calcium [Mass/Vol] 9.2 mg/dL 7.6-11.0 [facility] Serum or plasma urea nitroge n measurement (mass/volume)Ordered By: Malka Cristina on 10-28-2024 Urea nitrogen [Mass/Vol] 11 mg/dL 4-19 [facility] Sodium levelOrdered By: Samy Cristina on 10-28-2024 Sodium [Moles/Vol] 141 mmol/L 133-145 [facility] Total proteinOrdered By: Marya Cristina on 10-28-2024 Protein [Mass/Vol] 6.7 g/dL 5.9-8.4 [facility] White blood cell (WBC) count Ordered By: Malka Cristina on 10-28-2024 WBC (Bld) [#/Vol] 4.2 10*3/uL Low 4.4-11.0 [facility] Sinus/Facial Boneon 10-16-19 Sinus/Facial Bone [facility] Imaging Services [address] [place] [address] Sinus/Facial Bone MR#: [id number] Acct: [id number] Name: RAMA FRANCIS Rep #: [id number] : 1955 M 69 From: Vamsi Grant PCP: Dr. Abhinav Lance MD Status: REG CLI Study: Sinus/Facial Bone Date of Exam: 10/15/24 Exam# [id number] Ordering Dr: Kael Martinez MD PROCEDURE: SINUS/FACIAL BONE REASON FOR EXAM: CHRONIC SINUSITIS TECHNIQUE: CT of the paranasal sinuses without contrast. Coronal and Sagittal reconstruction series were provided. One or more dose reduction techniques were used (e.g., Automated exposure control, adjustment of the mA and/or kV according to patient size, use of iterative reconstruction technique). RADIATION DOSE SUMMARY: CTDlvol: 33.06 mGy DLP: 697.49 mGycm COMPARISON: None provided. FINDINGS: Complete and near-complete opacification of the bilateral ethmoid air cells is seen. Marked mucosal thickening is seen at bilateral sphenoid and maxillary sinuses. Mild mucosal thickening is seen of the left frontal sinus, with minimal similar changes in the right frontal sinus. No air-fluid level is clearly appreciated. No osseous destructive change is seen. The right ostium is occluded, in the left ostium appears patent. No orbital pathology is seen. CT/Sinus/Facial Bone IMPRESSION: Extensive pansinusitis, at least chronic, although cannot exclude superimposed acute component. Reading Location: [address] CC: Dr. Kael Martinez MD; Dr. Abhinav Lance MD Ham Marker: Signed Normal [facility] Absolute neutrophil countOrd ered By: Malka Cristina on 08-09-2024 Neutrophils (Bld) [#/Vol] 2.2 10*3/uL 2.0-7.7 [facility] Albumin to globulin ratioOrd ered By: Malka Cristina on 08-09-2024 Albumin/Globulin [Mass ratio] 1.0 {ratio} 0.9-2.4 [facility] Basophil percentageOrdered B y: Malka Cristina on 08-09-2024 Basophils/100 WBC (Bld) 1.0 % 0-1 [facility] Bilirubin, totalOrdered By: Malka Cristina on 08-09-2024 Bilirubin [Mass/Vol] 0.50 mg/dL 0.20-1.00 [facility] Comment on above: For patients on eltr ombopag therapy, use of Dimension [place] TBIL is not recommended. Blood urea nitrogen (BUN)/cr eatinine ratioOrdered By: Malka Cristina on 08-09-2024 Urea nitrogen/Creatinine [Mass ratio] 18.2 mg/mg 10-20 [facility] CBC W/Diff, Automatedon 07-27 Absolute Lymph 1.25 X10 3/uL Normal 0.83-4.51 [facility] Comment on above: Performed By: #### L 500.4050, L100.0100 ####[facility] [address] [place], [address] Absolute Neut 2.2 X10 3/uL Normal 2.0-7.7 [facility] Comment on above: Performed By: #### L 500.4050, L100.0100 ####[facility] [address] [place], [address] Basophils/100 WBC (Bld) 1.0 % Normal 0-1 [facility] Comment on above: Performed By: #### L 500.4050, L100.0100 ####[facility] [address] [place], [address] Eosinophils/100 WBC (Bld) 3.6 % Normal 0-5 [facility] Comment on above: Performed By: #### L 500.4050, L100.0100 ####[facility] [address] [place], [address] Erythrocyte distribution width (RBC) [Ratio] 13.0 % Normal 11.6-14.6 [facility] Comment on above: Performed By: #### L 500.4050, L100.0100 ####[facility] [address] [place], [address] Hematocrit (Bld) [Volume fraction] 45.7 % Normal 40-54 [facility] Comment on above: Performed By: #### L 500.4050, L100.0100 ####[facility] [address] [place], [address] Hemoglobin (Bld) [Mass/Vol] 14.6 g/dL Normal 13.0-16.5 [facility] Comment on above: Performed By: #### L 500.4050, L100.0100 ####[facility] [address] [place], [address] IG% 0.500 Normal 0.0-0.9 [facility] Comment on above: Result Comment: IG% - Immature Granulocytes (promyelocytes, myelocytes and metamyelocytes) > 1% indicates that a LEFT SHIFT is Present. Performed By: #### L 500.4050, L100.0100 ####[facility] [address] [place], [address] Lymphocytes/100 WBC (Bld) 29.9 % Normal 19-41 [facility] Comment on above: Performed By: #### L 500.4050, L100.0100 ####[facility] [address] [place], [address] MCH (RBC) [Entitic mass] 31.9 pg Normal 27.0-32.0 [facility] Comment on above: Performed By: #### L 500.4050, L100.0100 ####[facility] [address] [place], [address] MCHC (RBC) [Mass/Vol] 31.9 g/dL Low 32-36 [facility] Comment on above: Performed By: #### L 500.4050, L100.0100 ####[facility] [address] [place], [address] MCV (RBC) [Entitic vol] 100.0 fL High 80-94 [facility] Comment on above: Performed By: #### L 500.4050, L100.0100 ####[facility] [address] [place], [address] Monocytes/100 WBC (Bld) 11.7 % High 0-10 [facility] Comment on above: Performed By: #### L 500.4050, L100.0100 ####[facility] [address] [place], [address] Neutrophils/100 WBC (Bld) 53.3 % Normal 47-70 [facility] Comment on above: Performed By: #### L 500.4050, L100.0100 ####[facility] [address] [place], [address] Nucleated RBC (Bld) [#/Vol] 0 10*3/uL Normal 0-5 [facility] Comment on above: Performed By: #### L 500.4050, L100.0100 ####[facility] [address] [place], [address] Platelet mean volume (Bld) [Entitic vol] 9.1 fL Normal 6.2-12.0 [facility] Comment on above: Performed By: #### L 500.4050, L100.0100 ####[facility] [address] [place], [address] Platelets (Bld) [#/Vol] 219 10*3/uL Normal 150-450 [facility] Comment on above: Performed By: #### L 500.4050, L100.0100 ####[facility] [address] [place], [address] RBC (Bld) [#/Vol] 4.57 10*6/uL Low 4.6-6.2 [facility] Comment on above: Performed By: #### L 500.4050, L100.0100 ####[facility] [address] [place], [address] RDW SD 47.5 fl High 35.1-43.9 [facility] Comment on above: Performed By: #### L 500.4050, L100.0100 ####[facility] [address] [place], [address] WBC (Bld) [#/Vol] 4.2 10*3/uL Low 4.4-11.0 [facility] Comment on above: Performed By: #### L 500.4050, L100.0100 ####[facility] [address] [place], [address] Carbon dioxide measurementOr dered By: Malka Cristina on 08-09-2024 CO2 [Moles/Vol] 27.0 mmol/L 21.0-32.0 [facility] Chloride measurementOrdered By: Malka Cristina on 08-09-2024 Chloride [Moles/Vol] 108 mmol/L High 98-107 [facility] Comprehensive Metabolic Prof ilon 08-09-2024 Albumin [Mass/Vol] 3.6 g/dL Normal 3.2-5.0 [facility] Comment on above: Performed By: #### L 500.4050, L100.0100 ####[facility] [address] [place], [address] Albumin/Globulin [Mass ratio] 1.0 {ratio} Normal 0.9-2.4 [facility] Comment on above: Performed By: #### L 500.4050, L100.0100 ####[facility] [address] [place], [address] ALK P 74 U/L Normal 45-117 [facility] Comment on above: Performed By: #### L 500.4050, L100.0100 ####[facility] [address] [place], [address] ALT [Catalytic activity/Vol] 25 U/L Normal 16-61 [facility] Comment on above: Performed By: #### L 500.4050, L100.0100 ####[facility] [address] [place], [address] AST [Catalytic activity/Vol] 22 U/L Normal 15-37 [facility] Comment on above: Performed By: #### L 500.4050, L100.0100 ####[facility] [address] [place], [address] Bilirubin [Mass/Vol] 0.50 mg/dL Normal 0.20-1.00 [facility] Comment on above: Result Comment: For patients on eltrombopag therapy, use of Dimension [place] TBIL is not recommended. Performed By: #### L 500.4050, L100.0100 ####[facility] [address] [place], [address] BUN/CRE 18.2 RATIO Normal 10-20 [facility] Comment on above: Performed By: #### L 500.4050, L100.0100 ####[facility] [address] [place], [address] CA,Total 9.0 mg/dL Normal 8.5-10.1 [facility] Comment on above: Performed By: #### L 500.4050, L100.0100 ####[facility] [address] [place], [address] Chloride [Moles/Vol] 108 mmol/L High 98-107 [facility] Comment on above: Performed By: #### L 500.4050, L100.0100 ####[facility] [address] [place], [address] CO2 [Moles/Vol] 27.0 mmol/L Normal 21.0-32.0 [facility] Comment on above: Performed By: #### L 500.4050, L100.0100 ####[facility] [address] [place], [address] Creatinine [Mass/Vol] 0.77 mg/dL Normal 0.70-1.30 [facility] Comment on above: Result Comment: The validity of the calculated GFR GFRAA in patients over 70 years has not been determined. Clinical correlation is essential. Performed By: #### L 500.4050, L100.0100 ####[facility] [address] [place], [address] EST GFR - AA 129 mL/min Normal >60 [facility] Comment on above: Result Comment: Afri can Turkish GFR Calc Performed By: #### L 500.4050, L100.0100 ####[facility] [address] [place], [address] GAP 3 Low 5-15 [facility] Comment on above: Performed By: #### L 500.4050, L100.0100 ####[facility] [address] [place], [address] GFR/1.73 sq M.predicted among non-blacks MDRD (S/P/Bld) [Vol rate/Area] 107 mL/min/{1.73_m2} Normal >60 [facility] Comment on above: Result Comment: Non- GFR Calc Performed By: #### L 500.4050, L100.0100 ####[facility] [address] [place], [address] Globulin (S) [Mass/Vol] 3.7 g/dL Normal 2.2-4.2 [facility] Comment on above: Performed By: #### L 500.4050, L100.0100 ####[facility] [address] [place], [address] Glucose [Mass/Vol] 100 mg/dL Normal 74-106 [facility] Comment on above: Result Comment: Fast ing Glucose result from 100 to 125 mg/dL suggests IMPAIRED HOMEOSTASIS per A.D.A. criteria. Performed By: #### L 500.4050, L100.0100 ####[facility] [address] [place], [address] Potassium [Moles/Vol] 4.2 mmol/L Normal 3.5-5.1 [facility] Comment on above: Performed By: #### L 500.4050, L100.0100 ####[facility] [address] [place], [address] Sodium [Moles/Vol] 138 mmol/L Normal 136-145 [facility] Comment on above: Performed By: #### L 500.4050, L100.0100 ####[facility] [address] [place], [address] T PROT 7.3 g/dL Normal 6.4-8.2 [facility] Comment on above: Performed By: #### L 500.4050, L100.0100 ####[facility] [address] [place], [address] Urea nitrogen [Mass/Vol] 14 mg/dL Normal 7-18 [facility] Comment on above: Performed By: #### L 500.4050, L100.0100 ####[facility] [address] [place], [address] Eosinophil percentageOrdered By: Malka Cristina on 08-09-2024 Eosinophils/100 WBC (Bld) 3.6 % 0-5 [facility] Erythrocyte distribution wid th ratioOrdered By: Malka Cristina on 08-09-2024 Erythrocyte distribution width (RBC) [Ratio] 13.0 % 11.6-14.6 [facility] Erythrocyte distribution wid th standard deviationOrdered By: Malka Cristina on 08-09-2024 Erythrocyte distribution width (RBC) [Entitic vol] 47.5 fL High 35.1-43.9 [facility] Estimated glomerular filtrat ion rate (GFR) AmericanOrdered By: Malka Cristina on 08-09-2024 Estimated GFR (MDRD) Amer 129 mL/min >60 [facility] Comment on above: GFR Calc Glomerular filtration rate ( GFR) estimationOrdered By: Malka Cristina on 08-09-2024 Estimated GFR (MDRD) Non-Af Amer 107 mL/min >60 [facility] Comment on above: Non- GFR Calc Glucose measurementOrdered B y: Malka Cristina on 08-09-2024 Glucose [Mass/Vol] 100 mg/dL 74-106 [facility] Comment on above: Fasting Glucose resu lt from 100 to 125 mg/dL suggests IMPAIRED HOMEOSTASIS per A.D.A. criteria. Hematocrit Auto (Bld) [Volum e fraction]Ordered By: Malka Cristina on 08-09-2024 Hematocrit (Bld) [Volume fraction] 45.7 % 40-54 [facility] Hemoglobin measurementOrdere d By: Malka Cristina on 08-09-2024 Hemoglobin (Bld) [Mass/Vol] 14.6 g/dL 13.0-16.5 [facility] Immature granulocytes/100 WB C Auto (Bld)Ordered By: Malka Cristina on 08-09-2024 Immature granulocytes/100 WBC (Bld) 0.500 % 0.0-0.9 [facility] Comment on above: IG% - Immature Granu locytes (promyelocytes, myelocytes and metamyelocytes) > 1% indicates that a LEFT SHIFT is Present. Laboratory - Chemistry and C hemistry - challengeOrdered By: Malka Cristina on 08-09-2024 AST [Catalytic activity/Vol] 22 U/L 15-37 [facility] Lymphocytes Auto (Unsp spec) [#/Vol]Ordered By: Malka Cristina on 08-09-2024 Lymphocytes (Bld) [#/Vol] 1.25 10*3/uL 0.83-4.51 [facility] Lymphocytes/100 WBC Auto (Un sp spec)Ordered By: Malka Cristina on 08-09-2024 Lymphocytes/100 WBC (Bld) 29.9 % 19-41 [facility] MCV (mean corpuscular volume ) determinationOrdered By: Malka Cristina on 08-09-2024 MCV (RBC) [Entitic vol] 100.0 fL High 80-94 [facility] Mean corpuscular hemoglobin (MCH) determinationOrdered By: Malka Cristina on 08-09-2024 MCH (RBC) [Entitic mass] 31.9 pg 27.0-32.0 [facility] Mean corpuscular hemoglobin concentration (MCHC) determinationOrdered By: Malka Cristina on 08-09-2024 MCHC (RBC) [Mass/Vol] 31.9 g/dL Low 32-36 [facility] Mean platelet volume determi nationOrdered By: Malka Cristina on 08-09-2024 Platelet mean volume (Bld) [Entitic vol] 9.1 fL 6.2-12.0 [facility] Monocyte percentageOrdered B y: Malka Cristina on 08-09-2024 Monocytes/100 WBC (Bld) 11.7 % High 0-10 [facility] Neutrophil percentageOrdered By: Malka Cristina on 08-09-2024 Neutrophils/100 WBC (Bld) 53.3 % 47-70 [facility] Nucleated red blood cell per centageOrdered By: Malka Cristina on 08-09-2024 Nucleated RBC/100 WBC (Bld) [Ratio] 0 % 0-5 [facility] Platelet countOrdered By: Kashif Cristina on 08-09-2024 Platelets (Bld) [#/Vol] 219 10*3/uL 150-450 [facility] Potassium measurementOrdered By: Malka Cristina on 08-09-2024 Potassium [Moles/Vol] 4.2 mmol/L 3.5-5.1 [facility] RBC Auto (Bld) [#/Vol]Ordere d By: Malka Cristina on 08-09-2024 RBC (Bld) [#/Vol] 4.57 10*6/uL Low 4.6-6.2 [facility] Serum anion gap measurementO rdered By: Malka Cristina on 08-09-2024 Anion gap [Moles/Vol] 3 mmol/L Low 5-15 [facility] Serum globulin measurementOr dered By: Malka Cristina on 08-09-2024 Globulin (S) [Mass/Vol] 3.7 g/dL 2.2-4.2 [facility] Serum or plasma alanine ernst otransferase (ALT) measurementOrdered By: Malka Cristina on 08-09-2024 ALT [Catalytic activity/Vol] 25 U/L 16-61 [facility] Serum or plasma albumin osvaldo urement (mass/volume)Ordered By: Malka Cristina on 08-09-2024 Albumin [Mass/Vol] 3.6 g/dL 3.2-5.0 [facility] Serum or plasma alkaline christina sphatase measurementOrdered By: Malka Cristina on 08-09-2024 ALP [Catalytic activity/Vol] 74 U/L 45-117 [facility] Serum or plasma calcium osvaldo urement (mass/volume)Ordered By: Malka Cristina on 08-09-2024 Calcium [Mass/Vol] 9.0 mg/dL 8.5-10.1 [facility] Serum or plasma creatinine m easurement (mass/volume)Ordered By: Malka Cristina on 08-09-2024 Creatinine [Mass/Vol] 0.77 mg/dL 0.70-1.30 [facility] Comment on above: The validity of the calculated GFR & GFRAA in patients over 70 years has not been determined. Clinical correlation is essential. Serum or plasma urea nitroge n measurement (mass/volume)Ordered By: Malka Cristina on 08-09-2024 Urea nitrogen [Mass/Vol] 14 mg/dL 7-18 [facility] Sodium levelOrdered By: Samy Cristina on 08-09-2024 Sodium [Moles/Vol] 138 mmol/L 136-145 [facility] Total proteinOrdered By: Marya Cristina on 08-09-2024 Protein [Mass/Vol] 7.3 g/dL 6.4-8.2 [facility] White blood cell (WBC) count Ordered By: Malka Cristina on 08-09-2024 WBC (Bld) [#/Vol] 4.2 10*3/uL Low 4.4-11.0 [facility] CBC W/Diff, Automatedon 10-2 Absolute Lymph 1.23 X10 3/uL Normal 0.83-4.51 [facility] Comment on above: Performed By: #### L 500.4050, L100.0100 ####[facility] [address] [place], [address] Absolute Neut 2.3 X10 3/uL Normal 2.0-7.7 [facility] Comment on above: Performed By: #### L 500.4050, L100.0100 ####[facility] [address] [place], [address] Basophils/100 WBC (Bld) 1.0 % Normal 0-1 [facility] Comment on above: Performed By: #### L 500.4050, L100.0100 ####[facility] [address] [place], [address] Eosinophils/100 WBC (Bld) 3.2 % Normal 0-5 [facility] Comment on above: Performed By: #### L 500.4050, L100.0100 ####[facility] [address] [place], [address] Erythrocyte distribution width (RBC) [Ratio] 13.0 % Normal 11.6-14.6 [facility] Comment on above: Performed By: #### L 500.4050, L100.0100 ####[facility] [address] [place], [address] Hematocrit (Bld) [Volume fraction] 43.9 % Normal 40-54 [facility] Comment on above: Performed By: #### L 500.4050, L100.0100 ####[facility] [address] [place], [address] Hemoglobin (Bld) [Mass/Vol] 14.0 g/dL Normal 13.0-16.5 [facility] Comment on above: Performed By: #### L 500.4050, L100.0100 ####[facility] [address] [place], [address] IG% 0.200 Normal 0.0-0.9 [facility] Comment on above: Result Comment: IG% - Immature Granulocytes (promyelocytes, myelocytes and metamyelocytes) > 1% indicates that a LEFT SHIFT is Present. Performed By: #### L 500.4050, L100.0100 ####[facility] [address] [place], [address] Lymphocytes/100 WBC (Bld) 29.9 % Normal 19-41 [facility] Comment on above: Performed By: #### L 500.4050, L100.0100 ####[facility] [address] [place], [address] MCH (RBC) [Entitic mass] 32.3 pg High 27.0-32.0 [facility] Comment on above: Performed By: #### L 500.4050, L100.0100 ####[facility] [address] [place], [address] MCHC (RBC) [Mass/Vol] 31.9 g/dL Low 32-36 [facility] Comment on above: Performed By: #### L 500.4050, L100.0100 ####[facility] [address] [place], [address] MCV (RBC) [Entitic vol] 101.2 fL High 80-94 [facility] Comment on above: Performed By: #### L 500.4050, L100.0100 ####[facility] [address] [place], [address] Monocytes/100 WBC (Bld) 11.2 % High 0-10 [facility] Comment on above: Performed By: #### L 500.4050, L100.0100 ####[facility] [address] [place], [address] Neutrophils/100 WBC (Bld) 54.5 % Normal 47-70 [facility] Comment on above: Performed By: #### L 500.4050, L100.0100 ####[facility] [address] [place], [address] Nucleated RBC (Bld) [#/Vol] 0 10*3/uL Normal 0-5 [facility] Comment on above: Performed By: #### L 500.4050, L100.0100 ####[facility] [address] [place], [address] Platelet mean volume (Bld) [Entitic vol] 9.7 fL Normal 6.2-12.0 [facility] Comment on above: Performed By: #### L 500.4050, L100.0100 ####[facility] [address] [place], [address] Platelets (Bld) [#/Vol] 205 10*3/uL Normal 150-450 [facility] Comment on above: Performed By: #### L 500.4050, L100.0100 ####[facility] [address] [place], [address] RBC (Bld) [#/Vol] 4.34 10*6/uL Low 4.6-6.2 [facility] Comment on above: Performed By: #### L 500.4050, L100.0100 ####[facility] [address] [place], [address] RDW SD 48.1 fl High 35.1-43.9 [facility] Comment on above: Performed By: #### L 500.4050, L100.0100 ####[facility] [address] [place], [address] WBC (Bld) [#/Vol] 4.1 10*3/uL Low 4.4-11.0 [facility] Comment on above: Performed By: #### L 500.4050, L100.0100 ####[facility] [address] [place], [address] Comprehensive Metabolic Prof [facility] 05-20-2024 Albumin [Mass/Vol] 3.6 g/dL Normal 3.2-5.0 [facility] Comment on above: Performed By: #### L 500.4050, L100.0100 ####[facility] [address] [place], [address] Albumin/Globulin [Mass ratio] 1.1 {ratio} Normal 0.9-2.4 [facility] Comment on above: Performed By: #### L 500.4050, L100.0100 ####[facility] [address] [place], [address] ALK P 66 U/L Normal 45-117 [facility] Comment on above: Performed By: #### L 500.4050, L100.0100 ####[facility] [address] [place], [address] ALT [Catalytic activity/Vol] 38 U/L Normal 16-61 [facility] Comment on above: Performed By: #### L 500.4050, L100.0100 ####[facility] [address] [place], [address] AST [Catalytic activity/Vol] 25 U/L Normal 15-37 [facility] Comment on above: Performed By: #### L 500.4050, L100.0100 ####[facility] [address] [place], [address] Bilirubin [Mass/Vol] 1.40 mg/dL High 0.20-1.00 [facility] Comment on above: Result Comment: For patients on eltrombopag therapy, use of Dimension [place] TBIL is not recommended. Performed By: #### L 500.4050, L100.0100 ####[facility] [address] [place], [address] BUN/CRE 15.9 RATIO Normal 10-20 [facility] Comment on above: Performed By: #### L 500.4050, L100.0100 ####[facility] [address] [place], [address] CA,Total 8.9 mg/dL Normal 8.5-10.1 [facility] Comment on above: Performed By: #### L 500.4050, L100.0100 ####[facility] [address] [place], [address] Chloride [Moles/Vol] 110 mmol/L High 98-107 [facility] Comment on above: Performed By: #### L 500.4050, L100.0100 ####[facility] [address] [place], [address] CO2 [Moles/Vol] 27.0 mmol/L Normal 21.0-32.0 [facility] Comment on above: Performed By: #### L 500.4050, L100.0100 ####[facility] [address] [place], [address] Creatinine [Mass/Vol] 0.82 mg/dL Normal 0.70-1.30 [facility] Comment on above: Result Comment: The validity of the calculated GFR GFRAA in patients over 70 years has not been determined. Clinical correlation is essential. Performed By: #### L 500.4050, L100.0100 ####[facility] [address] [place], [address] EST GFR - AA 121 mL/min Normal >60 [facility] Comment on above: Result Comment: Afri can Turkish GFR Calc Performed By: #### L 500.4050, L100.0100 ####[facility] [address] [place], [address] GAP 4 Low 5-15 [facility] Comment on above: Performed By: #### L 500.4050, L100.0100 ####[facility] [address] [place], [address] GFR/1.73 sq M.predicted among non-blacks MDRD (S/P/Bld) [Vol rate/Area] 100 mL/min/{1.73_m2} Normal >60 [facility] Comment on above: Result Comment: Non- GFR Calc Performed By: #### L 500.4050, L100.0100 ####[facility] [address] [place], [address] Globulin (S) [Mass/Vol] 3.4 g/dL Normal 2.2-4.2 [facility] Comment on above: Performed By: #### L 500.4050, L100.0100 ####[facility] [address] [place], [address] Glucose [Mass/Vol] 101 mg/dL Normal 74-106 [facility] Comment on above: Result Comment: Fast ing Glucose result from 100 to 125 mg/dL suggests IMPAIRED HOMEOSTASIS per A.D.A. criteria. Performed By: #### L 500.4050, L100.0100 ####[facility] [address] [place], [address] Potassium [Moles/Vol] 4.4 mmol/L Normal 3.5-5.1 [facility] Comment on above: Performed By: #### L 500.4050, L100.0100 ####[facility] [address] [place], [address] Sodium [Moles/Vol] 140 mmol/L Normal 136-145 [facility] Comment on above: Performed By: #### L 500.4050, L100.0100 ####[facility] [address] [place], [address] T PROT 7.0 g/dL Normal 6.4-8.2 [facility] Comment on above: Performed By: #### L 500.4050, L100.0100 ####[facility] [address] [place], [address] Urea nitrogen [Mass/Vol] 13 mg/dL Normal 7-18 [facility] Comment on above: Performed By: #### L 500.4050, L100.0100 ####[facility] [address] [place], [address] Allergens, Zone 8on 10-13-20 24 A. ALTERNATA <0.10 Normal Class 0 [facility] Comment on above: Order Comment: Test( s) 537096-W468-RbW Cockroach, Turkish; 010177- P585-WqM Sunflower, White; 685383-A412-RnS Sweet Gum were developed and had performance characteristics determined by [employer]. These tests have not been cleared or approved by the U.S. Food and Drug Administration. The FDA has determined that such clearance or approval is not necessary. These tests are used for clinical purposes. These should not be regarded as investigational or for research. Performed By: #### L 5500.0550, L5500.0600 #### [facility] [address] [place], [address] ASPERGILLUS FUM <0.10 Normal Class 0 [facility] Comment on above: Order Comment: Test( s) 786769-S453-BsG Cockroach, Turkish; 739591- R698-LlC Sunflower, White; 560695-Q245-LzC Sweet Gum were developed and had performance characteristics determined by [facility]. These tests have not been cleared or approved by the U.S. Food and Drug Administration. The FDA has determined that such clearance or approval is not necessary. These tests are used for clinical purposes. These should not be regarded as investigational or for research. Performed By: #### L 5500.0550, L5500.0600 #### [facility] [address] [place], [address] BAHIA GRASS <0.10 Normal Class 0 [facility] Comment on above: Order Comment: Test( s) 338171-B741-XvT Cockroach, Turkish; 238430- N314-CsR Sunflower, White; 438286-C636-LmB Sweet Gum were developed and had performance characteristics determined by [facility]. These tests have not been cleared or approved by the U.S. Food and Drug Administration. The FDA has determined that such clearance or approval is not necessary. These tests are used for clinical purposes. These should not be regarded as investigational or for research. Performed By: #### L 5500.0550, L5500.0600 #### [facility] [address] [place], [address] BERMUDA GRASS <0.10 Normal Class 0 [facility] Comment on above: Order Comment: Test( s) 957730-V292-RgH Cockroach, Turkish; 798453- O844-RfK Sunflower, White; 605346-R722-YhX Sweet Gum were developed and had performance characteristics determined by [facility]. These tests have not been cleared or approved by the U.S. Food and Drug Administration. The FDA has determined that such clearance or approval is not necessary. These tests are used for clinical purposes. These should not be regarded as investigational or for research. Performed By: #### L 5500.0550, L5500.0600 #### [facility] [address] [place], [address] [place], [place] <0.10 Normal Class 0 [facility] Comment on above: Order Comment: Test( s) 996069-S525-NiO Cockroach, Turkish; 579880- F513-VuF Sunflower, White; 709059-T222-YvQ Sweet Gum were developed and had performance characteristics determined by [facility]. These tests have not been cleared or approved by the U.S. Food and Drug Administration. The FDA has determined that such clearance or approval is not necessary. These tests are used for clinical purposes. These should not be regarded as investigational or for research. Performed By: #### L 5500.0550, L5500.0600 #### [facility] [address] [facility] [address] CAT HAIR/DANDER <0.10 Normal Class 0 [facility] Comment on above: Order Comment: Test( s) 282018-N018-WmJ Cockroach, Turkish; 772424- H440-ZiO Sunflower, White; 752904-L126-AyL Sweet Gum were developed and had performance characteristics determined by [facility]. These tests have not been cleared or approved by the U.S. Food and Drug Administration. The FDA has determined that such clearance or approval is not necessary. These tests are used for clinical purposes. These should not be regarded as investigational or for research. Performed By: #### L 5500.0550, L5500.0600 #### [facility] [address] [facility] [address] CLADOSPOR HERB <0.10 Normal Class 0 [facility] Comment on above: Order Comment: Test( s) 248984-S879-OaY Cockroach, Turkish; 211275- O820-BxI Sunflower, White; 302700-W985-IoU Sweet Gum were developed and had performance characteristics determined by [facility]. These tests have not been cleared or approved by the U.S. Food and Drug Administration. The FDA has determined that such clearance or approval is not necessary. These tests are used for clinical purposes. These should not be regarded as investigational or for research. Performed By: #### L 5500.0550, L5500.0600 #### [facility] [address] [facility] [address] COCKROACH,AMER <0.10 Normal Class 0 [facility] Comment on above: Order Comment: Test( s) 026823-N948-GvZ Cockroach, Turkish; 388793- M537-RrP Sunflower, White; 822537-N459-RlF Sweet Gum were developed and had performance characteristics determined by [facility]. These tests have not been cleared or approved by the U.S. Food and Drug Administration. The FDA has determined that such clearance or approval is not necessary. These tests are used for clinical purposes. These should not be regarded as investigational or for research. Performed By: #### L 5500.0550, L5500.0600 #### [facility] [address] [place], [address] D FARINAE MITE <0.10 Normal Class 0 [facility] Comment on above: Order Comment: Test( s) 325320-W225-AxD Cockroach, Turkish; 435250- Z470-SnT Sunflower, White; 786882-X672-PnS Sweet Gum were developed and had performance characteristics determined by [facility]. These tests have not been cleared or approved by the U.S. Food and Drug Administration. The FDA has determined that such clearance or approval is not necessary. These tests are used for clinical purposes. These should not be regarded as investigational or for research. Performed By: #### L 5500.0550, L5500.0600 #### [facility] [address] [place], [address] ([address] D PTERONYSSINUS <0.10 Normal Class 0 [facility] Comment on above: Order Comment: Test( s) 059388-F715-AlI Cockroach, Turkish; 623514- S530-PlE Sunflower, White; 893054-O088-AdR Sweet Gum were developed and had performance characteristics determined by [facility]. These tests have not been cleared or approved by the U.S. Food and Drug Administration. The FDA has determined that such clearance or approval is not necessary. These tests are used for clinical purposes. These should not be regarded as investigational or for research. Performed By: #### L 5500.0550, L5500.0600 #### [facility] [address] [place], [place], [address] DOG EPITHELIA <0.10 Normal Class 0 [facility] Comment on above: Order Comment: Test( s) 902230-Q303-FjK Cockroach, Turkish; 749417- Q214-BlK Sunflower, White; 990399-N766-CqU Sweet Gum were developed and had performance characteristics determined by [facility]. These tests have not been cleared or approved by the U.S. Food and Drug Administration. The FDA has determined that such clearance or approval is not necessary. These tests are used for clinical purposes. These should not be regarded as investigational or for research. Performed By: #### L 5500.0550, L5500.0600 #### [facility] [address] [place], [place], [address] ELM,AMER WHITE <0.10 Normal Class 0 [facility] Comment on above: Order Comment: Test( s) 331785-I295-QmE Cockroach, Turkish; 114861- R878-HzK Sunflower, White; 726339-V659-QmV Sweet Gum were developed and had performance characteristics determined by [facility]. These tests have not been cleared or approved by the U.S. Food and Drug Administration. The FDA has determined that such clearance or approval is not necessary. These tests are used for clinical purposes. These should not be regarded as investigational or for research. Performed By: #### L 5500.0550, L5500.0600 #### [facility] [address] [place], [address] HAZELNUT TREE <0.10 Normal Class 0 [facility] Comment on above: Order Comment: Test( s) 885098-Q613-NeD Cockroach, Turkish; 948920- A361-JzX Sunflower, White; 352202-E762-XoI Sweet Gum were developed and had performance characteristics determined by [facility]. These tests have not been cleared or approved by the U.S. Food and Drug Administration. The FDA has determined that such clearance or approval is not necessary. These tests are used for clinical purposes. These should not be regarded as investigational or for research. Performed By: #### L 5500.0550, L5500.0600 #### [facility] [address] [place], [address] HICKORY, WHITE <0.10 Normal Class 0 [facility] Comment on above: Order Comment: Test( s) 840580-S090-QkY Cockroach, Turkish; 702607- E523-JhS Sunflower, White; 200667-G296-QtM Sweet Gum were developed and had performance characteristics determined by [facility]. These tests have not been cleared or approved by the U.S. Food and Drug Administration. The FDA has determined that such clearance or approval is not necessary. These tests are used for clinical purposes. These should not be regarded as investigational or for research. Performed By: #### L 5500.0550, L5500.0600 #### [facility] [address] [place], [address] KUNAL GRASS <0.10 Normal Class 0 [facility] Comment on above: Order Comment: Test( s) 917706-T817-TjB Cockroach, Turkish; 747769- P414-DdL Sunflower, White; 317234-I889-WoU Sweet Gum were developed and had performance characteristics determined by [facility]. These tests have not been cleared or approved by the U.S. Food and Drug Administration. The FDA has determined that such clearance or approval is not necessary. These tests are used for clinical purposes. These should not be regarded as investigational or for research. Performed By: #### L 5500.0550, L5500.0600 #### [facility] [address] [place], [address] MAPLE/BOX ELDER <0.10 Normal Class 0 [facility] Comment on above: Order Comment: Test( s) 862608-C259-GdR Cockroach, Turkish; 256796- O834-GgL Sunflower, White; 531689-R431-FpR Sweet Gum were developed and had performance characteristics determined by [facility]. These tests have not been cleared or approved by the U.S. Food and Drug Administration. The FDA has determined that such clearance or approval is not necessary. These tests are used for clinical purposes. These should not be regarded as investigational or for research. Performed By: #### L 5500.0550, L5500.0600 #### [facility] [address] [place], [address] MOUNTAIN CEDAR <0.10 Normal Class 0 [facility] Comment on above: Order Comment: Test( s) 921332-Y549-TwG Cockroach, Turkish; 855251- T161-BvP Sunflower, White; 150750-K698-AqI Sweet Gum were developed and had performance characteristics determined by [facility]. These tests have not been cleared or approved by the U.S. Food and Drug Administration. The FDA has determined that such clearance or approval is not necessary. These tests are used for clinical purposes. These should not be regarded as investigational or for research. Performed By: #### L 5500.0550, L5500.0600 #### [facility] [address] [place], [address] MUCOR RACEMOSUS <0.10 Normal Class 0 [facility] Comment on above: Order Comment: Test( s) 277135-R123-TdL Cockroach, Turkish; 394952- A225-OrH Sunflower, White; 940406-Y564-NpK Sweet Gum were developed and had performance characteristics determined by [facility]. These tests have not been cleared or approved by the U.S. Food and Drug Administration. The FDA has determined that such clearance or approval is not necessary. These tests are used for clinical purposes. These should not be regarded as investigational or for research. Performed By: #### L 5500.0550, L5500.0600 #### [facility] [address] [place], [address] MUGWORT <0.10 Normal Class 0 [facility] Comment on above: Order Comment: Test( s) 566063-R968-JnH Cockroach, Turkish; 611200- A168-JbZ Sunflower, White; 795247-J811-HwA Sweet Gum were developed and had performance characteristics determined by [facility]. These tests have not been cleared or approved by the U.S. Food and Drug Administration. The FDA has determined that such clearance or approval is not necessary. These tests are used for clinical purposes. These should not be regarded as investigational or for research. Performed By: #### L 5500.0550, L5500.0600 #### [facility] [address] [place], [place], [address] MULBERRY, WHITE <0.10 Normal Class 0 [facility] Comment on above: Order Comment: Test( s) 412573-K244-GxX Cockroach, Turkish; 303011- L950-DqL Sunflower, White; 328089-X436-BrR Sweet Gum were developed and had performance characteristics determined by [facility]. These tests have not been cleared or approved by the U.S. Food and Drug Administration. The FDA has determined that such clearance or approval is not necessary. These tests are used for clinical purposes. These should not be regarded as investigational or for research. Performed By: #### L 5500.0550, L5500.0600 #### [facility] [address] [place], [place], [address] NETTLE <0.10 Normal Class 0 [facility] Comment on above: Order Comment: Test( s) 388777-Q053-XuW Cockroach, Turkish; 435064- T204-BvQ Sunflower, White; 698511-I446-CdB Sweet Gum were developed and had performance characteristics determined by [facility]. These tests have not been cleared or approved by the U.S. Food and Drug Administration. The FDA has determined that such clearance or approval is not necessary. These tests are used for clinical purposes. These should not be regarded as investigational or for research. Performed By: #### L 5500.0550, L5500.0600 #### [facility] [address] [place], [place], [address] OAK, WHITE <0.10 Normal Class 0 [facility] Comment on above: Order Comment: Test( s) 081111-C549-KdI Cockroach, Turkish; 597034- P541-ViR Sunflower, White; 476545-L066-NmB Sweet Gum were developed and had performance characteristics determined by [facility]. These tests have not been cleared or approved by the U.S. Food and Drug Administration. The FDA has determined that such clearance or approval is not necessary. These tests are used for clinical purposes. These should not be regarded as investigational or for research. Performed By: #### L 5500.0550, L5500.0600 #### [facility] [address] [place], [place], [address] PEN CHRYSOGEN <0.10 Normal Class 0 [facility] Comment on above: Order Comment: Test( s) 207554-T347-YvR Cockroach, Turkish; 237315- D446-LbN Sunflower, White; 302554-R671-DnM Sweet Gum were developed and had performance characteristics determined by [facility]. These tests have not been cleared or approved by the U.S. Food and Drug Administration. The FDA has determined that such clearance or approval is not necessary. These tests are used for clinical purposes. These should not be regarded as investigational or for research. Performed By: #### L 5500.0550, L5500.0600 #### [facility] [address] [place], [place], [id number] PIGWEED, ROUGH <0.10 Normal Class 0 [facility] Comment on above: Order Comment: Test( s) 402869-I187-KxH Cockroach, Turkish; 491539- Q479-LlL Sunflower, White; 321193-O805-XjV Sweet Gum were developed and had performance characteristics determined by [facility]. These tests have not been cleared or approved by the U.S. Food and Drug Administration. The FDA has determined that such clearance or approval is not necessary. These tests are used for clinical purposes. These should not be regarded as investigational or for research. Performed By: #### L 5500.0550, L5500.0600 #### [facility] [address] [place], [place], [id number] PLANTAIN,ENGLSH <0.10 Normal Class 0 [facility] Comment on above: Order Comment: Test( s) 977859-U559-DlT Cockroach, Turkish; 705781- T745-QtP Sunflower, White; 646707-L509-XxZ Sweet Gum were developed and had performance characteristics determined by [facility]. These tests have not been cleared or approved by the U.S. Food and Drug Administration. The FDA has determined that such clearance or approval is not necessary. These tests are used for clinical purposes. These should not be regarded as investigational or for research. Performed By: #### L 5500.0550, L5500.0600 #### [facility] [address] [place], [address] RAGWEED SH/COM <0.10 Normal Class 0 [facility] Comment on above: Order Comment: Test( s) 805636-X552-ExX Cockroach, Turkish; 056177- P322-GxC Sunflower, White; 188394-W585-AsK Sweet Gum were developed and had performance characteristics determined by [facility]. These tests have not been cleared or approved by the U.S. Food and Drug Administration. The FDA has determined that such clearance or approval is not necessary. These tests are used for clinical purposes. These should not be regarded as investigational or for research. Performed By: #### L 5500.0550, L5500.0600 #### [facility] [address] [place], [address] SHEEP SORREL <0.10 Normal Class 0 [facility] Comment on above: Order Comment: Test( s) 511451-R294-XxV Cockroach, Turkish; 667029- I217-GxY Sunflower, White; 012190-B752-NjP Sweet Gum were developed and had performance characteristics determined by [facility]. These tests have not been cleared or approved by the U.S. Food and Drug Administration. The FDA has determined that such clearance or approval is not necessary. These tests are used for clinical purposes. These should not be regarded as investigational or for research. Performed By: #### L 5500.0550, L5500.0600 #### [facility] [address] [place], [address] STEMPHYLIUM HER <0.10 Normal Class 0 [facility] Comment on above: Order Comment: Test( s) 112624-K084-FhV Cockroach, Turkish; 998520- P379-UrE Sunflower, White; 813733-A321-RcH Sweet Gum were developed and had performance characteristics determined by [facility]. These tests have not been cleared or approved by the U.S. Food and Drug Administration. The FDA has determined that such clearance or approval is not necessary. These tests are used for clinical purposes. These should not be regarded as investigational or for research. Performed By: #### L 5500.0550, L5500.0600 #### [facility] [address] [place], [address] SWEET GUM <0.10 Normal Class 0 [facility] Comment on above: Order Comment: Test( s) 992534-J595-DcH Cockroach, Turkish; 105606- Z339-TkW Sunflower, White; 741274-K728-QxV Sweet Gum were developed and had performance characteristics determined by [facility]. These tests have not been cleared or approved by the U.S. Food and Drug Administration. The FDA has determined that such clearance or approval is not necessary. These tests are used for clinical purposes. These should not be regarded as investigational or for research. Performed By: #### L 5500.0550, L5500.0600 #### [facility] [address] [place], [address] SYCAMORE, AMER <0.10 Normal Class 0 [facility] Comment on above: Order Comment: Test( s) 588829-W676-NoZ Cockroach, Turkish; 825938- H765-NhM Sunflower, White; 263169-L939-GbB Sweet Gum were developed and had performance characteristics determined by [facility]. These tests have not been cleared or approved by the U.S. Food and Drug Administration. The FDA has determined that such clearance or approval is not necessary. These tests are used for clinical purposes. These should not be regarded as investigational or for research. Performed By: #### L 5500.0550, L5500.0600 #### [facility] [address] [place], [address] L5500.0550on 05-08-2024 BEEF <0.10 Normal Class 0 [facility] Comment on above: Order Comment: Test( s) 526149-G056-YwB Cockroach, Turkish; 976099- Z824-TgN Sunflower, White; 958787-D017-ToO Sweet Gum were developed and had performance characteristics determined by [facility]. These tests have not been cleared or approved by the U.S. Food and Drug Administration. The FDA has determined that such clearance or approval is not necessary. These tests are used for clinical purposes. These should not be regarded as investigational or for research. Performed By: #### L 5500.0550, L5500.0600 #### [facility] [address] [place], [address] CHOCOLATE <0.10 Normal Class 0 [facility] Comment on above: Order Comment: Test( s) 673595-S524-NiH Cockroach, Turkish; 378509- B373-QlG Sunflower, White; 078686-E255-DtF Sweet Gum were developed and had performance characteristics determined by [facility]. These tests have not been cleared or approved by the U.S. Food and Drug Administration. The FDA has determined that such clearance or approval is not necessary. These tests are used for clinical purposes. These should not be regarded as investigational or for research. Performed By: #### L 5500.0550, L5500.0600 #### [facility] [address] [place], [address] CODFISH <0.10 Normal Class 0 [facility] Comment on above: Order Comment: Test( s) 433678-G343-VqB Cockroach, Turkish; 431775- H034-IbG Sunflower, White; 557920-J903-MtQ Sweet Gum were developed and had performance characteristics determined by [facility]. These tests have not been cleared or approved by the U.S. Food and Drug Administration. The FDA has determined that such clearance or approval is not necessary. These tests are used for clinical purposes. These should not be regarded as investigational or for research. Performed By: #### L 5500.0550, L5500.0600 #### [facility] [address] [place], [address] COMMENT Comment Normal . [facility] Comment on above: Order Comment: Test( s) 677300-Z699-GgF Cockroach, Turkish; 832254- X446-KrL Sunflower, White; 271104-A923-PkF Sweet Gum were developed and had performance characteristics determined by [facility]. These tests have not been cleared or approved by the U.S. Food and Drug Administration. The FDA has determined that such clearance or approval is not necessary. These tests are used for clinical purposes. These should not be regarded as investigational or for research. Result Comment: Juliette valdovinos of Specific IgE Class Description of Class ----- < 0.10 0 Negative 0.10 - 0.31 0/I Equivocal/Low 0.32 - 0.55 I Low 0.56 - 1.40 II Moderate 1.41 - 3.90 III High 3.91 - 19.00 IV Very High 19.01 - 100.00 V Very High >100.00 Very High Performed By: #### L 5500.0550, L5500.0600 #### [facility] [address] [place], [address] CORN <0.10 Normal Class 0 [facility] Comment on above: Order Comment: Test( s) 575588-K262-IlF Cockroach, Turkish; 464775- L981-SlK Sunflower, White; 252731-E234-CwG Sweet Gum were developed and had performance characteristics determined by [facility]. These tests have not been cleared or approved by the U.S. Food and Drug Administration. The FDA has determined that such clearance or approval is not necessary. These tests are used for clinical purposes. These should not be regarded as investigational or for research. Performed By: #### L 5500.0550, L5500.0600 #### [facility] [address] [place], [place], [id number] (511) EGG, WHOLE <0.10 Normal Class 0 [facility] Comment on above: Order Comment: Test( s) 216473-H139-OmM Cockroach, Turkish; 110131- O758-MsQ Sunflower, White; 753576-W896-IhW Sweet Gum were developed and had performance characteristics determined by [facility]. These tests have not been cleared or approved by the U.S. Food and Drug Administration. The FDA has determined that such clearance or approval is not necessary. These tests are used for clinical purposes. These should not be regarded as investigational or for research. Result Comment: Perf ormed at: - [facility] [id number] Probate Judge: Tavo Mari MD, Phone: [phone] Performed By: #### L 5500.0550, L5500.0600 #### [facility] [address], [place], [id number] MILK (COW) <0.10 Normal Class 0 [facility] Comment on above: Order Comment: Test( s) 756743-T559-ZxR Cockroach, Turkish; 389576- T266-QzN Sunflower, White; 844021-W835-JsA Sweet Gum were developed and had performance characteristics determined by [facility]. These tests have not been cleared or approved by the U.S. Food and Drug Administration. The FDA has determined that such clearance or approval is not necessary. These tests are used for clinical purposes. These should not be regarded as investigational or for research. Performed By: #### L 5500.0550, L5500.0600 #### [facility] [address] [place], [place], [id number] (306) MUSSELS <0.10 Normal Class 0 [facility] Comment on above: Order Comment: Test( s) 035317-D814-NbN Cockroach, Turkish; 126378- H239-HcI Sunflower, White; 771837-S628-JkN Sweet Gum were developed and had performance characteristics determined by [facility]. These tests have not been cleared or approved by the U.S. Food and Drug Administration. The FDA has determined that such clearance or approval is not necessary. These tests are used for clinical purposes. These should not be regarded as investigational or for research. Performed By: #### L 5500.0550, L5500.0600 #### [facility] [address] [place], [address] (191) PEANUT <0.10 Normal Class 0 [facility] Comment on above: Order Comment: Test( s) 066570-Y482-CzZ Cockroach, Turkish; 018628- Z397-XcI Sunflower, White; 799857-N404-VdZ Sweet Gum were developed and had performance characteristics determined by [facility]. These tests have not been cleared or approved by the U.S. Food and Drug Administration. The FDA has determined that such clearance or approval is not necessary. These tests are used for clinical purposes. These should not be regarded as investigational or for research. Performed By: #### L 5500.0550, L5500.0600 #### [facility] [address] [place], [place], [id number] (453) PORK <0.10 Normal Class 0 [facility] Comment on above: Order Comment: Test( s) 390278-Z442-FxT Cockroach, Turkish; 421407- L825-YaX Sunflower, White; 293192-Q643-JsX Sweet Gum were developed and had performance characteristics determined by [facility]. These tests have not been cleared or approved by the U.S. Food and Drug Administration. The FDA has determined that such clearance or approval is not necessary. These tests are used for clinical purposes. These should not be regarded as investigational or for research. Performed By: #### L 5500.0550, L5500.0600 #### [facility] [address] [place], [address] SALMON <0.10 Normal Class 0 [facility] Comment on above: Order Comment: Test( s) 908848-M783-GvE Cockroach, Turkish; 875617- E732-PyF Sunflower, White; 267240-O429-YfO Sweet Gum were developed and had performance characteristics determined by [facility]. These tests have not been cleared or approved by the U.S. Food and Drug Administration. The FDA has determined that such clearance or approval is not necessary. These tests are used for clinical purposes. These should not be regarded as investigational or for research. Performed By: #### L 5500.0550, L5500.0600 #### [facility] [address] [place], [address] SHRIMP <0.10 Normal Class 0 [facility] Comment on above: Order Comment: Test( s) 910964-F278-KtV Cockroach, Turkish; 238630- X767-QeC Sunflower, White; 524198-D264-LhF Sweet Gum were developed and had performance characteristics determined by [facility]. These tests have not been cleared or approved by the U.S. Food and Drug Administration. The FDA has determined that such clearance or approval is not necessary. These tests are used for clinical purposes. These should not be regarded as investigational or for research. Performed By: #### L 5500.0550, L5500.0600 #### [facility] [address] [facility] [place], [address] SOYBEAN <0.10 Normal Class 0 [facility] Comment on above: Order Comment: Test( s) 481121-M244-PqT Cockroach, Turkish; 291740- D271-ErO Sunflower, White; 434282-F915-ArT Sweet Gum were developed and had performance characteristics determined by [facility]. These tests have not been cleared or approved by the U.S. Food and Drug Administration. The FDA has determined that such clearance or approval is not necessary. These tests are used for clinical purposes. These should not be regarded as investigational or for research. Performed By: #### L 5500.0550, L5500.0600 #### [facility] [address] [place], [address] TUNA <0.10 Normal Class 0 [facility] Comment on above: Order Comment: Test( s) 472069-Y813-QkA Cockroach, Turkish; 859046- I947-YoU Sunflower, White; 314460-D158-EcG Sweet Gum were developed and had performance characteristics determined by [facility]. These tests have not been cleared or approved by the .S. Food and Drug Administration. The FDA has determined that such clearance or approval is not necessary. These tests are used for clinical purposes. These should not be regarded as investigational or for research. Performed By: #### L 5500.0550, L5500.0600 #### [facility] [address] [place], [address] WHEAT <0.10 Normal Class 0 [facility] Comment on above: Order Comment: Test( s) 588680-N062-ZnC Cockroach, Turkish; 875849- N638-SzJ Sunflower, White; 764485-Y508-RzC Sweet Gum were developed and had performance characteristics determined by [facility]. These tests have not been cleared or approved by the U.S. Food and Drug Administration. The FDA has determined that such clearance or approval is not necessary. These tests are used for clinical purposes. These should not be regarded as investigational or for research. Performed By: #### L 5500.0550, L5500.0600 #### [facility] [address] [place], [address] CBC W/Diff, Automatedon 10-1 0-2024 Absolute Lymph 1.07 X10 3/uL Normal 0.83-4.51 [facility] Comment on above: Performed By: #### L 500.4050, L506.1000, L100.0100, L501.9910, L501.9520 ####[facility] [address] [place], [address] Absolute Neut 2.3 X10 3/uL Normal 2.0-7.7 [facility] Comment on above: Performed By: #### L 500.4050, L506.1000, L100.0100, L501.9910, L501.9520 ####[facility] [address] [place], [address] Basophils/100 WBC (Bld) 0.5 % Normal 0-1 [facility] Comment on above: Performed By: #### L 500.4050, L506.1000, L100.0100, L501.9910, L501.9520 ####[facility] [address] [place], [address] Eosinophils/100 WBC (Bld) 2.8 % Normal 0-5 [facility] Comment on above: Performed By: #### L 500.4050, L506.1000, L100.0100, L501.9910, L501.9520 ####[facility] [address] [place], [address] Erythrocyte distribution width (RBC) [Ratio] 13.5 % Normal 11.6-14.6 [facility] Comment on above: Performed By: #### L 500.4050, L506.1000, L100.0100, L501.9910, L501.9520 ####[facility] [address] [place], [address] Hematocrit (Bld) [Volume fraction] 43.4 % Normal 40-54 [facility] Comment on above: Performed By: #### L 500.4050, L506.1000, L100.0100, L501.9910, L501.9520 ####[facility] [address] [place], [address] Hemoglobin (Bld) [Mass/Vol] 13.6 g/dL Normal 13.0-16.5 [facility] Comment on above: Performed By: #### L 500.4050, L506.1000, L100.0100, L501.9910, L501.9520 ####[facility] [address] [place], [address] IG% 0.300 Normal 0.0-0.9 [facility] Comment on above: Result Comment: IG% - Immature Granulocytes (promyelocytes, myelocytes and metamyelocytes) > 1% indicates that a LEFT SHIFT is Present. Performed By: #### L 500.4050, L506.1000, L100.0100, L501.9910, L501.9520 ####[facility] [address] [place], [address] Lymphocytes/100 WBC (Bld) 27.3 % Normal 19-41 [facility] Comment on above: Performed By: #### L 500.4050, L506.1000, L100.0100, L501.9910, L501.9520 ####[facility] [address] [place], [address] MCH (RBC) [Entitic mass] 31.9 pg Normal 27.0-32.0 [facility] Comment on above: Performed By: #### L 500.4050, L506.1000, L100.0100, L501.9910, L501.9520 ####[facility] [address] [place], [address] MCHC (RBC) [Mass/Vol] 31.3 g/dL Low 32-36 [facility] Comment on above: Performed By: #### L 500.4050, L506.1000, L100.0100, L501.9910, L501.9520 ####[facility] [address] [place], [address] MCV (RBC) [Entitic vol] 101.6 fL High 80-94 [facility] Comment on above: Performed By: #### L 500.4050, L506.1000, L100.0100, L501.9910, L501.9520 ####[facility] [address] [place], [address] Monocytes/100 WBC (Bld) 11.2 % High 0-10 [facility] Comment on above: Performed By: #### L 500.4050, L506.1000, L100.0100, L501.9910, L501.9520 ####[facility] [address] [place], [address] Neutrophils/100 WBC (Bld) 57.9 % Normal 47-70 [facility] Comment on above: Performed By: #### L 500.4050, L506.1000, L100.0100, L501.9910, L501.9520 ####[facility] [address] [place], [address] Nucleated RBC (Bld) [#/Vol] 0 10*3/uL Normal 0-5 [facility] Comment on above: Performed By: #### L 500.4050, L506.1000, L100.0100, L501.9910, L501.9520 ####[facility] [address] [place], [address] Platelet mean volume (Bld) [Entitic vol] 9.3 fL Normal 6.2-12.0 [facility] Comment on above: Performed By: #### L 500.4050, L506.1000, L100.0100, L501.9910, L501.9520 ####[facility] [address] [place], [address] Platelets (Bld) [#/Vol] 223 10*3/uL Normal 150-450 [facility] Comment on above: Performed By: #### L 500.4050, L506.1000, L100.0100, L501.9910, L501.9520 ####[facility] [address] [place], [address] RBC (Bld) [#/Vol] 4.27 10*6/uL Low 4.6-6.2 [facility] Comment on above: Performed By: #### L 500.4050, L506.1000, L100.0100, L501.9910, L501.9520 ####[facility] [address] [place], [address] RDW SD 50.3 fl High 35.1-43.9 [facility] Comment on above: Performed By: #### L 500.4050, L506.1000, L100.0100, L501.9910, L501.9520 ####[facility] [address] [place], [address] WBC (Bld) [#/Vol] 3.9 10*3/uL Low 4.4-11.0 [facility] Comment on above: Performed By: #### L 500.4050, L506.1000, L100.0100, L501.9910, L501.9520 ####[facility] [address] [place], [address] Comprehensive Metabolic [facility] 05-05-2024 Albumin [Mass/Vol] 3.7 g/dL Normal 3.2-5.0 [facility] Comment on above: Performed By: #### L 500.4050, L506.1000, L100.0100, L501.9910, L501.9520 ####[facility] [address] [place], [address] Albumin/Globulin [Mass ratio] 1.2 {ratio} Normal 0.9-2.4 [facility] Comment on above: Performed By: #### L 500.4050, L506.1000, L100.0100, L501.9910, L501.9520 ####[facility] [address] [place], [address] ALK P 68 U/L Normal 45-117 [facility] Comment on above: Performed By: #### L 500.4050, L506.1000, L100.0100, L501.9910, L501.9520 ####[facility] [address] [place], [address] ALT [Catalytic activity/Vol] 26 U/L Normal 16-61 [facility] Comment on above: Performed By: #### L 500.4050, L506.1000, L100.0100, L501.9910, L501.9520 ####[facility] [address] [place], [address] AST [Catalytic activity/Vol] 16 U/L Normal 15-37 [facility] Comment on above: Performed By: #### L 500.4050, L506.1000, L100.0100, L501.9910, L501.9520 ####[facility] [address] [place], [address] Bilirubin [Mass/Vol] 0.80 mg/dL Normal 0.20-1.00 [facility] Comment on above: Result Comment: For patients on eltrombopag therapy, use of Dimension [place] TBIL is not recommended. Performed By: #### L 500.4050, L506.1000, L100.0100, L501.9910, L501.9520 ####[facility] [address] [place], [address] BUN/CRE 17.5 RATIO Normal 10-20 [facility] Comment on above: Performed By: #### L 500.4050, L506.1000, L100.0100, L501.9910, L501.9520 ####[facility] [address] [place], [address] CA,Total 8.9 mg/dL Normal 8.5-10.1 [facility] Comment on above: Performed By: #### L 500.4050, L506.1000, L100.0100, L501.9910, L501.9520 ####[facility] [address] [place], [address] Chloride [Moles/Vol] 110 mmol/L High 98-107 [facility] Comment on above: Performed By: #### L 500.4050, L506.1000, L100.0100, L501.9910, L501.9520 ####[facility] [address] [place], [address] CO2 [Moles/Vol] 30.0 mmol/L Normal 21.0-32.0 [facility] Comment on above: Performed By: #### L 500.4050, L506.1000, L100.0100, L501.9910, L501.9520 ####[facility] [address] [place], [address] Creatinine [Mass/Vol] 0.80 mg/dL Normal 0.70-1.30 [facility] Comment on above: Result Comment: The validity of the calculated GFR GFRAA in patients over 70 years has not been determined. Clinical correlation is essential. Performed By: #### L 500.4050, L506.1000, L100.0100, L501.9910, L501.9520 ####[facility] [address] [place], [address] EST GFR - AA 124 mL/min Normal >60 [facility] Comment on above: Result Comment: Afri can Turkish GFR Calc Performed By: #### L 500.4050, L506.1000, L100.0100, L501.9910, L501.9520 ####[facility] [address] [place], [address] GAP 3 Low 5-15 [facility] Comment on above: Performed By: #### L 500.4050, L506.1000, L100.0100, L501.9910, L501.9520 ####[facility] [address] [place], [address] GFR/1.73 sq M.predicted among non-blacks MDRD (S/P/Bld) [Vol rate/Area] 103 mL/min/{1.73_m2} Normal >60 [facility] Comment on above: Result Comment: Non- GFR Calc Performed By: #### L 500.4050, L506.1000, L100.0100, L501.9910, L501.9520 ####[facility] [address] [place], [address] Globulin (S) [Mass/Vol] 3.2 g/dL Normal 2.2-4.2 [facility] Comment on above: Performed By: #### L 500.4050, L506.1000, L100.0100, L501.9910, L501.9520 ####[facility] [address] [place], [address] Glucose [Mass/Vol] 101 mg/dL Normal 74-106 [facility] Comment on above: Result Comment: Fast ing Glucose result from 100 to 125 mg/dL suggests IMPAIRED HOMEOSTASIS per A.D.A. criteria. Performed By: #### L 500.4050, L506.1000, L100.0100, L501.9910, L501.9520 ####[facility] [address] [place], [address] Potassium [Moles/Vol] 4.6 mmol/L Normal 3.5-5.1 [facility] Comment on above: Performed By: #### L 500.4050, L506.1000, L100.0100, L501.9910, L501.9520 ####[facility] [address] [place], [address] Sodium [Moles/Vol] 142 mmol/L Normal 136-145 [facility] Comment on above: Performed By: #### L 500.4050, L506.1000, L100.0100, L501.9910, L501.9520 ####[facility] [address] [place], [address] T PROT 6.9 g/dL Normal 6.4-8.2 [facility] Comment on above: Performed By: #### L 500.4050, L506.1000, L100.0100, L501.9910, L501.9520 ####[facility] [address] [place], [address] Urea nitrogen [Mass/Vol] 14 mg/dL Normal 7-18 [facility] Comment on above: Performed By: #### L 500.4050, L506.1000, L100.0100, L501.9910, L501.9520 ####[facility] [address] [place], [address] PSA,Total - Annual Screenon 05-05-2024 PSA,TOT SCREEN 2.55 ng/mL Normal 0.00-4.00 [facility] Comment on above: Result Comment: This test was performed using the TPSA assay method for the [employer]eralyn[employer] chemistry system. Values obtained with different assay methods cannot be used interchangably. When changing PSA assays in the course of monitoring a patient, additional sequential testing should be carried out to confirm baseline values. Performed By: #### L 500.4050, L506.1000, L100.0100, L501.9910, L501.9520 ####[facility] [address] [place], [address] Thyroid Stim Hormone (TSH)on 05-05-2024 TSH 1.550 uIU/mL Normal 0.358-3.740 [facility] Comment on above: Performed By: #### L 500.4050, L506.1000, L100.0100, L501.9910, L501.9520 ####[facility] [address] [place], [address] Vitamin D,25 Hydroxyon 05-05 Vitamin D 25-OH 44.7 ng/mL Normal [facility] Comment on above: Result Comment: Geena min D 25(OH) Status Range Deficiency <20 ng/mL (50nmol/L) Insufficiency 20 - 30 ng/mL (50 - 75 nmol/L) Sufficiency 30 - 100 ng/mL (75 - 250 nmol/L) Toxicity >100 ng/mL (>250 nmol/L) Performed By: #### L 500.4050, L506.1000, L100.0100, L501.9910, L501.9520 ####[facility] [address] [place], [address] CBC W/Diff, Automatedon 08-0 Absolute Lymph 1.30 X10 3/uL Normal 0.83-4.51 [facility] Comment on above: Performed By: #### L 5500.0550, L5500.0600 #### [facility] [address] [place], [address] Absolute Neut 2.4 X10 3/uL Normal 2.0-7.7 [facility] Comment on above: Performed By: #### L 5500.0550, L5500.0600 #### [facility] [address] [place], [address] Basophils/100 WBC (Bld) 0.7 % Normal 0-1 [facility] Comment on above: Performed By: #### L 5500.0550, L5500.0600 #### [facility] [address] [place], [address] Eosinophils/100 WBC (Bld) 3.3 % Normal 0-5 [facility] Comment on above: Performed By: #### L 5500.0550, L5500.0600 #### [facility] [address] [place], [address] Erythrocyte distribution width (RBC) [Ratio] 13.3 % Normal 11.6-14.6 [facility] Comment on above: Performed By: #### L 5500.0550, L5500.0600 #### [facility] [address] [place], [address] Hematocrit (Bld) [Volume fraction] 41.0 % Normal 40-54 [facility] Comment on above: Performed By: #### L 5500.0550, L5500.0600 #### [facility] [address] [place], [address] Hemoglobin (Bld) [Mass/Vol] 13.1 g/dL Normal 13.0-16.5 [facility] Comment on above: Performed By: #### L 5500.0550, L5500.0600 #### [facility] [address] [place], [address] IG% 0.200 Normal 0.0-0.9 [facility] Comment on above: Result Comment: IG% - Immature Granulocytes (promyelocytes, myelocytes and metamyelocytes) > 1% indicates that a LEFT SHIFT is Present. Performed By: #### L 5500.0550, L5500.0600 #### [facility] [address] [place], [address] Lymphocytes/100 WBC (Bld) 30.6 % Normal 19-41 [facility] Comment on above: Performed By: #### L 5500.0550, L5500.0600 #### [facility] [address] [place], [address] MCH (RBC) [Entitic mass] 31.1 pg Normal 27.0-32.0 [facility] Comment on above: Performed By: #### L 5500.0550, L5500.0600 #### [facility] [address] [place], [address] MCHC (RBC) [Mass/Vol] 32.0 g/dL Normal 32-36 [facility] Comment on above: Performed By: #### L 5500.0550, L5500.0600 #### [facility] [address] [place], [address] MCV (RBC) [Entitic vol] 97.4 fL High 80-94 [facility] Comment on above: Performed By: #### L 5500.0550, L5500.0600 #### [facility] [address] [place], [address] Monocytes/100 WBC (Bld) 8.9 % Normal 0-10 [facility] Comment on above: Performed By: #### L 5500.0550, L5500.0600 #### [facility] [address] [place], [address] Neutrophils/100 WBC (Bld) 56.3 % Normal 47-70 [facility] Comment on above: Performed By: #### L 5500.0550, L5500.0600 #### [facility] [address] [place], [address] Nucleated RBC (Bld) [#/Vol] 0 10*3/uL Normal 0-5 [facility] Comment on above: Performed By: #### L 5500.0550, L5500.0600 #### [facility] [address] [place], [address] Platelet mean volume (Bld) [Entitic vol] 9.8 fL Normal 6.2-12.0 [facility] Comment on above: Performed By: #### L 5500.0550, L5500.0600 #### [facility] [address] [place], [address] Platelets (Bld) [#/Vol] 202 10*3/uL Normal 150-450 [facility] Comment on above: Performed By: #### L 5500.0550, L5500.0600 #### [facility] [address] [place], [address] RBC (Bld) [#/Vol] 4.21 10*6/uL Low 4.6-6.2 [facility] Comment on above: Performed By: #### L 5500.0550, L5500.0600 #### [facility] [address] [place], [address] RDW SD 47.2 fl High 35.1-43.9 [facility] Comment on above: Performed By: #### L 5500.0550, L5500.0600 #### [facility] [address] [place], [address] WBC (Bld) [#/Vol] 4.3 10*3/uL Low 4.4-11.0 [facility] Comment on above: Performed By: #### L 5500.0550, L5500.0600 #### [facility] [address] [place], [address] Comprehensive Metabolic Prof [facility] 03-01-2024 Albumin [Mass/Vol] 3.2 g/dL Normal 3.2-5.0 [facility] Comment on above: Performed By: #### L 5500.0550, L5500.0600 #### [facility] [address] [place], [address] Albumin/Globulin [Mass ratio] 1.0 {ratio} Normal 0.9-2.4 [facility] Comment on above: Performed By: #### L 5500.0550, L5500.0600 #### [facility] [address] [place], [address] ALK P 63 U/L Normal 45-117 [facility] Comment on above: Performed By: #### L 5500.0550, L5500.0600 #### [facility] [address] [place], [address] ALT [Catalytic activity/Vol] 27 U/L Normal 16-61 [facility] Comment on above: Performed By: #### L 5500.0550, L5500.0600 #### [facility] [address] [place], [address] AST [Catalytic activity/Vol] 20 U/L Normal 15-37 [facility] Comment on above: Performed By: #### L 5500.0550, L5500.0600 #### [facility] [address] [place], [address] Bilirubin [Mass/Vol] 0.50 mg/dL Normal 0.20-1.00 [facility] Comment on above: Result Comment: For patients on eltrombopag therapy, use of Dimension [place] TBIL is not recommended. Performed By: #### L 5500.0550, L5500.0600 #### [facility] [address] [place], [address] BUN/CRE 17.7 RATIO Normal 10-20 [facility] Comment on above: Performed By: #### L 5500.0550, L5500.0600 #### [facility] [address] [place], [address] CA,Total 8.6 mg/dL Normal 8.5-10.1 [facility] Comment on above: Performed By: #### L 5500.0550, L5500.0600 #### [facility] [address] [place], [address] Chloride [Moles/Vol] 111 mmol/L High 98-107 [facility] Comment on above: Performed By: #### L 5500.0550, L5500.0600 #### [facility] [address] [place], [address] CO2 [Moles/Vol] 27.0 mmol/L Normal 21.0-32.0 [facility] Comment on above: Performed By: #### L 5500.0550, L5500.0600 #### [facility] [address] [place], [address] Creatinine [Mass/Vol] 0.79 mg/dL Normal 0.70-1.30 [facility] Comment on above: Result Comment: The validity of the calculated GFR GFRAA in patients over 70 years has not been determined. Clinical correlation is essential. Performed By: #### L 5500.0550, L5500.0600 #### [facility] [address] [place], [address] EST GFR - AA 126 mL/min Normal >60 [facility] Comment on above: Result Comment: Afri can Turkish GFR Calc Performed By: #### L 5500.0550, L5500.0600 #### [facility] [address] [place], [address] GAP 4 Low 5-15 [facility] Comment on above: Performed By: #### L 5500.0550, L5500.0600 #### [facility] [address] [place], [address] GFR/1.73 sq M.predicted among non-blacks MDRD (S/P/Bld) [Vol rate/Area] 104 mL/min/{1.73_m2} Normal >60 [facility] Comment on above: Result Comment: Non- GFR Calc Performed By: #### L 5500.0550, L5500.0600 #### [facility] [address] [place], [address] Globulin (S) [Mass/Vol] 3.3 g/dL Normal 2.2-4.2 [facility] Comment on above: Performed By: #### L 5500.0550, L5500.0600 #### [facility] [address] [place], [address] Glucose [Mass/Vol] 102 mg/dL Normal 74-106 [facility] Comment on above: Result Comment: Fast ing Glucose result from 100 to 125 mg/dL suggests IMPAIRED HOMEOSTASIS per A.D.A. criteria. Performed By: #### L 5500.0550, L5500.0600 #### [facility] [address] [place], [address] Potassium [Moles/Vol] 4.5 mmol/L Normal 3.5-5.1 [facility] Comment on above: Performed By: #### L 5500.0550, L5500.0600 #### [facility] [address] [place], [address] Sodium [Moles/Vol] 142 mmol/L Normal 136-145 [facility] Comment on above: Performed By: #### L 5500.0550, L5500.0600 #### [facility] [address] [place], [address] T PROT 6.5 g/dL Normal 6.4-8.2 [facility] Comment on above: Performed By: #### L 5500.0550, L5500.0600 #### [facility] [address] [place], [address] Urea nitrogen [Mass/Vol] 14 mg/dL Normal 7-18 [facility] Comment on above: Performed By: #### L 5500.0550, L5500.0600 #### [facility] [address] [place], [address] Absolute lymphocyte countOrd ered By: Abhinav Lance on 10-29-2023 Lymphocytes Auto (Unsp spec) [#/Vol] 1.18 10*3/uL 0.83-4.51 [facility] Automated lymphocyte count a s percentage of total leukocytesOrdered By: Abhinav Lance on 10-29-2023 Lymphocytes/100 WBC Auto (Unsp spec) 24.2 % 19-41 [facility] Basophil percentageOrdered B y: Abhinav Lance on 10-29-2023 Basophils/100 WBC (Bld) 0.6 % 0-1 [facility] Bilirubin [Mass/Vol] 0.40 mg/dL 0.20-1.00 [facility] Comment on above: For patients on eltr ombopag therapy, use of Dimension [place] TBIL is not recommended. Chloride [Moles/Vol] 110 mmol/L 98-107 [facility] Eosinophils/100 WBC (Bld) 2.9 % 0-5 [facility] Glucose [Mass/Vol] 98 mg/dL 74-106 [facility] Hemoglobin (Bld) [Mass/Vol] 13.1 g/dL 13.0-16.5 [facility] Monocytes/100 WBC (Bld) 12.1 % 0-10 [facility] Neutrophils (Bld) [#/Vol] 2.9 10*3/uL 2.0-7.7 [facility] Neutrophils/100 WBC (Bld) 59.8 % 47-70 [facility] Potassium [Moles/Vol] 4.0 mmol/L 3.5-5.1 [facility] Protein [Mass/Vol] 7.1 g/dL 6.4-8.2 [facility] Sodium [Moles/Vol] 141 mmol/L 136-145 [facility] WBC (Bld) [#/Vol] 4.9 10*3/uL 4.4-11.0 [facility] Determination of erythrocyte mean corpuscular volume (MCV)Ordered By: Abhinav Lance on 10-29-2023 MCV (RBC) [Entitic vol] 97.9 fL 80-94 [facility] Erythrocyte distribution wid th ratioOrdered By: Abhinav Lance on 10-29-2023 Erythrocyte distribution width (RBC) [Ratio] 13.1 % 11.6-14.6 [facility] Erythrocyte distribution wid th standard deviationOrdered By: Abhinav Lance on 10-29-2023 Erythrocyte distribution width (RBC) [Entitic vol] 46.4 fL 35.1-43.9 [facility] Hematocrit Auto (Bld) [Volum e fraction]Ordered By: Abhinav Lance on 10-29-2023 Hematocrit (Bld) [Volume fraction] 41.8 % 40-54 [facility] Immature granulocytes/100 WB C Auto (Bld)Ordered By: Abhinav Lance on 10-29-2023 Immature granulocytes/100 WBC (Bld) 0.400 % 0.0-0.9 [facility] Comment on above: IG% - Immature Granu locytes (promyelocytes, myelocytes and metamyelocytes) > 1% indicates that a LEFT SHIFT is Present. Laboratory - Chemistry and C hemistry - challengeOrdered By: Abhinav Lance on 10-29-2023 Albumin/Globulin [Mass ratio] 1.0 {ratio} 0.9-2.4 [facility] ALP [Catalytic activity/Vol] 78 U/L 45-117 [facility] ALT [Catalytic activity/Vol] 20 U/L 16-61 [facility] CO2 [Moles/Vol] 26.0 mmol/L 21.0-32.0 [facility] Globulin (S) [Mass/Vol] 3.6 g/dL 2.2-4.2 [facility] Urea nitrogen/Creatinine [Mass ratio] 21.0 mg/mg 10-20 [facility] - Hematology and Cell countsOrdered By: Abhinav Lance on 10-29-2023 MCH (RBC) [Entitic mass] 30.7 pg 27.0-32.0 [facility] MCHC (RBC) [Mass/Vol] 31.3 g/dL 32-36 [facility] Nucleated RBC/100 WBC (Bld) [Ratio] 0 % 0-5 [facility] Platelet mean volume (Bld) [Entitic vol] 9.1 fL 6.2-12.0 [facility] Platelets (Bld) [#/Vol] 238 10*3/uL 150-450 [facility] No Panel InformationOrdered By: Abhinav Lance on 10-29-2023 Estimated GFR (MDRD) Amer 153 mL/min >60 [facility] Comment on above: GFR Calc Estimated GFR (MDRD) Non-Af Amer 127 mL/min >60 [facility] Comment on above: Non- GFR Calc Vitamin D 25-Hydroxy 38.3 ng/mL [facility] Comment on above: Vitamin D 25(OH) Sta tus Range Deficiency <20 ng/mL (50nmol/L) Insufficiency 20 - 30 ng/mL (50 - 75 nmol/L) Sufficiency 30 - 100 ng/mL (75 - 250 nmol/L) Toxicity >100 ng/mL (>250 nmol/L) RBC Auto (Bld) [#/Vol]Ordere d By: Abhinav Lance on 10-29-2023 RBC (Bld) [#/Vol] 4.27 10*6/uL 4.6-6.2 [facility] Serum or plasma calcium osvaldo urement (mass/volume)Ordered By: Abhinav Lance on 10-29-2023 Calcium [Mass/Vol] 8.8 mg/dL 8.5-10.1 [facility] Serum or plasma creatinine m easurement (mass/volume)Ordered By: Abhinav Lance on 10-29-2023 Creatinine [Mass/Vol] 0.67 mg/dL 0.70-1.30 [facility] Comment on above: The validity of the calculated GFR & GFRAA in patients over 70 years has not been determined. Clinical correlation is essential. Serum or plasma thyroid stim ulating hormone (TSH) measurement (units/volume)Ordered By: Abhinav Lance on 10-29-2023 TSH Qn 0.12 uIU/mL 0.358-3.74 [facility] Serum or plasma urea nitroge n measurement (mass/volume)Ordered By: Abhinav Lance on 10-29-2023 Urea nitrogen [Mass/Vol] 14 mg/dL 7-18 [facility] Thin prep Papanicolaou smear with manual screeningOrdered By: Abhinav Lance on 10-29-2023 Thin prep Papanicolaou smear with manual screening 3.5 g/dL 3.2-5.0 [facility] Thin prep Papanicolaou smear with manual screening 15 U/L 15-37 [facility] Thin prep Papanicolaou smear with manual screening 5 5-15 [facility] Basophil percentageOrdered B y: Austin Upton on 09-29-2023 Basophil percentage 0 SEEN /hpf 0-5 [facility] Bilirubin Test strip Ql (U)O rdered By: Austin Upton on 09-29-2023 Bilirubin Ql (U) Negative Negative [facility] Ketones Test strip Ql (U)Ord ered By: Austin Upton on 09-29-2023 Ketones Ql (U) Negative Negative [facility] Mucus LM Ql (Urine sed)Order ed By: Austin Upton on 09-29-2023 Mucus Ql (Urine sed) 0 SEEN /hpf [facility] Nitrite Test strip Ql (U)Ord ered By: Austin Upton on 09-29-2023 Nitrite Ql (U) Negative Negative [facility] No Panel InformationOrdered By: Austin Upton on 09-29-2023 Urine RBC 0 SEEN /hpf 0-5 [facility] Protein Test strip Ql (U)Ord ered By: Austin Upton on 09-29-2023 Protein Ql (U) Negative Negative [facility] Squamous epithelial cells de tection in urine sediment by light microscopyOrdered By: Austin Upton on 09-29-2023 Epithelial cells.squamous LM Ql (Urine sed) 0 SEEN /hpf 0-5 [facility] Urine blood detectionOrdered By: Austin Upton on 09-29-2023 RBC Ql (U) 25 /ul Negative [facility] Urine clarityOrdered By: Ricardo Upton on 09-29-2023 Clarity (U) Clear Clear [facility] Urine color determinationOrd ered By: Austin Upton on 09-29-2023 Color (U) Yellow Yellow [facility] Urine glucose detectionOrder ed By: Austin Upton on 09-29-2023 Glucose Ql (U) Normal mg/dl Normal [facility] Urine leukocyte esterase det ection by dipstickOrdered By: Austin Upton on 09-29-2023 Leukocyte esterase Test strip Ql (U) Negative Negative [facility] Urine pHOrdered By: Austin paige on 09-29-2023 pH (U) 6.0 [pH] 5.0 - 8.0 [facility] Urine sediment bacteria coun t by microscopy (number/high power field)Ordered By: Austin Upotn on 09-29-2023 Bacteria LM.HPF (Urine sed) [#/Area] 0 /[HPF] None Seen [facility] Urine specific gravity measu rementOrdered By: Austin Upton on 09-29-2023 Specific gravity (U) [Rel density] 1.015 1.002-1.030 [facility] Urine urobilinogen measureme ntOrdered By: Austin Upton on 09-29-2023 Urobilinogen Ql (U) Normal mg/dl Normal [facility] Absolute lymphocyte countOrd ered By: Malka Cristina on 09-22-2023 Lymphocytes Auto (Unsp spec) [#/Vol] 1.37 10*3/uL 0.83-4.51 [facility] Automated lymphocyte count a s percentage of total leukocytesOrdered By: Malka Cristina on 09-22-2023 Lymphocytes/100 WBC Auto (Unsp spec) 31.3 % 19-41 [facility] Basophil percentageOrdered B y: Malka Cristina on 09-22-2023 Basophils/100 WBC (Bld) 0.5 % 0-1 [facility] Bilirubin [Mass/Vol] 0.70 mg/dL 0.20-1.00 [facility] Comment on above: For patients on eltr ombopag therapy, use of Dimension [place] TBIL is not recommended. Chloride [Moles/Vol] 110 mmol/L 98-107 [facility] Eosinophils/100 WBC (Bld) 3.9 % 0-5 [facility] Glucose [Mass/Vol] 102 mg/dL 74-106 [facility] Comment on above: Fasting Glucose resu lt from 100 to 125 mg/dL suggests IMPAIRED HOMEOSTASIS per A.D.A. criteria. Hemoglobin (Bld) [Mass/Vol] 13.4 g/dL 13.0-16.5 [facility] Monocytes/100 WBC (Bld) 8.9 % 0-10 [facility] Neutrophils (Bld) [#/Vol] 2.4 10*3/uL 2.0-7.7 [facility] Neutrophils/100 WBC (Bld) 55.2 % 47-70 [facility] Potassium [Moles/Vol] 4.5 mmol/L 3.5-5.1 [facility] Protein [Mass/Vol] 6.8 g/dL 6.4-8.2 [facility] Sodium [Moles/Vol] 141 mmol/L 136-145 [facility] WBC (Bld) [#/Vol] 4.4 10*3/uL 4.4-11.0 [facility] Determination of erythrocyte mean corpuscular volume (MCV)Ordered By: Malka Cristina on 09-22-2023 MCV (RBC) [Entitic vol] 96.6 fL 80-94 [facility] [facility] Erythrocyte distribution wid th ratioOrdered By: Malka Cristina on 09-22-2023 Erythrocyte distribution width (RBC) [Ratio] 13.2 % 11.6-14.6 [facility] Erythrocyte distribution wid th standard deviationOrdered By: Malka Cristina on 09-22-2023 Erythrocyte distribution width (RBC) [Entitic vol] 46.8 fL 35.1-43.9 [facility] Hematocrit Auto (Bld) [Volum e fraction]Ordered By: Malka Cristina on 09-22-2023 Hematocrit (Bld) [Volume fraction] 42.0 % 40-54 [facility] Immature granulocytes/100 WB C Auto (Bld)Ordered By: Malkaisabel Cristina on 09-22-2023 Immature granulocytes/100 WBC (Bld) 0.200 % 0.0-0.9 [facility] Comment on above: IG% - Immature Granu locytes (promyelocytes, myelocytes and metamyelocytes) > 1% indicates that a LEFT SHIFT is Present. Laboratory - Chemistry and C hemistry - challengeOrdered By: Malka Cristina on 09-22-2023 Albumin/Globulin [Mass ratio] 1.1 {ratio} 0.9-2.4 [facility] ALP [Catalytic activity/Vol] 62 U/L 45-117 [facility] ALT [Catalytic activity/Vol] 26 U/L 16-61 [facility] CO2 [Moles/Vol] 28.0 mmol/L 21.0-32.0 [facility] Globulin (S) [Mass/Vol] 3.3 g/dL 2.2-4.2 [facility] Urea nitrogen/Creatinine [Mass ratio] 16.6 mg/mg 10-20 [facility] Laboratory - Hematology and Cell countsOrdered By: Malka Cristina on 09-22-2023 MCH (RBC) [Entitic mass] 30.8 pg 27.0-32.0 [facility] MCHC (RBC) [Mass/Vol] 31.9 g/dL 32-36 [facility] Nucleated RBC/100 WBC (Bld) [Ratio] 0 % 0-5 [facility] Platelet mean volume (Bld) [Entitic vol] 9.1 fL 6.2-12.0 [facility] Platelets (Bld) [#/Vol] 217 10*3/uL 150-450 [facility] No Panel InformationOrdered By: Malka Cristina on 09-22-2023 Estimated GFR (MDRD) Amer 139 mL/min >60 [facility] Comment on above: GFR Calc Estimated GFR (MDRD) Non-Af Amer 115 mL/min >60 [facility] Comment on above: Non- GFR Calc RBC Auto (Bld) [#/Vol]Ordere d By: Malka Cristina on 09-22-2023 RBC (Bld) [#/Vol] 4.35 10*6/uL 4.6-6.2 [facility] Serum or plasma calcium osvaldo urement (mass/volume)Ordered By: Malka Cristina on 09-22-2023 Calcium [Mass/Vol] 8.9 mg/dL 8.5-10.1 [facility] Serum or plasma creatinine m easurement (mass/volume)Ordered By: Malka Cristina on 09-22-2023 Creatinine [Mass/Vol] 0.72 mg/dL 0.70-1.30 [facility] Comment on above: The validity of the calculated GFR & GFRAA in patients over 70 years has not been determined. Clinical correlation is essential. Serum or plasma urea nitroge n measurement (mass/volume)Ordered By: Malka Cristina on 09-22-2023 Urea nitrogen [Mass/Vol] 12 mg/dL 7-18 [facility] Thin prep Papanicolaou smear with manual screeningOrdered By: Malka Cristina on 09-22-2023 Thin prep Papanicolaou smear with manual screening 3.5 g/dL 3.2-5.0 [facility] Thin prep Papanicolaou smear with manual screening 16 U/L 15-37 [facility] Thin prep Papanicolaou smear with manual screening 3 5-15 [facility] Absolute lymphocyte countOrd ered By: Malka Cristina on 07-28-2023 Lymphocytes Auto (Unsp spec) [#/Vol] 1.68 10*3/uL 0.83-4.51 [facility] Basophil percentageOrdered B y: Malka Cristina on 07-28-2023 Basophils/100 WBC (Bld) 0.6 % 0-1 [facility] Eosinophils/100 WBC (Bld) 3.3 % 0-5 [facility] Neutrophils (Bld) [#/Vol] 2.6 10*3/uL 2.0-7.7 [facility] Neutrophils/100 WBC (Bld) 51.7 % 47-70 [facility] WBC (Bld) [#/Vol] 5.1 10*3/uL 4.4-11.0 [facility] Blood erythrocytes count (nu mber/volume)Ordered By: Malka Cristina on 07-28-2023 RBC (Bld) [#/Vol] 4.56 10*6/uL 4.6-6.2 [facility] Blood hemoglobin measurement (mass/volume)Ordered By: Malka Cristina on 07-28-2023 Hemoglobin (Bld) [Mass/Vol] 14.2 g/dL 13.0-16.5 [facility] Blood lymphocytes/100 leukoc ytesOrdered By: Malka Cristina on 07-28-2023 Lymphocytes/100 WBC (Bld) 33.0 % 19-41 [facility] Blood monocytes/100 leukocyt esOrdered By: Malka Cristina on 07-28-2023 Monocytes/100 WBC (Bld) 11.2 % 0-10 [facility] Blood platelet mean volumeOr dered By: Malka Cristina on 07-28-2023 Platelet mean volume (Bld) [Entitic vol] 9.2 fL 6.2-12.0 [facility] Determination of erythrocyte mean corpuscular volume (MCV)Ordered By: Malka Cristina on 07-28-2023 MCV (RBC) [Entitic vol] 99.8 fL 80-94 [facility] Hematocrit Auto (Bld) [Volum e fraction]Ordered By: Malka Cristina on 07-28-2023 Hematocrit (Bld) [Volume fraction] 45.5 % 40-54 [facility] Laboratory - Hematology and Cell countsOrdered By: Malka Cristina on 07-28-2023 Erythrocyte distribution width (RBC) [Entitic vol] 47.1 fL 35.1-43.9 [facility] Erythrocyte distribution width (RBC) [Ratio] 12.8 % 11.6-14.6 [facility] Immature granulocytes/100 WBC (Bld) 0.200 % 0.0-0.9 [facility] Comment on above: IG% - Immature Granu locytes (promyelocytes, myelocytes and metamyelocytes) > 1% indicates that a LEFT SHIFT is Present. MCH (RBC) [Entitic mass] 31.1 pg 27.0-32.0 [facility] Nucleated RBC/100 WBC (Bld) [Ratio] 0 % 0-5 [facility] MCHC Auto (RBC) [Mass/Vol]Or dered By: Malka Cristina on 07-28-2023 MCHC (RBC) [Mass/Vol] 31.2 g/dL 32-36 [facility] Platelets bldOrdered By: Marya Cristina on 07-28-2023 Platelets (Bld) [#/Vol] 233 10*3/uL 150-450 [facility] Absolute lymphocyte countOrd ered By: Malka Cristina on 06-17-2023 Lymphocytes Auto (Unsp spec) [#/Vol] 1.37 10*3/uL 0.83-4.51 [facility] Basophil percentageOrdered B y: Malka Cristina on 06-17-2023 Basophils/100 WBC (Bld) 0.8 % 0-1 [facility] Bilirubin [Mass/Vol] 0.50 mg/dL 0.20-1.00 [facility] Comment on above: For patients on eltr ombopag therapy, use of Dimension [place] TBIL is not recommended. Chloride [Moles/Vol] 107 mmol/L 98-107 [facility] Eosinophils/100 WBC (Bld) 2.5 % 0-5 [facility] Glucose [Mass/Vol] 95 mg/dL 74-106 [facility] Neutrophils (Bld) [#/Vol] 1.3 10*3/uL 2.0-7.7 [facility] Neutrophils/100 WBC (Bld) 36.0 % 47-70 [facility] Potassium [Moles/Vol] 4.0 mmol/L 3.5-5.1 [facility] Protein [Mass/Vol] 6.9 g/dL 6.4-8.2 [facility] Sodium [Moles/Vol] 141 mmol/L 136-145 [facility] WBC (Bld) [#/Vol] 3.6 10*3/uL 4.4-11.0 [facility] Blood erythrocytes count (nu mber/volume)Ordered By: Malka Cristina on 06-17-2023 RBC (Bld) [#/Vol] 4.33 10*6/uL 4.6-6.2 [facility] Blood hemoglobin measurement (mass/volume)Ordered By: Malka Cristina on 06-17-2023 Hemoglobin (Bld) [Mass/Vol] 13.5 g/dL 13.0-16.5 [facility] Blood lymphocytes/100 leukoc ytesOrdered By: Malka Cristina on 06-17-2023 Lymphocytes/100 WBC (Bld) 38.0 % 19-41 [facility] Blood monocytes/100 leukocyt esOrdered By: Malka Cristina on 06-17-2023 Monocytes/100 WBC (Bld) 22.4 % 0-10 [facility] Blood platelet mean volumeOr dered By: Malka Cristina on 06-17-2023 Platelet mean volume (Bld) [Entitic vol] 9.1 fL 6.2-12.0 [facility] Determination of erythrocyte mean corpuscular volume (MCV)Ordered By: Malka Cristina on 06-17-2023 MCV (RBC) [Entitic vol] 101.4 fL 80-94 [facility] Hematocrit Auto (Bld) [Volum e fraction]Ordered By: Malka Cristina on 06-17-2023 Hematocrit (Bld) [Volume fraction] 43.9 % 40-54 [facility] Laboratory - Chemistry and C hemistry - challengeOrdered By: Malka Cristina on 06-17-2023 ALP [Catalytic activity/Vol] 81 U/L 45-117 [facility] ALT [Catalytic activity/Vol] 21 U/L 16-61 [facility] CO2 [Moles/Vol] 29.0 mmol/L 21.0-32.0 [facility] Globulin (S) [Mass/Vol] 3.6 g/dL 2.2-4.2 [facility] Urea nitrogen/Creatinine [Mass ratio] 16.2 mg/mg 10-20 [facility] Laboratory - Hematology and Cell countsOrdered By: Malka Cristina on 06-17-2023 Erythrocyte distribution width (RBC) [Entitic vol] 50.4 fL 35.1-43.9 [facility] Erythrocyte distribution width (RBC) [Ratio] 13.4 % 11.6-14.6 [facility] Immature granulocytes/100 WBC (Bld) 0.300 % 0.0-0.9 [facility] Comment on above: IG% - Immature Granu locytes (promyelocytes, myelocytes and metamyelocytes) > 1% indicates that a LEFT SHIFT is Present. MCH (RBC) [Entitic mass] 31.2 pg 27.0-32.0 [facility] Nucleated RBC/100 WBC (Bld) [Ratio] 0 % 0-5 [facility] MCHC Auto (RBC) [Mass/Vol]Or dered By: Malka Cristina on 06-17-2023 MCHC (RBC) [Mass/Vol] 30.8 g/dL 32-36 [facility] No Panel InformationOrdered By: Malka Cristina on 06-17-2023 Estimated GFR (MDRD) Amer 124 mL/min >60 [facility] Comment on above: GFR Calc Estimated GFR (MDRD) Non-Af Amer 102 mL/min >60 [facility] Comment on above: Non- GFR Calc Platelets bldOrdered By: Marya Cristina on 06-17-2023 Platelets (Bld) [#/Vol] 193 10*3/uL 150-450 [facility] Serum or plasma albumin osvaldo urement (mass/volume)Ordered By: Malka Cristina on 06-17-2023 Albumin [Mass/Vol] 3.3 g/dL 3.2-5.0 [facility] Serum or plasma albumin/glob ulin mass ratioOrdered By: Malka Cristina on 06-17-2023 Albumin/Globulin [Mass ratio] 0.9 {ratio} 0.9-2.4 [facility] Serum or plasma calcium osvaldo urement (mass/volume)Ordered By: Malka Cristina on 06-17-2023 Calcium [Mass/Vol] 8.4 mg/dL 8.5-10.1 [facility] Serum or plasma creatinine m easurement (mass/volume)Ordered By: Malka Cristina on 06-17-2023 Creatinine [Mass/Vol] 0.80 mg/dL 0.70-1.30 [facility] Comment on above: The validity of the calculated GFR & GFRAA in patients over 70 years has not been determined. Clinical correlation is essential. Serum or plasma urea nitroge n measurement (mass/volume)Ordered By: Malka Cristina on 06-17-2023 Urea nitrogen [Mass/Vol] 13 mg/dL 7-18 [facility] Thin prep Papanicolaou smear with manual screeningOrdered By: Malka Cristina on 06-17-2023 Thin prep Papanicolaou smear with manual screening 15 U/L 15-37 [facility] Thin prep Papanicolaou smear with manual screening 5 5-15 [facility] Absolute lymphocyte countOrd ered By: Abhinav Lance on 04-29-2023 Lymphocytes Auto (Unsp spec) [#/Vol] 1.50 10*3/uL 0.83-4.51 [facility] Basophil percentageOrdered B y: Abhinav Lance on 04-29-2023 Basophils/100 WBC (Bld) 0.6 % 0-1 [facility] Bilirubin [Mass/Vol] 0.50 mg/dL 0.20-1.00 [facility] Comment on above: For patients on eltr ombopag therapy, use of Dimension [place] TBIL is not recommended. Chloride [Moles/Vol] 110 mmol/L 98-107 [facility] Eosinophils/100 WBC (Bld) 2.5 % 0-5 [facility] Glucose [Mass/Vol] 108 mg/dL 74-106 [facility] Comment on above: Fasting Glucose resu lt from 100 to 125 mg/dL suggests IMPAIRED HOMEOSTASIS per A.D.A. criteria. Neutrophils (Bld) [#/Vol] 3.0 10*3/uL 2.0-7.7 [facility] Neutrophils/100 WBC (Bld) 56.1 % 47-70 [facility] Potassium [Moles/Vol] 4.2 mmol/L 3.5-5.1 [facility] Protein [Mass/Vol] 7.2 g/dL 6.4-8.2 [facility] Sodium [Moles/Vol] 141 mmol/L 136-145 [facility] WBC (Bld) [#/Vol] 5.3 10*3/uL 4.4-11.0 [facility] Blood erythrocytes count (nu mber/volume)Ordered By: Abhinav Lance on 04-29-2023 RBC (Bld) [#/Vol] 4.31 10*6/uL 4.6-6.2 [facility] Blood hemoglobin measurement (mass/volume)Ordered By: Abhinav Lance on 04-29-2023 Hemoglobin (Bld) [Mass/Vol] 13.5 g/dL 13.0-16.5 [facility] Blood lymphocytes/100 leukoc ytesOrdered By: Abhinav Lance on 04-29-2023 Lymphocytes/100 WBC (Bld) 28.5 % 19-41 [facility] Blood monocytes/100 leukocyt esOrdered By: Abhinav Lance on 04-29-2023 Monocytes/100 WBC (Bld) 12.1 % 0-10 [facility] Blood platelet mean volumeOr dered By: Abhinav Lance on 04-29-2023 Platelet mean volume (Bld) [Entitic vol] 8.8 fL 6.2-12.0 [facility] Determination of erythrocyte mean corpuscular volume (MCV)Ordered By: Abhinav Lance on 04-29-2023 MCV (RBC) [Entitic vol] 100.0 fL 80-94 [facility] Hematocrit Auto (Bld) [Volum e fraction]Ordered By: Abhinav Lance on 04-29-2023 Hematocrit (Bld) [Volume fraction] 43.1 % 40-54 [facility] Laboratory - Chemistry and C hemistry - challengeOrdered By: Abhinav Lance on 04-29-2023 ALP [Catalytic activity/Vol] 77 U/L 45-117 [facility] ALT [Catalytic activity/Vol] 22 U/L 16-61 [facility] CO2 [Moles/Vol] 28.0 mmol/L 21.0-32.0 [facility] Globulin (S) [Mass/Vol] 3.6 g/dL 2.2-4.2 [facility] Urea nitrogen/Creatinine [Mass ratio] 18.4 mg/mg 10-20 [facility] Laboratory - Hematology and Cell countsOrdered By: Abhinav Lance on 04-29-2023 Erythrocyte distribution width (RBC) [Entitic vol] 48.8 fL 35.1-43.9 [facility] Erythrocyte distribution width (RBC) [Ratio] 13.3 % 11.6-14.6 [facility] Immature granulocytes/100 WBC (Bld) 0.200 % 0.0-0.9 [facility] Comment on above: IG% - Immature Granu locytes (promyelocytes, myelocytes and metamyelocytes) > 1% indicates that a LEFT SHIFT is Present. MCH (RBC) [Entitic mass] 31.3 pg 27.0-32.0 [facility] Nucleated RBC/100 WBC (Bld) [Ratio] 0 % 0-5 [facility] MCHC Auto (RBC) [Mass/Vol]Or dered By: Abhinav Lance on 04-29-2023 MCHC (RBC) [Mass/Vol] 31.3 g/dL 32-36 [facility] No Panel InformationOrdered By: Abhinav Lance on 04-29-2023 Estimated GFR (MDRD) Amer 143 mL/min >60 [facility] Comment on above: GFR Calc Estimated GFR (MDRD) Non-Af Amer 118 mL/min >60 [facility] Comment on above: Non- GFR Calc Prostate Specific Antigen Screen 3.69 ng/mL 0.00-4.00 [facility] Comment on above: This test was perfor med using the TPSA assay method for the[facility] chemistry system. Values obtained with differentassay methods cannot be used interchangably.When changing PSA assays in the course of monitoring apatient, additional sequential testing should be carriedout to confirm baseline values. Thyroid Stimulating Hormone (TSH) 0.76 uIU/mL 0.358-3.74 [facility] Vitamin D 25-Hydroxy 43.9 ng/mL [facility] Comment on above: Vitamin D 25(OH) Sta tus Range Deficiency <20 ng/mL (50nmol/L) Insufficiency 20 - 30 ng/mL (50 - 75 nmol/L) Sufficiency 30 - 100 ng/mL (75 - 250 nmol/L) Toxicity >100 ng/mL (>250 nmol/L) Platelets bldOrdered By: Abhinav Lance on 04-29-2023 Platelets (Bld) [#/Vol] 247 10*3/uL 150-450 [facility] Serum or plasma albumin osvaldo urement (mass/volume)Ordered By: Abhinav Lance on 04-29-2023 Albumin [Mass/Vol] 3.6 g/dL 3.2-5.0 [facility] Serum or plasma albumin/glob ulin mass ratioOrdered By: Abhinav Lance on 04-29-2023 Albumin/Globulin [Mass ratio] 1.0 {ratio} 0.9-2.4 [facility] Serum or plasma calcium osvaldo urement (mass/volume)Ordered By: Abhinav Lance on 04-29-2023 Calcium [Mass/Vol] 8.9 mg/dL 8.5-10.1 [facility] Serum or plasma creatinine m easurement (mass/volume)Ordered By: Abhinav Lance on 04-29-2023 Creatinine [Mass/Vol] 0.71 mg/dL 0.70-1.30 [facility] Comment on above: The validity of the calculated GFR & GFRAA in patients over 70 years has not been determined. Clinical correlation is essential. Serum or plasma urea nitroge n measurement (mass/volume)Ordered By: Abhinav Lance on 04-29-2023 Urea nitrogen [Mass/Vol] 13 mg/dL 7-18 [facility] Thin prep Papanicolaou smear with manual screeningOrdered By: Abhinav Lance on 04-29-2023 Thin prep Papanicolaou smear with manual screening 12 U/L 15-37 [facility] Thin prep Papanicolaou smear with manual screening 3 5-15 [facility] Absolute lymphocyte countOrd ered By: Malka Cristina on 03-31-2023 Lymphocytes Auto (Unsp spec) [#/Vol] 1.55 10*3/uL 0.83-4.51 [facility] Basophil percentageOrdered B y: Malka Cristina on 03-31-2023 Basophils/100 WBC (Bld) 0.8 % 0-1 [facility] Bilirubin [Mass/Vol] 0.50 mg/dL 0.20-1.00 [facility] Comment on above: For patients on eltr ombopag therapy, use of Dimension [place] TBIL is not recommended. Chloride [Moles/Vol] 106 mmol/L 98-107 [facility] Eosinophils/100 WBC (Bld) 2.6 % 0-5 [facility] Glucose [Mass/Vol] 89 mg/dL 74-106 [facility] Neutrophils (Bld) [#/Vol] 3.0 10*3/uL 2.0-7.7 [facility] Neutrophils/100 WBC (Bld) 56.4 % 47-70 [facility] Potassium [Moles/Vol] 4.0 mmol/L 3.5-5.1 [facility] Protein [Mass/Vol] 6.7 g/dL 6.4-8.2 [facility] Sodium [Moles/Vol] 139 mmol/L 136-145 [facility] WBC (Bld) [#/Vol] 5.3 10*3/uL 4.4-11.0 [facility] Blood erythrocytes count (nu mber/volume)Ordered By: Malka Cristina on 03-31-2023 RBC (Bld) [#/Vol] 4.28 10*6/uL 4.6-6.2 [facility] Blood hemoglobin measurement (mass/volume)Ordered By: Malka Cristina on 03-31-2023 Hemoglobin (Bld) [Mass/Vol] 13.4 g/dL 13.0-16.5 [facility] Blood lymphocytes/100 leukoc ytesOrdered By: Malka Cristina on 03-31-2023 Lymphocytes/100 WBC (Bld) 29.1 % 19-41 [facility] Blood monocytes/100 leukocyt esOrdered By: Malka Cristina on 03-31-2023 Monocytes/100 WBC (Bld) 10.7 % 0-10 [facility] Blood platelet mean volumeOr dered By: Malka Cristina on 03-31-2023 Platelet mean volume (Bld) [Entitic vol] 9.1 fL 6.2-12.0 [facility] Determination of erythrocyte mean corpuscular volume (MCV)Ordered By: Malka Cristina on 03-31-2023 MCV (RBC) [Entitic vol] 98.6 fL 80-94 [facility] Hematocrit Auto (Bld) [Volum e fraction]Ordered By: Malka Cristina on 03-31-2023 Hematocrit (Bld) [Volume fraction] 42.2 % 40-54 [facility] Laboratory - Chemistry and C hemistry - challengeOrdered By: Malka Cristina on 03-31-2023 ALP [Catalytic activity/Vol] 76 U/L 45-117 [facility] ALT [Catalytic activity/Vol] 20 U/L 16-61 [facility] CO2 [Moles/Vol] 27.0 mmol/L 21.0-32.0 [facility] Globulin (S) [Mass/Vol] 3.5 g/dL 2.2-4.2 [facility] Urea nitrogen/Creatinine [Mass ratio] 19.9 mg/mg 10-20 [facility] Laboratory - Hematology and Cell countsOrdered By: Malka Cristina on 03-31-2023 Erythrocyte distribution width (RBC) [Entitic vol] 49.4 fL 35.1-43.9 [facility] Erythrocyte distribution width (RBC) [Ratio] 13.6 % 11.6-14.6 [facility] Immature granulocytes/100 WBC (Bld) 0.400 % 0.0-0.9 [facility] Comment on above: IG% - Immature Granu locytes (promyelocytes, myelocytes and metamyelocytes) > 1% indicates that a LEFT SHIFT is Present. MCH (RBC) [Entitic mass] 31.3 pg 27.0-32.0 [facility] Nucleated RBC/100 WBC (Bld) [Ratio] 0 % 0-5 [facility] MCHC Auto (RBC) [Mass/Vol]Or dered By: Malka Cristina on 03-31-2023 MCHC (RBC) [Mass/Vol] 31.8 g/dL 32-36 [facility] No Panel InformationOrdered By: Malka Cristina on 03-31-2023 Estimated GFR (MDRD) Amer 157 mL/min >60 [facility] Comment on above: GFR Calc Estimated GFR (MDRD) Non-Af Amer 130 mL/min >60 [facility] Comment on above: Non- GFR Calc Platelets bldOrdered By: Marya Cristina on 03-31-2023 Platelets (Bld) [#/Vol] 232 10*3/uL 150-450 [facility] Serum or plasma albumin osvaldo urement (mass/volume)Ordered By: Malka Cristina on 03-31-2023 Albumin [Mass/Vol] 3.2 g/dL 3.2-5.0 [facility] Serum or plasma albumin/glob ulin mass ratioOrdered By: Malka Cristina on 03-31-2023 Albumin/Globulin [Mass ratio] 0.9 {ratio} 0.9-2.4 [facility] Serum or plasma calcium osvaldo urement (mass/volume)Ordered By: Malka Cristina on 03-31-2023 Calcium [Mass/Vol] 8.7 mg/dL 8.5-10.1 [facility] Serum or plasma creatinine m easurement (mass/volume)Ordered By: Malka Cristina on 03-31-2023 Creatinine [Mass/Vol] 0.65 mg/dL 0.70-1.30 [facility] Comment on above: The validity of the calculated GFR & GFRAA in patients over 70 years has not been determined. Clinical correlation is essential. Serum or plasma urea nitroge n measurement (mass/volume)Ordered By: Malka Cristina on 03-31-2023 Urea nitrogen [Mass/Vol] 13 mg/dL 7-18 [facility] Thin prep Papanicolaou smear with manual screeningOrdered By: Malka Cristina on 03-31-2023 Thin prep Papanicolaou smear with manual screening 12 U/L 15-37 [facility] Thin prep Papanicolaou smear with manual screening 6 5-15 [facility] Thin prep Papanicolaou smear with manual screening Negative Negative [facility] Comment on above: Lyme antibodies not detected. Reflex testing is notindicated.No laboratory evidence of infection with B. burgdorferi(Lyme disease). Negative results may occur in patientsrecently infected (less than or equal to 14 days) with B.burgdorferi. If recent infection is suspected, repeattesting on a new sample collected in 7 to 14 days isrecommended.Performed at: [facility] [id number] Director: Rei Whitt PhD, Phone: [phone] Absolute lymphocyte countOrd ered By: Malka Cristina on 01-21-2023 Lymphocytes Auto (Unsp spec) [#/Vol] 1.64 10*3/uL 0.83-4.51 [facility] Basophil percentageOrdered B y: Malka Cristina on 01-21-2023 Basophils/100 WBC (Bld) 0.6 % 0-1 [facility] Bilirubin [Mass/Vol] 0.40 mg/dL 0.20-1.00 [facility] Comment on above: For patients on eltr ombopag therapy, use of Dimension [place] TBIL is not recommended. Chloride [Moles/Vol] 110 mmol/L 98-107 [facility] Eosinophils/100 WBC (Bld) 1.8 % 0-5 [facility] Glucose [Mass/Vol] 87 mg/dL 74-106 [facility] Neutrophils (Bld) [#/Vol] 4.2 10*3/uL 2.0-7.7 [facility] Neutrophils/100 WBC (Bld) 62.5 % 47-70 [facility] Potassium [Moles/Vol] 4.2 mmol/L 3.5-5.1 [facility] Protein [Mass/Vol] 6.7 g/dL 6.4-8.2 [facility] Sodium [Moles/Vol] 141 mmol/L 136-145 [facility] WBC (Bld) [#/Vol] 6.7 10*3/uL 4.4-11.0 [facility] Blood erythrocytes count (nu mber/volume)Ordered By: Malka Cristina on 01-21-2023 RBC (Bld) [#/Vol] 4.33 10*6/uL 4.6-6.2 [facility] Blood hemoglobin measurement (mass/volume)Ordered By: Malka Cristina on 01-21-2023 Hemoglobin (Bld) [Mass/Vol] 13.5 g/dL 13.0-16.5 [facility] Blood lymphocytes/100 leukoc ytesOrdered By: Malka Cristina on 01-21-2023 Lymphocytes/100 WBC (Bld) 24.7 % 19-41 [facility] Blood monocytes/100 leukocyt esOrdered By: Malka Cristina on 01-21-2023 Monocytes/100 WBC (Bld) 10.2 % 0-10 [facility] Blood platelet mean volumeOr dered By: Malka Cristina on 01-21-2023 Platelet mean volume (Bld) [Entitic vol] 9.4 fL 6.2-12.0 [facility] Determination of erythrocyte mean corpuscular volume (MCV)Ordered By: Malka Cristina on 01-21-2023 MCV (RBC) [Entitic vol] 99.3 fL 80-94 [facility] Hematocrit Auto (Bld) [Volum e fraction]Ordered By: Malka Cristina on 01-21-2023 Hematocrit (Bld) [Volume fraction] 43.0 % 40-54 [facility] Laboratory - Chemistry and C hemistry - challengeOrdered By: Malka Cristina on 01-21-2023 ALP [Catalytic activity/Vol] 75 U/L 45-117 [facility] ALT [Catalytic activity/Vol] 18 U/L 16-61 [facility] CO2 [Moles/Vol] 28.0 mmol/L 21.0-32.0 [facility] Globulin (S) [Mass/Vol] 3.5 g/dL 2.2-4.2 [facility] Urea nitrogen/Creatinine [Mass ratio] 19.2 mg/mg 10-20 [facility] Laboratory - Hematology and Cell countsOrdered By: Malka Cristina on 01-21-2023 Erythrocyte distribution width (RBC) [Entitic vol] 48.2 fL 35.1-43.9 [facility] Erythrocyte distribution width (RBC) [Ratio] 13.2 % 11.6-14.6 [facility] Immature granulocytes/100 WBC (Bld) 0.200 % 0.0-0.9 [facility] Comment on above: IG% - Immature Granu locytes (promyelocytes, myelocytes and metamyelocytes) > 1% indicates that a LEFT SHIFT is Present. MCH (RBC) [Entitic mass] 31.2 pg 27.0-32.0 [facility] Nucleated RBC/100 WBC (Bld) [Ratio] 0 % 0-5 [facility] MCHC Auto (RBC) [Mass/Vol]Or dered By: Malka Cristina on 01-21-2023 MCHC (RBC) [Mass/Vol] 31.4 g/dL 32-36 [facility] No Panel InformationOrdered By: Malka Cristina on 01-21-2023 Estimated GFR (MDRD) Amer 165 mL/min >60 [facility] Comment on above: GFR Calc Estimated GFR (MDRD) Non-Af Amer 136 mL/min >60 [facility] Comment on above: Non- GFR Calc Platelets bldOrdered By: Marya Cristina on 01-21-2023 Platelets (Bld) [#/Vol] 244 10*3/uL 150-450 [facility] Serum or plasma albumin osvaldo urement (mass/volume)Ordered By: Malka Cristina on 01-21-2023 Albumin [Mass/Vol] 3.2 g/dL 3.2-5.0 [facility] Serum or plasma albumin/glob ulin mass ratioOrdered By: Malka Cristina on 01-21-2023 Albumin/Globulin [Mass ratio] 0.9 {ratio} 0.9-2.4 [facility] Serum or plasma calcium osvaldo urement (mass/volume)Ordered By: Malka Cristina on 01-21-2023 Calcium [Mass/Vol] 8.7 mg/dL 8.5-10.1 [facility] Serum or plasma creatinine m easurement (mass/volume)Ordered By: Malka Cristina on 01-21-2023 Creatinine [Mass/Vol] 0.63 mg/dL 0.70-1.30 [facility] Comment on above: The validity of the calculated GFR & GFRAA in patients over 70 years has not been determined. Clinical correlation is essential. Serum or plasma urea nitroge n measurement (mass/volume)Ordered By: Malka Cristina on 06-28-2023 Urea nitrogen [Mass/Vol] 12 mg/dL 7-18 [facility] Thin prep Papanicolaou smear with manual screeningOrdered By: Malka Cristina on 01-21-2023 Thin prep Papanicolaou smear with manual screening 10 U/L 15-37 [facility] Thin prep Papanicolaou smear with manual screening 3 5-15 [facility] Absolute lymphocyte countOrd ered By: Dr. Cristina on 11-21-2022 Lymphocytes Auto (Unsp spec) [#/Vol] 1.17 10*3/uL 0.83-4.51 [facility] Basophil percentageOrdered B y: Dr. Cristina on 11-21-2022 Basophils/100 WBC (Bld) 0.5 % 0-1 [facility] Bilirubin [Mass/Vol] 0.40 mg/dL 0.20-1.00 [facility] Comment on above: For patients on eltr ombopag therapy, use of Dimension [place] TBIL is not recommended. Chloride [Moles/Vol] 108 mmol/L 98-107 [facility] Eosinophils/100 WBC (Bld) 1.5 % 0-5 [facility] Glucose [Mass/Vol] 114 mg/dL 74-106 [facility] Comment on above: Fasting Glucose resu lt from 100 to 125 mg/dL suggests IMPAIRED HOMEOSTASIS per A.D.A. criteria. Neutrophils (Bld) [#/Vol] 3.8 10*3/uL 2.0-7.7 [facility] Neutrophils/100 WBC (Bld) 65.6 % 47-70 [facility] Potassium [Moles/Vol] 4.0 mmol/L 3.5-5.1 [facility] Protein [Mass/Vol] 6.8 g/dL 6.4-8.2 [facility] Sodium [Moles/Vol] 139 mmol/L 136-145 [facility] WBC (Bld) [#/Vol] 5.8 10*3/uL 4.4-11.0 [facility] Blood erythrocytes count (nu mber/volume)Ordered By: Dr. Cristina on 11-21-2022 RBC (Bld) [#/Vol] 4.17 10*6/uL 4.6-6.2 [facility] Blood hemoglobin measurement (mass/volume)Ordered By: Dr. Cristina on 11-21-2022 Hemoglobin (Bld) [Mass/Vol] 13.0 g/dL 13.0-16.5 [facility] Blood lymphocytes/100 leukoc ytesOrdered By: Dr. Cristina on 11-21-2022 Lymphocytes/100 WBC (Bld) 20.1 % 19-41 [facility] Blood monocytes/100 leukocyt esOrdered By: Dr. Cristina on 11-21-2022 Monocytes/100 WBC (Bld) 12.0 % 0-10 [facility] Blood platelet mean volumeOr dered By: Dr. Cristina on 11-21-2022 Platelet mean volume (Bld) [Entitic vol] 9.6 fL 6.2-12.0 [facility] Determination of erythrocyte mean corpuscular volume (MCV)Ordered By: Dr. Cristina on 11-21-2022 MCV (RBC) [Entitic vol] 101.2 fL 80-94 [facility] Hematocrit Auto (Bld) [Volum e fraction]Ordered By: Dr. Cristina on 11-21-2022 Hematocrit (Bld) [Volume fraction] 42.2 % 40-54 [facility] Laboratory - Chemistry and C hemistry - challengeOrdered By: Dr. Cristina on 11-21-2022 ALP [Catalytic activity/Vol] 75 U/L 45-117 [facility] ALT [Catalytic activity/Vol] 23 U/L 16-61 [facility] CO2 [Moles/Vol] 29.0 mmol/L 21.0-32.0 [facility] Globulin (S) [Mass/Vol] 3.5 g/dL 2.2-4.2 [facility] Urea nitrogen/Creatinine [Mass ratio] 20.9 mg/mg 10-20 [facility] Laboratory - Hematology and Cell countsOrdered By: Dr. Cristina on 11-21-2022 Erythrocyte distribution width (RBC) [Entitic vol] 51.8 fL 35.1-43.9 [facility] Erythrocyte distribution width (RBC) [Ratio] 13.9 % 11.6-14.6 [facility] Immature granulocytes/100 WBC (Bld) 0.300 % 0.0-0.9 [facility] Comment on above: IG% - Immature Granu locytes (promyelocytes, myelocytes and metamyelocytes) > 1% indicates that a LEFT SHIFT is Present. MCH (RBC) [Entitic mass] 31.2 pg 27.0-32.0 [facility] Nucleated RBC/100 WBC (Bld) [Ratio] 0 % 0-5 [facility] MCHC Auto (RBC) [Mass/Vol]Or dered By: Dr. Cristina on 11-21-2022 MCHC (RBC) [Mass/Vol] 30.8 g/dL 32-36 [facility] No Panel InformationOrdered By: Dr. Cristina on 11-21-2022 Estimated GFR (MDRD) Amer 141 mL/min >60 [facility] Comment on above: GFR Calc Estimated GFR (MDRD) Non-Af Amer 116 mL/min >60 [facility] Comment on above: Non- GFR Calc Platelets bldOrdered By: Dr. Cristina on 11-21-2022 Platelets (Bld) [#/Vol] 264 10*3/uL 150-450 [facility] Serum or plasma albumin osvaldo urement (mass/volume)Ordered By: Dr. Cristina on 11-21-2022 Albumin [Mass/Vol] 3.3 g/dL 3.2-5.0 [facility] Serum or plasma albumin/glob ulin mass ratioOrdered By: Dr. Cristina on 11-21-2022 Albumin/Globulin [Mass ratio] 0.9 {ratio} 0.9-2.4 [facility] Serum or plasma calcium osvaldo urement (mass/volume)Ordered By: Dr. Cristina on 11-21-2022 Calcium [Mass/Vol] 9.0 mg/dL 8.5-10.1 [facility] Serum or plasma creatinine m easurement (mass/volume)Ordered By: Dr. Cristina on 11-21-2022 Creatinine [Mass/Vol] 0.72 mg/dL 0.70-1.30 [facility] Comment on above: The validity of the calculated GFR & GFRAA in patients over 70 years has not been determined. Clinical correlation is essential. Serum or plasma urea nitroge n measurement (mass/volume)Ordered By: Dr. Cristina on 11-21-2022 Urea nitrogen [Mass/Vol] 15 mg/dL 7-18 [facility] Thin prep Papanicolaou smear with manual screeningOrdered By: Dr. Cristina on 11-21-2022 Thin prep Papanicolaou smear with manual screening 14 U/L 15-37 [facility] Thin prep Papanicolaou smear with manual screening 2 5-15 [facility] Absolute lymphocyte countOrd ered By: Dr. Lance on 10-22-2022 Lymphocytes Auto (Unsp spec) [#/Vol] 1.42 10*3/uL 0.83-4.51 [facility] Basophil percentageOrdered B y: Dr. Lance on 10-22-2022 Basophils/100 WBC (Bld) 0.6 % 0-1 [facility] Bilirubin [Mass/Vol] 0.60 mg/dL 0.20-1.00 [facility] Comment on above: For patients on eltr ombopag therapy, use of Dimension [place] TBIL is not recommended. Chloride [Moles/Vol] 109 mmol/L 98-107 [facility] Eosinophils/100 WBC (Bld) 1.4 % 0-5 [facility] Glucose [Mass/Vol] 92 mg/dL 74-106 [facility] Neutrophils (Bld) [#/Vol] 2.9 10*3/uL 2.0-7.7 [facility] Neutrophils/100 WBC (Bld) 58.3 % 47-70 [facility] Potassium [Moles/Vol] 4.3 mmol/L 3.5-5.1 [facility] Protein [Mass/Vol] 6.8 g/dL 6.4-8.2 [facility] Sodium [Moles/Vol] 140 mmol/L 136-145 [facility] WBC (Bld) [#/Vol] 4.9 10*3/uL 4.4-11.0 [facility] Blood erythrocytes count (nu mber/volume)Ordered By: Dr. Lance on 10-22-2022 RBC (Bld) [#/Vol] 4.44 10*6/uL 4.6-6.2 [facility] Blood hemoglobin measurement (mass/volume)Ordered By: Dr. Lance on 10-22-2022 Hemoglobin (Bld) [Mass/Vol] 13.8 g/dL 13.0-16.5 [facility] Blood lymphocytes/100 leukoc ytesOrdered By: Dr. Lance on 10-22-2022 Lymphocytes/100 WBC (Bld) 28.9 % 19-41 [facility] Blood monocytes/100 leukocyt esOrdered By: Dr. Lance on 10-22-2022 Monocytes/100 WBC (Bld) 10.6 % 0-10 [facility] Blood platelet mean volumeOr dered By: Dr. Lance on 10-22-2022 Platelet mean volume (Bld) [Entitic vol] 9.5 fL 6.2-12.0 [facility] Determination of erythrocyte mean corpuscular volume (MCV)Ordered By: Dr. Lance on 10-22-2022 MCV (RBC) [Entitic vol] 98.4 fL 80-94 [facility] Hematocrit Auto (Bld) [Volum e fraction]Ordered By: Dr. Lance on 10-22-2022 Hematocrit (Bld) [Volume fraction] 43.7 % 40-54 [facility] Laboratory - Chemistry and C hemistry - challengeOrdered By: Dr. Lance on 10-22-2022 ALP [Catalytic activity/Vol] 68 U/L 45-117 [facility] ALT [Catalytic activity/Vol] 27 U/L 16-61 [facility] CO2 [Moles/Vol] 27.0 mmol/L 21.0-32.0 [facility] Globulin (S) [Mass/Vol] 3.5 g/dL 2.2-4.2 [facility] Urea nitrogen/Creatinine [Mass ratio] 23.1 mg/mg 10-20 [facility] Laboratory - Hematology and Cell countsOrdered By: Dr. Lance on 10-22-2022 Erythrocyte distribution width (RBC) [Entitic vol] 49.6 fL 35.1-43.9 [facility] Erythrocyte distribution width (RBC) [Ratio] 13.8 % 11.6-14.6 [facility] Immature granulocytes/100 WBC (Bld) 0.200 % 0.0-0.9 [facility] Comment on above: IG% - Immature Granu locytes (promyelocytes, myelocytes and metamyelocytes) > 1% indicates that a LEFT SHIFT is Present. MCH (RBC) [Entitic mass] 31.1 pg 27.0-32.0 [facility] Nucleated RBC/100 WBC (Bld) [Ratio] 0 % 0-5 [facility] MCHC Auto (RBC) [Mass/Vol]Or dered By: Dr. Lance on 10-22-2022 MCHC (RBC) [Mass/Vol] 31.6 g/dL 32-36 [facility] No Panel InformationOrdered By: Dr. Lance on 10-22-2022 Estimated GFR (MDRD) Amer 158 mL/min >60 [facility] Comment on above: GFR Calc Estimated GFR (MDRD) Non-Af Amer 131 mL/min >60 [facility] Comment on above: Non- GFR Calc Thyroid Stimulating Hormone (TSH) 0.38 uIU/mL 0.358-3.74 [facility] Vitamin D 25-Hydroxy 45.2 ng/mL [facility] Comment on above: Vitamin D 25(OH) Sta tus Range Deficiency <20 ng/mL (50nmol/L) Insufficiency 20 - 30 ng/mL (50 - 75 nmol/L) Sufficiency 30 - 100 ng/mL (75 - 250 nmol/L) Toxicity >100 ng/mL (>250 nmol/L) Platelets bldOrdered By: Dr. Lance on 10-22-2022 Platelets (Bld) [#/Vol] 257 10*3/uL 150-450 [facility] Serum or plasma albumin osvadlo urement (mass/volume)Ordered By: Dr. Lance on 10-22-2022 Albumin [Mass/Vol] 3.3 g/dL 3.2-5.0 [facility] Serum or plasma albumin/glob ulin mass ratioOrdered By: Dr. Lance on 10-22-2022 Albumin/Globulin [Mass ratio] 0.9 {ratio} 0.9-2.4 [facility] Serum or plasma calcium osvaldo urement (mass/volume)Ordered By: Dr. Lance on 10-22-2022 Calcium [Mass/Vol] 8.7 mg/dL 8.5-10.1 [facility] Serum or plasma creatinine m easurement (mass/volume)Ordered By: Dr. Lance on 10-22-2022 Creatinine [Mass/Vol] 0.65 mg/dL 0.70-1.30 [facility] Comment on above: The validity of the calculated GFR & GFRAA in patients over 70 years has not been determined. Clinical correlation is essential. Serum or plasma urea nitroge n measurement (mass/volume)Ordered By: Dr. Lance on 10-22-2022 Urea nitrogen [Mass/Vol] 15 mg/dL 7-18 [facility] Thin prep Papanicolaou smear with manual screeningOrdered By: Dr. Lance on 10-22-2022 Thin prep Papanicolaou smear with manual screening 11 U/L 15-37 [facility] Thin prep Papanicolaou smear with manual screening 4 5-15 [facility] Absolute lymphocyte countOrd ered By: Dr. Cristina on 09-24-2022 Lymphocytes Auto (Unsp spec) [#/Vol] 1.84 10*3/uL 0.83-4.51 [facility] Basophil percentageOrdered B y: Dr. Cristina on 09-24-2022 Basophils/100 WBC (Bld) 0.3 % 0-1 [facility] Bilirubin [Mass/Vol] 0.40 mg/dL 0.20-1.00 [facility] Comment on above: For patients on eltr ombopag therapy, use of Dimension [place] TBIL is not recommended. Chloride [Moles/Vol] 107 mmol/L 98-107 [facility] Eosinophils/100 WBC (Bld) 1.4 % 0-5 [facility] Glucose [Mass/Vol] 97 mg/dL 74-106 [facility] Neutrophils (Bld) [#/Vol] 4.7 10*3/uL 2.0-7.7 [facility] Neutrophils/100 WBC (Bld) 63.8 % 47-70 [facility] Potassium [Moles/Vol] 3.8 mmol/L 3.5-5.1 [facility] Protein [Mass/Vol] 7.1 g/dL 6.4-8.2 [facility] Sodium [Moles/Vol] 142 mmol/L 136-145 [facility] WBC (Bld) [#/Vol] 7.3 10*3/uL 4.4-11.0 [facility] Blood erythrocytes count (nu mber/volume)Ordered By: Dr. Cristina on 09-24-2022 RBC (Bld) [#/Vol] 4.27 10*6/uL 4.6-6.2 [facility] Blood hemoglobin measurement (mass/volume)Ordered By: Dr. Cristina on 09-24-2022 Hemoglobin (Bld) [Mass/Vol] 13.1 g/dL 13.0-16.5 [facility] Blood lymphocytes/100 leukoc ytesOrdered By: Dr. Cristina on 09-24-2022 Lymphocytes/100 WBC (Bld) 25.3 % 19-41 [facility] Blood monocytes/100 leukocyt esOrdered By: Dr. Cristina on 09-24-2022 Monocytes/100 WBC (Bld) 8.8 % 0-10 [facility] Blood platelet mean volumeOr dered By: Dr. Cristina on 09-24-2022 Platelet mean volume (Bld) [Entitic vol] 9.2 fL 6.2-12.0 [facility] Determination of erythrocyte mean corpuscular volume (MCV)Ordered By: Dr. Cristina on 09-24-2022 MCV (RBC) [Entitic vol] 99.5 fL 80-94 [facility] Hematocrit Auto (Bld) [Volum e fraction]Ordered By: Dr. Cristina on 09-24-2022 Hematocrit (Bld) [Volume fraction] 42.5 % 40-54 [facility] Laboratory - Chemistry and C hemistry - challengeOrdered By: Dr. Cristina on 09-24-2022 ALP [Catalytic activity/Vol] 70 U/L 45-117 [facility] ALT [Catalytic activity/Vol] 24 U/L 16-61 [facility] CO2 [Moles/Vol] 29.0 mmol/L 21.0-32.0 [facility] Globulin (S) [Mass/Vol] 3.7 g/dL 2.2-4.2 [facility] Urea nitrogen/Creatinine [Mass ratio] 24.2 mg/mg 10-20 [facility] Laboratory - Hematology and Cell countsOrdered By: Dr. Cristina on 09-24-2022 Erythrocyte distribution width (RBC) [Entitic vol] 52.0 fL 35.1-43.9 [facility] Erythrocyte distribution width (RBC) [Ratio] 14.3 % 11.6-14.6 [facility] Immature granulocytes/100 WBC (Bld) 0.400 % 0.0-0.9 [facility] Comment on above: IG% - Immature Granu locytes (promyelocytes, myelocytes and metamyelocytes) > 1% indicates that a LEFT SHIFT is Present. MCH (RBC) [Entitic mass] 30.7 pg 27.0-32.0 [facility] Nucleated RBC/100 WBC (Bld) [Ratio] 0 % 0-5 [facility] MCHC Auto (RBC) [Mass/Vol]Or dered By: Dr. Cristina on 09-24-2022 MCHC (RBC) [Mass/Vol] 30.8 g/dL 32-36 [facility] No Panel InformationOrdered By: Dr. Cristina on 09-24-2022 Estimated GFR (MDRD) Amer 167 mL/min >60 [facility] Comment on above: GFR Calc Estimated GFR (MDRD) Non-Af Amer 138 mL/min >60 [facility] Comment on above: Non- GFR Calc Platelets bldOrdered By: Dr. Cristina on 09-24-2022 Platelets (Bld) [#/Vol] 284 10*3/uL 150-450 [facility] Serum or plasma albumin osvaldo urement (mass/volume)Ordered By: Dr. Cristina on 09-24-2022 Albumin [Mass/Vol] 3.4 g/dL 3.2-5.0 [facility] Serum or plasma albumin/glob ulin mass ratioOrdered By: Dr. Cristina on 09-24-2022 Albumin/Globulin [Mass ratio] 0.9 {ratio} 0.9-2.4 [facility] Serum or plasma calcium osvaldo urement (mass/volume)Ordered By: Dr. Cristina on 09-24-2022 Calcium [Mass/Vol] 9.2 mg/dL 8.5-10.1 [facility] Serum or plasma creatinine m easurement (mass/volume)Ordered By: Dr. Cristina on 09-24-2022 Creatinine [Mass/Vol] 0.62 mg/dL 0.70-1.30 [facility] Comment on above: The validity of the calculated GFR & GFRAA in patients over 70 years has not been determined. Clinical correlation is essential. Serum or plasma urea nitroge n measurement (mass/volume)Ordered By: Dr. Cristina on 09-24-2022 Urea nitrogen [Mass/Vol] 15 mg/dL 7-18 [facility] Thin prep Papanicolaou smear with manual screeningOrdered By: Dr. Cristina on 09-24-2022 Thin prep Papanicolaou smear with manual screening 13 U/L 15-37 [facility] Thin prep Papanicolaou smear with manual screening 6 5-15 [facility] Absolute lymphocyte countOrd ered By: Dr. Cristina on 07-30-2022 Lymphocytes Auto (Unsp spec) [#/Vol] 1.43 10*3/uL 0.83-4.51 [facility] Basophil percentageOrdered B y: Dr. Cristina on 07-30-2022 Basophils/100 WBC (Bld) 0.4 % 0-1 [facility] Bilirubin [Mass/Vol] 0.50 mg/dL 0.20-1.00 [facility] Comment on above: For patients on eltr ombopag therapy, use of Dimension [place] TBIL is not recommended. Chloride [Moles/Vol] 105 mmol/L 98-107 [facility] Eosinophils/100 WBC (Bld) 1.5 % 0-5 [facility] Glucose [Mass/Vol] 103 mg/dL 74-106 [facility] Comment on above: Fasting Glucose resu lt from 100 to 125 mg/dL suggests IMPAIRED HOMEOSTASIS per A.D.A. criteria. Neutrophils (Bld) [#/Vol] 5.7 10*3/uL 2.0-7.7 [facility] Neutrophils/100 WBC (Bld) 68.7 % 47-70 [facility] Potassium [Moles/Vol] 4.4 mmol/L 3.5-5.1 [facility] Protein [Mass/Vol] 6.7 g/dL 6.4-8.2 [facility] Sodium [Moles/Vol] 140 mmol/L 136-145 [facility] WBC (Bld) [#/Vol] 8.3 10*3/uL 4.4-11.0 [facility] Blood erythrocytes count (nu mber/volume)Ordered By: Dr. Cristina on 07-30-2022 RBC (Bld) [#/Vol] 4.57 10*6/uL 4.6-6.2 [facility] Blood hemoglobin measurement (mass/volume)Ordered By: Dr. Cristina on 07-30-2022 Hemoglobin (Bld) [Mass/Vol] 13.9 g/dL 13.0-16.5 [facility] Blood lymphocytes/100 leukoc ytesOrdered By: Dr. Cristina on 07-30-2022 Lymphocytes/100 WBC (Bld) 17.3 % 19-41 [facility] Blood monocytes/100 leukocyt esOrdered By: Dr. Cristina on 07-30-2022 Monocytes/100 WBC (Bld) 11.6 % 0-10 [facility] Blood platelet mean volumeOr dered By: Dr. Cristina on 07-30-2022 Platelet mean volume (Bld) [Entitic vol] 9.0 fL 6.2-12.0 [facility] Determination of erythrocyte mean corpuscular volume (MCV)Ordered By: Dr. Cristina on 07-30-2022 MCV (RBC) [Entitic vol] 99.3 fL 80-94 [facility] Erythrocyte sedimentation ra teOrdered By: Dr. Cristina on 07-30-2022 ESR (Bld) [Velocity] 37 mm/h 0-20 [facility] Hematocrit Auto (Bld) [Volum e fraction]Ordered By: Dr. Cristina on 07-30-2022 Hematocrit (Bld) [Volume fraction] 45.4 % 40-54 [facility] Laboratory - Chemistry and C hemistry - challengeOrdered By: Dr. Cristina on 07-30-2022 ALP [Catalytic activity/Vol] 88 U/L 45-117 [facility] ALT [Catalytic activity/Vol] 27 U/L 16-61 [facility] CO2 [Moles/Vol] 27.0 mmol/L 21.0-32.0 [facility] Globulin (S) [Mass/Vol] 3.4 g/dL 2.2-4.2 [facility] Urea nitrogen/Creatinine [Mass ratio] 16.6 mg/mg 10-20 [facility] Laboratory - Hematology and Cell countsOrdered By: Dr. Cristina on 07-30-2022 Erythrocyte distribution width (RBC) [Entitic vol] 54.2 fL 35.1-43.9 [facility] Erythrocyte distribution width (RBC) [Ratio] 14.7 % 11.6-14.6 [facility] Immature granulocytes/100 WBC (Bld) 0.500 % 0.0-0.9 [facility] Comment on above: IG% - Immature Granu locytes (promyelocytes, myelocytes and metamyelocytes) > 1% indicates that a LEFT SHIFT is Present. MCH (RBC) [Entitic mass] 30.4 pg 27.0-32.0 [facility] Nucleated RBC/100 WBC (Bld) [Ratio] 0 % 0-5 [facility] MCHC Auto (RBC) [Mass/Vol]Or dered By: Dr. Cristina on 07-30-2022 MCHC (RBC) [Mass/Vol] 30.6 g/dL 32-36 [facility] No Panel InformationOrdered By: Dr. Cristina on 07-30-2022 Anti-Nuclear Antibody Screen Negative Negative [facility] Comment on above: Performed at: [address] [id number] Director: Rei Whitt PhD, Phone: [phone] Estimated GFR (MDRD) Amer 128 mL/min >60 [facility] Comment on above: GFR Calc Estimated GFR (MDRD) Non-Af Amer 106 mL/min >60 [facility] Comment on above: Non- GFR Calc Hepatitis B Surface Antigen Non-Reactive Nonreactive [facility] Hepatitis C Antibody Non-Reactive Nonreactive [facility] Comment on above: Non Reactive: < 0.8 Equivocal: >/= 0.8 to < 1.0 Reactive: >/= 1.0The CDC recommends that a reactive/equivocal HCV antibody result be followed up by the HCV Nucleic Acid Amplificationtest (537091) Platelets bldOrdered By: Dr. Cristina on 07-30-2022 Platelets (Bld) [#/Vol] 344 10*3/uL 150-450 [facility] Serum cyclic citrullinated p eptide IgG antibody assay (units/volume)Ordered By: Dr. Cristina on 07-30-2022 Cyclic citrullinated peptide IgG Qn 24 units 0-19 [facility] Comment on above: Negative <20 Weak po sitive 20 - 39 Moderate positive 40 - 59 Strong positive >59Performed at: [employer] [id number] Director: Rei Whitt PhD, Phone: [phone] Serum hepatitis B virus surf elise antibody IgG detectionOrdered By: Dr. Cristina on 07-30-2022 HBV surface IgG Ql (S) Non-Reactive [facility] Comment on above: Non Reactive: Incons istent with immunity less than <10 mIU/mL Reactive: Consistent with immunity greater than or equal to 10 mIU/mL Serum or plasma C reactive p rotein measurement (mass/volume)Ordered By: Dr. Cristina on 07-30-2022 CRP [Mass/Vol] 39.80 mg/L 0.0-3.0 [facility] Comment on above: C-Reactive Protein ( CRP) provides useful information for thediagnosis, therapy and monitoring of inflammatory processesand associated diseases. For the evaluation of Relative Riskfor Cardiovascular Disease, a High Sensitivity CRP (HSCRP)should be ordered. Serum or plasma albumin osvaldo urement (mass/volume)Ordered By: Dr. Cristina on 07-30-2022 Albumin [Mass/Vol] 3.3 g/dL 3.2-5.0 [facility] Serum or plasma albumin/glob ulin mass ratioOrdered By: Dr. Cristina on 07-30-2022 Albumin/Globulin [Mass ratio] 1.0 {ratio} 0.9-2.4 [facility] Serum or plasma calcium osvaldo urement (mass/volume)Ordered By: Dr. Cristina on 07-30-2022 Calcium [Mass/Vol] 9.1 mg/dL 8.5-10.1 [facility] Serum or plasma creatinine m easurement (mass/volume)Ordered By: Dr. Cristina on 07-30-2022 Creatinine [Mass/Vol] 0.78 mg/dL 0.70-1.30 [facility] Comment on above: The validity of the calculated GFR & GFRAA in patients over 70 years has not been determined. Clinical correlation is essential. Serum or plasma urea nitroge n measurement (mass/volume)Ordered By: Dr. Cristina on 07-30-2022 Urea nitrogen [Mass/Vol] 13 mg/dL 7-18 [facility] Serum rheumatoid factor dete ctionOrdered By: Dr. Cristina on 07-30-2022 Rheumatoid factor Ql (S) < 10.0 IU/mL <15 [facility] Thin prep Papanicolaou smear with manual screeningOrdered By: Dr. Cristina on 07-30-2022 Thin prep Papanicolaou smear with manual screening 9 U/L 15-37 [facility] Thin prep Papanicolaou smear with manual screening 8 5-15 [facility] Absolute lymphocyte countOrd ered By: Dr. Lance on 06-24-2022 Lymphocytes Auto (Unsp spec) [#/Vol] 1.68 10*3/uL 0.83-4.51 [facility] Basophil percentageOrdered B y: Dr. Lance on 06-24-2022 Basophils/100 WBC (Bld) 0.6 % 0-1 [facility] Chloride [Moles/Vol] 104 mmol/L 98-107 [facility] Eosinophils/100 WBC (Bld) 2.4 % 0-5 [facility] Glucose [Mass/Vol] 100 mg/dL 74-106 [facility] Comment on above: Fasting Glucose resu lt from 100 to 125 mg/dL suggests IMPAIRED HOMEOSTASIS per A.D.A. criteria. Neutrophils (Bld) [#/Vol] 5.8 10*3/uL 2.0-7.7 [facility] Neutrophils/100 WBC (Bld) 67.8 % 47-70 [facility] Potassium [Moles/Vol] 4.4 mmol/L 3.5-5.1 [facility] Sodium [Moles/Vol] 138 mmol/L 136-145 [facility] WBC (Bld) [#/Vol] 8.6 10*3/uL 4.4-11.0 [facility] Blood erythrocytes count (nu mber/volume)Ordered By: Dr. Lance on 06-24-2022 RBC (Bld) [#/Vol] 4.06 10*6/uL 4.6-6.2 [facility] Blood hemoglobin measurement (mass/volume)Ordered By: Dr. Lance on 06-24-2022 Hemoglobin (Bld) [Mass/Vol] 12.1 g/dL 13.0-16.5 [facility] Blood lymphocytes/100 leukoc ytesOrdered By: Dr. Lance on 06-24-2022 Lymphocytes/100 WBC (Bld) 19.5 % 19-41 [facility] Blood monocytes/100 leukocyt esOrdered By: Dr. Lance on 06-24-2022 Monocytes/100 WBC (Bld) 9.2 % 0-10 [facility] Blood platelet mean volumeOr dered By: Dr. Lance on 06-24-2022 Platelet mean volume (Bld) [Entitic vol] 8.8 fL 6.2-12.0 [facility] Determination of erythrocyte mean corpuscular volume (MCV)Ordered By: Dr. Lance on 06-24-2022 MCV (RBC) [Entitic vol] 96.3 fL 80-94 [facility] Erythrocyte sedimentation ra teOrdered By: Dr. Lance on 06-24-2022 ESR (Bld) [Velocity] 58 mm/h 0-20 [facility] Hematocrit Auto (Bld) [Volum e fraction]Ordered By: Dr. Lance on 06-24-2022 Hematocrit (Bld) [Volume fraction] 39.1 % 40-54 [facility] Laboratory - Chemistry and C hemistry - challengeOrdered By: Dr. Lance on 06-24-2022 CO2 [Moles/Vol] 31.0 mmol/L 21.0-32.0 [facility] Urea nitrogen/Creatinine [Mass ratio] 18.9 mg/mg 10-20 [facility] Laboratory - Hematology and Cell countsOrdered By: Dr. Lance on 06-24-2022 Erythrocyte distribution width (RBC) [Entitic vol] 45.5 fL 35.1-43.9 [facility] Erythrocyte distribution width (RBC) [Ratio] 12.9 % 11.6-14.6 [facility] Immature granulocytes/100 WBC (Bld) 0.500 % 0.0-0.9 [facility] Comment on above: IG% - Immature Granu locytes (promyelocytes, myelocytes and metamyelocytes) > 1% indicates that a LEFT SHIFT is Present. MCH (RBC) [Entitic mass] 29.8 pg 27.0-32.0 [facility] Nucleated RBC/100 WBC (Bld) [Ratio] 0 % 0-5 [facility] MCHC Auto (RBC) [Mass/Vol]Or dered By: Dr. Lance on 06-24-2022 MCHC (RBC) [Mass/Vol] 30.9 g/dL 32-36 [facility] No Panel InformationOrdered By: Dr. Lance on 06-24-2022 Estimated GFR (MDRD) Amer 180 mL/min >60 [facility] Comment on above: GFR Calc Estimated GFR (MDRD) Non-Af Amer 149 mL/min >60 [facility] Comment on above: Non- GFR Calc Platelets bldOrdered By: Dr. Lance on 06-24-2022 Platelets (Bld) [#/Vol] 355 10*3/uL 150-450 [facility] Serum or plasma C reactive p rotein measurement (mass/volume)Ordered By: Dr. Lance on 06-24-2022 CRP [Mass/Vol] 49.10 mg/L 0.0-3.0 [facility] Comment on above: C-Reactive Protein ( CRP) provides useful information for thediagnosis, therapy and monitoring of inflammatory processesand associated diseases. For the evaluation of Relative Riskfor Cardiovascular Disease, a High Sensitivity CRP (HSCRP)should be ordered. Serum or plasma calcium osvaldo urement (mass/volume)Ordered By: Dr. Lance on 06-24-2022 Calcium [Mass/Vol] 9.2 mg/dL 8.5-10.1 [facility] Serum or plasma creatinine m easurement (mass/volume)Ordered By: Dr. Lance on 06-24-2022 Creatinine [Mass/Vol] 0.58 mg/dL 0.70-1.30 [facility] Comment on above: The validity of the calculated GFR & GFRAA in patients over 70 years has not been determined. Clinical correlation is essential. Serum or plasma urea nitroge n measurement (mass/volume)Ordered By: Dr. Lance on 06-24-2022 Urea nitrogen [Mass/Vol] 11 mg/dL 7-18 [facility] Thin prep Papanicolaou smear with manual screeningOrdered By: Dr. Lance on 06-24-2022 Thin prep Papanicolaou smear with manual screening 3 - [facility] Initial Visit (Orthopaedic S urgery)on 06-10-2022 Initial Visit (Orthopaedic Surgery) Diagnoses/Problems Assessed [...] link to view the study images Normal [facility] Work Phone: SHOULDER, CMPLT MIN 2 VIEWSo n 06-10-2022 SHOULDER, CMPLT MIN 2 VIEWS Patient Name: RAMA FRANCIS STUDY: SHOULDER, CMPLT, MIN 2 VIEWS; 06/10/2022 9:36 am INDICATION: pain M25.511: Shoulder pain, right. COMPARISON: None. ACCESSION NUMBER(S): [id number] ORDERING CLINICIAN: PABLO MITCHELL TECHNIQUE: 3 views [...] Electronically signed by: ASHVIN SOOD MD Normal [facility] Absolute lymphocyte countOrd ered By: Dr. Lance on 04-23-2022 Lymphocytes Auto (Unsp spec) [#/Vol] 1.74 10*3/uL 0.83-4.51 [facility] Basophil percentageOrdered B y: Dr. Lance on 04-23-2022 Basophils/100 WBC (Bld) 0.7 % 0-1 [facility] Bilirubin [Mass/Vol] 0.40 mg/dL 0.20-1.00 [facility] Comment on above: For patients on eltr ombopag therapy, use of Dimension [place] TBIL is not recommended. Chloride [Moles/Vol] 102 mmol/L 98-107 [facility] Eosinophils/100 WBC (Bld) 3.8 % 0-5 [facility] Glucose [Mass/Vol] 106 mg/dL 74-106 [facility] Comment on above: Fasting Glucose resu lt from 100 to 125 mg/dL suggests IMPAIRED HOMEOSTASIS per A.D.A. criteria. Neutrophils (Bld) [#/Vol] 4.5 10*3/uL 2.0-7.7 [facility] Neutrophils/100 WBC (Bld) 61.9 % 47-70 [facility] Potassium [Moles/Vol] 4.1 mmol/L 3.5-5.1 [facility] Protein [Mass/Vol] 7.7 g/dL 6.4-8.2 [facility] Sodium [Moles/Vol] 139 mmol/L 136-145 [facility] WBC (Bld) [#/Vol] 7.3 10*3/uL 4.4-11.0 [facility] Blood erythrocytes count (nu mber/volume)Ordered By: Dr. Lance on 04-23-2022 RBC (Bld) [#/Vol] 4.47 10*6/uL 4.6-6.2 [facility] Blood hemoglobin measurement (mass/volume)Ordered By: Dr. Lance on 04-23-2022 Hemoglobin (Bld) [Mass/Vol] 13.9 g/dL 13.0-16.5 [facility] Blood lymphocytes/100 leukoc ytesOrdered By: Dr. Lance on 04-23-2022 Lymphocytes/100 WBC (Bld) 23.7 % 19-41 [facility] Blood monocytes/100 leukocyt esOrdered By: Dr. Lance on 04-23-2022 Monocytes/100 WBC (Bld) 9.5 % 0-10 [facility] Blood platelet mean volumeOr dered By: Dr. Lance on 04-23-2022 Platelet mean volume (Bld) [Entitic vol] 8.7 fL 6.2-12.0 [facility] Determination of erythrocyte mean corpuscular volume (MCV)Ordered By: Dr. Lance on 04-23-2022 MCV (RBC) [Entitic vol] 97.5 fL 80-94 [facility] Hematocrit Auto (Bld) [Volum e fraction]Ordered By: Dr. Lance on 04-23-2022 Hematocrit (Bld) [Volume fraction] 43.6 % 40-54 [facility] Laboratory - Chemistry and C hemistry - challengeOrdered By: Dr. Lance on 04-23-2022 ALP [Catalytic activity/Vol] 135 U/L 45-117 [facility] ALT [Catalytic activity/Vol] 29 U/L 16-61 [facility] CO2 [Moles/Vol] 30.0 mmol/L 21.0-32.0 [facility] Globulin (S) [Mass/Vol] 4.7 g/dL 2.2-4.2 [facility] Urea nitrogen/Creatinine [Mass ratio] 17.0 mg/mg 10-20 [facility] Laboratory - Hematology and Cell countsOrdered By: Dr. Lance on 04-23-2022 Erythrocyte distribution width (RBC) [Entitic vol] 44.1 fL 35.1-43.9 [facility] Erythrocyte distribution width (RBC) [Ratio] 12.3 % 11.6-14.6 [facility] Immature granulocytes/100 WBC (Bld) 0.400 % 0.0-0.9 [facility] Comment on above: IG% - Immature Granu locytes (promyelocytes, myelocytes and metamyelocytes) > 1% indicates that a LEFT SHIFT is Present. MCH (RBC) [Entitic mass] 31.1 pg 27.0-32.0 [facility] Nucleated RBC/100 WBC (Bld) [Ratio] 0 % 0-5 [facility] MCHC Auto (RBC) [Mass/Vol]Or dered By: Dr. Lance on 04-23-2022 MCHC (RBC) [Mass/Vol] 31.9 g/dL 32-36 [facility] No Panel InformationOrdered By: Dr. Lance on 04-23-2022 Estimated GFR (MDRD) Amer 131 mL/min >60 [facility] Comment on above: GFR Calc Estimated GFR (MDRD) Non-Af Amer 108 mL/min >60 [facility] Comment on above: Non- GFR Calc Prostate Specific Antigen Screen 3.35 ng/mL 0.00-4.00 [facility] Comment on above: This test was perfor med using the TPSA assay method for theTeralynk chemistry system. Values obtained with differentassay methods cannot be used interchangably.When changing PSA assays in the course of monitoring apatient, additional sequential testing should be carriedout to confirm baseline values. Thyroid Stimulating Hormone (TSH) 7.72 uIU/mL 0.358-3.74 [facility] Vitamin D 25-Hydroxy 41.8 ng/mL [facility] Comment on above: Vitamin D 25(OH) Sta tus Range Deficiency <20 ng/mL (50nmol/L) Insufficiency 20 - 30 ng/mL (50 - 75 nmol/L) Sufficiency 30 - 100 ng/mL (75 - 250 nmol/L) Toxicity >100 ng/mL (>250 nmol/L) Platelets bldOrdered By: Dr. Lance on 04-23-2022 Platelets (Bld) [#/Vol] 336 10*3/uL 150-450 [facility] Serum or plasma albumin osvaldo urement (mass/volume)Ordered By: Dr. Lance on 04-23-2022 Albumin [Mass/Vol] 3.0 g/dL 3.2-5.0 [facility] Serum or plasma albumin/glob ulin mass ratioOrdered By: Dr. Lance on 04-23-2022 Albumin/Globulin [Mass ratio] 0.6 {ratio} 0.9-2.4 [facility] Serum or plasma calcium osvaldo urement (mass/volume)Ordered By: Dr. Lance on 04-23-2022 Calcium [Mass/Vol] 8.9 mg/dL 8.5-10.1 [facility] Serum or plasma creatinine m easurement (mass/volume)Ordered By: Dr. Lance on 04-23-2022 Creatinine [Mass/Vol] 0.76 mg/dL 0.70-1.30 [facility] Comment on above: The validity of the calculated GFR & GFRAA in patients over 70 years has not been determined. Clinical correlation is essential. Serum or plasma urea nitroge n measurement (mass/volume)Ordered By: Dr. Lance on 04-23-2022 Urea nitrogen [Mass/Vol] 13 mg/dL 7-18 [facility] Thin prep Papanicolaou smear with manual screeningOrdered By: Dr. Lance on 04-23-2022 Thin prep Papanicolaou smear with manual screening 13 U/L 15-37 [facility] Thin prep Papanicolaou smear with manual screening 7 5-15 [facility] Basophil percentageon 2021 Bilirubin [Mass/Vol] 0.70 mg/dL 0.20-1.00 [facility] Work Phone: Comment on above: For patients on eltr ombopag therapy, use of Dimension [place] TBIL is not recommended. Chloride [Moles/Vol] 111 mmol/L 98-107 [facility] Work Phone: Glucose [Mass/Vol] 106 mg/dL 74-106 [facility] Work Phone: Comment on above: Fasting Glucose resu lt from 100 to 125 mg/dL suggests IMPAIRED HOMEOSTASIS per A.D.A. criteria. Potassium [Moles/Vol] 4.2 mmol/L 3.5-5.1 [facility] Work Phone: Protein [Mass/Vol] 7.1 g/dL 6.4-8.2 [facility] Work Phone: Sodium [Moles/Vol] 142 mmol/L 136-145 [facility] Work Phone: Laboratory - Chemistry and C hemistry - challengeon 01-15-2022 ALP [Catalytic activity/Vol] 68 U/L 45-117 [facility] Work Phone: ALT [Catalytic activity/Vol] 24 U/L 16-61 [facility] Work Phone: CO2 [Moles/Vol] 27.0 mmol/L 21.0-32.0 [facility] Work Phone: Globulin (S) [Mass/Vol] 3.5 g/dL 2.2-4.2 [facility] Work Phone: Urea nitrogen/Creatinine [Mass ratio] 17.0 mg/mg 10-20 [facility] Work Phone: No Panel Informationon 01-15 Estimated GFR (MDRD) Amer 111 mL/min >60 [facility] Work Phone: Comment on above: GFR Calc Estimated GFR (MDRD) Non-Af Amer 92 mL/min >60 [facility] Work Phone: Comment on above: Non- GFR Calc Serum or plasma albumin osvaldo urement (mass/volume)on 01-15-2022 Albumin [Mass/Vol] 3.6 g/dL 3.2-5.0 [facility] Work Phone: Serum or plasma albumin/glob ulin mass ratioon 01-15-2022 Albumin/Globulin [Mass ratio] 1.0 {ratio} 0.9-2.4 [facility] Work Phone: Serum or plasma calcium osvaldo urement (mass/volume)on 01-15-2022 Calcium [Mass/Vol] 8.9 mg/dL 8.5-10.1 [facility] Work Phone: Serum or plasma creatinine m easurement (mass/volume)on 01-15-2022 Creatinine [Mass/Vol] 0.88 mg/dL 0.70-1.30 [facility] Work Phone: Comment on above: The validity of the calculated GFR & GFRAA in patients over 70 years has not been determined. Clinical correlation is essential. Serum or plasma urea nitroge n measurement (mass/volume)on 01-15-2022 Urea nitrogen [Mass/Vol] 15 mg/dL 7-18 [facility] Work Phone: Thin prep Papanicolaou smear with manual screeningon 01-15-2022 Thin prep Papanicolaou smear with manual screening 12 U/L 15-37 [facility] Work Phone: Thin prep Papanicolaou smear with manual screening 4 5-15 [facility] Work Phone: XR HAND GENERAL 3V PA/LAT/OB L LEFTon 12-02-2021 [facility] XR Hand - left PA and Latera [...] Impression: 1. No acute fracture or dislocation. Ham Marker: [facility] Transcribe Date/Time: Dec 02 2021 11:33A Dictated by : ROBERT JEFFERSON MD This examination was interpreted and the report reviewed and electronically signed by: ROBERT JEFFERSON MD on Dec 02 2021 11:35AM EST DECLAN_DO_NOT_U _DIVISION OF RADIOLOGY Provider, [facility] - 12/02/2021 * * *Final Report* * [...] Impression: 1. No acute fracture or dislocation. Ham Marker: [facility] Transcribe Date/Time: Dec 02 2021 11:33A Dictated by : ROBERT JEFFERSON MD This examination was interpreted and the report reviewed and electronically signed by: ROBERT JEFFERSON MD on Dec 02 2021 11:35AM EST [facility] Radiology Study observation (narrative) Tammy grant [facility] XR Hand - left PA and Latera l and ObliqueOrdered By: Cc Provider on 12-02-2021 [facility] Absolute lymphocyte counton 10-14-2021 Lymphocytes Auto (Unsp spec) [#/Vol] 1.06 10*3/uL 0.83-4.51 [facility] Work Phone: Basophil percentageon 2021 Basophils/100 WBC (Bld) 0.7 % 0-1 [facility] Work Phone: Bilirubin [Mass/Vol] 0.70 mg/dL 0.20-1.00 [facility] Work Phone: Comment on above: For patients on eltr ombopag therapy, use of Dimension [place] TBIL is not recommended. Chloride [Moles/Vol] 107 mmol/L 98-107 [facility] Work Phone: Eosinophils/100 WBC (Bld) 4.0 % 0-5 [facility] Work Phone: Glucose [Mass/Vol] 104 mg/dL 74-106 [facility] Work Phone: Comment on above: Fasting Glucose resu lt from 100 to 125 mg/dL suggests IMPAIRED HOMEOSTASIS per A.D.A. criteria. Neutrophils (Bld) [#/Vol] 2.3 10*3/uL 2.0-7.7 [facility] Work Phone: Neutrophils/100 WBC (Bld) 54.4 % 47-70 [facility] Work Phone: Potassium [Moles/Vol] 4.5 mmol/L 3.5-5.1 [facility] Work Phone: Protein [Mass/Vol] 7.2 g/dL 6.4-8.2 [facility] Work Phone: Sodium [Moles/Vol] 138 mmol/L 136-145 [facility] Work Phone: WBC (Bld) [#/Vol] 4.2 10*3/uL 4.4-11.0 [facility] Work Phone: Blood erythrocytes count (nu mber/volume)on 10-14-2021 RBC (Bld) [#/Vol] 4.57 10*6/uL 4.6-6.2 [facility] Work Phone: Blood hemoglobin measurement (mass/volume)on 10-14-2021 Hemoglobin (Bld) [Mass/Vol] 14.4 g/dL 13.0-16.5 [facility] Work Phone: Blood lymphocytes/100 leukoc yteson 10-14-2021 Lymphocytes/100 WBC (Bld) 25.2 % 19-41 [facility] Work Phone: Blood monocytes/100 leukocyt eson 10-14-2021 Monocytes/100 WBC (Bld) 15.7 % 0-10 [facility] Work Phone: Blood platelet mean volumeon 10-14-2021 Platelet mean volume (Bld) [Entitic vol] 9.4 fL 6.2-12.0 [facility] Work Phone: Determination of erythrocyte mean corpuscular volume (MCV)on 10-14-2021 MCV (RBC) [Entitic vol] 96.1 fL 80-94 [facility] Work Phone: Hematocrit Auto (Bld) [Volum e fraction]on 10-14-2021 Hematocrit (Bld) [Volume fraction] 43.9 % 40-54 [facility] Work Phone: Laboratory - Chemistry and C hemistry - challengeon 10-14-2021 ALP [Catalytic activity/Vol] 69 U/L 45-117 [facility] Work Phone: ALT [Catalytic activity/Vol] 33 U/L 16-61 [facility] Work Phone: CO2 [Moles/Vol] 30.0 mmol/L 21.0-32.0 [facility] Work Phone: [phone] Globulin (S) [Mass/Vol] 3.6 g/dL 2.2-4.2 [facility] Work Phone: Urea nitrogen/Creatinine [Mass ratio] 14.8 mg/mg 10-20 [facility] Work Phone: Laboratory - Hematology and Cell countson 10-14-2021 Erythrocyte distribution width (RBC) [Entitic vol] 45.8 fL 35.1-43.9 [facility] Work Phone: Erythrocyte distribution width (RBC) [Ratio] 12.9 % 11.6-14.6 [facility] Work Phone: Immature granulocytes/100 WBC (Bld) 0.000 % 0.0-0.9 [facility] Work Phone: Comment on above: IG% - Immature Granu locytes (promyelocytes, myelocytes and metamyelocytes) > 1% indicates that a LEFT SHIFT is Present. MCH (RBC) [Entitic mass] 31.5 pg 27.0-32.0 [facility] Work Phone: Nucleated RBC/100 WBC (Bld) [Ratio] 0 % 0-5 [facility] Work Phone: MCHC Auto (RBC) [Mass/Vol]on 10-14-2021 MCHC (RBC) [Mass/Vol] 32.8 g/dL 32-36 [facility] Work Phone: No Panel Informationon 10-14 Estimated GFR (MDRD) Amer 123 mL/min >60 [facility] Work Phone: Comment on above: GFR Calc Estimated GFR (MDRD) Non-Af Amer 102 mL/min >60 [facility] Work Phone: Comment on above: Non- GFR Calc Thyroid Stimulating Hormone (TSH) 0.36 uIU/mL 0.358-3.74 [facility] Work Phone: Vitamin D 25-Hydroxy 37.9 ng/mL [facility] Work Phone: Comment on above: Vitamin D 25(OH) Sta tus Range Deficiency <20 ng/mL (50nmol/L) Insufficiency 20 - 30 ng/mL (50 - 75 nmol/L) Sufficiency 30 - 100 ng/mL (75 - 250 nmol/L) Toxicity >100 ng/mL (>250 nmol/L) Platelets bldon 10-14-2021 Platelets (Bld) [#/Vol] 198 10*3/uL 150-450 [facility] Work Phone: Serum or plasma albumin osvaldo urement (mass/volume)on 10-14-2021 Albumin [Mass/Vol] 3.6 g/dL 3.2-5.0 [facility] Work Phone: Serum or plasma albumin/glob ulin mass ratioon 10-14-2021 Albumin/Globulin [Mass ratio] 1.0 {ratio} 0.9-2.4 [facility] Work Phone: Serum or plasma calcium osvaldo urement (mass/volume)on 10-14-2021 Calcium [Mass/Vol] 8.7 mg/dL 8.5-10.1 [facility] Work Phone: Serum or plasma creatinine m easurement (mass/volume)on 10-14-2021 Creatinine [Mass/Vol] 0.81 mg/dL 0.70-1.30 [facility] Work Phone: Comment on above: The validity of the calculated GFR & GFRAA in patients over 70 years has not been determined. Clinical correlation is essential. Serum or plasma urea nitroge n measurement (mass/volume)on 10-14-2021 Urea nitrogen [Mass/Vol] 12 mg/dL 7-18 [facility] Work Phone: Thin prep Papanicolaou smear with manual screeningon 10-14-2021 Thin prep Papanicolaou smear with manual screening 19 U/L 15-37 [facility] Work Phone: Thin prep Papanicolaou smear with manual screening 1 5-15 [facility] Work Phone: Office Visiton 04-15-2017 Documentation of current medications (procedure) Done Invalid Interpretation Code [facility] [employer] Phone: [phone] Fall risk assessment Fall risk assessment Invali d Interpretation Code [facility] [employer] 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 Phone: [phone] Vital Signs Date Time Vital Sign Value Performing Clinician Facility 02-13-2025 13:23-0400 Body temperature 98.8 [degF] Dr. Abhinav Lance MD Work Phone: [facility] 02-13-2025 13:23-0400 Diastolic blood pressure 97 mm[Hg] Dr. Abhinav Lance MD Work Phone: [facility] 02-13-2025 13:23-0400 Heart rate 66 /min Dr. Abhinav Lance MD Work Phone: [facility] 02-13-2025 13:23-0400 Respiratory rate 12 /min Dr. Abhinav Lance MD Work Phone: [facility] 02-13-2025 13:23-0400 SaO2% (BldA) [Mass fraction] 98 % Dr. Abhinav Lance MD Work Phone: [facility] 02-13-2025 13:23-0400 Systolic blood pressure 176 mm[Hg] Dr. Abhinav Lance MD Work Phone: [facility] 02-13-2025 10:18-0400 Body height 195.[address] Abhinav Lance MD Work Phone: [facility] 02-13-2025 10:18-0400 Body mass index (BMI) [Ratio] 22.6 kg/m2 Dr. Abhinav Lance MD Work Phone: [facility] 02-13-2025 10:18-0400 Body weight 86.[address] Abhinav Lance MD Work Phone: [facility] 01-26-2025 17:35-0400 Body mass index (BMI) [Ratio] 23.21 kg/m2 Tan Franklin APRN.FACULTY DEAN Work Phone: [facility] 01-26-2025 17:35-0400 Body temperature 102.9 [degF] Tan Franklin APRN.FACULTY DEAN Work Phone: [facility] 01-26-2025 17:35-0400 Body weight 86.5 kg Tan Franklin APRN.FACULTY DEAN Work Phone: [facility] 01-26-2025 17:35-0400 Diastolic blood pressure 82 mm[Hg] Tan Franklin GERIATRIC NURSING ASSISTANT.FACULTY DEAN Work Phone: [facility] 01-26-2025 17:35-0400 Heart rate 99 /min Tan Franklin APRN.FACULTY DEAN Work Phone: [facility] 01-26-2025 17:35-0400 Respiratory rate 18 /min Tan Franklin APRN.FACULTY DEAN Work Phone: [facility] 01-26-2025 17:35-0400 SaO2% (BldA) [Mass fraction] 98 % Tan Franklin APRN.FACULTY DEAN Work Phone: [facility] 01-26-2025 17:35-0400 Systolic blood pressure 152 mm[Hg] Tan Franklin APRN.FACULTY DEAN Work Phone: [facility] 09-01-2022 14:18-0500 Body height 195.[address] Abhinav Lance Work Phone: [facility] 09-01-2022 14:18-0500 Body mass index (BMI) [Ratio] 23.6 kg/m2 Dr. Abhinav Lance Work Phone: [facility] 09-01-2022 14:18-0500 Body temperature 97.5 [degF] Dr. Abhinav Lance Work Phone: [facility] 09-01-2022 14:18-0500 Body weight 90.[address] Abhinav Lance Work Phone: [facility] 09-01-2022 14:18-0500 Diastolic blood pressure 74 mm[Hg] Dr. Abhinav Lance Work Phone: [facility] 09-01-2022 14:18-0500 Heart rate 74 /min Dr. Abhinav Lance Work Phone: [facility] 09-01-2022 14:18-0500 Respiratory rate 17 /min Dr. Abhinav Lance Work Phone: [facility] 09-01-2022 14:18-0500 SaO2% (BldA) [Mass fraction] 98 % Dr. Abhinav Lance Work Phone: [facility] 09-01-2022 14:18-0500 Systolic blood pressure 130 mm[Hg] Dr. Abhinav Lance Work Phone: [facility] 12-02-2021 10:24-0400 Body temperature 96.8 [degF] Tan Franklin APRN.FACULTY DEAN Work Phone: [facility] 12-02-2021 10:24-0400 Body weight 89.63 kg Tan Franklin APRN.FACULTY DEAN Work Phone: [facility] 12-02-2021 10:24-0400 Diastolic blood pressure 80 mm[Hg] Tan Franklin APRN.FACULTY DEAN Work Phone: [facility] 12-02-2021 10:24-0400 Heart rate 65 /min Tan Franklin APRN.FACULTY DEAN Work Phone: [facility] 12-02-2021 10:24-0400 Respiratory rate 21 /min Tan Franklin APRN.FACULTY DEAN Work Phone: [facility] 12-02-2021 10:24-0400 SaO2% (BldA) [Mass fraction] 100 % Tan Franklin APRN.FACULTY DEAN Work Phone: [facility] 12-02-2021 10:24-0400 Systolic blood pressure 152 mm[Hg] Tan Franklin APRN.FACULTY DEAN Work Phone: [facility] 04-15-2017 13:44-0400 BMI (Body Mass Index) 25.43 kg/m2 [facility] Work Phone: 04-15-2017 13:44-0400 BP Diastolic 70 mm[Hg] [facility] Work Phone: 04-15-2017 13:44-0400 BP Systolic 120 mm[Hg] [facility] Work Phone: 04-15-2017 13:44-0400 Height 195.58 cm Jesusita Muir [facility] Work Phone: 04-15-2017 [phone] Pulse (Heart Rate) 84 /min Jesusita Muir [facility] Work Phone: 04-15-2017 [phone] Respiratory Rate 20 /min Jesusita Muir [facility] Work Phone: 04-15-2017 [phone] Weight 97.3 kg Jesusita Muir [facility] Work Phone: Encounters Encounter Date Encounter Type Care Provider Facility Start: [facility]13[facility] Start: 02-13-2025 End: 02-13-2025 Admission to same day surgery center Dr. Kael Martinez MD -[facility] Start: 02-13-2025 End: 02-13-[address] Abhinav Lance MD Work Phone: [facility] Start: 02-10-2025 Encounter for other preprocedural examination Kael [facility] Start: 01-30-2025 End: 01-30-[address] Abhinav Lance MD Work Phone: -Laboratory [place] Start: 01-30-2025 End: 01-30-[address] Malka Cristina MD -[facility] Work Phone: Start: 01-30-2025 End: 01-30-2025 ambulatory Malka Cristina Facility:[facility] Start: 01-28-2025 End: 01-28-2025 ambulatory Alexus Galloway RN NURSE COMMUNICATION CENTER COORDINATOR Comment on above: Medication Question; Medication Problem Start: 01-26-2025 End: 01-26-2025 Patient encounter procedure Tan Franklin APRN.CNP Work Phone: [facility] Comment on above: Rhinosinusitis (Prim mickey Dx) Start: 01-26-2025 End: 01-26-2025 ambulatory ABHINAV LANCE Facility:[facility] Start: 12-27-2024 End: 12-27-[address] Abhinav Lance MD Work Phone: [facility] Work Phone: Start: 12-27-2024 End: 12-27-[address] Abhinav Lance MD -Laboratory Work Phone: Start: 12-27-2024 End: 12-27-2024 ambulatory Abhinav Lance Facility:[facility] Start: 11-03-2024 End: 11-03-[address] Abhinav Lance MD Work Phone: [facility] Work Phone: Start: 11-03-2024 End: 11-03-[address] Abhinav Lance MD -Laboratory Work Phone: Start: 11-03-2024 End: 11-03-2024 ambulatory Abhinav Lance Facility:[facility] Start: 10-28-2024 End: 10-28-[address] Abhinav Lance MD Work Phone: [facility] Work Phone: Start: 10-28-2024 End: 10-28-[address] Malka Cristina MD -Laboratory, [place] Work Phone: Start: 10-28-2024 End: 10-28-2024 ambulatory Malka Cristina Facility:[facility] Start: 10-15-2024 End: 10-15-[address] Abhinav Lance MD Work Phone: [facility] Work Phone: Start: 10-15-2024 End: 10-15-[address] Kael Martinez MD -[facility] Work Phone: Start: 10-15-2024 End: 10-15-2024 ambulatory Kael Martinez Facility:[facility] Start: 08-09-2024 End: 08-09-[address] Malka Cristina MD -Laboratory, [place] Work Phone: Start: 08-09-2024 End: 08-09-2024 ambulatory Malka Velgemaki Facility:[facility] Start: 05-20-2024 End: 05-20-2024 ambulatory [facility] Facility:[facility] Start: 05-05-2024 End: 05-05-2024 ambulatory [facility] Facility:[facility] Start: 05-04-2024 End: 05-04-2024 ambulatory [facility] Facility:[facility] Start: 03-01-2024 End: 03-01-2024 ambulatory [facility] Facility:[facility] Start: 10-29-2023 End: 10-29-2023 ambulatory [facility] Work Phone: Start: 10-29-2023 End: 10-29-2023 Patient encounter procedure [facility]-Laboratory, Phy Office 3rd [place] Start: 09-29-2023 End: 09-29-2023 ambulatory [facility] Work Phone: Start: 09-29-2023 End: 09-29-2023 Patient encounter procedure [facility]-Laboratory, Specimen Work Phone: Start: 09-22-2023 End: 09-22-2023 ambulatory [facility] Work Phone: Start: 09-22-2023 End: 09-22-2023 Patient encounter procedure [facility], [place] Work Phone: Start: 07-28-2023 End: 07-28-2023 ambulatory [facility] Work Phone: Start: 07-28-2023 End: 07-28-2023 Patient encounter procedure [facility], [place] Work Phone: Start: 07-10-2023 End: 07-10-2023 ambulatory [facility] Work Phone: Start: 07-10-2023 End: 07-10-2023 Patient encounter procedure [facility]-Laboratory, Specimen Work Phone: Start: 06-17-2023 End: 06-17-2023 ambulatory [facility] Work Phone: Start: 06-17-2023 End: 06-17-2023 Patient encounter procedure [facility] Work Phone: Start: 04-29-2023 End: 04-29-2023 Patient encounter procedure [facility] Office 3rd Flr Start: 03-31-2023 End: 03-31-2023 ambulatory [facility] Work Phone: Start: 03-31-2023 End: 03-31-2023 Patient encounter procedure [facility] Work Phone: Start: 01-21-2023 End: 01-21-2023 ambulatory [facility] Work Phone: Start: 01-21-2023 End: 01-21-2023 Patient encounter procedure [facility] Work Phone: Start: 11-21-2022 End: 11-21-[address] Abhinav Lance Work Phone: [facility] Work Phone: Start: 11-21-2022 End: 11-21-[address] Abhinav Lance Work Phone: [facility] Start: 10-22-2022 End: 10-22-[address] Abhinav Lance Work Phone: [facility] Work Phone: Start: 10-22-2022 End: 10-22-[address] Abhinav Lance Work Phone: [facility] Office 3rd Flr Start: 09-24-2022 End: 09-24-[address] Abhinav Lance Work Phone: [facility] Work Phone: Start: 09-24-2022 End: 09-24-[address] Abhinav Lance Work Phone: [facility] Start: 09-01-2022 End: 09-01-[address] Abhinav Lance Work Phone: [facility] Start: 07-30-2022 End: 07-30-2022 ambulatory [facility] Work Phone: Start: 07-30-2022 End: 07-30-2022 Patient encounter procedure [facility] Start: 06-24-2022 End: 06-24-2022 ambulatory [facility] Work Phone: Start: 06-24-2022 End: 06-24-2022 [facility] Start: 06-10-2022 Office outpatient ne w 45 minutes No PCP None [facility] Work Phone: Start: 06-10-2022 ambulatory Referral [facility] Facility: [id number] Start: 05-19-2022 End: 05-19-2022 ambulatory [facility] Work Phone: Start: 05-19-2022 End: 05-19-2022 Discharged Recurring [facility]-Physical Therapy Start: 04-23-2022 End: 04-23-2022 ambulatory [facility] Work Phone: Start: 04-23-2022 End: 04-23-2022 [facility] Start: 04-22-2022 End: 04-22-2022 ambulatory [facility] Work Phone: Start: 04-22-2022 End: 04-22-2022 Patient encounter procedure [facility]-Radiology, [facility] Start: 01-15-2022 End: 01-15-2022 Patient encounter procedure [facility]-Laboratory, Phy Office 3rd Flr Start: 12-02-2021 End: 12-02-2021 Subsequent hospital visit by physician [facility] Work Phone: Radiology Comment on above: Injury of left hand, initial encounter [S69.92XA] Start: 12-02-2021 End: 12-02-2021 Patient encounter procedure Tan Franklin APRN.FACULTY DEAN Work Phone: [facility] Comment on above: Injury of left hand, initial encounter (Primary Dx); Impacted cerumen of right ear Start: 10-14-2021 End: 10-14-2021 Patient encounter procedure [facility]-Laboratory, Phy Office 3rd Flr Procedures Date Procedure Procedure Detail Performing Clinician Start: 02-13-2025 Functional Endoscopo ic Sinus Surgery (Not Applicable) Dr. Abhinav Lance MD Work Phone: Start: 11-03-2024 Vitamin D, 25-hydrox y measurement Dr. Abhinav Lance MD Work Phone: Comment on above: Vitamin D StatusDefi ciency: <20 ng/mL (50nmol/L)Insufficiency: 20-30 ng/mL (50-75 nmol/L)Sufficiency: 30-100 ng/mL (75-250 nmol/L)Toxicity: >100 ng/mL (>250 nmol/L) Start: 10-15-[address] Abhinav rogel MD Work Phone: Start: 07-30-2022 Pelvis X-ray Start: 04-22-2022 X-ray of cervical spine Start: 04-22-2022 X-ray of lumbar spin e, two or three views Start: 12-02-2021 Radex hand minimum 3 views Tan Franklin APRN.FACULTY DEAN Work Phone: Start: 10-26-2018 Colonoscopy aTn Franklin APRN.FACULTY DEAN Work Phone: Start: 02-22-2016 Adult depression screening assessment Tan Franklin APRN.FACULTY DEAN Work Phone: Start: 02-11-2016 Lipid 1996 panel - Serum or Plasma Xr [place] Work Phone: H/O: surgery S/P nasal polypectomy History of repair of inguinal hernia Hx of bilateral inguinal hernia repair Comment on above: 11/10/2018 Plan of Treatment Date Care Activity Detail Author Start: 07-08-2033 Urine microalbumin profile DTaP,Tdap,Td Vaccine (4 - Td or Tdap) [facility] Start: 2031 RSV Vaccine (1 - 1-dose 75+ series) RSV Vaccine (1 - 1-dose 75+ series) [facility] Start: 10-26-2028 Colonoscopy COLONOSCOPY [facility] Start: 10-26-2028 COLORECTAL CANCER SCREENING COLORECTAL CANCER SCREENING [facility] Start: 10-26-2028 Screening for malignant neoplasm of colon [facility] Start: 03-27-2025 Influenza vaccination Influenza Vaccine (#1) [facility] Start: 02-13-2025 Patient discharge [facility] Start: 02-13-2025 Ambulation without limitation [facility] Start: 02-13-2025 Elevation of head of bed [facility] Start: 02-13-2025 Medical regimen orders management [facility] Start: 02-13-2025 Medication education [facility] Start: 02-13-2025 Procedure discontinued [facility] Start: 02-13-2025 Taking patient vital signs [facility] Start: 02-13-2025 Vital signs measurements [facility] Start: 09-23-2024 Covid-19 Vaccine (7 - Mixed Product risk ) Covid-19 Vaccine (7 - Mixed Product risk ) [facility] Start: 07-27-2024 Advance Directive Discussion Advance Directive Discussion [facility] Start: 03-27-2024 Covid-19 Vaccine ( season) Covid-19 Vaccine () [facility] Start: 03-27-2024 Influenza vaccination Influenza Vaccine (#1) [facility] Start: 07-27-2023 Advance Directive Discussion Advance Directive Discussion [facility] Start: 04-28-2023 Urine microalbumin profile [facility] Start: 10-14-2022 Pneumococcal Vaccine: 65+ (2 of 2 - PCV) Pneumococcal Vaccine: 65+ (2 of 2 - PCV) [facility] Start: 10-05-2021 COVID-19 VACCINE (4 - Booster for Moderna series) COVID-19 VACCINE (4 - Booster for Moderna series) [facility] Start: 2021 ADVANCE DIRECTIVE DISCUSSION ADVANCE DIRECTIVE DISCUSSION [facility] Start: 2021 PNEUMOVAX AGE 65 AND OVER WITH 5YR LOOKBACK (#1) PNEUMOVAX AGE 65 AND OVER WITH 5YR LOOKBACK (#1) [facility] Start: 07-27-2021 Medicare Annual Wellness Visit Medicare Annual Wellness Visit [facility] Start: 02-10-2021 Lipid panel Lipid Screening [facility] Start: 02-10-2021 LIPID SCREEN LIPID SCREEN [facility] Start: 10-20-2019 PROSTATE CANCER SCREENING DISCUSSION PROSTATE CANCER SCREENING DISCUSSION [facility] Start: 10-20-2019 Prostate specific antigen measurement Prostate Cancer Screening Discussion [facility] Start: 02-10-2019 DIABETES SCREEN DIABETES SCREEN [facility] Start: 02-10-2019 Diabetes Screening Diabetes Screening [facility] Start: 08-13-2017 End: 08-13-2017 Appointment Appointment [facility] Work Phone: Start: 04-15-2017 End: 04-15-2017 24 hour holter monitor 24 hour holter monitor [facility] Work Phone: Start: 04-15-2017 End: 04-15-2017 PROCESS SUPERVISOR PROCESS SUPERVISOR [facility] Work Phone: Start: 04-15-2017 End: 04-15-2017 Echocardiography Echocardiogram (complete) [facility] Work Phone: Start: 04-15-2017 End: 04-15-2017 Follow Up Appt 4 months Follow Up Appt 4 months [facility] Work Phone: Start: 04-15-2017 End: 04-15-2017 Appointment Appointment [facility] Work Phone: Start: 04-15-2017 End: 04-15-2017 24 hour holter monitor 24 hour holter monitor [facility] Work Phone: Start: 04-15-2017 End: 04-15-2017 PROCESS SUPERVISOR PROCESS SUPERVISOR [facility] Work Phone: Start: 04-15-2017 End: 04-15-2017 Echocardiography Echocardiogram (complete) [facility] Work Phone: Start: 04-15-2017 End: 04-15-2017 Follow Up Appt 4 months Follow Up Appt 4 months [facility] Work Phone: Start: 02-21-2017 Adult depression screening assessment DEPRESSION SCREENING [facility] Start: 2006 SHINGRIX VACCINE (1 of 2) SHINGRIX VACCINE (1 of 2) [facility] Start: 2001 COLOGUARD (FIT-DNA) COLOGUARD (FIT-DNA) [facility] Start: [address] COLONOGRAPHY [facility] Start: 2001 FECAL OCCULT BLOOD FECAL OCCULT BLOOD [facility] Start: 2001 Screening for malignant neoplasm of colon [facility] Start: 2001 SIGMOIDOSCOPY SIGMOIDOSCOPY [facility] Start: 1974 ANNUAL PCP TEAM CHRONIC DISEASE VISIT ANNUAL PCP TEAM CHRONIC DISEASE VISIT [facility] Start: 1974 Anxiety Screening Anxiety Screening [facility] Start: 1974 Depression Screening Depression Screening [facility] Start: 1974 HEPATITIS C SCREENING HEPATITIS C SCREENING [facility] Start: 1974 Hepatitis C screening Hepatitis C Screening [facility] Start: 1974 HIV SCREENING HIV SCREENING [facility] Immunizations Immunization Date Immunization Notes Care Provider Fa [facility] 05-04-2024 influenza, seasonal, injectable Tan Franklin APRN.FACULTY DEAN Work Phone: [facility] 05-04-2024 influenza virus vacc ine, unspecified formulation Tan Franklin APRN.FACULTY DEAN Work Phone: [facility] 07-08-2023 respiratory syncytia l virus (RSV) vaccine, adjuvanted (AREXVY) Tan Franklin APRN.FACULTY DEAN Work Phone: [facility] 07-08-2023 tetanus toxoid, redu amy diphtheria toxoid, and acellular pertussis vaccine, adsorbed Tan Franklin APRN.FACULTY DEAN Work Phone: [facility] 04-29-2023 influenza, injectabl e, quadrivalent, contains preservative Tan Franklin APRN.CNP Work Phone: [facility] 06-07-2022 Prevnar 20 0.5 ML Intramuscular Suspension Prefilled Syringe No PCP None NL-Ajytwryvbteb-Nm [facility] Work Phone: 12-31-2021 Comirnaty 30 MCG/0.3 ML Intramuscular Suspension No PCP None [facility] Work Phone: 10-14-2021 pneumococcal polysaccharide vaccine, 23 valent No PCP None JD-Hsbkhwhnvpkk-Aa [facility] Work Phone: 06-07-2021 Pf[employer] COVI D-19 Vacc 30 MCG/0.3ML Intramuscular Suspension No PCP None [facility] Work Phone: 04-22-2021 influenza, injectabl e, quadrivalent, contains preservative No PCP None WE-Lkgieoeciiwv-Mo [facility] Work Phone: 04-22-2021 influenza virus vacc ine, unspecified formulation Xr [place] Work Phone: [facility] 11-01-2020 Moderna COVID-19 Vac cine 100 MCG/0.5ML Intramuscular Suspension No PCP None [facility] Work Phone: 10-04-2020 Moderna COVID-19 Vac cine 100 MCG/0.5ML Intramuscular Suspension No PCP None [facility] Work Phone: 08-17-2020 zoster vaccine recombinant No PCP None ZH-Ramhsrvzsbzq-Jr [facility] Work Phone: 05-03-2020 zoster vaccine recombinant No PCP None DA-Hbkydbfvxcxa-Dl [facility] Work Phone: 04-18-2020 influenza, injectabl e, quadrivalent, contains preservative No PCP None RQ-Hyrasriynyuq-Vd [facility] Work Phone: 04-11-2019 influenza, injectabl e, quadrivalent, contains preservative No PCP None LQ-Ernxemedgkhq-Pb [facility] Work Phone: 04-06-2017 influenza, injectabl e, quadrivalent, contains preservative No PCP None AW-Bzdguakvnzsr-Db [facility] Work Phone: 04-30-2015 influenza, injectabl e, quadrivalent, contains preservative Tan Wilner GERIATRIC NURSING ASSISTANT.[facility] Work Phone: [facility] 04-28-2014 influenza, seasonal, injectable Tan Wilner GERIATRIC NURSING ASSISTANT.FACULTY DEAN Work Phone: [facility] 04-28-2013 influenza virus vacc ine, unspecified formulation Tan Wilner GERIATRIC NURSING ASSISTANT.[facility] Work Phone: [facility] 04-28-2013 tetanus toxoid, redu amy diphtheria toxoid, and acellular pertussis vaccine, adsorbed Tan Wilner GERIATRIC NURSING ASSISTANT.FACULTY DEAN Work Phone: [facility] 04-27-2012 influenza virus vacc ine, unspecified formulation Tan Wilner GERIATRIC NURSING ASSISTANT.[facility] Work Phone: [facility] 04-23-2011 influenza virus vacc ine, unspecified formulation Tan Wilner GERIATRIC NURSING ASSISTANT.[facility] Work Phone: [facility] 04-23-2010 influenza virus vacc ine, unspecified formulation Tan Wilner GERIATRIC NURSING ASSISTANT.[facility] Work Phone: [facility] 04-25-2009 influenza virus vacc ine, unspecified formulation Tan Wilner GERIATRIC NURSING ASSISTANT.[facility] Work Phone: [facility] Work Phone: 07-02-2007 influenza virus vacc ine, unspecified formulation Tan Wilner GERIATRIC NURSING ASSISTANT.[facility] Work Phone: [facility] Work Phone: 07-02-2007 tetanus toxoid, redu amy diphtheria toxoid, and acellular pertussis vaccine, adsorbed Tan Wilner GERIATRIC NURSING ASSISTANT.[facility] Work Phone: [facility] Payers Date Payer Category Payer Self-pay [id number] 2021 [facility]PP[facility] [id number] 2021 Medicare MEDICARE MEDICAR E A AND B [id number] 2021-Present [phone] [place] [address] Medicare [id number] 2021 Medicare [id number] 2021 Unknown ANTHEM ANTHEM ME DICARE SUPPLEMENT [id number] 2021-Present [phone] [address] [place] [address] Indemnity [id number] 2021 Unknown 2021 Medicare [id number] 2016 Unknown SELF PAY INSURANCE [id number] 2016 Unknown [id number] 1955 Unknown [id number] .356 1955 Unknown [id number] .356 Unknown [id number] [id number] .462 Unknown [id number] .462 Unknown [id number] .462 Unknown [id number] .462 Unknown [id number] .462 Unknown [id number] .462 Unknown [id number] .462 Unknown [id number] [id number] .462 Unknown [id number] .462 Unknown [id number] .462 Unknown [id number] .462 Social History Date Type Detail Facility Start: 01-30-2021 End: 09-01-2022 Tobacco smoking status [facility] Unknown if ever smoked [facility] Start: 10-25-2018 Non-smoker [facility] Start: 1955 Sex Assigned At Male [facility] Start: 02-02-2024 End: 02-06-2025 Tobacco smoking status MIIS Never smoked tobacco [facility] Start: 12-02-2021 End: 01-26-2025 Alcohol intake Current drinker of alcohol (finding) [facility] Start: 12-28-2007 History SDOH Alcohol Comment beer on weekends [facility] Start: 1955 Sex Assigned At Not on file [facility] Start: 11-22-2021 End: 12-02-2021 Exposure to SARS-CoV-2 (event) Not sure [facility] Work Phone: Start: 01-30-2021 End: 12-02-2021 Non-smoker Non-smoker [facility] Work Phone: Start: 01-30-2021 End: 12-02-2021 Tobacco use panel [facility] National Score (1-100), lower number is lower risk Not on file [facility] Start: 10-21-2024 End: 11-09-2024 Sex Male (finding) [facility] Medical Equipment Procedure Code Equipment Code Equipment Origin al Text Equipment Identifier Dates ALYCEDESIREEANDRES KEITA FDA Start: 11-10-2018 ALYCEDESIREEANDRES KEITA FDA Start: 11-10-2018 ALYCEDESIREEANDRES Beverly KEITA FDA Start: 11-10-2018 ALYCEDESIREEANDRES KEITA FDA Start: 11-10-2018 ALYCEDESIREEANDRES KEITA FDA Start: 11-10-2018 MESH,LIGHT 3D LE FT LG FDA Start: 11-10-2018 MESH,LIGHT 3D RI GHT LG FDA Start: 11-10-2018 TACKER,SECURE STRAP FDA Start : 11-10-2018 ALYCEDESIREEANDRES KEITA FDA Start: 11-10-2018 ALYCEDESIREEANDRES KEITA FDA Start: 11-10-2018 ALYCEBELLEJORDAN Beverly KEITA FDA Start: 11-10-2018 ALYCEDESIREEANDRES Beverly KEITA FDA Start: 11-10-2018 ALYCEDESIREEANDRES KEITA FDA Start: 11-10-2018 MESH,LIGHT 3D LE FT LG FDA Start: 11-10-2018 MESH,LIGHT 3D RI GHT LG FDA Start: 11-10-2018 TACKER,SECURE STRAP FDA Start : 11-10-2018 ALYCEDESIREEANDRES KEITA FDA Start: 11-10-2018 ALYCEDESIREEANDRES KEITA FDA Start: 11-10-2018 ALYCEINEZ NICOLE Beverly KEITA FDA Start: 11-10-2018 ALYCEDESIREEANDRES KEITA FDA Start: 11-10-2018 ALYCEDESIREEANDRES KEITA FDA Start: 11-10-2018 MESH,LIGHT 3D LE FT LG FDA Start: 11-10-2018 MESH,LIGHT 3D RI GHT LG FDA Start: 11-10-2018 TACKER,SECURE STRAP FDA Start : 11-10-2018 ALYCEDESIREEANDRES KEITA FDA Start: 11-10-2018 INEZ MEAD FDA Start: 11-10-2018 INEZ MEAD FDA Start: 11-10-2018 INEZ MEAD FDA Start: 11-10-2018 INEZ MEAD FDA Start: 11-10-2018 MESH,LIGHT 3D LE FT LG FDA Start: 11-10-2018 MESH,LIGHT 3D RI GHT LG FDA Start: 11-10-2018 TACKER,SECURE STRAP FDA Start : 11-10-2018 INEZ MEAD FDA Start: 11-10-2018 INEZ MEAD FDA Start: 11-10-2018 INEZ MEAD FDA Start: 11-10-2018 INEZ MEAD FDA Start: 11-10-2018 INEZ MEAD FDA Start: 11-10-2018 MESH,LIGHT 3D LE FT LG FDA Start: 11-10-2018 MESH,LIGHT 3D RI GHT LG FDA Start: 11-10-2018 TACKER,SECURE STRAP FDA Start : 11-10-2018 INEZ MEAD FDA Start: 11-10-2018 INEZ MEAD FDA Start: 11-10-2018 INEZ MEAD FDA Start: 11-10-2018 INEZ MEAD FDA Start: 11-10-2018 INEZ MEAD FDA Start: 11-10-2018 MESH,LIGHT 3D LE FT LG FDA Start: 11-10-2018 MESH,LIGHT 3D RI GHT LG FDA Start: 11-10-2018 TACKER,SECURE STRAP FDA Start : 11-10-2018 INEZ MEAD FDA Start: 11-10-2018 INEZ MEAD FDA Start: 11-10-2018 INEZ MEAD FDA Start: 11-10-2018 INEZ MEAD FDA Start: 11-10-2018 INEZ MEAD FDA Start: 11-10-2018 MESH,LIGHT 3D LE FT LG FDA Start: 11-10-2018 MESH,LIGHT 3D RI GHT LG FDA Start: 11-10-2018 TACKER,SECURE STRAP FDA Start : 11-10-2018 INEZ MEAD FDA Start: 11-10-2018 CLIPINEZ FDA Start: 11-10-2018 CLIPINEZ FDA Start: 11-10-2018 CLIPINEZ FDA Start: 11-10-2018 INEZ MEAD FDA Start: 11-10-2018 MESH,LIGHT 3D LE FT LG FDA Start: 11-10-2018 MESH,LIGHT 3D RI GHT LG FDA Start: 11-10-2018 TACKER,SECURE STRAP FDA Start : 11-10-2018 CLIPINEZ FDA Start: 11-10-2018 CLIPINEZ FDA Start: 11-10-2018 INEZ MEAD FDA Start: 11-10-2018 INEZ MEAD FDA Start: 11-10-2018 INEZ MEAD FDA Start: 11-10-2018 MESH,LIGHT 3D LE FT LG FDA Start: 11-10-2018 MESH,LIGHT 3D RI GHT LG FDA Start: 11-10-2018 TACKER,SECURE STRAP FDA Start : 11-10-2018 INEZ MEAD FDA Start: 11-10-2018 INEZ MEAD FDA Start: 11-10-2018 INEZ MEAD FDA Start: 11-10-2018 INEZ MEAD FDA Start: 11-10-2018 INEZ MEAD FDA Start: 11-10-2018 MESH,LIGHT 3D LE FT LG FDA Start: 11-10-2018 MESH,LIGHT 3D RI GHT LG FDA Start: 11-10-2018 TACKER,SECURE STRAP FDA Start : 11-10-2018 INEZ MEAD FDA Start: 11-10-2018 INEZ MEAD FDA Start: 11-10-2018 INEZ MEAD FDA Start: 11-10-2018 INEZ MEAD FDA Start: 11-10-2018 INEZ MEAD FDA Start: 11-10-2018 MESH,LIGHT 3D LE FT LG FDA Start: 11-10-2018 MESH,LIGHT 3D RI GHT LG FDA Start: 11-10-2018 TACKER,SECURE STRAP FDA Start : 11-10-2018 CLIPINEZ FDA Start: 11-10-2018 CLIPINEZ FDA Start: 11-10-2018 CLIPINEZ FDA Start: 11-10-2018 CLIPINEZ FDA Start: 11-10-2018 CLIPINEZ FDA Start: 11-10-2018 MESH,LIGHT 3D LE FT LG FDA Start: 11-10-2018 MESH,LIGHT 3D RI GHT LG FDA Start: 11-10-2018 TACKER,SECURE STRAP FDA Start : 11-10-2018 CLIP,INEZ NICOLE Beverly NEELA FDA Start: 11-10-2018 CLIPINEZ FDA Start: 11-10-2018 CLIPINEZ FDA Start: 11-10-2018 CLIPINEZ FDA Start: 11-10-2018 CLIPINEZ FDA Start: 11-10-2018 MESH,LIGHT 3D LE FT LG FDA Start: 11-10-2018 MESH,LIGHT 3D RI GHT LG FDA Start: 11-10-2018 TACKER,SECURE STRAP FDA Start : 11-10-2018 CLIPINEZ FDA Start: 11-10-2018 CLIPINEZ FDA Start: 11-10-2018 CLIPINEZ FDA Start: 11-10-2018 CLIPINEZ FDA Start: 11-10-2018 CLIPINEZ FDA Start: 11-10-2018 MESH,LIGHT 3D LE FT LG FDA Start: 11-10-2018 MESH,LIGHT 3D RI GHT LG FDA Start: 11-10-2018 TACKER,SECURE STRAP FDA Start : 11-10-2018 CLIPINEZ Beverly NEELA FDA Start: 11-10-2018 CLIPINEZ FDA Start: 11-10-2018 CLIPINEZ FDA Start: 11-10-2018 CLIPINEZ FDA Start: 11-10-2018 CLIPINEZ FDA Start: 11-10-2018 MESH,LIGHT 3D LE FT LG FDA Start: 11-10-2018 MESH,LIGHT 3D RI GHT LG FDA Start: 11-10-2018 TACKER,SECURE STRAP FDA Start : 11-10-2018 CLIPINEZ Beverly AVILESJORDAN FDA Start: 11-10-2018 CLIPINEZ FDA Start: 11-10-2018 CLIPINEZ FDA Start: 11-10-2018 CLIPINEZ FDA Start: 11-10-2018 CLIPINEZ FDA Start: 11-10-2018 MESH,LIGHT 3D LE FT LG FDA Start: 11-10-2018 MESH,LIGHT 3D RI GHT LG FDA Start: 11-10-2018 TACKER,SECURE STRAP FDA Start : 11-10-2018 CLIPINEZ Beverly AVILESJORDAN FDA Start: 11-10-2018 CLIPINEZ FDA Start: 11-10-2018 CLIPINEZ FDA Start: 11-10-2018 CLIPINEZ NICOLE Beverly NEELA FDA Start: 11-10-2018 CLIPINEZ FDA Start: 11-10-2018 MESH,LIGHT 3D LE FT LG FDA Start: 11-10-2018 MESH,LIGHT 3D RI GHT LG FDA Start: 11-10-2018 TACKER,SECURE STRAP FDA Start : 11-10-2018 CLIPINEZ NICOLE Beverly NEELA FDA Start: 11-10-2018 CLIPINEZ FDA Start: 11-10-2018 CLIPINEZ Grant TRACIJORDAN FDA Start: 11-10-2018 CLIPINEZ KEITA FDA Start: 11-10-2018 CLIPINEZ KEITA FDA Start: 11-10-2018 MESH,LIGHT 3D LE FT LG FDA Start: 11-10-2018 MESH,LIGHT 3D RI GHT LG FDA Start: 11-10-2018 TACKER,SECURE STRAP FDA Start : 11-10-2018 ALYCEINEZ NICOLE Beverly KEITA FDA Start: 11-10-2018 CLIPINEZ FDA Start: 11-10-2018 CLIPINEZ NICOLE Beverly AVILESJORDAN FDA Start: 11-10-2018 CLIPINEZ NICOLE Beverly KEITA FDA Start: 11-10-2018 CLIPINEZ FDA Start: 11-10-2018 MESH,LIGHT 3D LE FT LG FDA Start: 11-10-2018 MESH,LIGHT 3D RI GHT LG FDA Start: 11-10-2018 TACKER,SECURE STRAP FDA Start : 11-10-2018 INEZ MEAD FDA Start: 11-10-2018 CLIPINEZ FDA Start: 11-10-2018 CLIPINEZ FDA Start: 11-10-2018 CLIPINEZ FDA Start: 11-10-2018 CLIPINEZ FDA Start: 11-10-2018 MESH,LIGHT 3D LE FT LG FDA Start: 11-10-2018 MESH,LIGHT 3D RI GHT LG FDA Start: 11-10-2018 TACKER,SECURE STRAP FDA Start : 11-10-2018 ALYCEINEZ FDA Start: 11-10-2018 CLIPINEZ FDA Start: 11-10-2018 ALYCEINEZ FDA Start: 11-10-2018 CLIPINEZ FDA Start: 11-10-2018 CLIPINEZ FDA Start: 11-10-2018 MESH,LIGHT 3D LE FT LG FDA Start: 11-10-2018 MESH,LIGHT 3D RI GHT LG FDA Start: 11-10-2018 TACKER,SECURE STRAP FDA Start : 11-10-2018 INEZ MEAD FDA Start: 11-10-2018 CLIPINEZ FDA Start: 11-10-2018 CLIPINEZ KEITA FDA Start: 11-10-2018 CLIPINEZ FDA Start: 11-10-2018 CLIPINEZ FDA Start: 11-10-2018 MESH,LIGHT 3D LE FT LG FDA Start: 11-10-2018 MESH,LIGHT 3D RI GHT LG FDA Start: 11-10-2018 TACKER,SECURE STRAP FDA Start : 11-10-2018 ALYCEINEZ FDA Start: 11-10-2018 ALYCEINEZ KEITA FDA Start: 11-10-2018 ALYCEINEZ KEITA FDA Start: 11-10-2018 INEZ MEAD FDA Start: 11-10-2018 INEZ MEAD FDA Start: 11-10-2018 MESH,LIGHT 3D LE FT LG FDA Start: 11-10-2018 MESH,LIGHT 3D RI GHT LG FDA Start: 11-10-2018 TACKER,SECURE STRAP FDA Start : 11-10-2018 INEZ MEAD FDA Start: 11-10-2018 INEZ MEAD FDA Start: 11-10-2018 CLIPINEZ FDA Start: 11-10-2018 CLIPINEZ FDA Start: 11-10-2018 CLIPINEZ FDA Start: 11-10-2018 MESH,LIGHT 3D LE FT LG FDA Start: 11-10-2018 MESH,LIGHT 3D RI GHT LG FDA Start: 11-10-2018 TACKER,SECURE STRAP FDA Start : 11-10-2018 Goals Date Patient Goal Desired Activity /State Functional Status Date Assessment Result Facility 10-27-2014 Are you deaf, or do you have serious difficulty hearing No 10/27/2014 8:58 AM Juan José Bell LPN No [facility] 10-27-2014 Are you blind, or do you have serious difficulty seeing, even when wearing glasses No 10/27/2014 8:58 AM Juan José Bell LPN No [facility] 10-27-2014 Do you have serious difficulty walking or climbing stairs No 10/27/2014 8:58 AM Juan José Bell LPN No [facility] 10-27-2014 Do you have difficul ty dressing or bathing No 10/27/2014 8:58 AM Juan José Bell LPN No [facility] 10-27-2014 Because of a physica l, mental, or emotional condition, do you have difficulty doing errands alone such as visiting a physician's office or shopping No 10/27/2014 8:58 AM Juan José Bell LPN No [facility] Mental Status Date Assessment Result Facility 02-13-2025 Cognitive function Voice/Name [facility] Work Phone: 10-27-2014 Because of a physica l, mental, or emotional condition, do you have serious difficulty concentrating, remembering, or making decisions No 10/27/2014 8:58 AM EDT Juan José Frederick LPN No [facility] Clinical Notes 04-24-2011 to 02-13-2025 Note Date & Type Note Facility 02-13-2025 Consult note [facility] 02-13-2025 Consult note [facility] 02-13-2025 Consult note Note Date/Time February 13, 2025 10:46am [facility] Medical Records Department [address] [place] [address] Pre-Anesthesia Evaluation 02/13/25 1040 MR#: [id number] Acct: [id number] Name: RAMA FRANCIS Rep #:[id number] : 1955 69 From: Romero Floyd MD PCP: Dr. Abhinav Lance MD Status:REG S DC Y Race: C Location: [place] [address] ASA Classification* ASA Classification ASA Classification: 2 Assessment & Plan Anesthesia* Anesthesia Assessment Anesthesia Assessment: Discussed sedation and/or anesthesia options, risks, benefits, and alternatives with patient/parents/legal guardian/POA. Questions invited. The patient/parents/legal guardian/POA seems to understand and agrees to proceedwith anesthesia plan. Reviewed the physical assessment, medical history, allergy history and patient home medications list prior to surgery/procedure/anesthetic and documented any changes. Performed airway and anesthesia risk assessments. Anesthesia Type Anesthesia Type: General History Source History Obtained from:: Patient and Chart Anesthesia Focused Assessment* Temperature: 98 F Pulse Rate: 72 Blood Pressure: 160/91 Respiratory Rate: 16 Pulse Ox: 100 Oxygen Delivery Method: Room Air Airway Assessment Mouth opens: >3 cm Mallampati Score: IV Teeth Condition: Caps/Crowns (Patient has a crown on the left upper molar. It is tight.) Neck Range of motion (ROM): Full ROM Labs Anesthesia Preop lab: CBC WBC 8.0 K/mm3 (4.4-11.0) 01/30/25 09:46 01/30/25 RBC 4.10 M/mm3 (4.6-6.2) L 01/30/25 09:46 01/30/25 Hgb 13.2 g/dL (13.0-16.5) 01/30/25 09:46 01/30/25 Hct 40.6 % (40-54) 01/30/25 09:46 01/30/25 Plt Count 171 K/mm3 (150-450) 01/30/25 09:46 01/30/25 CHEMISTRY Potassium 4.6 mmol/L (3.3-5.1) 01/30/25 09:46 01/30/25 Sodium 140 mmol/L (133-145) 01/30/25 09:46 01/30/25 BUN 17 mg/dL (4-19) 01/30/25 09:46 01/30/25 Creatinine 0.86 mg/dL (0.70-1.20) 01/30/25 09:46 01/30/25 Glucose 101 mg/dL (70-99) H 01/30/25 09:46 01/30/25 TSH 1.460 uIU/mL (0.300-4.200) 02/07/25 09:58 01/24 12/18 COAG Pre-Assessment Diagnosis/Proposed Procedure Planned Operative Procedure(s): Functional Endoscopic Sinus Surgery, Navigation Anesthesia History 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 When Was Last Pacemaker Check QUESTION #4 FULL TEXT: You/Your Family Experience fever (hyperthermia) with Anesthesia Last Oral Intake Last Oral intake: Last Oral Intake NPO since Meds taken in AM with sips of Yes 02/13/25 10:18 water? 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 Female No 02/06/25 13:47 HX of Motion Sickness No 02/06/25 13:47 HX of N/V After Surgery No 02/06/25 13:47 Non-Smoker Yes 02/06/25 13:47 Duration of Surgery greater No 02/06/25 13:47 than 60 minutes Number of Risk Factors 1 02/06/25 13:47 PONV Score Low Risk 02/06/25 13:47 Height & Weight Height & Weight: Anesthesia: Height & Weight Height 6 ft 5 in 02/13/25 10:18 Weight: 86.4 kg 02/13/25 10:18 Body Mass Index (BMI) 22.6 02/13/25 10:18 Respiratory Assessment Respiratory Assessment - 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 Has anyone observed you stop No 02/06/25 13:47 breathing during sleep? STOP Results Negative 02/06/25 13:47 QUESTION #5 FULL TEXT : Do you snore loudly (louder than talking or can be heard through closed doors)? 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 Specify any problems Hx of Preganancy in last 3 N/A 02/06/25 13:47 Months Nurse Filling Out Transfusion JuanZOLLINGE 02/06/25 13:47 & Questions: Date: 02/06/25 02/06/25 13:47 Time: 13:49 02/06/25 13:47 Patient unable to answer at this time (ie. 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 toddler teacher Hx Now No 02/06/25 13:47 Gestational Age (in weeks): EDC: Hx Hx Para Hx Section SAB No 02/06/25 13:47 Active Medications Active Medications: Current Medications Generic Name Dose Route Start Last Admin Trade Name Freq PRN Reason Stop Dose Admin Lactated Ringer's 1,000 mls @ 15 mls/hr 02/13/25 10:00 02/13/25 10:15 IV 15 mls/hr .Q48H JERRY Administration Oxymetazoline HCl 3 spray 02/13/25 12:05 02/13/25 10:16 Oxymetazoline 0.05% 1 [place].Btl NASAL 02/13/25 12:06 3 spray PREOP ONE Administration PFSH Medical History Gastric reflux Non-smoker Wears contact lenses History of steroid therapy Thyroid disease Prostate disease History of edema Rheumatoid arthritis Sebaceous cyst Inguinal hernia of right side without obstruction or gangrene Family history of colon cancer in mother High cholesterol Acid reflux Hypothyroid HTN (hypertension) Home Medications ?Medication ?Instructions ?Recorded ?Last Taken ?Type famotidine 40 mg tablet 40 mg PO DAILY 05/03/2001/24 History levothyroxine 137 mcg tablet 137 mcg PO DAILY 01/30/21 02/13/25 History folic acid 1 mg tablet 1 mg PO DAILY 09/01/2202/13 History methotrexate sodium 2.5 mg tablet 2.5 mg PO SA 3 02/06/24 History rosuvastatin 40 mg tablet 40 mg PO DAILY 09/01/2201/25 History tamsulosin 0.4 mg capsule 0.4 mg PO DAILY 09/01/22 History hydroxychloroquine 200 mg tablet 300 mg PO DAILY 06/25 /24 07/16/24 History (Plaquenil) losartan 50 mg tablet 50 mg PO DAILY 01/19/2401/25 History Allergy/AdvReac Type Severity Reaction Status Date / Time Penicillins Allergy Mild Rash Verified 02/13/25 10:10 Family History Mother Colon cancer Hypertension Father Cancer Prostate/bone cancer Surgical History Hx of colonoscopy Hx of bilateral inguinal hernia repair S/P nasal polypectomy Social History household members: spouse current occupational status: retired Smoking Status: Never smoker alcohol intake: never substance use type: does not use Review of Systems (Anesthesia) ROS Narrative System reviewed and no additional complaints, except as documented. 02/13/25 1046 <Electronically signed by Romero soriano MD> Date _ Romero Floyd MD Cosigner Signature: Date CC: ~ Signed [facility] Work Phone: 1(121) 824-663007-21-2025 Procedure note [facility] Medical Records Department [address] [place] [address] Operative Report 02/13/25 1219 MR#: [id number] Acct: [id number] Name: RAMA FRANCIS Rep #:[id number] : 1955 69 From: Kael Martinez MD PCP: Dr. Abhinav aLnce MD Status:REG S DC Location: [place] [address] Operative Report (Standard) Operative Information Date of Procedure: 02/13/25 Pre-Operative Diagnosis: chronic sinusitis with polyposis Post-Operative Diagnosis: same Surgery/Procedure Performed: Bilateral total ethmoidectomy Bilateral maxillary antrostomy Use of navigation medicine aide: No Type of Anesthesia: General RN Documented Start/Stop Times: Operation Date: 02/13/25 12:05 Case Time Into Pre-Op 02/13/25 09:52 Anesthesia Start 02/13/25 11:13 Into Room 02/13/25 11:13 Procedure Start 02/13/25 11:32 Procedure End 02/13/25 12:16 Procedure Start Time: 11:32 Procedure Stop Time: 12:16 Select all DRAINS/GRAFTS/IMPLANTS that apply: None Estimated Blood Loss: minimal Specimen collected: Yes Description of specimen(s) removed: bilateral polyps Description of surgery: The patient was taken to the operating room on 02/13/2025. The patient was placed in the supine position on the operating table. The patient was given sufficient general endotracheal anesthesia. The head of bed was elevated 30 degrees. The navigation system was placed and verified per protocol and found to be accurate. 0 and 30 degrees rigid nasal endoscopes were used throughout the entire case. The middle turbinate uncinate process and polyps were injectedwith 1% lidocaine with epinephrine bilaterally. The right middle turbinate was medialized with a [place] elevator. Polyp was removed from themiddle meatus using a sinus shaver. A ball-tipped sinus seeker was placed into the patient's maxillary sinus. The antrostomy was created with a backbiter and Herb-Cut forceps. The [place] was used to lyse adhesions between the middle turbinate and ethmoid. Anterior and posterior ethmoidectomy were then carried out using curette, sinus shaver and 45 degree Blakes[place] Trent forceps. Ethmoid cells wereverified for relation to the skull base and orbit prior to being entered with the navigation system. I then placed Afrin pledgets into the sinonasal cavity. Next attention was turned to the left side. The middle turbinate was medializedwith a [place] elevator. A large polyp was removed from the middle meatus using asinus shaver. The maxillary antrum was opened with a straight Herb-Cut forceps and a backbiter. Anterior posterior ethmoidectomy were then carried out using a sinus shaver curette and Blakesley Trent forceps. Ethmoid cells were verified for relation to the skull base and orbit prior to being entered with the navigation system. Polyp was found medial to the middle turbinate. This was removed with a sinus shaver. Hemostasis was then achieved using Afrin pledgets. The pledgets were then removed bilaterally and Yuriy powder was applied bilaterally for absolute hemostasis. The procedure was then terminated. The patient was then awoken and brought to the recovery room in stable condition blood loss less than 10 cc, replacement none. Sponge, needle, instrument count were correct at the end of the procedure. Surgical Findings: bilateral polyps Complications Complications: No 02/13/25 1223 Cosigner Signature (if applicable): CC: Dr. Kael Martinez MD; Dr. Abhinav Lance MD~ Signed [facility]07-21-2025 Discharge summary [facility] Medical Records Department [address] [place] [address] Discharge Summary 02/13/25 1217 MR#: [id number] Acct: [id number] Name: RAMA FRANCIS Rep #:[id number] : 1955 69 From: Kael Martinez MD PCP: Dr. Abhinav Lance MD Status:REG S DC Location: [place] [address] Providers Primary Care Physician: Dr. Abhinav Lnace MD Reason For Visit: Functional Endoscopoic Sinus Surgery, Navigation Medications at Discharge Home Medications famotidine 40 mg tablet 40 mg PO DAILY 05/03/20 levothyroxine 137 mcg tablet 137 mcg PO DAILY 01/30/21 folic acid 1 mg tablet 1 mg PO DAILY 09/01/22 methotrexate sodium 2.5 mg tablet 2.5 mg PO SA 09/01/22 rosuvastatin 40 mg tablet 40 mg PO DAILY 09/01/22 tamsulosin 0.4 mg capsule 0.4 mg PO DAILY 09/01/22 hydroxychloroquine 200 mg tablet (Plaquenil) 300 mg PO DAILY 01/19/24 losartan 50 mg tablet 50 mg PO DAILY 01/19/24 Weight / BMI Weight Weight: 86.4 kg Body Mass Index (BMI) 22.6 D/C Instructions Discharge Activity: Return to Normal Activity Additional Activity Instructions: No nose blowing Start irrigation 4x/day on 02/14/25 Start antibiotic tonight DC O2, CPAP, BIPAP Needs Home O2 Discharge instructions: No Please Follow Up With: Kael Martinez MD When: next week Meaningful Use Info Meaningful Use Meaningful Use Diagnoses (Choose all that apply): None applicable Discharge Plan Admission Attending Provider: Kael Martinez Primary Care Provider: Abhinav Lance Chi Instructions Print Language: Thai Discharge Orders/Prescriptions Prescriptions: No Action famotidine 40 mg tablet 40 mg PO DAILY methotrexate sodium 2.5 mg tablet 2.5 mg PO SA tamsulosin 0.4 mg capsule 0.4 mg PO DAILY folic acid 1 mg tablet 1 mg PO DAILY rosuvastatin 40 mg tablet 40 mg PO DAILY losartan 50 mg tablet 50 mg PO DAILY hydroxychloroquine [Plaquenil] 200 mg tablet 300 mg PO DAILY levothyroxine 137 mcg Tablet 137 mcg PO DAILY Referrals / Follow Up: Abhinav Lance Chi, MD [Primary Care Provider] - Disposition Disposition (needs filled in before D/C Order can be placed): Home, Self Care 02/13/25 1218 Cosigner Signature (if applicable): CC: Dr. Kael Martinez MD; Dr. Abhinav Lance MD~ Signed [facility]07-21-2025 Consult note [facility] Medical Records Department [address] [place] [address] Pre-Anesthesia Evaluation 02/13/25 1040 MR#: [id number] Acct: [id number] Name: RAMA FRANCIS Rep #:[id number] : 1955 69 From: Romero Floyd MD PCP: Dr. Abhinav Lance MD Status:REG S DC Y Race: C Location: [place] [address] ASA Classification* ASA Classification ASA Classification: 2 Assessment & Plan Anesthesia* Anesthesia Assessment Anesthesia Assessment: Discussed sedation and/or anesthesia options, risks, benefits, and alternatives with patient/parents/legal guardian/POA. Questions invited. The patient/parents/legal guardian/POA seems to understand and agrees to proceedwith anesthesia plan. Reviewed the physical assessment, medical history, allergy history and patient home medications list prior to surgery/procedure/anesthetic and documented any changes. Performed airway and anesthesia risk assessments. Anesthesia Type Anesthesia Type: General History Source History Obtained from:: Patient and Chart Anesthesia Focused Assessment* Temperature: 98 F Pulse Rate: 72 Blood Pressure: 160/91 Respiratory Rate: 16 Pulse Ox: 100 Oxygen Delivery Method: Room Air Airway Assessment Mouth opens: >3 cm Mallampati Score: IV Teeth Condition: Caps/Crowns (Patient has a crown on the left upper molar. It is tight.) Neck Range of motion (ROM): Full ROM Labs Anesthesia Preop lab: CBC WBC 8.0 K/mm3 (4.4-11.0) 01/30/25 09:46 01/30/25 RBC 4.10 M/mm3 (4.6-6.2) L 01/30/25 09:46 01/30/25 Hgb 13.2 g/dL (13.0-16.5) 01/30/25 09:46 01/30/25 Hct 40.6 % (40-54) 01/30/25 09:46 01/30/25 Plt Count 171 K/mm3 (150-450) 01/30/25 09:46 01/30/25 CHEMISTRY Potassium 4.6 mmol/L (3.3-5.1) 01/30/25 09:46 01/30/25 Sodium 140 mmol/L (133-145) 01/30/25 09:46 01/30/25 BUN 17 mg/dL (4-19) 01/30/25 09:46 01/30/25 Creatinine 0.86 mg/dL (0.70-1.20) 01/30/25 09:46 01/30/25 Glucose 101 mg/dL (70-99) H 01/30/25 09:46 01/30/25 TSH 1.460 uIU/mL (0.300-4.200) 02/07/25 09:58 01/24 12/18 COAG Pre-Assessment Diagnosis/Proposed Procedure Planned Operative Procedure(s): Functional Endoscopic Sinus Surgery, Navigation Anesthesia History 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 When Was Last Pacemaker Check QUESTION #4 FULL TEXT: You/Your Family Experience fever (hyperthermia) with Anesthesia Last Oral Intake Last Oral intake: Last Oral Intake NPO since Meds taken in AM with sips of Yes 02/13/25 10:18 water? 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 Female No 02/06/25 13:47 HX of Motion Sickness No 02/06/25 13:47 HX of N/V After Surgery No 02/06/25 13:47 Non-Smoker Yes 02/06/25 13:47 Duration of Surgery greater No 02/06/25 13:47 than 60 minutes Number of Risk Factors 1 02/06/25 13:47 PONV Score Low Risk 02/06/25 13:47 Height & Weight Height & Weight: Anesthesia: Height & Weight Height 6 ft 5 in 02/13/25 10:18 Weight: 86.4 kg 02/13/25 10:18 Body Mass Index (BMI) 22.6 02/13/25 10:18 Respiratory Assessment Respiratory Assessment - 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 Has anyone observed you stop No 02/06/25 13:47 breathing during sleep? STOP Results Negative 02/06/25 13:47 QUESTION #5 FULL TEXT : Do you snore loudly (louder than talking or can be heard through closeddoors)? 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 Specify any problems Hx of Preganancy in last 3 N/A 02/06/25 13:47 Months Nurse Filling Out Transfusion [id number] 02/06/25 13:47 & Questions: Date: 02/06/25 02/06/25 13:47 Time: 13:49 02/06/25 13:47 Patient unable to answer at this time (ie. 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 toddler teacher Hx Now No 02/06/25 13:47 Gestational Age (in weeks): EDC: Hx Hx Para Hx Section SAB No 02/06/25 13:47 Active Medications Active Medications: Current Medications Generic Name Dose Route Start Last Admin Trade Name Freq PRN Reason Stop Dose Admin Lactated Ringer's 1,000 mls @ 15 mls/hr 02/13/25 10:00 02/13/25 10:15 IV 15 mls/hr .Q48H JERRY Administration Oxymetazoline HCl 3 spray 02/13/25 12:05 02/13/25 10:16 Oxymetazoline 0.05% 1 [employer] [place].Btl NASAL 02/13/25 12:06 3 spray PREOP ONE Administration PFSH Medical History Gastric reflux Non-smoker Wears contact lenses History of steroid therapy Thyroid disease Prostate disease History of edema Rheumatoid arthritis Sebaceous cyst Inguinal hernia of right side without obstruction or gangrene Family history of colon cancer in mother High cholesterol Acid reflux Hypothyroid HTN (hypertension) Home Medications ?Medication ?Instructions ?Recorded ?Last Taken ?Type famotidine 40 mg tablet 40 mg PO DAILY 05/03/2001/24 History levothyroxine 137 mcg tablet 137 mcg PO DAILY 01/30/21 02/13/25 History folic acid 1 mg tablet 1 mg PO DAILY 09/01/2202/13 History methotrexate sodium 2.5 mg tablet 2.5 mg PO SA 3 02/06/24 History rosuvastatin 40 mg tablet 40 mg PO DAILY 09/01/2201/25 History tamsulosin 0.4 mg capsule 0.4 mg PO DAILY 09/01/22 History hydroxychloroquine 200 mg tablet 300 mg PO DAILY 01/1802/09/24 History (Plaquenil) losartan 50 mg tablet 50 mg PO DAILY 01/19/2401/25 History Allergy/AdvReac Type Severity Reaction Status Date / Time Penicillins Allergy Mild Rash Verified 02/13/25 10:10 Family History Mother Colon cancer Hypertension Father Cancer Prostate/bone cancer Surgical History Hx of colonoscopy Hx of bilateral inguinal hernia repair S/P nasal polypectomy Social History household members: spouse current occupational status: retired Smoking Status: Never smoker alcohol intake: never substance use type: does not use Review of Systems (Anesthesia) ROS Narrative System reviewed and no additional complaints, except as documented. 02/13/25 1046 bo DAMON> Date _ Romero Floyd MD Cosigner Signature: Date CC: ~ Signed [facility]07-05-2025 Telephone encounter Note* Telephone Encounter - Alexus Galloway RN - 01/28/2025 11:33 AM EDT Reason for Call: states both her and patient were recently prescribed antibiotics from the [facility]. states patient accidentally took her dose of 500 mg Augmentin instead of his 300 mg Omnicef. states patient has allergy to penicillin, although she states she can't remember him having an allergy to penicillin. Medication was taken approximately a half hour ago. Denies any signs/symptoms of allergic reaction or any symptoms at this time. Outcome: Advised to call Poison Control now. states understanding. Conferenced patient and to Heather at Poison Control for further advice and recommendations. Reason for Disposition Took another person's prescription drug Protocols used: [id number] [facility]07-05-2025 Miscellaneous Notes* Telephone Encounter - Alexus Galloway RN - 01/28/2025 11:33 AM EDT Reason for Call: states both her and patient were [facility]. states patient accidentally took her dose of 500 mg Augmentin instead of his 300 mg Omnicef. states patient has allergy to penicillin, although she states she can't remember him having an allergy to penicillin. Medication was taken approximately a half hour ago. Denies any signs/symptoms of allergic reaction or any symptoms at this time. Outcome: Advised to call Poison Control now. states understanding. Conferenced patient and to Heather at Poison Control for further advice and recommendations. Reason for Disposition Took another person's prescription drug Protocols used: [id number] documented in this encounterMer[facility]25 NoteHNO ID: [id number] Author: TAN FRANKLIN APRN.[facility] Service: ? Author Type: Nurse Practitioner Type: Progress Notes Filed: 01/26/2025 17:53 Note Text: [facility] Subjective Rama Francis is a 69 year old male. Patient presents with: Fever: Cough, chest congestion, ST x2 days HPI Upper Respiratory Symptoms: - Acute onset of fever, cough, rhinorrhea, and odynophagia. - Rhinorrhea described as like a faucet turned on. - Odynophagia worse with swallowing; denies sharp or stabbing pain. - Denies dyspnea, fatigue, or productive cough. - No significant ear pain or facial pressure. - No recent exacerbation of seasonal allergies prior to symptom onset. Rheumatoid Arthritis: - Managed with Plaquenil and methotrexate. - Takes methotrexate 8 pills weekly, 4 in the morning and 4 at night, usually on Saturdays. - Advised by mechanic driver to avoid taking methotrexate and antibiotics simultaneously. - Sun sensitivity noted, exacerbated by medication. - Previous adverse reaction to doxycycline, causing skin burning sensation after 7 days of use. Review of Systems Constitutional: (+) fever, (-) fatigue Ears/Nose/Mouth/Throat: (+) sore throat with swallowing, (+) sinus congestion, (+) rhinorrhea, (-) ear pain Respiratory: (+) cough, (-) shortness of breath Objective BP 152/82 Pulse 99 Temp (!) 39.4 ?C (102.9 ?F) Resp 18 Wt 86.5 kg (190 lb 11.2 oz) SpO2 98% BMI 23.21 kg/m? Physical Exam General: No acute distress. HEENT: Ears without abnormalities; oropharynx without abnormalities. CV: Heart sounds normal. Resp: Breath sounds clear. {1. Rhinosinusitis (J32.9) - Symptoms include cough, nasal congestion, and odynophagia; no dyspnea or fatigue. Afebrile until last night. - Auscultation reveals clear lung sounds; no evidence of pneumonia. - Prescribed cefdinir 300 mg PO BID for 5 days; no known drug interactions with current medications. - Advised to maintain adequate hydration. - Discussed potential need to hold methotrexate during antibiotic course; patient to confirm with mechanic driver on Thursday. - Educated on sun protection measures due to increased photosensitivity from current medications; recommended use of sunscreen, long-sleeve clothing, and installation of a sunshade on the tractor. and Recording using [employer] software for draft documentation of the visit was discussed with the patient/authorized area representative; all questions welcomed and answered. Patient/authorized area representative agreed to proceed [facility] History of Present illness Narrative* Tan Franklin APRN.FACULTY DEAN - 01/26/2025 5:52 PM EDT [facility] Subjective Rama Francis is a 69 year old male. Patient presents with: Fever: Cough, chest congestion, ST x2 days HPI Upper Respiratory Symptoms: - Acute onset of fever, cough, rhinorrhea, and odynophagia. - Rhinorrhea described as like a faucet turned on. - Odynophagia worse with swallowing; denies sharp or stabbing pain. - Denies dyspnea, fatigue, or productive cough. - No significant ear pain or facial pressure. - No recent exacerbation of seasonal allergies prior to symptom onset. Rheumatoid Arthritis: - Managed with Plaquenil and methotrexate. - Takes methotrexate 8 pills weekly, 4 in the morning and 4 at night, usually on Saturdays. - Advised by mechanic driver to avoid taking methotrexate and antibiotics simultaneously. - Sun sensitivity noted, exacerbated by medication. - Previous adverse reaction to doxycycline, causing skin burning sensation after 7 days of use. Review of Systems Constitutional: (+) fever, (-) fatigue Ears/Nose/Mouth/Throat: (+) sore throat with swallowing, (+) sinus congestion, (+) rhinorrhea, (-) ear pain Respiratory: (+) cough, (-) shortness of breath Objective BP 152/82 Pulse 99 Temp (!) 39.4 C (102.9 F) Resp 18 Wt 86.5 kg (190 lb 11.2 oz) SpO2 98% BMI 23.21 kg/m Physical Exam General: No acute distress. HEENT: Ears without abnormalities; oropharynx without abnormalities. CV: Heart sounds normal. Resp: Breath sounds clear. {1. Rhinosinusitis (J32.9) - Symptoms include cough, nasal congestion, and odynophagia; no dyspnea or fatigue. Afebrile until last night. - Auscultation reveals clear lung sounds; no evidence of pneumonia. - Prescribed cefdinir 300 mg PO BID for 5 days; no known drug interactions with current medications. - Advised to maintain adequate hydration. - Discussed potential need to hold methotrexate during antibiotic course; patient to confirm with mechanic driver on Thursday. - Educated on sun protection measures due to increased photosensitivity from current medications; recommended use of sunscreen, long-sleeve clothing, and installation of a sunshade on the tractor. and Recording using ambient [employer] software for draft documentation of the visit was discussed with thepatient/authorized area representative; all questions welcomed and answered. Patient/authorized area representative agreed to proceed MDM Procedures documented in this encounterMer[facility]03-23-[facility]25 Radiology Diagnostic study note [facility] Imaging Services [address] [place] [address] Sinus/Facial Bone MR#: [id number] Acct: [id number] Name: RAMA FRANCIS Rep #: [id number] : 1955 M 69 From: Bryan Bansal MD PCP: Dr. Abhinav Lance MD Status: REG C LUIZ Study:Sinus/Facial Bone Date of Exam: Exam# [id number] Ordering Dr: Abbey Martinez MD PROCEDURE: SINUS/FACIAL BONE REASON FOR EXAM: CHRONIC SINUSITIS TECHNIQUE: CT of the paranasal sinuses without contrast. Coronal and Sagittal reconstruction series were provided. One or more dose reduction techniques were used (e.g., Automated exposure control, adjustment of the mA and/or kV according to patient size, use of iterative reconstruction technique). RADIATION DOSE SUMMARY: CTDlvol: 33.06 mGy DLP: 697.49 mGycm COMPARISON: None provided. FINDINGS: Complete and near-complete opacification of the bilateral ethmoid air cells is seen. Marked mucosal thickening is seen at bilateral sphenoid and maxillary sinuses. Mild mucosal thickening is seen of the left frontal sinus, with minimal similar changes in the right frontal sinus. No air-fluid level is clearly appreciated. No osseous destructive change is seen. The right ostium is occluded, in the left ostium appears patent. No orbital pathology is seen. CT/Sinus/Facial Bone IMPRESSION: Extensive pansinusitis, at least chronic, although cannot exclude superimposed acute component. Reading Location: [address] CC: Dr. Kael Martinez MD; Dr. Abhinav Lance MD ~ Ham Marker: Signed [facility]05-09-2022 History of Present illness Narrative* Nereida Diaz RT(R) - 12/02/2021 11:20 AM EDT Radiology Service Progress Note PATIENT NAME: Rama Francis DATE OF SERVICE: December 02, 2021 TIME: 11:17 AM PATIENT IDENTITY VERIFICATION COMPLETED USING TWO (2) IDENTIFIERS: Name and Date of confirmedby patient verbally. FALL SCREENING: Has the patient had 2 falls in the last year or 1 fall with injury or currently using an Ambulatory Assistive Device (Walker, Cane, Wheelchair, Crutches, etc.)? No PATIENT GENDER DATA: Male PATIENT RELEVANT IMPLANT DATA REVIEWED: Not Applicable RADIOLOGY DEPARTMENT: General X-ray: Exam(s) Completed: Upper Extremity X- Ray(s): Hand, left PERIPHERAL IV DATA: Not applicable SIGNED BY: RT James(R) December 02, 2021 11:17 AM documented in this encounterMer[facility]05-09-2022 History of Present illness Narrative* Tan Franklin APRN.FACULTY DEAN - 12/02/2021 10:52 AM EDT Images from the original note were not [...] history is provided by the patient. No roughener was used. Review of Systems Constitutional: Negative. [...] daily. Take on empty stomach. For Thyroid Lcgocbvlcmvjd-Evwuzaiw-Hmhzzf (CENTRUM SILVER) tab Take 1 tablet by [...] Impression: 1. No acute fracture or dislocation. Ham Marker: AMY Transcribe Date/Time: Dec 02 2021 11:33A [...] Patient is okay with this care plan. Tan Franklin APRN.ELVIA documented in this encounterMer[facility]09-[facility] History of Past illness Narrative* Problem Noted Date Resolved Date Sebaceous cyst [...] of this encounter (statuses as of 12/02/2021) [facility] HospitalConsult note Author Aries Armenta [facility] Note Date/Time February 13, 2025 1:23 pm [facility] Medical Records Department [address] [place] [address] Anesthesia Postop Eval I 02/13/25 1255 MR#: [id number] Acct: [id number] Name: RAMA FRANCIS Rep #:[id number] : 1955 69 From: Aries Armenta CRNA PCP: Dr. Abhinav Lance MD Status:REG S DC Y Race: C Location: [place] [address] Anesthesia: Postop Eval I Current Vital Signs Temperature: 98.8 F Pulse Rate: 66 Blood Pressure: 176/97 Respiratory Rate: 12 Pulse Ox: 98 Oxygen Delivery Method: Room Air Assessment Airway patent: Yes Spontaneous unlabored respirations: Yes Mental status: Awake and Calm nausea: No Vomiting: No Anesthesia Complication: No Fluid Hydration Crystalloid volume administer (ml): 400 Total IV fluid infused: 400 Progress Note Post-operative progress note: late entry 1230 Anesthesia document: Postop Eval 1 completed: Yes 02/13/25 1323 <Electronically signed by Aries roe MECHANICAL MAINTENANCE WORKER> Date _ Aries Armenta MECHANICAL MAINTENANCE WORKER Cosigner Signature: Date CC: ~ Signed [facility] Work Phone: Consult note Author Arelis Talley [facility] Note Date/Time February 13, 2025 2:00 pm [facility] Medical Records Department [address] [place] [address] Anesthesia Postop Eval II 02/13/25 1338 MR#: [id number] Acct: [id number] Name: RAMA FRANCIS Rep #:[id number] : 1955 69 From: Arelis herbert CRNA PCP: Dr. Abhinav Lance MD Status:REG S DC Y Race: C Location: [address] Anesthesia Postop Eval I Sum Postop Eval Completion status Anesthesia document: Postop Eval 1 completed: Yes Anesthesia Postop Eval I Summary Anesthesia Postop Eval I Summary: Anesthesia Postop Eval I: Assessment Summary Airway patent Yes 02/13/25 13:23 MECHANICAL MAINTENANCE WORKER.SHOF Spontaneous unlabored Yes 02/13/25 13:23 MECHANICAL MAINTENANCE WORKER.SHOF respirations Mental status Awake,Calm 02/13/25 13:23 MECHANICAL MAINTENANCE WORKER.SHOF nausea No 02/13/25 13:23 MECHANICAL MAINTENANCE WORKER.SHOF Vomiting No 02/13/25 13:23 MECHANICAL MAINTENANCE WORKER.SHOF Anesthesia Postop Eval I: Fluid Summary Crystalloid volume administer 400 02/13/25 13:23 MECHANICAL MAINTENANCE WORKER.SHOF (ml) Colloids volume administered ( ml) Blood Product volume administered (ml) Total IV fluid infused 400 02/13/25 13:23 MECHANICAL MAINTENANCE WORKER.SHOF Anesthesia Postop Eval I: Summary Notes Anesthesia Complication No 02/13/25 13:23 MECHANICAL MAINTENANCE WORKER.SHOF Anesthesia Complication Comment: Post-operative progress note late entry 1230 02/13/25 13:23 MECHANICAL MAINTENANCE WORKER.SHOF Anesthesia: Postop Eval II Evaluation Mental status: Awake and Calm Pain Level: 0 nausea: No Vomiting: No Complications Anesthesia Complication: No 02/13/258 <Electronically signed by Arelis fan MECHANICAL MAINTENANCE WORKER> Date _ Arelis Talley CRNA Saier Signature: Date CC: ~ Signed [facility] Work Phone: Discharge summary Author Kael Martinez [facility] Note Date/Time February 13, 2025 12:1 8pm [facility] Medical Records Department [address] [place] [address] Discharge Summary 02/13/25 1217 MR#: [id number] Acct: [id number] Name: RAMA FRANCIS Rep #:[id number] : 1955 69 From: Kael Martinez MD PCP: Dr. Abhinav Lance MD Status:REG S [place] Location: [place] [address] Providers Primary Care Physician: Dr. Abhinav Lance MD Reason For Visit: Functional Endoscopoic Sinus Surgery, Navigation Medications at Discharge Home Medications famotidine 40 mg tablet 40 mg PO DAILY 05/03/20 levothyroxine 137 mcg tablet 137 mcg PO DAILY 01/30/21 folic acid 1 mg tablet 1 mg PO DAILY 09/01/22 methotrexate sodium 2.5 mg tablet 2.5 mg PO SA 09/01/22 rosuvastatin 40 mg tablet 40 mg PO DAILY 09/01/22 tamsulosin 0.4 mg capsule 0.4 mg PO DAILY 09/01/22 hydroxychloroquine 200 mg tablet (Plaquenil) 300 mg PO DAILY 01/19/24 losartan 50 mg tablet 50 mg PO DAILY 01/19/24 Weight / BMI Weight Weight: 86.4 kg Body Mass Index (BMI) 22.6 D/C Instructions Discharge Activity: Return to Normal Activity Additional Activity Instructions: No nose blowing Start irrigation 4x/day on 02/14/25 Start antibiotic tonight DC O2, CPAP, BIPAP Needs Home O2 Discharge instructions: No Please Follow Up With: Kael Martinez MD When: next week Meaningful Use Info Meaningful Use Meaningful Use Diagnoses (Choose all that apply): None applicable Discharge Plan Admission Attending Provider: Kael Martinez Primary Care Provider: Abhinav Lance Chi Instructions Print Language: Thai Discharge Orders/Prescriptions Prescriptions: No Action famotidine 40 mg tablet 40 mg PO DAILY methotrexate sodium 2.5 mg tablet 2.5 mg PO SA tamsulosin 0.4 mg capsule 0.4 mg PO DAILY folic acid 1 mg tablet 1 mg PO DAILY rosuvastatin 40 mg tablet 40 mg PO DAILY losartan 50 mg tablet 50 mg PO DAILY hydroxychloroquine [Plaquenil] 200 mg tablet 300 mg PO DAILY levothyroxine 137 mcg Tablet 137 mcg PO DAILY Referrals / Follow Up: Abhinav Lance Chi, MD [Primary Care Provider] - Disposition Disposition (needs filled in before D/C Order can be placed): Home, Self Care 02/13/25 1218 <Electronically signed by Kael Martinez MD> Cosigner Signature (if applicable): CC: Dr. Kael Martinez MD; Dr. Abhinav Lance MD~ Signed [facility] Work Phone: Evaluation noteNo assessment information available [facility] Work Phone: Evaluation note* Diagnosis Injury of left hand, initial encounter- Primary Impacted cerumen of right ear Impacted cerumen documented in this encounter [facility]* Diagnosis Onset Date Resolution Status Hx of bilateral inguinal hernia repair acute [facility] Work Phone: Evaluation note* Diagnosis Injury of left hand, initial encounter documented in [facility] Diagnosis Rhinosinusitis- Primary Unspecified sinusitis (chronic) documented in [facility] Narrative* House.This is a [...] discomfort pain is mostly anterior and lateral. [facility] Work Phone: Reason for referral (narrative)* Diagnostic Procedure Only (Urgent) - Closed Specialty Diagnoses / Procedures Referred By Contac t Referred To Contact XR IMAGING Diagnoses Injury of left hand, initial encounter Procedures XR HAND GENERAL 3V PA/LAT/OBL LEFT RADEX HAND MINIMUM 3 VIEWS Tan Franklin APRN.FACULTY DEAN [address] [place] [address] Xr Imaging Referral ID Status Reason Start Date Expiration Date V isits Requested Visits Authorized [id number] Closed Auto-Generate d Referral 12/02/2021 01/01/2023 1 1 [facility] for referral (narrative)* Diagnostic Procedure Only (Urgent) - Closed Specialty Diagnoses / Procedures Referred By Contac t Referred To Contact XR IMAGING Diagnoses Injury of left hand, initial encounter Procedures XR HAND GENERAL 3V PA/LAT/OBL LEFT RADEX HAND MINIMUM 3 VIEWS Tan Franklin APRN.FACULTY DEAN [address] [place] [address] [place] [address] Referral ID Status Reason Start Date Expiration Date V isits Requested Visits Authorized [id number] Closed Auto-Generate d Referral 12/02/2021 01/01/2023 1 1 [facility] for referral (narrative)No reason for referral information [facility]WBarber[facility] Work Phone: Reason for visit Narrative* Diagnostic Procedure Only (Urgent) - Closed Specialty Diagnoses / Procedures Referred By Contac t Referred To Contact XR IMAGING Diagnoses Injury of left hand, initial encounter Procedures XR HAND GENERAL 3V PA/LAT/OBL LEFT RADEX HAND MINIMUM 3 VIEWS Tan Franklin APRN.FACULTY DEAN [address] [place] [address] [place] [address] Referral ID Status Reason Start Date Expiration Date V isits Requested Visits Authorized [id number] Closed Auto-Generate d Referral 12/02/2021 01/01/2023 1 1 [facility] Family History Relationship Condition Age at Onset Recorded Date/T melanie mother Malignant neoplasm of colon Unknown Hypertension Unknown father Malignant neoplasm Unknown Unknown Family Member Name Dates Details No pertinent family history: Other(V49.89, Z78.9) Status:Active Advance Directives Advance Directive Response Recorded Date/ Time Living Will Yes January 30, 2021 5 :04pm Power of Senior Design Engineering Specialist Yes January 30, 2021 5:04pm Advance Directive Response Recorded Date/ Time Living Will Yes January 30, 2021 4 :04pm Power of Senior Design Engineering Specialist Yes January 30, 2021 4:04pm Advance Directive Response Recorded Date/ Time Do you have a Healthcare Power of Senior Design Engineering Specialist? No February 06, 2025 1:47pm Chief Complaint and Reason for Visit Chief Complaint LABWORK Chief Complaint CERVIAL/INTERVERTEBR AL. RX HERE Chief Complaint CERVIAL/INTERVERTEBR AL. RX HERE LAB AND PELVIS XRAY Chief Complaint LAB AND PELVIS XRAY BILATERAL INGUINAL HERNIA 2019- INCREASED PAIN Reason for Visit Hx of bilateral ingu inal hernia repair Chief Complaint LAB AND PELVIS XRAY BILATERAL INGUINAL HERNIA 2019- INCREASED PAIN PAIN- COPY PCP Reason for Visit Hx of bilateral ingu inal hernia repair Chief Complaint PAIN- COPY PCP Chief Complaint RIGHT LOWER EYELID L ESION REMOVAL Chief Complaint RIGHT LOWER EYELID L ESION REMOVAL PAIN- COPY PCP Chief Complaint RIGHT LOWER EYELID L ESION REMOVAL PAIN- COPY PCP PAIN- COPY PCP Chief Complaint Admit Date PAIN- COPY PCP August 09, 2024 8 :41am J32.8 CHRONIC SINUSITIS October 15, 2024 7:54am Chief Complaint Admit Date PAIN- COPY PCP August 09, 2024 8 :41am J32.8 CHRONIC SINUSITIS October 15, 2024 7:54am 2 DRS/ 2 ORDERS October 28, 2024 10:1 0am Chief Complaint Admit Date J32.8 CHRONIC SINUSITIS October 15, 2024 7:54am 2 DRS/ 2 ORDERS October 28, 2024 10:1 0am Chief Complaint Admit Date J32.8 CHRONIC SINUSITIS October 15, 2024 7:54am 2 DRS/ 2 ORDERS October 28, 2024 10:1 0am PAIN- COPY PCP January 30, 2025 9:43a m Chief Complaint Admit Date 2 DRS/ 2 ORDERS October 28, 2024 10:1 0am PAIN- COPY PCP January 30, 2025 9:43a m Functional Endoscopoic Sinus Surgery, Na vigation February 13, 2025 9:48am Chief Complaint NPV bilateral shoulder Summary Purpose Additional Source Comments Goals (unrecognized section and content) Goals may be documented in a n alternate sectionGoals may be documented in an alternate sectionGoals may be documented in an alternate sectionGoals may be documented in an alternate sectionGoals may be documented in an alternate sectionGoals may be documented in an alternate sectionGoals may be documented in an alternate sectionGoals may be documented in an alternate sectionGoals may be documented in an alternate sectionGoals may be documented in an alternate sectionGoals may be documented in an alternate sectionGoals may be documented in an alternate sectionGoals may be documented in an alternate sectionGoals may be documented in an alternate sectionGoals may be documented in an alternate sectionGoals may be documented in an alternate sectionGoals may be documented in an alternate sectionGoals may be documented in an alternate sectionGoals may be documented in an alternate sectionGoals may be documented in an alternate sectionGoals may be documented in an alternate sectionGoals may be documented in an alternate sectionGoals may be documented in an alternate section Source Comments (unrecognize d section and content) In the event this informatio n is protected by the Federal Confidentiality of Alcohol and Drug Abuse Patient Records regulations: The Federal rules restrict any use of the information to criminally investigate or prosecute any alcohol or drug abuse patient.[facility] Hospital[facility] the event this information is protected by the Federal Confidentiality of Alcohol and Drug Abuse Patient Records regulations: The Federal rules restrict any use of the information to criminally investigate or prosecute any alcohol or drug abuse patient.[facility] HospitalIn the event this information is protected by the Federal Confidentiality of Alcohol and Drug Abuse Patient Records regulations: The Federal rules restrict any use of the information to criminally investigate or prosecute any alcohol or drug abuse patient.[facility] HospitalIn the event this information is protected by the Federal Confidentiality of Alcohol and Drug Abuse Patient Records regulations: The Federal rules restrict any use of the information to criminally investigate or prosecute any alcohol or drug abuse patient.[facility] Reason for Visit (unrecogniz ed section and content) Reason Comments Trauma left hand laceration Reason Comments Fever Cough, chest congest ion, ST x2 days Reason Comments Medication Question Medication Problem Care Teams (unrecognized sec tion and content) 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 Abhinav Lance MD Family Provider Active Dr. Abhinav Lance MD Primary Care Provider Active Team Status: Inactive Member Role Status Dates Dr. Abhinav Lance MD Primary Care Provider Active Dr. Maru Cooley MD Attending Provider, Referring Pr ovider Active Team Status: Inactive Member Role Status Dates Dr. Abhinav Lance MD Primary Care Provider, Attending Provider Active Team Status: Inactive Member Role Status Dates Dr. Abhinav Lance MD Primary Care Provider Active Dr. Malka Cristina MD Attending Provider, Referring Provider Active Team Status: Inactive Member Role Status Dates Dr. Abhinav Lance MD Primary Care Provider, Referring Provider Active Dr. Leif Diaz MD Attending Provider Active Team Status: Inactive Member Role Status Dates Dr. Abhinav Lance MD Primary Care Provider Active Dr. Malka Cristina MD Attending Provider Active Team Status: Inactive Member Role Status Dates Dr. Abhinav Lance MD Primary Care Provider Active Dr. Angel Manuel MD Attending Provider, Referring Pr ovider Active Team Status: Inactive Member Role Status Dates Dr. Abhinav Lance MD Primary Care Provider Active Dr. Austin Upton MD Attending Provider, Referr ing Provider Active Auxiliary Equipment Tender Relationship Specialty Start Date End Date Bernardino Abhinav Szymanski [address] [address] PCP - General Gerontology 12/02/21 Team Status: Active Member Role Status Dates Dr. Abhinav Lance MD Primary Care Provider Active Team Status: Inactive Member Role Status Dates Dr. Abhinav Lance MD Primary Care Provider Active Start: August 09, 2024 End: August 09, 2024 Dr. Malka Cristina MD Attending Provider Active Start: August 09, 2024 End: August 09, 2024 Dr. Malka Cristina MD Referring Provider Active Start: August 09, 2024 End: August 09, 2024 Team Status: Inactive Member Role Status Dates Dr. Abhinav Lance MD Primary Care Provider Active Start: October 15, 2024 End: October 15, 2024 Dr. Kael Martinez MD Attending Provider Active Start: October 15, 2024 End: October 15, 2024 Dr. Kael Martinez MD Referring Provider Active Start: October 15, 2024 End: October 15, 2024 Team Status: Inactive Member Role Status Dates Dr. Abhinav Lance MD Primary Care Provider Active Start: October 28, 2024 End: October 28, 2024 Dr. Malka Cristina MD Attending Provider Active Start: October 28, 2024 End: October 28, 2024 Dr. Malka Cristina MD Referring Provider Active Start: October 28, 2024 End: October 28, 2024 Dr. Austin Upton MD Other Provider Active Start: October 28, 2024 End: October 28, 2024 Team Status: Inactive Member Role Status Dates Dr. Abhinav Lance MD Primary Care Provider Active Start: November 03, 2024 End: November 03, 2024 Dr. Abhinav Lance MD Attending Provider Active Start: November 03, 2024 End: November 03, 2024 Dr. Abhinav Lance MD Referring Provider Active Start: November 03, 2024 End: November 03, 2024 Team Status: Inactive Member Role Status Dates Dr. Abhinav Lance MD Primary Care Provider Active Start: December 27, 2024 End: December 27, 2024 Dr. Abhinav Lance MD Attending Provider Active Start: December 27, 2024 End: December 27, 2024 Dr. Abhinav Lance MD Referring Provider Active Start: December 27, 2024 End: December 27, 2024 Auxiliary Equipment Tender Relationship Specialty Start Date End Date Abhinav Lance Chi [address] [address] PCP - General Gerontology 12/02/21 Team Status: Active Member Role/Relationship Status Dates Dr. Abhinav Lance MD Primary Care Provider Active Team Status: Inactive Member Role/Relationship Status Dates Dr. Abhinav Lance MD Primary Care Provider Active Start: October 15, 2024 End: October 15, 2024 Dr. Kael Martinez MD Attending Provider Active Start: October 15, 2024 End: October 15, 2024 Dr. Kael Martinez MD Referring Provider Active Start: October 15, 2024 End: October 15, 2024 Team Status: Inactive Member Role/Relationship Status Dates Dr. Abhinav Lance MD Primary Care Provider Active Start: October 28, 2024 End: October 28, 2024 Dr. Malka Cristina MD Attending Provider Active Start: October 28, 2024 End: October 28, 2024 Dr. Malka Cristina MD Referring Provider Active Start: October 28, 2024 End: October 28, 2024 Dr. Austin Upton MD Other Provider Active Start: October 28, 2024 End: October 28, 2024 Team Status: Inactive Member Role/Relationship Status Dates Dr. Abhinav Lance MD Primary Care Provider Active Start: November 03, 2024 End: November 03, 2024 Dr. Abhinav Lance MD Attending Provider Active Start: November 03, 2024 End: November 03, 2024 Dr. Abhinav Lance MD Referring Provider Active Start: November 03, 2024 End: November 03, 2024 Team Status: Inactive Member Role/Relationship Status Dates Dr. Abhinav Lance MD Primary Care Provider Active Start: December 27, 2024 End: December 27, 2024 Dr. Abhinav Lance MD Attending Provider Active Start: December 27, 2024 End: December 27, 2024 Dr. Abhinav Lance MD Referring Provider Active Start: December 27, 2024 End: December 27, 2024 Team Status: Inactive Member Role/Relationship Status Dates Dr. Abhinav Lance MD Primary Care Provider Active Start: January 30, 2025 End: January 30, 2025 Dr. Malka Cristina MD Attending Provider Active Start: January 30, 2025 End: January 30, 2025 Dr. Malka Cristina MD Referring Provider Active Start: January 30, 2025 End: January 30, 2025 Team Status: Inactive Member Role/Relationship Status Dates Dr. Abhinav Lance MD Primary Care Provider Active Start: October 28, 2024 End: October 28, 2024 Dr. Malka Cristina MD Attending Provider Active Start: October 28, 2024 End: October 28, 2024 Dr. Malka Cristina MD Referring Provider Active Start: October 28, 2024 End: October 28, 2024 Dr. Austin Upton MD Other Provider Active Start: October 28, 2024 End: October 28, 2024 Team Status: Inactive Member Role/Relationship Status Dates Dr. Abhniav Lance MD Primary Care Provider Active Start: November 03, 2024 End: November 03, 2024 Dr. Abhinav Lance MD Attending Provider Active Start: November 03, 2024 End: November 03, 2024 Dr. Abhinav Lance MD Referring Provider Active Start: November 03, 2024 End: November 03, 2024 Team Status: Inactive Member Role/Relationship Status Dates Dr. Abhinav Lance MD Primary Care Provider Active Start: December 27, 2024 End: December 27, 2024 Dr. Abhinav Lance MD Attending Provider Active Start: December 27, 2024 End: December 27, 2024 Dr. Abhinav Lance MD Referring Provider Active Start: December 27, 2024 End: December 27, 2024 Team Status: Inactive Member Role/Relationship Status Dates Dr. Abhinav Lance MD Primary Care Provider Active Start: January 30, 2025 End: January 30, 2025 Dr. Malka Cristina MD Attending Provider Active Start: January 30, 2025 End: January 30, 2025 Dr. Malka Cristina MD Referring Provider Active Start: January 30, 2025 End: January 30, 2025 Team Status: Inactive Member Role/Relationship Status Dates Dr. Abhinav Lance MD Primary Care Provider Active Start: February 13, 2025 End: February 13, 2025 Dr. Kael Martinez MD Attending Provider Active Start: February 13, 2025 End: February 13, 2025 Dr. Kael Martinez MD Referring Provider Active Start: February 13, 2025 End: February 13, 2025 (unrecognized sect ion and content) No Status Records FoundNo Status Records FoundNo Status Records FoundNo Status Records Found INFORMATION SOURCE (unrecogn ized section and content) DATE CREATED AUTHOR 06/11/2022 [employer] DATE CREATED AUTHOR AUTHOR'S ORGANIZ ATION 11/07/2022 [facility] DATE CREATED AUTHOR AUTHOR'S ORGANIZ ATION 01/29/2025 [facility] DATE CREATED AUTHOR AUTHOR'S ORGANIZ ATION 02/12/2025 [facility] FOR RECORDS PERTAINING TO PATIENTS WHO ARE [...] BE BASED ON THE PRIMARY CLINICAL RECORDS. [facility] [employer] provides no warranty or guarantee of the accuracy or completeness of information in this document.
== END 2025-02-13 14:00 | disposition home or self-care (01) ==
LOC: SDC 09:49 → AC 09:51
PROVIDERS: Anesthesiology; PCP Family Medicine Geriatric Medicine; Referring Provider Otolaryngology; Visit Provider Otolaryngology
PROC: (CPT 31255; principal; 2025-02-13 11:35)
DX: J32.8 Other chronic sinusitis (principal); M05.9 Rheumatoid arthritis with rheumatoid factor, unspecified; J33.0 Polyp of nasal cavity; I10 Essential (primary) hypertension; E03.9 Hypothyroidism, unspecified; Z79.890 Hormone replacement therapy; Z79.899 Other long term (current) drug therapy
CPT/HCPCS: 31255; 31256; 00160; 36415; 84443; 88305; 88311; 93005

== ENCOUNTER → 2025-04-25 | Outpatient (CLI) | payer MEDICARE, BC, SELFPAY ==
--- OUTSIDE RECORDS SUMMARY | 2025-03-16 14:33 | XMS RPT_ITS ---
Author Name Auto Generated Organization [facility] Care Team Providers Care Dye Tank Tender Name Role Phone NATALIO, NIKA CHI Primary Care Unavailable CHRISTIANO DODD Attending Unavailable NATALIO NIKA CHI Primary Care Unavailable TAN FRANKLIN Attending Unavailable PROBLEMS DATE TYPE CONDITION / CODE ATTENDING STATUS [facility] 03/16/2025 Active Laceration / UNK(Unknown) CHRISTIANO DODD Active [facility] 01/26/2025 Active Rhinosinusitis / J32.9(ICD-10) TAN FRANKLIN Active [facility] PROCEDURES No Procedure Records Found RESULTS PROGRESS Observed: 03/16/2025 2:46 PM Status: COMPLETED Source: [facility] HNO ID: [id number] Author: CHRISTIANO DODD PA Service: ? Author Type: Physician Sustainability Purchasing Agent Type: Progress Notes Filed: 03/16/2025 15:28 Note Text: URGENT CARE KRUNAL Francis is a 69 year old male. Patient presents with: Laceration: R calf x1.5 hours HPI 69-year-old male presents for laceration to right calf 1 and half hours ago. Patient was walking near gardening decoration and it cut the back of his leg. It was a metal gardening decoration. He has approximately 3-1/2 cm laceration to back of right calf. No active bleeding. Not on any blood thinners. Able to ambulate. No significant pain. Last tetanus 2022. Not a diabetic PAST MEDICAL HISTORY Diagnosis Date Essential hypertension Hyperlipidemia Hypothyroid PAST SURGICAL HISTORY Procedure Laterality Date EXCISION NOSE POLYP(S),SIMPLE Nasal polypectomy PAST SURGICAL HISTORY OF benign lump removal x2 vein stripping 06/2009 LLE ALLERGIES Penicillins and Pravastatin MEDICATIONS folic acid 1 mg tablet Take 2 tablets by mouth once daily. hydrOXYchloroQUINE (PLAQUENIL) 200 mg tablet Take 1.5 tablets by mouth once daily. losartan (COZAAR) 100 mg tablet methotrexate 2.5 mg tablet Take 8 tablets by mouth one time a week. rosuvastatin (CRESTOR) 40 mg tablet Take 1 tablet by mouth once daily. tamsulosin (FLOMAX) 0.4 mg levothyroxine (SYNTHROID) 112 mcg tablet Take 1 tablet by mouth once daily. famotidine (PEPCID) 40 mg tablet terbinafine HCl (LAMISIL) 250 mg tablet TAKE 1 TABLET ORALLY ONCE PER DAY FOR 90 DAYS (Patient not taking: Reported on 01/26/2025) amLODIPine (NORVASC) 5 mg tablet (Patient not taking: Reported on 01/26/2025) atorvastatin (LIPITOR) 40 mg tablet Take 1 tablet by mouth once daily. (Patient not taking: Reported on 01/26/2025) levothyroxine (SYNTHROID) 125 mcg tablet Take 1 tablet by mouth once daily. Take on empty stomach. For Thyroid (Patient not taking: Reported on 01/26/2025) Oxsnhjdjxzmij-Fcuswytf-Ljxhop (CENTRUM SILVER) tab Take 1 tablet by mouth once daily. (Patient not taking: Reported on 01/26/2025) Aspirin 81 mg tab Take 1 tablet by mouth once daily. Take with food. (Patient not taking: Reported on 01/26/2025) FAMILY HISTORY Problem Relation Age of Onset Cancer Father prostate Heart Maternal Grandfather cancer of colon Cancer Paternal Grandmother stomach other (diverticulitis [Other]) Mother SOCIAL HISTORY[1] PAST MEDICAL HISTORY Diagnosis Date Essential hypertension Hyperlipidemia Hypothyroid PAST SURGICAL HISTORY Procedure Laterality Date EXCISION NOSE POLYP(S),SIMPLE Nasal polypectomy PAST SURGICAL HISTORY OF benign lump removal x2 vein stripping 06/2009 LLE ALLERGIES Penicillins and Pravastatin MEDICATIONS folic acid 1 mg tablet Take 2 tablets by mouth once daily. hydrOXYchloroQUINE (PLAQUENIL) 200 mg tablet Take 1.5 tablets by mouth once daily. losartan (COZAAR) 100 mg tablet methotrexate 2.5 mg tablet Take 8 tablets by mouth one time a week. rosuvastatin (CRESTOR) 40 mg tablet Take 1 tablet by mouth once daily. tamsulosin (FLOMAX) 0.4 mg levothyroxine (SYNTHROID) 112 mcg tablet Take 1 tablet by mouth once daily. famotidine (PEPCID) 40 mg tablet terbinafine HCl (LAMISIL) 250 mg tablet TAKE 1 TABLET ORALLY ONCE PER DAY FOR 90 DAYS (Patient not taking: Reported on 01/26/2025) amLODIPine (NORVASC) 5 mg tablet (Patient not taking: Reported on 01/26/2025) atorvastatin (LIPITOR) 40 mg tablet Take 1 tablet by mouth once daily. (Patient not taking: Reported on 01/26/2025) levothyroxine (SYNTHROID) 125 mcg tablet Take 1 tablet by mouth once daily. Take on empty stomach. For Thyroid (Patient not taking: Reported on 01/26/2025) Vbpsfwmfpgfcw-Ybkswtvl-Mfdeax (CENTRUM SILVER) tab Take 1 tablet by mouth once daily. (Patient not taking: Reported on 01/26/2025) Aspirin 81 mg tab Take 1 tablet by mouth once daily. Take with food. (Patient not taking: Reported on 01/26/2025) FAMILY HISTORY Problem Relation Age of Onset Cancer Father prostate Heart Maternal Grandfather cancer of colon Cancer Paternal Grandmother stomach other (diverticulitis [Other]) Mother SOCIAL HISTORY[2] Review of Systems Skin: Positive for wound. Objective BP 136/85 Pulse 75 Temp 36.7 ?C (98.1 ?F) Resp 18 Wt 88.1 kg (194 lb 3.6 oz) SpO2 97% BMI 23.64 kg/m? Physical Exam Vitals and nursing note reviewed. Constitutional: General: He is not in acute distress. Appearance: Normal appearance. He is not toxic-appearing. Musculoskeletal: Right lower leg: Laceration present. Legs: Comments: Approximately 3-3.5 cm linear laceration to posterior right calf. No tenderness. No active bleeding. Small amount of adipose tissue exposed. Achilles intact. Negative Alcazar's test. Normal sensation of leg. Skin: General: Skin is warm and dry. Neurological: Mental Status: He is alert. {ASSESSMENT/PLAN: 1. Laceration of right lower leg, initial encounter - ICD9: 891.0, ICD10: S81.811A - Tetanus is up-to-date. Last tetanus 2022 - See procedure note. - Advised to keep wound clean and dry, may cover it for several days, but then uncover. - Follow-up in 7 to 10 days for suture removal Diagnosis and treatment plan were discussed and questions were answered to the patient's satisfaction. Pt acknowledged understanding of concepts and follow up plan. Specific signs and symptoms that would indicate the need for higher level of care were discussed in detail warranting prompt ER evaluation. [place] Differential Diagnoses - Laceration right lower leg is more likely for the following reason(s): suggested by HANDP Disposition The patient was discharged. Laceration Procedure: right lower leg Date/Time: 03/16/2025 3:25 PM Performed by: Christiano Dodd PA Authorized by: Christiano Dodd PA Informed Consent Consent Obtained: Verbal [place] Protocol A moment to CARE was completed. SIGN IN Special Equipment: N/A Patient/Surrogate Stated/Verified: Relevant allergies, Date of , Patient name and Intended procedure TIME OUT No relevant labs, photos, and/or imaging studies were applicable for review. Intended patient and procedure match source documents. Consent obtained and matches the intended procedure. Correct side/site marked and visible. Medications required for procedure verified. No fire risk assessment and interventions applicable. No implant(s) inserted. Laceration Repair Body area: lower extremity Location details: right lower leg Laceration length: 3.5 cm Foreign bodies: no foreign bodies Tendon involvement: none Nerve involvement: none Vascular damage: no Irrigation solution: saline Irrigation method: syringe Amount of cleaning: standard Debridement: none Degree of undermining: none Skin closure: 4-0 Prolene Number of sutures: 7 Approximation: close Approximation difficulty: simple Dressing: Nonadhesive gauze pad and Kerlix. Patient tolerance: patient tolerated the procedure well with no immediate complications SIGN OUT No specimen collected. All instruments, equipment, possible retained foreign bodies accounted for. No post-procedure POC communication to the patient or surrogate applicable. No post-procedure POC communication to the patient's multidisciplinary team (including the bedside nurse for hospitalized patients) applicable. Medications: 3 mL lidocaine 20 mg/mL (2 %) [1] Social History Tobacco Use Smoking status: Never Smokeless tobacco: Never Substance Use Topics Alcohol use: Yes Comment: beer on weekends Drug use: No[2] Social History Tobacco Use Smoking status: Never Smokeless tobacco: Never Substance Use Topics Alcohol use: Yes Comment: beer on weekends Drug use: No CNOV Observed: 03/16/2025 2:45 PM Status: COMPLETED Source: [facility] Office Visit ([facility]) RAMA FRANCIS ([id number]) 1955 M Date Time Provider Department 03/16/25 2:45 PM CHRISTIANO DODD WOTG During your visit today, we recorded the following information about you: Temperature Pulse Respiration Blood pressure 98.1 degrees 75/minute 18/minute 136/85 Weight 88.1 kg Christiano Dodd PA 03/16/2025 3:28 PM Signed [facility] C[facility] Subjective Rama Francis is a 69 year old male. Patient presents with: Laceration: R calf x1.5 hours HPI 69-year-old male presents for laceration to right calf 1 and half hours ago. Patient was walking near gardening decoration and it cut the back of his leg. It was a metal gardening decoration. He has approximately 3-1/2 cm laceration to back of right calf. No active bleeding. Not on any blood thinners. Able to ambulate. No significant pain. Last tetanus 2022. Not a diabetic PAST MEDICAL HISTORY Diagnosis Date Essential hypertension Hyperlipidemia Hypothyroid PAST SURGICAL HISTORY Procedure Laterality Date EXCISION NOSE POLYP(S),SIMPLE Nasal polypectomy PAST SURGICAL HISTORY OF benign lump removal x2 vein stripping 06/2009 LLE ALLERGIES Penicillins and Pravastatin MEDICATIONS folic acid 1 mg tablet Take 2 tablets by mouth once daily. hydrOXYchloroQUINE (PLAQUENIL) 200 mg tablet Take 1.5 tablets by mouth once daily. losartan (COZAAR) 100 mg tablet methotrexate 2.5 mg tablet Take 8 tablets by mouth one time a week. rosuvastatin (CRESTOR) 40 mg tablet Take 1 tablet by mouth once daily. tamsulosin (FLOMAX) 0.4 mg levothyroxine (SYNTHROID) 112 mcg tablet Take 1 tablet by mouth once daily. famotidine (PEPCID) 40 mg tablet terbinafine HCl (LAMISIL) 250 mg tablet TAKE 1 TABLET ORALLY ONCE PER DAY FOR 90 DAYS (Patient not taking: Reported on 01/26/2025) amLODIPine (NORVASC) 5 mg tablet (Patient not taking: Reported on 01/26/2025) atorvastatin (LIPITOR) 40 mg tablet Take 1 tablet by mouth once daily. (Patient not taking: Reported on 01/26/2025) levothyroxine (SYNTHROID) 125 mcg tablet Take 1 tablet by mouth once daily. Take on empty stomach. For Thyroid (Patient not taking: Reported on 01/26/2025) Pxrobfxuzfrpe-Ynizarts-Fozsoo (CENTRUM SILVER) tab Take 1 tablet by mouth once daily. (Patient not taking: Reported on 01/26/2025) Aspirin 81 mg tab Take 1 tablet by mouth once daily. Take with food. (Patient not taking: Reported on 01/26/2025) FAMILY HISTORY Problem Relation Age of Onset Cancer Father prostate Heart Maternal Grandfather cancer of colon Cancer Paternal Grandmother stomach other (diverticulitis [Other]) Mother SOCIAL HISTORY[1] PAST MEDICAL HISTORY Diagnosis Date Essential hypertension Hyperlipidemia Hypothyroid PAST SURGICAL HISTORY Procedure Laterality Date EXCISION NOSE POLYP(S),SIMPLE Nasal polypectomy PAST SURGICAL HISTORY OF benign lump removal x2 vein stripping 06/2009 LLE ALLERGIES Penicillins and Pravastatin MEDICATIONS folic acid 1 mg tablet Take 2 tablets by mouth once daily. hydrOXYchloroQUINE (PLAQUENIL) 200 mg tablet Take 1.5 tablets by mouth once daily. losartan (COZAAR) 100 mg tablet methotrexate 2.5 mg tablet Take 8 tablets by mouth one time a week. rosuvastatin (CRESTOR) 40 mg tablet Take 1 tablet by mouth once daily. tamsulosin (FLOMAX) 0.4 mg levothyroxine (SYNTHROID) 112 mcg tablet Take 1 tablet by mouth once daily. famotidine (PEPCID) 40 mg tablet terbinafine HCl (LAMISIL) 250 mg tablet TAKE 1 TABLET ORALLY ONCE PER DAY FOR 90 DAYS (Patient not taking: Reported on 01/26/2025) amLODIPine (NORVASC) 5 mg tablet (Patient not taking: Reported on 01/26/2025) atorvastatin (LIPITOR) 40 mg tablet Take 1 tablet by mouth once daily. (Patient not taking: Reported on 01/26/2025) levothyroxine (SYNTHROID) 125 mcg tablet Take 1 tablet by mouth once daily. Take on empty stomach. For Thyroid (Patient not taking: Reported on 01/26/2025) Vvsmzcxzxdrbu-Cxmlvdsk-Tjacjo (CENTRUM SILVER) tab Take 1 tablet by mouth once daily. (Patient not taking: Reported on 01/26/2025) Aspirin 81 mg tab Take 1 tablet by mouth once daily. Take with food. (Patient not taking: Reported on 01/26/2025) FAMILY HISTORY Problem Relation Age of Onset Cancer Father prostate Heart Maternal Grandfather cancer of colon Cancer Paternal Grandmother stomach other (diverticulitis [Other]) Mother SOCIAL HISTORY[2] Review of Systems Skin: Positive for wound. Objective BP 136/85 Pulse 75 Temp 36.7 ?C (98.1 ?F) Resp 18 Wt 88.1 kg (194 lb 3.6 oz) SpO2 97% BMI 23.64 kg/m? Physical Exam Vitals and nursing note reviewed. Constitutional: General: He is not in acute distress. Appearance: Normal appearance. He is not toxic-appearing. Musculoskeletal: Right lower leg: Laceration present. Legs: Comments: Approximately 3-3.5 cm linear laceration to posterior right calf. No tenderness. No active bleeding. Small amount of adipose tissue exposed. Achilles intact. Negative Alcazar's test. Normal sensation of leg. Skin: General: Skin is warm and dry. Neurological: Mental Status: He is alert. {ASSESSMENT/PLAN: 1. Laceration of right lower leg, initial encounter - ICD9: 891.0, ICD10: S81.811A - Tetanus is up-to-date. Last tetanus 2022 - See procedure note. - Advised to keep wound clean and dry, may cover it for several days, but then uncover. - Follow-up in 7 to 10 days for suture removal Diagnosis and treatment plan were discussed and questions were answered to the patient's satisfaction. Pt acknowledged understanding of concepts and follow up plan. Specific signs and symptoms that would indicate the need for higher level of care were discussed in detail warranting prompt ER evaluation. [place] Differential Diagnoses - Laceration right lower leg is more likely for the following reason(s): suggested by HANDP Disposition The patient was discharged. Laceration Procedure: right lower leg Date/Time: 03/16/2025 3:25 PM Performed by: Christiano Dodd PA Authorized by: Christiano Dodd PA Informed Consent Consent Obtained: Verbal [place] Protocol A moment to CARE was completed. SIGN IN Special Equipment: N/A Patient/Surrogate Stated/Verified: Relevant allergies, Date of , Patient name and Intended procedure TIME OUT No relevant labs, photos, and/or imaging studies were applicable for review. Intended patient and procedure match source documents. Consent obtained and matches the intended procedure. Correct side/site marked and visible. Medications required for procedure verified. No fire risk assessment and interventions applicable. No implant(s) inserted. Laceration Repair Body area: lower extremity Location details: right lower leg Laceration length: 3.5 cm Foreign bodies: no foreign bodies Tendon involvement: none Nerve involvement: none Vascular damage: no Irrigation solution: saline Irrigation method: syringe Amount of cleaning: standard Debridement: none Degree of undermining: none Skin closure: 4-0 Prolene Number of sutures: 7 Approximation: close Approximation difficulty: simple Dressing: Nonadhesive gauze pad and Kerlix. Patient tolerance: patient tolerated the procedure well with no immediate complications SIGN OUT No specimen collected. All instruments, equipment, possible retained foreign bodies accounted for. No post-procedure POC communication to the patient or surrogate applicable. No post-procedure POC communication to the patient's multidisciplinary team (including the bedside nurse for hospitalized patients) applicable. Medications: 3 mL lidocaine 20 mg/mL (2 %) [1] Social History Tobacco Use Smoking status: Never Smokeless tobacco: Never Substance Use Topics Alcohol use: Yes Comment: beer on weekends Drug use: No [2] Social History Tobacco Use Smoking status: Never Smokeless tobacco: Never Substance Use Topics Alcohol use: Yes Comment: beer on weekends Drug use: No Allergies As of Date: 03/16/2025 Noted Allergy Reaction PENICILLINS 07/02/2007 2 - Rash PRAVASTATIN 10/22/2011 17 - Myalgia Date Reviewed: 03/16/2025 Reviewed by: Helena Morgan MA - Fully Assessed Reason for Visit: Laceration [1747] Cmt: R calf x1.5 hours Primary Visit Diagnosis:Laceration of right lower leg, initial encounter [S81.811A] Order(s):Laceration Procedure: right lower leg [[id number]] Order #: [id number] [] lidocaine 20 mg/mL (2 %) 3 mL injection (XYLOCAINE)Disp: Rfl: Prescriptions as of 03/16/2025 - folic acid 1 mg tablet Take [...] 1 tablet by mouth once daily. - terbinafine HCl (LAMISIL) 250 mg tablet TAKE 1 TABLET ORALLY ONCE PER DAY FOR 90 DAYS - amLODIPine (NORVASC) 5 mg tablet - famotidine (PEPCID) 40 mg tablet - atorvastatin (LIPITOR) 40 mg tablet Take 1 tablet by mouth once daily. - levothyroxine (SYNTHROID) 125 mcg tablet Take 1 tablet by mouth once daily. Take on empty stomach. For Thyroid - Mzanpgcpoczhb-Ugujqqbn-Fedsjf (CENTRUM SILVER) tab Take 1 tablet by mouth once daily. - Aspirin 81 mg tab Take 1 tablet by mouth once daily. Take with food. Problem List As Of Date 03/16/2025 Noted Resolved Essential and other specified forms of tremor [*07/02/2007 02/22/2016 Mixed hyperlipidemia [E78.2] 07/02/2007 Uncomplicated Varicose Veins [I83.90] 07/02/2007 Myopia [H52.10] 07/02/2007 Allergic rhinitis, cause unspecified [J30.9] 07/02/2007 02/22/2016 Contact Dermatitis and Other Eczema, due to Uns*07/02/2007 LEG VARICOSITY W INFLAM [I83.10] 08/22/2008 Hypothyroid [E03.9] 04/25/2009 Family History of Prostate Cancer [Z80.42] 04/23/2010 Sebaceous cyst [L72.3] 04/24/2011 02/22/2016 OA (osteoarthritis) [M19.90] 10/27/2013 Prescriptions ordered this encounter Disp Refills Start End LIDOCAINE HCL 20 MG/ML (2 %) INJECTI* 03/16/2025 03/16/2025 Encounter Status:Closed by CHRISTIANO DODD on 03/16/25 PROGRESS Observed: 01/26/2025 5:52 PM Status: COMPLETED Source: [facility] HNO ID: [id number] Author: TAN FRANKLIN APRN.[facility] Service: ? Author Type: Nurse Practitioner Type: Progress Notes Filed: 01/26/2025 17:53 Note Text: [facility] Subjective Rama Francis is a [...] night, usually on Saturdays. - Advised by cook pie to avoid taking methotrexate and antibiotics simultaneously. [...] during antibiotic course; patient to confirm with cook pie on Thursday. - Educated on sun protection measures due to increased photosensitivity from current medications; recommended use of sunscreen, long-sleeve clothing, and installation of a sunshade on the tractor. and Recording using HomeJ[employer] software for draft documentation of the visit was discussed with the patient/authorized community engagement representative; all questions welcomed and answered. Patient/authorized community engagement representative agreed to proceed MDM Procedures CNOV Observed: 01/26/2025 5:30 PM Status: COMPLETED Source: [facility] Office Visit ([facility]) RAMA FRANCIS ([id number]) 1955 M Date Time Provider Department 01/26/25 5:30 PM TAN FRANKLIN [facility] During your visit today, we recorded the following information about you: Temperature Pulse Respiration Blood pressure 102.9 degrees 99/minute 18/minute 152/82 Weight 86.5 kg Tan Franklin APRN.TRANSPORT COORDINATOR 01/26/2025 5:53 PM Signed [facility] Subjective Rama Francis is a [...] night, usually on Saturdays. - Advised by cook pie to avoid taking methotrexate and antibiotics simultaneously. [...] during antibiotic course; patient to confirm with cook pie on Thursday. - Educated on sun protection measures due to increased photosensitivity from current medications; recommended use of sunscreen, long-sleeve clothing, and installation of a sunshade on the tractor. and Recording using HomeJab software for draft documentation of the visit was discussed with the patient/authorized community engagement representative; all questions welcomed and answered. Patient/authorized community engagement representative agreed to proceed MDM Procedures Allergies As of Date: 01/26/2025 Noted Allergy Reaction PENICILLINS 07/02/2007 2 - Rash PRAVASTATIN 10/22/2011 17 - Myalgia Date Reviewed: 01/26/2025 Reviewed by: Helena Morgan MA - Fully Assessed Reason for Visit: Fever [47] Cmt: Cough, chest congestion, ST x2 days Primary Visit Diagnosis:Rhinosinusitis [J32.9] Order(s):cefdinir (OMNICEF) 300 mg capsuleTake 1 [...] Take on empty stomach. For Thyroid - Kpcqqnjrsbgea-Hfubjjku-Gxzkvj (CENTRUM SILVER) tab Take 1 tablet by [...] [L72.3] 04/24/2011 02/22/2016 OA (osteoarthritis) [M19.90] 10/27/2013 Prescriptions ordered this encounter Disp Refills Start End CEFDINIR 300 MG CAPSULE 10 c* 0 01/26/2025 01/31/2025 Route: PO Sig: Take 1 capsule by mouth two times a day for 5 days. Encounter Status:Closed by TAN FRANKLIN on 01/26/25 ALLERGIES DATE TYPE / CODE NAME / CODE REACTION SEVERITY SOURCE 10/22/2011 DRUG INGREDI/[id number](SN OMED CT) PRAVASTATIN Myalgia [facility] 07/02/2007 Drug Class/[id number](SNOM ED CT) PENICILLINS RASH [facility] ENCOUNTERS ADMIT/DISCHARGE ACCOUNT NUMBER ADMITTING ENCOUNTER CLASS LOC ATION SOURCE 03/16/2025/ 5 [id number] Ambulatory [facility] 01/26/2025/ 5 [id number] Ambulatory [facility] PAYERS ENCOUNTER GUARANTOR PAYER SUBSCRIBER SOURCE 03/16/2025 Primary Insuranc e:MEDICARE A AND BPolicy Number: [id number] Date:[id number] Name:Jason OAKLEYEZEQUIELOB: [id number] [place], [place] [id number] [place] [address] 03/16/2025 Secondary Insura nce:ANTH MEDICARE SUPPLEMENTPolicy Number: [id number] Date:[id number] Name:Juan Higginbotham ELVIRAOB: [id number] [place], [place] [address] [place] [address] 01/26/2025 Primary Insuranc e:MEDICARE A AND BPolicy Number: [id number] Date:1709-27-05Jpel Name:Jason OAKLEYEZEQUIELOB: [id number] [place], [place] [id number] [place] [address] 01/26/2025 Secondary Insura nce:[facility] MEDICARE SUPPLEMENTPolicy Number: [id number] Date:1910-64-63Gxzu Name:Juan Higginbotham ELVIRAOB: [id number] [place], [place] [id number] [place] [address]
[2025-04-25 12:21] LABS: Hematocrit 40.9 % (40-54); Hemoglobin 13.7 g/dL (13.0-16.5); Immature Granulocytes Count 0.010 X10^3/uL (0.0-0.0); Mean Corp Hgb Conc 33.5 g/dL (32-36); Mean Corpuscular Volume 98.3 fL (80-94); Mean Platelet Vol. 9.1 fl (6.2-12.0); NRBC Flagged by Analyzer 0 % (0-5); Platelet Count 184 K/mm3 (150-450); RBC Distribution Width CV 13.4 % (11.6-14.6); RBC Distribution Width SD 48.5 fl (35.1-43.9); Red Blood Count 4.16 M/mm3 (4.6-6.2); White Blood Count 3.9 K/mm3 (4.4-11.0)
[2025-04-25 12:56] LABS: AST(SGOT) 25 U/L (<=37); Alanine Aminotransfer ALT/SGPT 27 U/L (<=46); Albumin, Serum 4.1 g/dL (3.4-4.8); Alkaline Phosphatase 64 U/L (40-129); Anion Gap 9 (5-15); BUN 14 mg/dL (4-19); BUN/Creat Ratio 18.8 RATIO (10-20); Calcium,Total 9.2 mg/dL (7.6-11.0); Carbon Dioxide 24.8 mmol/L (21.0-32.0); Chloride 107 mmol/L (98-108); Globulin 2.3 g/dL (2.2-4.2); Glucose 102 mg/dL (70-99); Potassium 4.7 mmol/L (3.3-5.1)
== END | disposition home or self-care (01) ==
LOC: MTLAB 10:17
PROVIDERS: PCP Family Medicine Geriatric Medicine; Referring Provider Internal Medicine Rheumatology; Visit Provider Internal Medicine Rheumatology
DX: M06.4 Inflammatory polyarthropathy (principal); Z79.899 Other long term (current) drug therapy; M47.892 Other spondylosis, cervical region
CPT/HCPCS: 36415; 80053; 85025

== ENCOUNTER → 2025-05-06 | Outpatient (CLI) | payer MEDICARE, BC, SELFPAY ==
[2025-05-06 11:54] LABS: Hematocrit 42.9 % (40-54); Hemoglobin 14.3 g/dL (13.0-16.5); Immature Granulocytes Count 0.010 X10^3/uL (0.0-0.0); Mean Corp Hgb Conc 33.3 g/dL (32-36); Mean Corpuscular Volume 97.9 fL (80-94); Mean Platelet Vol. 9.3 fl (6.2-12.0); NRBC Flagged by Analyzer 0 % (0-5); Platelet Count 198 K/mm3 (150-450); RBC Distribution Width CV 13.2 % (11.6-14.6); RBC Distribution Width SD 47.1 fl (35.1-43.9); Red Blood Count 4.38 M/mm3 (4.6-6.2); White Blood Count 3.9 K/mm3 (4.4-11.0)
[2025-05-06 13:10] LABS: AST(SGOT) 26 U/L (<=37); Alanine Aminotransfer ALT/SGPT 26 U/L (<=46); Albumin, Serum 4.2 g/dL (3.4-4.8); Alkaline Phosphatase 65 U/L (40-129); Anion Gap 8 (5-15); BUN 14 mg/dL (4-19); BUN/Creat Ratio 16.5 RATIO (10-20); Calcium,Total 9.0 mg/dL (7.6-11.0); Carbon Dioxide 25.9 mmol/L (21.0-32.0); Chloride 108 mmol/L (98-108); Globulin 2.6 g/dL (2.2-4.2); Glucose 100 mg/dL (70-99); PSA,Total - Annual Screen 3.17 ng/mL (0.02-4.00); Potassium 5.3 mmol/L (3.3-5.1)
[2025-05-06 13:10] LABS: Vitamin D,25 Hydroxy 36.4 ng/mL (30-100)
== END | disposition home or self-care (01) ==
PROVIDERS: PCP Family Medicine Geriatric Medicine; Referring Provider Family Medicine Geriatric Medicine; Visit Provider Family Medicine Geriatric Medicine
DX: Z12.5 Encounter for screening for malignant neoplasm of prostate (principal); I10 Essential (primary) hypertension; E03.9 Hypothyroidism, unspecified; E55.9 Vitamin D deficiency, unspecified
CPT/HCPCS: 36415; 80053; 82306; 84153; 84443; 85025; G0103

== ENCOUNTER → 2025-05-17 | Outpatient (CLI) | payer MEDICARE, BC, SELFPAY ==
[2025-05-17 15:57] LABS: Anion Gap 7 (5-15); BUN 16 mg/dL (4-19); BUN/Creat Ratio 21.0 RATIO (10-20); Calcium,Total 9.0 mg/dL (7.6-11.0); Carbon Dioxide 28.2 mmol/L (21.0-32.0); Chloride 105 mmol/L (98-108); Glucose 88 mg/dL (70-99); Potassium 4.3 mmol/L (3.3-5.1)
== END | disposition home or self-care (01) ==
LOC: POLAB3 14:28
PROVIDERS: PCP Family Medicine Geriatric Medicine; Visit Provider Family Medicine Geriatric Medicine
DX: I10 Essential (primary) hypertension (principal)
CPT/HCPCS: 36415; 80048

== ENCOUNTER → 2025-07-25 | Outpatient (CLI) | payer MEDICARE, BC, SELFPAY ==
[2025-07-25 12:27] LABS: Hematocrit 43.3 % (40-54); Hemoglobin 14.0 g/dL (13.0-16.5); Immature Granulocytes Count 0.010 X10^3/uL (0.0-0.0); Mean Corp Hgb Conc 32.3 g/dL (32-36); Mean Corpuscular Volume 98.0 fL (80-94); Mean Platelet Vol. 9.4 fl (6.2-12.0); NRBC Flagged by Analyzer 0 % (0-5); Platelet Count 168 K/mm3 (150-450); RBC Distribution Width CV 13.2 % (11.6-14.6); RBC Distribution Width SD 47.9 fl (35.1-43.9); Red Blood Count 4.42 M/mm3 (4.6-6.2); White Blood Count 3.7 K/mm3 (4.4-11.0)
[2025-07-25 12:29] LABS: AST(SGOT) 23 U/L (<=37); Alanine Aminotransfer ALT/SGPT 19 U/L (<=46); Albumin, Serum 4.0 g/dL (3.4-4.8); Alkaline Phosphatase 63 U/L (40-129); Anion Gap 8 (7-18); BUN 14 mg/dL (4-19); BUN/Creat Ratio 16.0 RATIO (10-20); Calcium,Total 8.7 mg/dL (7.6-11.0); Carbon Dioxide 26.1 mmol/L (20.0-29.0); Chloride 107 mmol/L (96-106); Globulin 2.4 g/dL (2.2-4.2); Glucose 103 mg/dL (70-99); Potassium 4.3 mmol/L (3.5-5.1)
== END | disposition home or self-care (01) ==
LOC: MTLAB 10:40
PROVIDERS: PCP Family Medicine Geriatric Medicine; Referring Provider Internal Medicine Rheumatology; Visit Provider Internal Medicine Rheumatology
DX: M06.4 Inflammatory polyarthropathy (principal); Z79.899 Other long term (current) drug therapy
CPT/HCPCS: 36415; 80053; 85025